=== PATIENT | female | born 1980 | race Caucasian/White ===

== ENCOUNTER 2018-05-07 09:23 | Outpatient (CLI) | payer MEDICARE, MEDICAID, SELFPAY ==
[2018-05-07 11:22] LABS: ALT 31 U/L (12-78); AST 19 U/L (15-37); Albumin 3.9 g/dL (3.4-5.0); Alkaline Phosphatase 63 U/L (46-116); Anion Gap 7.7 mmol/L (3-11); BUN 14 mg/dL (7-18); Bilirubin, Total 0.7 mg/dL (0.2-1.0); CO2 27.3 mmol/L (21.0-32.0); CREATININE 0.94 mg/dL (0.55-1.02); Calcium 8.5 mg/dL (8.5-10.1); Chloride 104 mmol/L (98-107); Cholesterol 161 mg/dL (50-200); Glucose 109 mg/dL (70-100); HDL Cholesterol 67 mg/dL (40-60); LDL CHOLESTEROL 93 mg/dL (<100); Potassium 4.5 mmol/L (3.5-5.1); Sodium 139 mmol/L (136-145); TSH 2.17 uIU/mL (0.358-3.74); Total Protein 7.2 g/dL (6.4-8.2); Triglyceride 39 mg/dL (30-150)
[2018-05-07 18:15] LABS: Lithium 0.71 mmol/L (0.60-1.20)
== END 2018-05-07 09:43 ==
PROVIDERS: PCP Internal Medicine; Visit Provider Nurse Practitioner Family
DX: F31.2 Bipolar disorder, current episode manic severe with psychotic features (principal); Z51.81 Encounter for therapeutic drug level monitoring; Z79.899 Other long term (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
CPT/HCPCS: 36415; 80053; 80061; 83721; 80178; 84443

== ENCOUNTER 2018-05-25 09:30 | Emergency (ER) | payer MEDICARE, MEDICAID, SELFPAY ==
[2018-05-25 09:35] VITALS: BP 130/76; PULSE 105; RESP 18; TEMP 36.8; O2SAT 99
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
[2018-05-25] MEDS: Ketorolac 30 MG/ML VIAL 15 MG IV (10:06)
[2018-05-25] MEDS: Normal Saline 1,000 ML 1000 ML IV (10:07)
[2018-05-25 10:08] LABS: Eosinophils % 1.1; HCT 42.9 % (36.0-46.0); HGB 14.3 g/dL (12.0-15.5); Mean Corp. HGB Concentration 33.3 g/dL (32.0-36.0); Mean Corpuscular Hemoglobin 31.6 pg (27.0-33.0); Mean Corpuscular Volume 94.9 fL (80-95); Mean Platelet Volume 9.4 fL (8.0-11.0); Monocytes % 10.8; Neutrophils % 80.6; Platelet Count 214 x1000/uL (130-400); RBC 4.52 m/cumm (4.00-5.20); RBC Distribution Width 13.3 % (11.7-14.6); White Blood Cell Count 16.62 k/cumm (4.4-10.8)
[2018-05-25 10:09] LABS: Abs Immature Grans 0.03 k/cumm (0.0-0.09); Absolute Basophil Count 0.05 k/cumm (0.0-0.2); Absolute Eosinophil Count 0.18 k/cumm (0.0-0.7); Absolute Lymphocyte Count 1.16 k/cumm (1.2-3.4); Absolute Monocyte Count 1.79 k/cumm (0.11-0.7); Basophils % 0.3; Immature Grans % 0.2
[2018-05-25 10:21] LABS: ALT 26 U/L (12-78); AST 17 U/L (15-37); Albumin 3.9 g/dL (3.4-5.0); Alkaline Phosphatase 69 U/L (46-116); Anion Gap 9.5 mmol/L (3-11); BUN 11 mg/dL (7-18); Bilirubin, Total 0.8 mg/dL (0.2-1.0); CO2 28.5 mmol/L (21.0-32.0); CREATININE 0.84 mg/dL (0.55-1.02); Calcium 8.8 mg/dL (8.5-10.1); Chloride 99 mmol/L (98-107); Glucose 102 mg/dL (70-100); Potassium 3.4 mmol/L (3.5-5.1); Sodium 137 mmol/L (136-145); Total Protein 8.4 g/dL (6.4-8.2)
[2018-05-25 10:35] LABS: Diff Comment Diff Reviewed
[2018-05-25 10:43] LABS: Bilirubin Negative (Negative); Blood Large (Negative); Clarity Cloudy; Glucose Negative (Negative); Ketones Trace mg/dL (Negative); Leukocyte Esterase Large (Negative); Nitrite Positive (Negative); Specific Gravity 1.015 (1.005-1.025); pH 7.5 (5-8)
[2018-05-25 10:56] LABS: Bacteria Many HPF (Negative); C & S Indicated? No/Sq. Contamination; Casts Negative LPF (Negative); Crystals Negative HPF (Negative); Epithelial Cells Many HPF (Negative); Mucus Heavy (Negative); RBC >50 (0-2); WBC >50 HPF (0-5)
[2018-05-25 11:24] LABS: Bilirubin Negative (Negative); Blood Moderate (Negative); Clarity Sl Cloudy; Glucose Negative (Negative); Ketones Negative (Negative); Leukocyte Esterase Moderate (Negative); Nitrite Positive (Negative)
[2018-05-25 11:33] LABS: Bacteria Many HPF (Negative); C & S Indicated? C&S Done As Ordered; Casts Negative LPF (Negative); Crystals Negative HPF (Negative); Epithelial Cells Few HPF (Negative); Mucus Negative (Negative); Other Cells Few Renal (Negative); RBC 20-50 (0-2); WBC >50 HPF (0-5)
[2018-05-25 13:37] VITALS: BP 135/80; PULSE 78; RESP 18; TEMP 36.8; O2SAT 95
== END 2018-05-25 13:38 | disposition home or self-care (01) ==
PROVIDERS: Emergency Provider Student in an Organized Health Care Education/Training Program; PCP Internal Medicine
DX: R39.0 Extravasation of urine (principal); B96.20 Unspecified Escherichia coli [E. coli] as the cause of diseases classified elsewhere
CPT/HCPCS: 80053; 87077; 96361; 96365; 96375; 99284; 81003; 81015; 85025; 87086; 87186; J0696; J1885

== ENCOUNTER 2018-11-16 15:39 | Emergency (ER) | payer MEDICARE, MEDICAID, SELFPAY ==
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
[2018-11-16 16:06] VITALS: PULSE 78; RESP 17
--- NOTE | 2018-11-16 16:22 | DI.RAD_ITS ---
SYMPTOMS/DIAGNOSIS: LATERAL ANKLE PAIN RIGHT ANKLE: There is marked lateral soft tissue swelling. There is a nondisplaced fracture extending transversely through the lateral malleolus at the level of the ankle mortise. There is also an area of fracture impaction seen at the lateral aspect of the distal tibia. The ankle mortise does not appear widened. IMPRESSION: Fractures of the distal tibia and fibula.
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
[2018-11-16] MEDS: Acetaminophen 500 MG TAB 1000 MG PO (16:34)
--- NOTE | 2018-11-16 18:02 | DI.VRAD_ITS ---
EXAM: XR Right Ankle Complete, 3 or more Views EXAM DATE/TIME: 11/16/2018 4:24 PM CLINICAL HISTORY: 38 years old, female; Pain; Ankle; Right TECHNIQUE: Imaging protocol: XR Right ankle 3 or more views. COMPARISON: No relevant prior studies available. FINDINGS: Bones/joints: Nondisplaced fracture in the distal fibula. Soft tissues: Lateral malleolar soft tissue swelling. IMPRESSION: 1. Lateral malleolar soft tissue swelling. 2. Nondisplaced fracture in the distal fibula. Dictated and Authenticated by: Willian Neves MD. Ordering:ILSA Guzman MD
== END 2018-11-16 18:36 | disposition home or self-care (01) ==
PROVIDERS: Emergency Provider Nurse Practitioner Family; PCP Internal Medicine
DX: S82.831A Other fracture of upper and lower end of right fibula, initial encounter for closed fracture (principal); X58.XXXA Exposure to other specified factors, initial encounter
CPT/HCPCS: 27786; 73610; E0114; L4361

== ENCOUNTER 2018-12-01 13:29 | Outpatient (CLI) | payer MEDICARE, MEDICAID, SELFPAY ==
--- NOTE | 2018-12-01 13:01 | DI.RAD_ITS ---
SYMPTOMS/DIAGNOSIS: RIGHT ANKLE FX RIGHT ANKLE: Four views were obtained and show a previously described fracture of the distal fibula with no gross interval change in alignment in comparison with the examination of November 16.
== END 2018-12-01 13:49 ==
PROVIDERS: PCP Internal Medicine; Referring Provider Internal Medicine; Visit Provider Student in an Organized Health Care Education/Training Program
DX: S82.64XA Nondisplaced fracture of lateral malleolus of right fibula, initial encounter for closed fracture (principal); X50.0XXA Overexertion from strenuous movement or load, initial encounter
CPT/HCPCS: 99204; 99214; 73610

== ENCOUNTER 2018-12-29 10:22 | Outpatient (CLI) | payer MEDICARE, MEDICAID, SELFPAY ==
--- NOTE | 2018-12-29 10:03 | DI.RAD_ITS ---
SYMPTOM/DIAGNOSIS: F/U FX RIGHT ANKLE: Three views were obtained and show a previously described minimally displaced fracture of the distal fibula with no gross interval change in alignment of the fracture fragments in comparison with the examination of 12/01.
== END 2018-12-29 10:42 ==
PROVIDERS: PCP Internal Medicine; Referring Provider Internal Medicine; Visit Provider Student in an Organized Health Care Education/Training Program
DX: S82.64XA Nondisplaced fracture of lateral malleolus of right fibula, initial encounter for closed fracture (principal); X58.XXXA Exposure to other specified factors, initial encounter
CPT/HCPCS: 99213; 73610; L1902

== ENCOUNTER 2019-02-09 09:43 | Outpatient (CLI) | payer MEDICARE, MEDICAID, SELFPAY ==
--- NOTE | 2019-02-09 09:22 | DI.RAD_ITS ---
SYMPTOMS/DIAGNOSIS: F/U RT LATERAL MALLEOLUS FRACTURE RIGHT ANKLE: Three views. Comparison 12/29/18. There is again seen a fracture of the distal right fibula. No change in alignment of the fracture is seen. No new fractures or dislocations are seen. There is persistent soft tissue swelling about the ankle laterally.
== END 2019-02-09 10:03 ==
PROVIDERS: PCP Internal Medicine; Referring Provider Internal Medicine; Visit Provider Student in an Organized Health Care Education/Training Program
DX: S82.64XK Nondisplaced fracture of lateral malleolus of right fibula, subsequent encounter for closed fracture with nonunion; X58.XXXD Exposure to other specified factors, subsequent encounter
CPT/HCPCS: 99213; 73610

== ENCOUNTER 2019-03-09 11:56 | Outpatient (CLI) | payer MEDICARE, MEDICAID, SELFPAY ==
[2019-03-09 13:23] LABS: ALT 29 U/L (12-78); AST 18 U/L (15-37); Albumin 3.8 g/dL (3.4-5.0); Alkaline Phosphatase 73 U/L (46-116); Anion Gap 9.7 mmol/L (3-11); BUN 8 mg/dL (7-18); Bilirubin, Total 0.3 mg/dL (0.2-1.0); CO2 24.3 mmol/L (21.0-32.0); CREATININE 0.91 mg/dL (0.55-1.02); Calcium 8.9 mg/dL (8.5-10.1); Calculated LDL 95 mg/dL; Chloride 105 mmol/L (98-107); Cholesterol 161 mg/dL (50-200); Glucose 111 mg/dL (70-100); HDL Cholesterol 58 mg/dL (40-60); Potassium 4.9 mmol/L (3.5-5.1); Sodium 139 mmol/L (136-145); TSH 2.85 uIU/mL (0.36-3.74); Total Protein 7.2 g/dL (6.4-8.2); Triglyceride 40 mg/dL (30-150)
[2019-03-09 13:44] LABS: Lithium 1.04 mmol/L (0.60-1.20)
== END 2019-03-09 12:16 ==
PROVIDERS: PCP Internal Medicine; Visit Provider Nurse Practitioner Family
DX: F31.2 Bipolar disorder, current episode manic severe with psychotic features (principal); Z51.81 Encounter for therapeutic drug level monitoring; Z79.899 Other long term (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
CPT/HCPCS: 36415; 80053; 80061; 83721; 80178; 84443

== ENCOUNTER 2019-04-20 12:53 | Outpatient (CLI) | payer MEDICARE, MEDICAID, SELFPAY ==
--- NOTE | 2019-04-20 11:29 | DI.RAD_ITS ---
EXAM: XR ANKLE RT COMPLETE INDICATION: Rt lateral malleolar fx. COMPARISON: XR ANKLE RT COMPLETE from 02/09/2019 TECHNIQUE: 2D digital imaging was performed. FINDINGS: The examination is compared with a previous study of 02/09/2019. Again noted is the mildly displaced f racture of the distal fibula. The fracture line remains visible with findings suggesting nonunion.
== END 2019-04-20 13:13 ==
PROVIDERS: PCP Internal Medicine; Referring Provider Internal Medicine; Visit Provider Student in an Organized Health Care Education/Training Program
DX: S82.61XK Displaced fracture of lateral malleolus of right fibula, subsequent encounter for closed fracture with nonunion (principal); X58.XXXD Exposure to other specified factors, subsequent encounter; F17.210 Nicotine dependence, cigarettes, uncomplicated
CPT/HCPCS: 99213; 73610

== ENCOUNTER 2019-05-26 08:34 | Day surgery (SDC) | payer MEDICARE, MEDICAID, SELFPAY ==
[2019-05-26] VITALS (8 sets, daily range): BP systolic 90–111; BP diastolic 61–77; PULSE 62–78; RESP 13–19; TEMP 36–36.4; O2SAT 93–99
--- NOTE | 2019-05-26 09:08 | DI.RAD_ITS ---
EXAM: 2D digital imaging was performed. CLINICAL HISTORY: RIGHT ANKLE FRACTURE. COMPARISON: XR ANKLE RT COMPLETE from 04/20/2019 FINDINGS: Fluoroscopy was utilized by Dr. Schmitz during the internal fixation of the right fibular fracture. Hard copy images show an intramedullary carley transfixing the fracture. The alignment of the fracture appears anatomic. Please refer to the procedure report for complete details. Fluoro time 56.0 sec
[2019-05-26] MEDS: Lactated Ringers 1,000 ML 80 ML IV (09:50)
[2019-05-26] MEDS: ceFAZolin 2 GM/50 ML BAG IVPB (10:00)
--- NOTE | 2019-05-26 10:38 | PDOC.DSDIS_ITS ---
Discharge Plan Disposition Patient Disposition: HOME Condition: Good Discharge Details Reason For Visit: ORIF R ankle Attending Provider: Mark Schmitz Primary Care Provider: Ava Messina Home Meds and New Rx's Prescriptions: New oxycodone 5 mg tablet 5 mg PO Q8H MDD 15mg PRN (Reason: pain) Qty: 10 RF: 0 Continued polyethylene glycol 3350 17 gram/dose powder See Rx Instructions PO DAILY PRN (Reason: constipation) Qty: 850 RF: 2 gabapentin 800 mg tablet 800 mg PO TID Qty: 180 RF: 3 Linzess 145 mcg capsule 145 mcg PO DAILY Qty: 90 RF: 3 ibuprofen 600 mg tablet 600 mg PO TID PRN (Reason: pain) Qty: 90 RF: 1 albuterol sulfate [Proventil HFA] 90 mcg/actuation HFA aerosol inhaler 1 - 2 puff IH Q4H Qty: 6.7 RF: 11 Symbicort 160-4.5 mcg/actuation HFA aerosol inhaler 2 puff Inhalation BID Qty: 1 RF: 11 Linzess 72 mcg capsule 72 mcg PO DAILY Qty: 30 RF: 11 olanzapine 15 MG tablet 20 mg PO HS RF: 0 clonidine HCl 0.2 MG tablet 0.2 mg PO BID RF: 0 lithium carbonate 450 MG tablet extended release 450 mg PO HS RF: 0 acetaminophen 500 MG tablet 1,000 mg PO Q6H PRN Qty: 50 RF: 5 Vyvanse 70 MG capsule 70 mg PO DAILY RF: 0 quetiapine [Seroquel] 50 MG tablet 100 mg PO HS RF: 0 docusate sodium [Colace] 100 MG capsule 100 mg PO DAILY Qty: 90 RF: 3 blister pack 30 Days RF: 0 sennosides [senna] 8.6 MG tablet 8.6 mg PO HS Qty: 90 RF: 11 methylphenidate HCl [Ritalin] 20 MG tablet 20 mg PO DAILY RF: 0 bupropion HCl [Wellbutrin SR] 100 MG tablet extended release 12 hr 100 mg PO DAILY RF: 0 (DME) Space Chamber Plus 1 EACH spacer Miscellaneous BID Qty: 1 RF: 0 IUD insert CERVICAL RF: 0 montelukast 10 mg tablet 10 mg PO HS Qty: 30 RF: 6 lactulose 20 gram/30 mL solution 20 gm PO BID Qty: 60 RF: 2 peg 3350-electrolytes [Golytely] 236-22.74-6.74 -5.86 gram recon soln See Rx Instructions PO .COMPLEX Qty: 4000 RF: 0 levothyroxine 50 mcg tablet 50 mcg PO DAILY Qty: 30 RF: 11 Discharge Instructions Additional Instructions: Ankle Operative Fixation Instructions Activity: You may weight bear as tolerated while using the crutches. You should keep the leg elevated as much as possible. You may wiggle your toes and move your hip and knee. You should wear the fracture walking boot when you are up and mobilizing, but may remove it when not and move your ankle as tolerated. Dressings: You should keep the initial dressing on until your follow up visit in the office. Medications: - You should take Tylenol and Ibuprofen around the clock for baseline pain. - You have been prescribed a stronger narcotic, oxycodone, for breakthrough pain. Follow-up: 2 weeks Referrals: Mark Schmitz MD [ [facility] STAFF PHYSICIAN] - Equipment/Supplies: Brace and Partial Weight Bearing Crutches Activity:: Activity as Tolerated Remove Dressings/Wound Care:: Do Not Remove Shower/Bathe:: Cover Diet:: As Tolerated DS: Diagnosis Discharge Diagnosis (1) Fracture of right ankle, lateral malleolus: Status: Chronic
[2019-05-26] MEDS: fentaNYL 100 MCG/2 ML VIAL IVP (12:12)
[2019-05-26] MEDS: oxyCODONE 5 MG TAB PO (13:31)
--- NOTE | 2019-05-27 09:21 | ROE_ITS ---
REPORT OF OPERATIVE PROCEDURE DATE OF SURGERY May 26, 2019 PREOPERATIVE DIAGNOSIS Right distal fibula nonunion. POSTOPERATIVE DIAGNOSIS Right distal fibula nonunion. PROCEDURE Operative fixation of right distal fibula nonunion. SURGEON Mark Schmitz M.D. ANESTHESIA General. ESTIMATED BLOOD LOSS 10 cc IMPLANTS Arthrex FibuLock 3 mm fibular nail. FINDINGS There was a nonunion of the distal fibula with no bony bridging of the fracture site. This was thoroughly debrided, stimulated with curette and osteotomes, packed with ViviGen, and transfixed with a fibular nail. COMPLICATIONS None. DISPOSITION The patient was awakened from anesthesia and taken to the PACU in stable condition. INDICATION FOR PROCEDURE Mayr Jane is a 39-year old who suffered a supination-adduction injury of her right ankle. She suffered a low Doss B or a high Doss A fibular fracture. This was treated conservatively. She seemed to make improvements with her ambulatory status, but still had continued pain. Repeat x-ray showed that the distal fibular had gone on to a nonunion. There were no signs of healing. Given the symptoms of pain, duration of time, I recommended operative fixation of a nonunion. I reviewed the technical features of the case. Given the extremely low level of the fibula made this technically challenging. I discussed this with the patient. I also reviewed the other risks to include bleeding, infection, pain, stiffness, continued nonunion, malunion, damage to nerves and vessels, damage to muscles and tendons, hardware prominence, hardware pain, hardware failure, blood clot, need for repeat procedures. Despite these risks, she elected to proceed. PROCEDURE DESCRIPTION Mary Jane was greeted in the preoperative holding area. Her identity was confirmed and the correct side was identified and marked. The consent was reviewed with the patient and signed. The history and physical was updated. The patient was taken back to the Operating Room, placed in the supine position. A general anesthetic was given. The right leg was then placed onto a bone foam leg ramp. A bump was placed underneath the right side to internally rotate the right leg. The right leg was then prepped with ChloraPrep and draped in a standard fashion. Prophylactic antibiotics in the form of cefazolin were given. A timeout was performed for safe surgery. Approximately a 6-cm incision was made overlying the distal fibula. This area was then injected with 0.25% bupivacaine with epinephrine. The deeper tissues were then incised directly over the fibula. The periosteum of the fibula was noted to be extremely thickened in this area. It was elevated and a subperiosteal dissection around the fibula at the level of the fracture. The fracture ridge was identified. With very minimal effort using a curette and osteotomes, the fracture plane was able to be identified. There was a notable amount of fibrous tissue seen in this area. Using curette, this was all removed. The distal segment of the fibula was loose, and was easily mobile. There noted to be more of a defect laterally than medially. Using a curette, I continued to remove out any excess fibrous tissue. I also used a curette to scrap the bone surfaces. There was no sclerosis seen in this area. Using a set of tenaculum clamps, I was able to compress the fracture back down leaving less than 2-mm of gapping laterally, but still maintaining reduction. I then opened ViviGen, bone matrix. This was prepared on the back table and then inserted into the fracture site to promote union. An Arthrex FibuLock nail was then placed. This was first done by placing a guidewire up the fibula; confirmed to be in good position on both the AP and the lateral. An opening reamer was then used followed by reamer up into the isthmus of the fibula. A 3-mm nail was then inserted without difficulty and only light mallet blows. This transfixed the fracture and noted good stability although the fracture level was low. I was able to have two screws in the distal segment. The talons of the proximal aspect of the femur were then locked. Two screws were placed distally. The third most distal screw fell into the fracture site and therefore was not used. This appeared to have good stability of the fracture. The fracture was nonmobile. Any remnant ViviGen was placed at the fracture site. The screws were not proud and noted not to penetrate into the joint surface. The wound was then irrigated. 0.25% bupivacaine with epinephrine was injected to any of the deep surfaces and periosteal surfaces. The periosteum around the fibula was then closed with a #2-0 Vicryl. The deep tissues was closed with #3-0 Vicryl. The skin was closed with #4-0 Nylon. The wound was dressed with 4x4s and an Otilio wrap. She was then placed into a walker boot. At the end of the case, all counts were correct. There were no noted complications. She was transferred back to the PACU in stable condition.
== END 2019-05-26 14:47 | disposition home or self-care (01) ==
PROVIDERS: PCP Internal Medicine; Visit Provider Student in an Organized Health Care Education/Training Program
PROC: (CPT 27726; principal; 2019-05-26 10:15)
DX: S82.61XK Displaced fracture of lateral malleolus of right fibula, subsequent encounter for closed fracture with nonunion (principal); M25.571 Pain in right ankle and joints of right foot; X58.XXXD Exposure to other specified factors, subsequent encounter
CPT/HCPCS: 27726; C1713; 73600; E0114; J0690; J3010; L4361

== ENCOUNTER 2019-06-08 15:51 | Outpatient (CLI) | payer MEDICARE, MEDICAID, SELFPAY ==
--- NOTE | 2019-06-08 15:41 | DI.RAD_ITS ---
EXAM: XR ANKLE RT COMPLETE INDICATION: 1ST POST OP. COMPARISON: XR ANKLE RT COMPLETE from 04/20/2019 XR ANKLE RT 2V from 05/26/2019 TECHNIQUE: 2D digital imaging was performed. FINDINGS: There is again seen an intramedullary carley transfixing the fracture of the distal right fibula. It is unchanged compared to the intraoperative films from 05/26/2019. There is soft tissue swelling about the ankle laterally.
== END 2019-06-08 16:11 ==
PROVIDERS: PCP Internal Medicine; Visit Provider Student in an Organized Health Care Education/Training Program
DX: S82.64XK Nondisplaced fracture of lateral malleolus of right fibula, subsequent encounter for closed fracture with nonunion (principal); X58.XXXD Exposure to other specified factors, subsequent encounter; F17.210 Nicotine dependence, cigarettes, uncomplicated
CPT/HCPCS: L4360; 73610

== ENCOUNTER 2019-06-22 15:34 | Outpatient (CLI) | payer MEDICARE, MEDICAID, SELFPAY ==
--- NOTE | 2019-06-22 15:27 | DI.RAD_ITS ---
EXAM: XR ANKLE RT COMPLETE INDICATION: f/u of right ankle ORIF. COMPARISON: XR ANKLE RT COMPLETE from 06/08/2019 TECHNIQUE: 2D digital imaging was performed. FINDINGS: Anintramedullary carley remains in place in the distal fibula. There has been no change in fracture ali gnment. Soft tissue swelling remains present around the lateral aspect of the ankle. No new abnorma lities are seen.
== END 2019-06-22 15:54 ==
PROVIDERS: PCP Internal Medicine; Referring Provider Internal Medicine; Visit Provider Student in an Organized Health Care Education/Training Program
DX: S82.64XD Nondisplaced fracture of lateral malleolus of right fibula, subsequent encounter for closed fracture with routine healing (principal); X58.XXXD Exposure to other specified factors, subsequent encounter; F17.210 Nicotine dependence, cigarettes, uncomplicated
CPT/HCPCS: 73610

== ENCOUNTER 2019-08-06 12:28 | Outpatient (CLI) | payer MEDICARE, MEDICAID, SELFPAY ==
--- NOTE | 2019-08-06 11:55 | DI.RAD_ITS ---
EXAM: XR ANKLE RT 2V CLINICAL HISTORY: f/u R lat mal nonunion fixation TECHNIQUE: COMPARISON: XR ANKLE RT COMPLETE from 06/22/2019 FINDINGS: Two views were obtained and show fixation of fracture of the distal fibula with no gross interval tracey nge in alignment in comparison with examination of June 22. IMPRESSION:
== END 2019-08-06 12:48 ==
PROVIDERS: PCP Internal Medicine; Referring Provider Internal Medicine; Visit Provider Student in an Organized Health Care Education/Training Program
DX: S82.61XD Displaced fracture of lateral malleolus of right fibula, subsequent encounter for closed fracture with routine healing; X58.XXXD Exposure to other specified factors, subsequent encounter
CPT/HCPCS: 73600; L1902

== ENCOUNTER → 2019-09-14 13:33 | Outpatient (BNVA) | payer MEDICARE, MEDICAID, SELFPAY | PROVIDERS: PCP Internal Medicine; Referring Provider Internal Medicine; Visit Provider Student in an Organized Health Care Education/Training Program | DX: S82.61XA Displaced fracture of lateral malleolus of right fibula, initial encounter for closed fracture (principal); S82.64XK Nondisplaced fracture of lateral malleolus of right fibula, subsequent encounter for closed fracture with nonunion; X58.XXXD Exposure to other specified factors, subsequent encounter | CPT/HCPCS: 99212 ==

== ENCOUNTER 2019-10-20 15:59 | Emergency (ER) | payer MEDICARE, MEDICAID, SELFPAY ==
[2019-10-20 16:04] VITALS: BP 97/81; PULSE 72; RESP 18; TEMP 36.9; O2SAT 97
--- NOTE | 2019-10-20 16:20 | ED.GENADUL_ITS ---
Discharge Plan Disposition Patient Disposition: HOME Condition: Stable Discharge Details Chief Complaint: Nausea/Vomit/Diar Clinical Impression: Encounter for medical screening examination Primary Care Provider: Ava Messina ED Provider: Ramon Mcfarlane Home Meds and New Rx's Prescriptions: No Action polyethylene glycol 3350 17 gram/dose powder See Rx Instructions PO DAILY PRN (Reason: constipation) Qty: 850 RF: 2 gabapentin 800 mg tablet 800 mg PO TID Qty: 180 RF: 3 Linzess 145 mcg capsule 145 mcg PO DAILY Qty: 90 RF: 3 ibuprofen 600 mg tablet 600 mg PO TID PRN (Reason: pain) Qty: 90 RF: 1 peg 3350-electrolytes [Golytely] 236-22.74-6.74 -5.86 gram recon soln See Rx Instructions PO DAILY Qty: 4000 RF: 11 albuterol sulfate [Proventil HFA] 90 mcg/actuation HFA aerosol inhaler 1 - 2 puff IH Q4H Qty: 6.7 RF: 11 prednisone 10 mg tablet See Rx Instructions PO DAILY Qty: 16 RF: 0 budesonide-formoterol [Symbicort] 160-4.5 mcg/actuation HFA aerosol inhaler 2 puff Inhalation BID Qty: 1 RF: 11 olanzapine 15 MG tablet 20 mg PO HS RF: 0 clonidine HCl 0.2 MG tablet 0.2 mg PO BID RF: 0 lithium carbonate 450 MG tablet extended release 450 mg PO HS RF: 0 acetaminophen 500 MG tablet 1,000 mg PO Q6H PRN Qty: 50 RF: 5 Vyvanse 70 MG capsule 70 mg PO DAILY RF: 0 quetiapine [Seroquel] 50 MG tablet 100 mg PO HS RF: 0 docusate sodium [Colace] 100 MG capsule 100 mg PO DAILY Qty: 90 RF: 3 blister pack 30 Days RF: 0 sennosides [senna] 8.6 MG tablet 8.6 mg PO HS Qty: 90 RF: 11 methylphenidate HCl [Ritalin] 20 MG tablet 20 mg PO DAILY RF: 0 bupropion HCl [Wellbutrin SR] 100 MG tablet extended release 12 hr 100 mg PO DAILY RF: 0 (DME) Space Chamber Plus 1 EACH spacer Miscellaneous BID Qty: 1 RF: 0 IUD insert CERVICAL RF: 0 levothyroxine 50 mcg tablet 50 mcg PO DAILY Qty: 30 RF: 11 montelukast 10 mg tablet 10 mg PO HS Qty: 30 RF: 6 Discharge Instructions Additional Instructions: At this time he has been asymptomatic for over 48 hours. I see no clear indication why you may not return to work. Given you work with the public, be sure to wash your hands frequently and thoroughly I do recommend wearing a mask at all times. Stand Alone Forms: Work Release Medical Decision Making 39-year-old female who is asymptomatic request a work note. She reports having nausea, vomiting, diarrhea, abdominal cramping on Saturday, has been asymptomatic for over 48 hours. No known exposure to the coronavirus nor has she had any recent travel. At this time she does not meet clear criteria for Covid testing. Will provide a work note so she may return tomorrow Medical Records Medical records reviewed: Yes I reviewed the patient's medical records. HPI General Mode of arrival: ambulatory . Date/Time Provider Initiated Documentation: 10/20/19 16:20 . Limitations to Documentation: no limitations . Information obtained by: patient . HPI Narrative: This is a 39-year-old female with a history of asthma presenting to the ER today requesting a work note that she may return to work. She reports that on Saturday she had nausea, vomiting, diarrhea, abdominal cramping and was unable to go to work. She had no fever at that time. She denies any recent travel or any known exposure with a positive coronavirus patient. She has been asymptomatic for over 48 hours. She has no additional questions or concerns at this time. She works tomorrow and her work will not let her return unless she is medically cleared Related Data Home Medications Medication Instructions Recorded Confirmed olanzapine 20 mg PO HS tab-cap 08/05/14 09/14/19 clonidine HCl 0.2 mg PO BID tab-cap 08/16/14 09/14/19 lithium carbonate 450 mg PO HS tab-cap 08/16/14 09/14/19 acetaminophen 1,000 mg PO Q6H PRN #50 tab-cap 12/06/14 09/14/19 Vyvanse 70 mg PO DAILY tab-cap 10/26/15 09/14/19 docusate sodium [Colace] 100 mg PO DAILY #90 tab-cap 09/11/16 09/14/19 quetiapine [Seroquel] 100 mg PO HS tab-cap 09/11/16 09/14/19 Blister Pack 30 Days 01/23/17 09/14/19 sennosides [senna] 8.6 mg PO HS #90 tab 01/23/17 09/14/19 Space Chamber Plus #1 12/10/17 09/14/19 bupropion HCl [Wellbutrin SR] 100 mg PO DAILY tab 12/10/17 09/14/19 methylphenidate HCl [Ritalin] 20 mg PO DAILY tab 12/10/17 09/14/19 polyethylene glycol 3350 17 See Rx Instructions PO DAILY PRN 05/20/18 09/14/19 gram/dose oral powder #850 gm IUD CERVICAL 08/13/18 09/14/19 albuterol sulfate 90 mcg/actuation 1 - 2 puff IH Q4H #6.7 gm 09/09/18 09/14/19 aerosol inhaler gabapentin 800 mg tablet 800 mg PO TID #180 tab 10/14/18 09/14/19 ibuprofen 600 mg tablet 600 mg PO TID PRN #90 tab 01/28/19 09/14/19 linaclotide 145 mcg capsule 145 mcg PO DAILY #90 cap 01/28/19 09/14/19 levothyroxine 50 mcg tablet 50 mcg PO DAILY #30 tab-cap 04/14/19 09/14/19 prednisone 10 mg tablet See Rx Instructions PO DAILY #16 08/05/19 09/14/19 tab-cap budesonide-formoterol HFA 160 2 puff INHALATION BID #1 inhaler 08/06/19 09/14/19 mcg-4.5 mcg/actuation aerosol inhaler montelukast 10 mg tablet 10 mg PO HS #30 tab-cap 08/24/19 09/14/19 peg 3350-electrolytes 236 See Rx Instructions PO DAILY #4000 08/26/19 09/14/19 gram-22.74 gram-6.74 gram-5.86 ml gram solution Previous Rx's Medication Instructions Recorded polyethylene glycol 3350 17 See Rx Instructions PO DAILY PRN 05/20/18 gram/dose oral powder #850 gm albuterol sulfate 90 mcg/actuation 1 - 2 puff IH Q4H #6.7 gm 09/09/18 aerosol inhaler gabapentin 800 mg tablet 800 mg PO TID #180 tab 10/14/18 ibuprofen 600 mg tablet 600 mg PO TID PRN #90 tab 01/28/19 linaclotide 145 mcg capsule 145 mcg PO DAILY #90 cap 01/28/19 levothyroxine 50 mcg tablet 50 mcg PO DAILY #30 tab-cap 04/14/19 prednisone 10 mg tablet See Rx Instructions PO DAILY #16 08/05/19 tab-cap budesonide-formoterol HFA 160 2 puff INHALATION BID #1 inhaler 08/06/19 mcg-4.5 mcg/actuation aerosol inhaler montelukast 10 mg tablet 10 mg PO HS #30 tab-cap 08/24/19 peg 3350-electrolytes 236 See Rx Instructions PO DAILY #4000 08/26/19 gram-22.74 gram-6.74 gram-5.86 ml gram solution Allergies Allergy/AdvReac Type Severity Reaction Status Date / Time oxycodone AdvReac Intermediate Nausea Verified 09/14/19 13:37 amphetamine AdvReac Unknown addiction Verified 09/14/19 13:37 VÁZQUEZ PEPPERS Allergy Severe HIVES,SWELL Uncoded 09/14/19 13:37 ING General Stated Complaint: Nausea/Vomit/Diar ROWENA: 5 Review of Systems Constitutional Constitutional: Denies fever(s) and Denies headache(s) ENT Ears, Nose, Mouth, and Throat: Denies headache(s) and Denies sore throat Cardiovascular Cardiovascular: Denies chest pain and Denies dyspnea Respiratory Respiratory: Denies cough and Denies dyspnea Gastrointestinal Gastrointestinal: Reports abdominal pain (On Saturday ), Reports diarrhea (On Saturday), Reports nausea (On Saturday) and Reports vomiting (On Saturday) Genitourinary Genitourinary: Reports dysuria Musculoskeletal Musculoskeletal: Denies myalgias Integumentary/Breasts Skin/Breast: Denies rash Neurologic Neurologic: Denies headache(s) [facility] Medical History Anxiety (Chronic 03/19/13) Asthma (Chronic) Attention deficit hyperactivity disorder (Chronic 10/17/12) Bipolar disease, chronic (Chronic) a. Manic flare. Chronic constipation (Chronic) Encounter for long-term (current) use of non-steroidal anti-inflammatories (Chronic 12/06/14) Hypothyroid (Chronic 10/11/14) PTSD (post-traumatic stress disorder) (Chronic) Substance abuse (Inactive 01/01/13) Tobacco use disorder (Chronic 03/03/13) Surgical History head surgery from accident Family History Grandmother Personal history of malignant neoplasm lung CA Maternal Aunt Personal history of malignant neoplasm throid CA Other Alcohol abuse Anxiety Asthma Breast cancer Family history of thyroid problem Social History Smoking/Tobacco Use Status: Current every day Tobacco Type: cigarettes Smoking packs per day: 1 Smoking cigarettes per day: 20.0 Quit status: considering quitting Alcohol Intake: current Alcohol Intake frequency: holidays/special occasions only Details: NONE Drug use: Daily Substance use type: marijuana Details: Last used marijuana 05/26/19 at 2100. Household members: children Housing: apartment Number of Children: 1 Communication Needs: Corrective Lenses current occupation: unemployed Current gender identity: female How often do you talk on the phone with friends or family?: three or more times per week Panel score (0-1 are the most socially isolated patients): 1 What type of physical activity do you participate in: walking Duration: 30-45 minutes/day Seatbelt use: always Water heater temp set <120 deg: Yes Working smoke detector in home: Yes Fire extinguisher in home: Yes Carbon monox detector in home: Yes Do you feel safe at home: Yes Do you feel safe in your relationship?: Yes Exam Const General: cooperative, healthy appearing, comfortable and no acute distress Orientation: alert, awake and oriented x3 HENMT Head: normal to inspection, normocephalic and atraumatic Mouth: moist mucous membranes Eyes Conjunctivae: conjunctivae normal Neck Neck: normal visual inspection, trachea midline and supple Resp Effort & Inspection: normal respiratory effort and able to speak in complete sentences Auscultation: clear to auscultation bilaterally Cardio Rate: regular rate Rhythm: regular rhythm GI Palpation: soft and nontender Skin General skin exam: no rashes or lesions noted Neuro General: patient alert, patient awake, moves all extremities and no focal motor deficits Sensory Exam: no sensory deficits noted Psych Appearance: grossly normal Mental Status: mental status grossly normal Course Vital Signs Vital signs: Vital Signs Temperature 36.9 C 10/20/19 16:04 Pulse 72 10/20/19 16:04 Respiratory Rate 18 10/20/19 16:04 Blood Pressure 97/81 L 10/20/19 16:04 Pulse Oximetry 97 10/20/19 16:04 Temperature 36.9 C 10/20/19 16:04 Temperature Source Skin 10/20/19 16:04 Pulse 72 10/20/19 16:04 Respiratory Rate 18 10/20/19 16:04 Respiratory Effort Non-Labored 10/20/19 16:14 Blood Pressure 97/81 L 10/20/19 16:04 Blood Pressure Position Sitting 10/20/19 16:04 Pulse Oximetry 97 10/20/19 16:04 Oxygen Delivery Method Room Air 10/20/19 16:04 Oxygen Flow Rate 0 10/20/19 16:04
== END 2019-10-20 16:41 | disposition home or self-care (01) ==
PROVIDERS: Emergency Provider Physician Assistant; PCP Internal Medicine
DX: R11.2 Nausea with vomiting, unspecified (principal); Z02.79 Encounter for issue of other medical certificate
CPT/HCPCS: 99281; 99282

== ENCOUNTER 2020-06-09 02:11 | Outpatient (CLI) | payer MEDICARE, MEDICAID, SELFPAY ==
[2020-06-09 14:24] LABS: TSH (W/Ref FT4) 3.31 uIU/mL (0.36-3.74)
== END 2020-06-09 02:31 ==
PROVIDERS: PCP Internal Medicine; Visit Provider Internal Medicine
DX: E03.9 Hypothyroidism, unspecified (principal)
CPT/HCPCS: 36415; 84443

== ENCOUNTER 2020-07-11 14:50 | Outpatient (REF) | payer MEDICARE, MEDICAID, SELFPAY ==
--- NOTE | 2020-07-11 13:30 | PAPFT_PTH ---
PATIENT: Mary Jane Lowe LOC: [facility] U#:[id number] AGE/SX: 40/F ROOM: RE07/11/[address]: DILAN Hill : 1980 BED: DIS: 07/11/2020 SPEC #: [id number] RECD: 07/11/20 17:58 STATUS: TANNER REQ #: [id number] JOSE L: 07/11/20 13:[address]: Caitie Mayers DEPT: [facility] Cytology RECD BY: Moraima Victor ENTERED: 07/11/20 17:59 SP TYPE: PAPFT OT DR: Ava Messina MD Tissues: 1 - CX/ENDOCX FOR PAP SMEARS Procedures: PAP THIN PREP/UVM Screening HPV DNA PROBE Comments: [id number]
[2020-07-12 13:07] LABS: Chlamydia Result Negative (Negative); GC Result Negative (Negative)
== END 2020-07-11 15:10 ==
LOC: LBN 14:50
PROVIDERS: PCP Internal Medicine; Visit Provider Nurse Practitioner Family
DX: Z11.3 Encounter for screening for infections with a predominantly sexual mode of transmission (principal); Z12.4 Encounter for screening for malignant neoplasm of cervix; Z11.51 Encounter for screening for human papillomavirus (HPV)
CPT/HCPCS: 87491; 87591; 88142; 87624

== ENCOUNTER 2021-03-29 22:39 | Emergency (ER) | payer MEDICARE, MEDICAID, SELFPAY ==
[2021-03-29 22:40] VITALS: BP 116/68; PULSE 94; RESP 16; TEMP 36.4; O2SAT 98
--- NOTE | 2021-03-29 22:56 | ED.GENADUL_ITS ---
Discharge Plan Disposition Patient Disposition: HOME Condition: Good Discharge Details Clinical Impression: Alcohol intoxication Primary Care Provider: Ava Messina ED Provider: Antolin Anderson Meds and New Rx's Prescriptions: No Action polyethylene glycol 3350 17 gram/dose powder See Rx Instructions PO DAILY PRN (Reason: constipation) Qty: 850 RF: 2 gabapentin 800 mg tablet 800 mg PO TID Qty: 180 RF: 3 Linzess 145 mcg capsule 145 mcg PO DAILY Qty: 90 RF: 3 ibuprofen 600 mg tablet 600 mg PO TID PRN (Reason: pain) Qty: 90 RF: 1 peg 3350-electrolytes [Golytely] 236-22.74-6.74 -5.86 gram recon soln See Rx Instructions PO DAILY Qty: 4000 RF: 11 levothyroxine 50 mcg tablet 50 mcg PO DAILY Qty: 90 RF: 2 olanzapine 15 MG tablet 20 mg PO HS RF: 0 clonidine HCl 0.2 MG tablet 0.2 mg PO BID RF: 0 lithium carbonate 450 MG tablet extended release 450 mg PO HS RF: 0 acetaminophen 500 MG tablet 1,000 mg PO Q6H PRN Qty: 50 RF: 5 Vyvanse 70 MG capsule 70 mg PO DAILY RF: 0 quetiapine [Seroquel] 50 MG tablet 100 mg PO HS RF: 0 docusate sodium [Colace] 100 MG capsule 100 mg PO DAILY Qty: 90 RF: 3 blister pack 30 Days RF: 0 sennosides [senna] 8.6 MG tablet 8.6 mg PO HS Qty: 90 RF: 11 methylphenidate HCl [Ritalin] 20 MG tablet 20 mg PO DAILY RF: 0 bupropion HCl [Wellbutrin SR] 100 MG tablet extended release 12 hr 100 mg PO DAILY RF: 0 (DME) Space Chamber Plus 1 EACH spacer Miscellaneous BID Qty: 1 RF: 0 IUD insert CERVICAL RF: 0 albuterol sulfate [Proventil HFA] 90 mcg/actuation HFA aerosol inhaler 1 - 2 puff IH Q4H Qty: 6.7 RF: 11 budesonide-formoterol [Symbicort] 160-4.5 mcg/actuation HFA aerosol inhaler 2 puff Inhalation BID Qty: 1 RF: 11 montelukast 10 mg tablet 10 mg PO HS Qty: 30 RF: 0 Discharge Instructions Instructions: Alcohol Intoxication (ED) Additional Instructions: You should avoid alcohol in the future, especially with the potential interactions with your psychiatric medications. Attend court this morning as planned. Follow up with mental health as previously scheduled. Return to ED for any unsafe feelings, thoughts of harm, or other concerns. Discharge Data Discharge Date/Time-TO BE ENTERED AT DEPARTURE: 03/30/21 06:25 Medical Decision Making <Arya Benoit MD - Last Filed: 04/13/21 20:29> 11:00 -?40-year-old female here with altered mental status, suspect acute intoxication. Patient hemodynamically stable. Saturating well. No respiratory distress. Patient denies suicidality. Patient refusing any interventions. Plan to initiate one-to-one observation to monitor patient for safety. Plan to reassess for clinical sobriety. <Antolin Anderson MD - Last Filed: 03/30/21 06:44> 23:50 - Patient signed out to me pending clinical sobriety and reevaluation for mental health. She is intoxicated. She had told police that she was suicidal. She has denied this to Dr. Benoit. For the most part has been cooperative. Would like her evening medications. Fortunately, these were just prescribed to her on , and I am able to ascertain what she is supposed to be on from the pharmacy records. She does have a CPSO assigned mostly because of her intoxication. Will reevaluate when clinically more sober. 05:30 - Patient awake this morning reporting a court appearance later this morning in regards to a custody issue. Denies any SI or HI. Wants to sleep a little longer and then would like to be discharged to attend court. I think this is appropriate and patient poses no current threat to self or others. HPI <Arya Benoit MD - Last Filed: 04/13/21 20:29> General Mode of arrival: EMS (PD) . Date/Time Provider Initiated Documentation: 03/29/21 22:52 . Limitations to Documentation: altered mental status . Information obtained by: police . HPI Narrative: 40-year-old female with multiple medical problems including history of substance abuse, hypothyroidism, PTSD, bipolar disorder, traumatic brain injury, here with altered mental status. Patient arrives with law enforcement who relinquished custody noting concern for intoxication and that patient expressed suicidal thoughts. Patient denies suicidality to me and also ED nurse. Patient admits to consuming alcoholic beverages tonight. She denies drug use. History limited secondary to altered mental status. Related Data Home Medications Medication Instructions Recorded Confirmed olanzapine 20 mg PO HS tab-cap 08/05/14 03/29/21 clonidine HCl 0.2 mg PO BID tab-cap 08/16/14 03/29/21 lithium carbonate 450 mg PO HS tab-cap 08/16/14 03/29/21 acetaminophen 1,000 mg PO Q6H PRN #50 tab-cap 12/06/14 07/11/20 Vyvanse 70 mg PO DAILY tab-cap 10/26/15 07/11/20 docusate sodium [Colace] 100 mg PO DAILY #90 tab-cap 09/11/16 07/11/20 quetiapine [Seroquel] 100 mg PO HS tab-cap 09/11/16 03/29/21 Blister Pack 30 Days 01/23/17 07/11/20 sennosides [senna] 8.6 mg PO HS #90 tab 01/23/17 03/29/21 Space Chamber Plus #1 12/10/17 07/11/20 bupropion HCl [Wellbutrin SR] 100 mg PO DAILY tab 12/10/17 07/11/20 methylphenidate HCl [Ritalin] 20 mg PO DAILY tab 12/10/17 07/11/20 polyethylene glycol 3350 17 See Rx Instructions PO DAILY PRN 05/20/18 07/11/20 gram/dose oral powder #850 gm IUD CERVICAL 08/13/18 07/11/20 gabapentin 800 mg tablet 800 mg PO TID #180 tab 10/14/18 03/29/21 ibuprofen 600 mg tablet 600 mg PO TID PRN #90 tab 01/28/19 07/11/20 linaclotide 145 mcg capsule 145 mcg PO DAILY #90 cap 01/28/19 07/11/20 peg 3350-electrolytes 236 See Rx Instructions PO DAILY #4000 08/26/19 07/11/20 gram-22.74 gram-6.74 gram-5.86 ml gram solution albuterol sulfate 90 mcg/actuation 1 - 2 puff IH Q4H #6.7 gm 06/27/20 07/11/20 aerosol inhaler budesonide-formoterol HFA 160 2 puff INHALATION BID #1 inhaler 06/27/20 07/11/20 mcg-4.5 mcg/actuation aerosol inhaler montelukast 10 mg tablet 10 mg PO HS #30 tab-cap 07/27/20 03/29/21 levothyroxine 50 mcg tablet 50 mcg PO DAILY #90 tab-cap 09/14/20 09/14/20 Previous Rx's Medication Instructions Recorded polyethylene glycol 3350 17 See Rx Instructions PO DAILY PRN 05/20/18 gram/dose oral powder #850 gm gabapentin 800 mg tablet 800 mg PO TID #180 tab 10/14/18 ibuprofen 600 mg tablet 600 mg PO TID PRN #90 tab 01/28/19 linaclotide 145 mcg capsule 145 mcg PO DAILY #90 cap 01/28/19 peg 3350-electrolytes 236 See Rx Instructions PO DAILY #4000 08/26/19 gram-22.74 gram-6.74 gram-5.86 ml gram solution albuterol sulfate 90 mcg/actuation 1 - 2 puff IH Q4H #6.7 gm 06/27/20 aerosol inhaler budesonide-formoterol HFA 160 2 puff INHALATION BID #1 inhaler 06/27/20 mcg-4.5 mcg/actuation aerosol inhaler montelukast 10 mg tablet 10 mg PO HS #30 tab-cap 07/27/20 levothyroxine 50 mcg tablet 50 mcg PO DAILY #90 tab-cap 09/14/20 Allergies Allergy/AdvReac Type Severity Reaction Status Date / Time oxycodone AdvReac Intermediate Nausea Verified 09/14/20 12:28 amphetamine AdvReac Unknown addiction Verified 09/14/20 12:28 VÁZQUEZ PEPPERS Allergy Severe HIVES,SWELL Uncoded 09/14/20 12:28 ING General Stated Complaint: ETOHWithdr ROWENA: 3 Review of Systems <Arya Benoit MD - Last Filed: 04/13/21 20:29> Cardiovascular Cardiovascular: Denies chest pain and Denies dyspnea Respiratory Respiratory: Denies dyspnea Gastrointestinal Gastrointestinal: Denies abdominal pain Psychiatric Psychiatric: Denies homicidal ideation and Denies suicidal ideation PFSH <Arya Benoit MD - Last Filed: 04/13/21 20:29> Medical History (Updated 03/30/21 @ 05:34 by Antolin Anderson MD) Anxiety (08/22/13) Asthma Attention deficit hyperactivity disorder (10/17/12) Bipolar disease, chronic a. Manic flare. Chronic constipation Encounter for long-term (current) use of non-steroidal anti-inflammatories (12/06/14) Hypothyroid (10/11/14) PTSD (post-traumatic stress disorder) Substance abuse (01/01/13) Tobacco use disorder (03/03/13) Surgical History head surgery from accident Family History Grandmother Personal history of malignant neoplasm lung CA Maternal Aunt Personal history of malignant neoplasm throid CA Other Alcohol abuse Anxiety Asthma Breast cancer Family history of thyroid problem Social History Smoking/Tobacco Use Status: Current every day Tobacco Type: cigarettes Smoking packs per day: 1 Smoking cigarettes per day: 20.0 Quit status: considering quitting Smoking risk assessment performed?: Yes Alcohol Intake: current Alcohol Intake frequency: 3 or more drinks per day Alcohol type: beer Details: NONE Drug use: Occasionally Substance use type: marijuana Details: Last used marijuana 05/26/19 at 2100. Household members: children Housing: apartment Number of Children: 1 Communication Needs: Corrective Lenses current occupation: unemployed Current gender identity: female How often do you talk on the phone with friends or family?: three or more times per week Panel score (0-1 are the most socially isolated patients): 1 What type of physical activity do you participate in: walking Duration: 30-45 minutes/day Seatbelt use: always Water heater temp set <120 deg: Yes Working smoke detector in home: Yes Fire extinguisher in home: Yes Carbon monox detector in home: Yes Do you feel safe at home: Yes Do you feel safe in your relationship?: Yes Exam <Arya Benoit MD - Last Filed: 04/13/21 20:29> Const General: cooperative and no acute distress HENMT Head: normocephalic and atraumatic Mouth: moist mucous membranes Eyes Conjunctivae: normal conjunctivae Sclera: normal sclerae Neck Neck: trachea midline and supple Resp Auscultation: clear to auscultation bilaterally, no rales, no rhonchi and no wheezes Cardio Rate: regular rate and not tachycardic Rhythm: regular rhythm GI Palpation: soft, not firm, no guarding, no masses, not rigid and nontender Skin General skin exam: no rashes or lesions noted Neuro General: patient alert, patient awake, oriented Patient Orientation: Person and Time and tone normal Extrem General: no edema Psych Appearance: disheveled Speech and Movement: slurred speech Course <Arya Benoit MD - Last Filed: 04/13/21 20:29> Vital Signs Vital signs: Vital Signs Temperature 36.4 C L 03/29/21 22:40 Pulse 94 H 03/29/21 22:40 Respiratory Rate 16 03/29/21 22:40 Blood Pressure 116/68 03/29/21 22:40 Pulse Oximetry 98 03/29/21 22:40 Temperature 36.4 C L 03/29/21 22:40 Pulse 94 H 03/29/21 22:40 Respiratory Rate 16 03/29/21 22:40 Respiratory Effort Non-Labored 03/29/21 22:44 Blood Pressure 116/68 03/29/21 22:40 Pulse Oximetry 98 03/29/21 22:40 Oxygen Delivery Method Room Air 03/29/21 22:40 Oxygen Flow Rate 0 03/29/21 22:40 Pain Level 0 03/29/21 22:40 Sign Out <Arya Benoit MD - Last Filed: 04/13/21 20:29> Sign Out Data: Sign Out Comment: Reassess patient for clinical sobriety and reassess for psychiatric illness. Last updated by Arya Benoit MD at 03/29/21 23:13
[2021-03-30] MEDS: QUEtiapine 25 MG TAB 50 MG PO (00:28)
[2021-03-30] MEDS: hydrOXYzine PAMOATE 25 MG CAP 50 MG PO (00:28)
[2021-03-30] MEDS: Gabapentin 800 MG TAB PO (00:28)
[2021-03-30] MEDS: cloNIDine 0.1 MG TAB 0.2 MG PO (00:28)
[2021-03-30] MEDS: Montelukast 10 MG TAB PO (00:28)
[2021-03-30] MEDS: Prazosin 1 MG CAP 2 MG PO (00:28)
[2021-03-30 06:53] VITALS: BP 116/68; PULSE 94; RESP 16; TEMP 36.4; O2SAT 98
== END 2021-03-30 06:25 | disposition home or self-care (01) ==
PROVIDERS: Emergency Provider Emergency Medicine; PCP Internal Medicine
DX: F10.120 Alcohol abuse with intoxication, uncomplicated (principal)
CPT/HCPCS: 99285; 99283; J3490

== ENCOUNTER 2021-04-19 05:26 | Emergency (ER) | payer MEDICARE, MEDICAID, SELFPAY ==
--- NOTE | 2021-04-19 05:30 | DI.CT_ITS ---
Exam(s) CT HEAD CERV SPINE FACIAL WO EXAM: CT HEAD CERV SPINE FACIAL WO CLINICAL HISTORY: head trauma, facial laceration, fall. TECHNIQUE: Imaging Protocol: Axial computed tomography images with coronal and sagittal reformatted images were created and reviewed COMPARISON: No exams were available for comparison FINDINGS: CT BRAIN: There are no skull fractures nor fluid in the visualized paranasal sinuses. There is no evidence of intracranial hemorrhage, mass effect, or shift of midline structures. There are no extra-axial fluid collections. The ventricles are not enlarged or shifted and there is no blo od within the ventricular system nor within the basal cisterns. CT MAXILLOFACIAL BONES: There is no evidence of facial fractures nor fluid in the visualized paranasal sinuses. there is no evidence of orbital blowout fracture. CT CERVICAL SPINE: There is no evidence of fracture nor listhesis. No significant prevertebral soft tissue swelling. N o facet malalignment evident. No significant osseous lesions evident. 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 IMPRESSION: No acute intracranial findings on this noninfused CT scan of the brain. No evidence of facial nor orbital blowout fractures. No evidence of cervical spine fracture, malalignment, nor acute compromise of the cervical spinal can al. RADIATION DOSE DELIVERED: 1,948.79mGy.cm Total DLP DATA REPOSITORY: All CT scans at this facility are submitted to the National Radiology Data Registry (NRDR) Dose Index Registry (DIR) with the [employer] ([employer]). RADIATION OPTIMIZATION: All CT scans at this facility use at least one of these dose optimization te chniques: automated exposure control; mA and/or kV adjustment per patient size (includes targeted exa ms where dose is matched to clinical indication); or iterative reconstruction.
[2021-04-19 05:31] VITALS: BP 123/89; PULSE 60; RESP 18; TEMP 36.6; O2SAT 97
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
[2021-04-19] MEDS: Tetanus & Diphtheria Tox,ADULT 0.5 ML VIAL IM (06:08)
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
--- NOTE | 2021-04-19 06:42 | NUR.NOTE ---
Pt out in [place] screaming profanities. MD at bedside... pt to be discharged.
[2021-04-19 06:53] VITALS: BP 122/68; PULSE 68; RESP 18; O2SAT 98
== END 2021-04-19 06:55 | disposition home or self-care (01) ==
LOC: ER 06:59
PROVIDERS: Emergency Provider Emergency Medicine; PCP Internal Medicine
DX: S92.255A Nondisplaced fracture of navicular [scaphoid] of left foot, initial encounter for closed fracture (principal); W01.198A Fall on same level from slipping, tripping and stumbling with subsequent striking against other object, initial encounter
CPT/HCPCS: 23620; 81025; 70450; 70486; 72125

== ENCOUNTER 2021-04-19 13:29 | Emergency (ER) | payer MEDICARE, MEDICAID, SELFPAY ==
[2021-04-19 13:32] VITALS: BP 139/83; PULSE 90; RESP 18; TEMP 37.2; O2SAT 97
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
--- NOTE | 2021-04-19 13:45 | DI.RAD_ITS ---
Exam(s) XR SHOULDER LT COMPLETE 2+V EXAM: XR SHOULDER LT COMPLETE 2+V CLINICAL HISTORY: s/p fall, r/o fracture. TECHNIQUE: 2D digital imaging was performed. COMPARISON: No exams were available for comparison FINDINGS: There is a nondisplaced fracture of the greater tuberosity. No dislocation of the glenohumeral joint . Subacromial space is not diminished and there are no osteophytic fragments in the subacromial spac e. AC joint appears unremarkable. No rib fractures. Bone density normal. No osseous lesions IMPRESSION: There is nondisplaced fracture of the greater tuberosity. This is at the foot pad insertional site o f the rotator cuff mechanism. DATA REPOSITORY: RADIATION DOSE DELIVERED:
[2021-04-19] MEDS: Acetaminophen 500 MG TAB 1000 MG PO (14:09)
--- NOTE | 2021-04-19 16:03 | NUR.NOTE ---
Nursing Note: Discharge instructions mailed to patient. Cristela Kang
== END 2021-04-19 15:38 | disposition home or self-care (01) ==
PROVIDERS: Emergency Provider Physician Assistant; PCP Internal Medicine
DX: S42.295A Other nondisplaced fracture of upper end of left humerus, initial encounter for closed fracture (principal); W01.0XXA Fall on same level from slipping, tripping and stumbling without subsequent striking against object, initial encounter
CPT/HCPCS: 23620; 81025; 99283; 70450; 70486; 72125; 73030

== ENCOUNTER 2021-06-24 13:43 | Emergency (ER) | payer MEDICARE, MEDICAID, SELFPAY ==
[2021-06-24] VITALS (21 sets, daily range): BP systolic 91–109; BP diastolic 60–75; PULSE 79–106; RESP 12–21; TEMP 37.1; O2SAT 55–98
--- NOTE | 2021-06-24 14:00 | DI.RAD_ITS ---
Exam(s) XR PORTABLE CHEST AP EXAM: XR PORTABLE CHEST AP CLINICAL HISTORY: cough, body ache. TECHNIQUE: 2D digital imaging was performed. COMPARISON: CR LEFT RIBS TO INCLUDE CXR from 02/19/2017 FINDINGS: Heart size normal. The mediastinum is not widened. Left lung is clear. Mild increased markings noted in the right lung base. No pleural effusions. No pneumothorax IMPRESSION: Mild increased markings right lung base. Possible infiltrate. No pleural effusions. DATA REPOSITORY: RADIATION DOSE DELIVERED: All CT scans at this facility use at least one of these dose optimization techniques: automated exposure control; mA and/or kV adjustment per patient size (includes targeted e xams where dose is matched to clinical indication); or iterative reconstruction.
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
[2021-06-24 14:43] LABS: Abs Immature Grans 0.24 10^3/uL (0.0-0.06); Absolute Basophil Count 0.07 10^3/uL (0.0-0.2); Absolute Eosinophil Count 0.24 10^3/uL (0.0-0.7); Absolute Lymphocyte Count 0.69 10^3/uL (1.2-3.4); Absolute Monocyte Count 1.42 10^3/uL (0.1-0.8); Absolute Neutrophil Count 11.65 10^3/uL (1.2-6.7); Basophils % 0.5; Eosinophils % 1.7; HCT 31.5 % (36.0-46.0); HGB 10.6 g/dL (11.2-15.7); Immature Grans % 1.7; Lymphocytes % 4.8; MCH 31.1 pg (27.0-33.0); MCHC 33.7 % (32.0-36.0); MCV 92.4 fL (80-95); MPV 10.8 fL (8.0-11.0); Monocytes % 9.9; Neutrophils % 81.4; Nucleated RBC 0 %; Platelet Count 276 10^3/uL (130-400); RBC 3.41 10^6/uL (3.93-5.22); RDW 13.3 % (11.7-14.6); RDW-SD 44.7 fL; WBC 14.31 10^3/uL (4.4-10.8)
[2021-06-24] MEDS: Acetaminophen 500 MG TAB 1000 MG PO (14:52)
[2021-06-24] MEDS: Normal Saline 1,000 ML 1000 ML IV ×2 (14:52→15:07)
[2021-06-24 14:55] LABS: Anion Gap 7.3 mmol/L (3-11); BUN 30 mg/dL (7-18); CO2 25.7 mmol/L (21.0-32.0); CREATININE 1.6 mg/dL (0.55-1.02); Calcium 8.8 mg/dL (8.5-10.1); Chloride 94 mmol/L (98-107); Estimated GFR 35.88 (mL/min/1.73m2); Glucose 123 mg/dL (74-106); Potassium 3.9 mmol/L (3.5-5.1); Sodium 127 mmol/L (136-145)
[2021-06-24 14:58] LABS: Lipase 64 U/L (73-393)
--- NOTE | 2021-06-24 14:58 | DI.VRAD_ITS ---
PROCEDURE INFORMATION: Exam: XR Chest Exam date and time: 06/24/2021 2:14 PM Age: 41 years old Clinical indication: Cough TECHNIQUE: Imaging protocol: XR of the chest. Views: 1 view. COMPARISON: CR LEFT RIBS TO INCLUDE CXR 02/19/2017 7:30 AM FINDINGS: Lungs: There is some hazy mildly diffuse airspace disease in the right lower lobe. There may be very minimal similar change at the left lung base. Pleural spaces: Unremarkable. No pleural effusion. No pneumothorax. Heart/Mediastinum: Unremarkable. No cardiomegaly. Bones/joints: Unremarkable. IMPRESSION: Right lower lobe and possible left lung base involvement with mild ground-glass airspace opacity. Follow-up to assess clearing recommended if symptoms do not improve. Dictated and Authenticated by: Elidia Zarco MD. Ordering:NINOSKA Calixto MD
[2021-06-24] MEDS: cefTRIAXone 1 GM/50 ML BAG IVPB (15:07)
[2021-06-24 15:13] LABS: Bilirubin Negative (Negative); Blood Moderate (Negative); Clarity Cloudy (Clear); Glucose Negative (Negative); Ketones Negative (Negative); Leukocyte Esterase Moderate (Negative); Nitrite Negative (Negative); Specific Gravity 1.015 (1.005-1.025)
[2021-06-24 15:22] LABS: Bacteria Moderate HPF (Negative); C & S Indicated? No/Sq. Contamination; Casts Negative LPF (Negative); Crystals Negative HPF (Negative); Epithelial Cells Many HPF (Negative); Mucus Moderate (Negative); WBC 20-50 HPF (0-5)
[2021-06-26 14:54] LABS: COVID-19 RT-PCR UVMMC Result Negative (Negative)
--- NOTE | 2021-06-27 15:17 | NUR.NOTE ---
attepted to contact patient about her covid results. Phone number no longer in service
== END 2021-06-24 16:07 | disposition home or self-care (01) ==
PROVIDERS: Emergency Provider Emergency Medicine; PCP Internal Medicine
DX: J18.8 Other pneumonia, unspecified organism (principal); M79.10 Myalgia, unspecified site; R11.2 Nausea with vomiting, unspecified; E86.0 Dehydration; F17.210 Nicotine dependence, cigarettes, uncomplicated; Z20.822 Contact with and (suspected) exposure to COVID-19
CPT/HCPCS: 36415; 80048; 81025; 83690; 96361; 96365; 99284; U0003; 71045; 81003; 81015; 85025; J0696

== ENCOUNTER 2021-10-21 10:07 | Emergency (ER) | payer MEDICARE, MEDICAID, SELFPAY ==
[2021-10-21 10:11] VITALS: BP 106/72; PULSE 89; RESP 14; TEMP 36.5; O2SAT 96
--- NOTE | 2021-10-21 10:32 | DI.CT_ITS ---
Exam(s) CT HEAD CERV SPINE FACIAL WO EXAM: CT HEAD CERV SPINE FACIAL WO CLINICAL HISTORY: head trauma/fall. TECHNIQUE: Imaging Protocol: Axial computed tomography images with coronal and sagittal reformatted images were created and reviewed COMPARISON: CT CT HEAD CERV SPINE FACIAL WO from 04/19/2021 FINDINGS: CT Head: Ventricles and Extra axial spaces: Normal in size and morphology for the patient's age. Hemorrhage: None. Cerebral parenchyma: Normal. Midline shift: None. Brainstem/Cerebellum: Normal. Calvarium: Normal. Visualized Paranasal sinuses/Mastoids: Mucosal thickening ethmoid and maxillary sinuses. Mastoids cl ear. Soft Tissues: Left frontal scalp laceration. CT Cervical Spine: Bones: No acute fracture or subluxation. Congenital fusion between C2 and C3. Congenital enlargeme nt of the left lateral mass C4. Scoliosis. Soft Tissues: Unremarkable. Lung Apices: Clear. Facial CT: Soft tissue laceration of the right frontal scalp. No radiopaque foreign body. The globe s are intact. No evidence of fracture. Mucosal thickening of the ethmoid and mastoid sinuses. Temp oromandibular joints are intact. Patient is edentulous. IMPRESSION: 1. No acute intracranial process. 2. No acute fracture or subluxation in the cervical spine. Congenital deformities. 3. Sinus disease. No facial fracture. Scalp laceration. RADIATION DOSE DELIVERED: 1,673.95mGy.cm Total DLP DATA REPOSITORY: All CT scans at this facility are submitted to the National Radiology Data Registry (NRDR) Dose Index Registry (DIR) with the [employer] ([employer]). RADIATION OPTIMIZATION: All CT scans at this facility use at least one of these dose optimization te chniques: automated exposure control; mA and/or kV adjustment per patient size (includes targeted exa ms where dose is matched to clinical indication); or iterative reconstruction.
--- NOTE | 2021-10-21 10:37 | NUR.NOTE ---
Patient unable to verify meds. used RAMIN list. Nursing Note:
[2021-10-21] MEDS: Ondansetron O.D.T. 4 MG TABEF PO (10:44)
--- NOTE | 2021-10-21 11:38 | DI.VRAD_ITS ---
PROCEDURE INFORMATION: Exam: CT Head Without Contrast Exam date and time: 10/21/2021 10:55 AM Age: 41 years old Clinical indication: Injury or trauma; Fall; Blunt trauma (contusions or hematomas); Consciousness not specified; Orbit/periorbital; Left; Injury date: Last night TECHNIQUE: Imaging protocol: Computed tomography of the head without contrast. Radiation optimization: All CT scans at this facility use at least one of these dose optimization techniques: automated exposure control; mA and/or kV adjustment per patient size (includes targeted exams where dose is matched to clinical indication); or iterative reconstruction. COMPARISON: 1. CT HEAD CERV SPINE FACIAL WO 04/19/2021 6:00 AM 2. MRI - THORACIC SPINE WO CONT 02/22/2017 1:30 PM FINDINGS: Brain: There is no acute intracranial hemorrhage. No extra-axial fluid collection. No evidence of acute infarct. Watkins white differentiation is intact. There is no evidence of mass. There is no mass effect or midline shift. Cerebral ventricles: No ventriculomegaly. Paranasal sinuses: There is bsji-hi-hnszllid mucosal thickening in paranasal sinuses. No air-fluid levels. Mastoid air cells: No significant mastoid effusion. Bones/joints: No acute fracture. Soft tissues: There is left forehead soft tissue swelling and laceration. IMPRESSION: No evidence of acute intracranial abnormality. No acute hemorrhage. No evidence of acute infarct or mass. PROCEDURE INFORMATION: Exam: CT Maxillofacial Without Contrast Exam date and time: 10/21/2021 10:55 AM Age: 41 years old Clinical indication: Injury or trauma; Fall; Blunt trauma (contusions or hematomas); Consciousness not specified; Orbit/periorbital; Left; Injury date: Last night TECHNIQUE: Imaging protocol: Computed tomography images of the face without contrast. Radiation optimization: All CT scans at this facility use at least one of these dose optimization techniques: automated exposure control; mA and/or kV adjustment per patient size (includes targeted exams where dose is matched to clinical indication); or iterative reconstruction. COMPARISON: 1. CT HEAD CERV SPINE FACIAL WO 04/19/2021 6:00 AM 2. MRI - THORACIC SPINE WO CONT 02/22/2017 1:30 PM FINDINGS: Orbital cavities: Ocular globes appear intact. No evidence of globe rupture. Normal position of lenses. No exophthalmos. No evidence of mass. Bones/joints: No evidence of acute fracture. Paranasal sinuses: There is fmpm-hu-hmsxhphd mucosal thickening in paranasal sinuses. No air-fluid levels. Mastoid air cells: Mastoid air cells and middle ear cavities are well developed and well aerated. Soft tissues: There is left forehead soft tissue swelling and laceration. Dental: The patient is edentulous. IMPRESSION: No acute fracture. PROCEDURE INFORMATION: Exam: CT Cervical Spine Without Contrast Exam date and time: 10/21/2021 10:55 AM Age: 41 years old Clinical indication: Injury or trauma; Fall; Blunt trauma (contusions or hematomas); Consciousness not specified; Orbit/periorbital; Left; Injury date: Last night TECHNIQUE: Imaging protocol: Computed tomography images of the cervical spine without contrast. Radiation optimization: All CT scans at this facility use at least one of these dose optimization techniques: automated exposure control; mA and/or kV adjustment per patient size (includes targeted exams where dose is matched to clinical indication); or iterative reconstruction. COMPARISON: 1. CT HEAD CERV SPINE FACIAL WO 04/19/2021 6:00 AM 2. MRI - THORACIC SPINE WO CONT 02/22/2017 1:30 PM FINDINGS: Bones/joints: No acute fracture. There is mild S-shaped curvature of cervical spine. There is fusion of C2 and C3 vertebral bodies and right lateral masses. The left C2 and C3 lateral masses are decreased in height and fused. There is fusion of anterior aspect of C2 and C3 spinous processes. There is increased height of the left C4 lateral mass. This therefore appears congenital. There is straightening of cervical lordosis which also may be congenital or could be positional or associated with muscular spasm. Discs/Spinal canal/Neural foramina: No spinal stenosis. Lungs: Lung apices are unremarkable for acute finding. Soft tissues: Unremarkable. IMPRESSION: No acute fracture. Other findings as described. Dictated and Authenticated by: Cristela Gamboa MD. Ordering:ILSA Guzman MD
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
[2021-10-21] MEDS: Ketorolac 30 MG/ML VIAL IM (12:15)
== END 2021-10-21 12:20 | disposition home or self-care (01) ==
PROVIDERS: Emergency Provider Nurse Practitioner Family; PCP Internal Medicine
DX: S01.81XA Laceration without foreign body of other part of head, initial encounter (principal); W19.XXXA Unspecified fall, initial encounter; Z87.898 Personal history of other specified conditions
CPT/HCPCS: 12011; 81025; 96372; 99284; 70450; 70486; 72125; J1885

== ENCOUNTER 2021-10-27 14:50 | Emergency (ER) | payer MEDICARE, MEDICAID, SELFPAY ==
[2021-10-27 14:58] VITALS: BP 137/81; PULSE 101; RESP 16; TEMP 36.3; O2SAT 97
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
[2021-10-27] MEDS: Lidocaine/Prilocaine Cream 5 GM TUBE TP (18:07)
[2021-10-27] MEDS: Cephalexin 500 MG CAP, 4 CAPS/BTL PO (18:07)
== END 2021-10-27 17:36 | disposition home or self-care (01) ==
PROVIDERS: Emergency Provider Physician Assistant; PCP Internal Medicine
DX: S01.81XA Laceration without foreign body of other part of head, initial encounter (principal); L03.211 Cellulitis of face; W19.XXXA Unspecified fall, initial encounter; F10.20 Alcohol dependence, uncomplicated; F17.210 Nicotine dependence, cigarettes, uncomplicated; Z75.1 Person awaiting admission to adequate facility elsewhere
CPT/HCPCS: 10140; 99283

== ENCOUNTER 2021-11-01 19:49 | Emergency (ER) | payer MEDICARE, MEDICAID, SELFPAY ==
[2021-11-01 20:24] VITALS: BP 116/79; PULSE 89; RESP 14; TEMP 36.5; O2SAT 96
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
[2021-11-01 21:46] LABS: Bilirubin Negative (Negative); Blood Trace-lysed (Negative); Clarity Clear (Clear); Glucose Negative (Negative); Ketones Negative (Negative); Leukocyte Esterase Trace (Negative); Nitrite Negative (Negative); Urobilinogen 0.2 EU/dL (Up TO 0.2); pH 8.5 (5-8)
[2021-11-01 21:51] LABS: Source Nasal/Nares
[2021-11-01 21:52] LABS: Bacteria Moderate HPF (Negative); C & S Indicated? No/Sq. Contamination; Casts Negative LPF (Negative); Crystals Negative HPF (Negative); Epithelial Cells Many HPF (Negative); Mucus Negative (Negative)
[2021-11-01 22:01] LABS: Abs Immature Grans 0.02 10^3/uL (0.0-0.06); Absolute Basophil Count 0.05 10^3/uL (0.0-0.2); Absolute Eosinophil Count 0.57 10^3/uL (0.0-0.7); Absolute Lymphocyte Count 2.16 10^3/uL (1.2-3.4); Absolute Monocyte Count 0.82 10^3/uL (0.1-0.8); Absolute Neutrophil Count 6.07 10^3/uL (1.2-6.7); Basophils % 0.5; Eosinophils % 5.9; HGB 12.8 g/dL (11.2-15.7); Immature Grans % 0.2; Lymphocytes % 22.3; MCV 93.7 fL (80-95); MPV 8.7 fL (8.0-11.0); Monocytes % 8.5; Neutrophils % 62.6; Nucleated RBC 0 %; Platelet Count 310 10^3/uL (130-400); RBC 4.27 10^6/uL (3.93-5.22); RDW 12.3 % (11.7-14.6); RDW-SD 42.7 fL; WBC 9.69 10^3/uL (4.4-10.8)
[2021-11-01 22:11] LABS: *AMPHETAMINES SCREEN URINE Negative (Negative); *BARBITURATES SCREEN URINE Negative (Negative); *BENZODIAZEPINES SCREEN URINE Positive (Negative); Cannabinoids THC Negative (Negative); Cocaine Screen,Urine Positive (Negative); METHADONE URINE SCREEN Negative (Negative); OPIATES URINE SCREEN Negative (Negative)
[2021-11-01 22:13] LABS: Tricyclic Antidepressants Negative (Negative)
[2021-11-01 22:24] LABS: Lithium < 0.2 mmol/l (0.6-1.2)
[2021-11-01 22:28] LABS: Acetaminophen < 2 ug/mL (10-30); Salicylate 2.8 mg/dL (<2.8)
[2021-11-01 22:29] LABS: ALT 23 U/L (14-59); AST 21 U/L (15-37); Albumin 3.6 g/dL (3.4-5.0); Alkaline Phosphatase 66 U/L (46-116); Anion Gap 5.6 mmol/L (3-11); BUN 13 mg/dL (7-18); Bilirubin, Total 0.5 mg/dL (0.2-1.0); CO2 30.4 mmol/L (21.0-32.0); CREATININE 0.7 mg/dL (0.55-1.02); Calcium 8.7 mg/dL (8.5-10.1); Chloride 101 mmol/L (98-107); Glucose 91 mg/dL (74-106); Potassium 3.9 mmol/L (3.5-5.1); Sodium 137 mmol/L (136-145); TSH (W/Ref FT4) 1.55 uIU/mL (0.36-3.74); Total Protein 7.7 g/dL (6.4-8.2)
[2021-11-01 22:31] LABS: ETHANOL BLOOD < 3.0 mg/dL (<10)
[2021-11-01 22:32] LABS: COVID-19 PCR Negative (Negative)
--- NOTE | 2021-11-01 23:33 | W.EDPROG ---
Date of service: 11/01/21 Time of Service: 23:00 Medical Decision Making Received signout from Mr. Mcfarlane. Please see his note regarding details of the initial presentation, exam and plan of care. Patient spoke to mental health services, she was seen by manager of disaster recovery. A plan for outpatient safety was agreed upon and the patient was referred to outpatient resource. She declined for her care to be discussed with any family members. She is stable and appropriate for discharge at this time Sign Out Sign Out Data: Sign Out Comment: Medically cleared. Awaiting mental health evaluation and final disposition Last updated by Ramon Mcfarlane PA at 11/01/21 23:01 Discharge Plan Disposition Patient Disposition: HOME Condition: Stable Discharge Details Clinical Impression: Substance abuse, Bipolar disease, chronic Primary Care Provider: Ava Messina ED Provider: Durga Lan Home Meds and New Rx's Prescriptions: Continued polyethylene glycol 3350 17 gram/dose powder See Rx Instructions PO DAILY PRN (Reason: constipation) Qty: 850 2RF Dose Instruction: 1 capful daily as needed for constipation PO DAILY PRN; Label Comments: not taking Rx Instructions: 1 capful daily as needed for constipation PO DAILY PRN; levothyroxine 50 mcg tablet 50 mcg PO DAILY Qty: 90 2RF clonidine HCl 0.2 MG tablet 0.2 mg PO BID 0RF Label Comments: Laly Ellington Rx Instructions: NKHS lithium carbonate 450 MG tablet extended release 750 mg PO HS 0RF Label Comments: laly ellington Rx Instructions: WITH 300 MG TO TOTAL 750 MG HS NKHS acetaminophen 500 MG tablet 1,000 mg PO Q6H PRN Qty: 50 5RF Vyvanse 70 MG capsule 70 mg PO DAILY 0RF Rx Instructions: NKHS quetiapine [Seroquel] 50 MG tablet 100 mg PO HS 0RF Rx Instructions: 100mg per pt docusate sodium [Colace] 100 MG capsule 100 mg PO DAILY Qty: 90 3RF Label Comments: not taking Rx Instructions: MAY SELF ADMINISTER blister pack 30 Days 0RF Rx Instructions: call med changes to [facility]'s pharmacy sennosides [senna] 8.6 MG tablet 8.6 mg PO HS Qty: 90 11RF methylphenidate HCl [Ritalin] 20 MG tablet 20 mg PO DAILY 0RF Label Comments: C.Brodzinski bupropion HCl [Wellbutrin SR] 100 MG tablet extended release 12 hr 150 mg PO DAILY 0RF Label Comments: Hiram Ellington (DME) Space Chamber Plus 1 EACH spacer Miscellaneous BID Qty: 1 0RF Rx Instructions: for use with Symbicort MDI IUD insert CERVICAL 0RF Label Comments: depo now albuterol sulfate [Proventil HFA] 90 mcg/actuation HFA aerosol inhaler 1 - 2 puff IH Q4H Qty: 6.7 11RF budesonide-formoterol [Symbicort] 160-4.5 mcg/actuation HFA aerosol inhaler 2 puff Inhalation BID Qty: 1 11RF cephalexin 500 mg tablet 500 mg PO Q6H 7 Days Qty: 28 0RF Label Comments: did not take full dosing due to going to [facility] gabapentin 800 mg tablet 800 mg PO TID PRN0RF buprenorphine-naloxone [Suboxone] 12-3 mg Film 1 film BUCCAL Q24H 0RF hydroxyzine HCl 50 mg tablet 50 mg PO TID 0RF prazosin 2 mg capsule 2 mg PO QHS 0RF Discharge Instructions Instructions: Polysubstance Abuse (ED) Additional Instructions: You were seen today by mental health welfare eligibility worker as well as a manager of disaster recovery. Please follow-up as discussed with them with outpatient resources. [facility] [place] is available at [phone] [facility] is available at [phone] [facility] is available at [phone] [facility] is available at [phone]
--- NOTE | 2021-11-01 23:39 | PDOC.MHCN_ITS ---
Date of service: 11/01/21 Time of Service: 23:39 Mental Health Crisis Note Presenting Issue How did you arrive at the ED and why did you come: Client presented to [facility] looking for assistance for inpatient substance abuse treatment. Precipitating Factors Client denies SI/HI intent and plan. Disposition BEHAVIOR: Client is sitting up in hospital bed dressed in proper paper hospital attire when this administrative underwriter arrives via zoom. Client is fidgety, but engages with this administrative underwriter answering all of the questions that are asked of her. EYE CONTACT: Client gives good eye contact. MOOD: Clients mood appears to be depressed. AFFECT: Congruent with mood. APPETITE: Client states that her appetite has been good. SLEEP(trouble falling/staying asleep: Client states that she has been having trouble sleeping, reporting that she thinks that her body has become immune to her Seroquel. Plan Client will go home and call substance abuse treatment centers tomorrow with numbers that this administrative underwriter provided to her. Client will outreach to her med provider and also her nurse outreach case manager at [facility] tomorrow. Client will follow-up with [facility] tomorrow. Signature Clinician's Name/Title: Cande Moody [facility] Emergency Clinician
[2021-11-01 23:49] VITALS: BP 116/79; PULSE 89; RESP 14; TEMP 36.5; O2SAT 96
== END 2021-11-02 00:01 | disposition home or self-care (01) ==
PROVIDERS: Physician Assistant; Emergency Provider Emergency Medicine; PCP Internal Medicine
DX: F31.9 Bipolar disorder, unspecified (principal); F14.10 Cocaine abuse, uncomplicated; F11.10 Opioid abuse, uncomplicated; Z79.899 Other long term (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
CPT/HCPCS: 36415; 80053; 80307; 81025; 87635; 99284; 80178; 80320; 80329; 81003; 81015; 84443; 85025; 99283

== ENCOUNTER 2022-01-24 23:34 | Emergency (ER) | payer MEDICARE, MEDICAID, SELFPAY ==
[2022-01-24] VITALS (7 sets, daily range): BP systolic 93–133; BP diastolic 56–101; PULSE 91–110; RESP 18; TEMP 36.2; O2SAT 95–100
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
[2022-01-25] VITALS: BP 103/74; PULSE 98
[2022-01-25 00:01] VITALS: O2SAT 98
== END 2022-01-25 00:42 | disposition home or self-care (01) ==
LOC: ER 01-25 00:38
PROVIDERS: Emergency Provider Student in an Organized Health Care Education/Training Program; PCP Internal Medicine
DX: T40.411A Poisoning by fentanyl or fentanyl analogs, accidental (unintentional), initial encounter (principal); F11.90 Opioid use, unspecified, uncomplicated; Y92.003 Bedroom of unspecified non-institutional (private) residence as the place of occurrence of the external cause
CPT/HCPCS: 99283

== ENCOUNTER 2022-07-13 19:30 | Outpatient (REF) | payer MEDICARE, MEDICAID, SELFPAY ==
[2022-07-15 01:42] LABS: Influenza A RNA Result Negative (Negative); Influenza B RNA Result Negative (Negative); RSV RNA Result Negative (Negative)
[2022-07-15 01:45] LABS: COVID-19 RT-PCR UVMMC Result Negative (Negative)
== END 2022-07-13 19:31 | disposition home or self-care (01) ==
LOC: LBN 19:30
PROVIDERS: PCP Nurse Practitioner Family; Visit Provider Nurse Practitioner Family
DX: R05.8 Other specified cough (principal); R06.02 Shortness of breath; Z20.822 Contact with and (suspected) exposure to COVID-19
CPT/HCPCS: 87631; U0003

== ENCOUNTER 2022-08-03 03:13 | Outpatient (CLI) | payer MEDICARE, MEDICAID, SELFPAY ==
[2022-08-03] MEDS: Albuterol HFA 18 GM 200 PUFF INH IH (09:14)
[2022-08-03] MEDS: Inhaler, Assist Device 1 EACH MC (09:15)
--- NOTE | 2022-08-03 11:41 | W.PFT ---
Date of service: 08/03/22 Time of Service: 08:04 Pulmonary Function Test Result Requesting Provider Diana Rose Indications: Asthma Interpretation Spirometry: There is moderate airflow limitation. There is a significant bronchodilator response. Lung Volumes: There is air trapping and hyperinflation. Diffusion Capacity: Normal diffusion Airway Pressure: Increased airways resistance. Impression Moderate airflow obstruction with a significant bronchodilator response, air trapping and a normal diffusion. In the correct clinical context this may represent COPD (chronic bronchitis) or Asthma-COPD Overlap Syndrome. Clinical Correlation therefore is recommended.
== END 2022-08-03 03:14 | disposition home or self-care (01) ==
LOC: RT 03:13
PROVIDERS: PCP Nurse Practitioner Family; Visit Provider Nurse Practitioner Family
DX: R94.2 Abnormal results of pulmonary function studies (principal); R06.02 Shortness of breath; R06.09 Other forms of dyspnea; R05.9 Cough, unspecified; J45.909 Unspecified asthma, uncomplicated; F17.210 Nicotine dependence, cigarettes, uncomplicated
CPT/HCPCS: 94060; 94726; 94729

== ENCOUNTER 2022-12-12 11:49 | Emergency (ER) | payer MEDICARE, MEDICAID, SELFPAY ==
[2022-12-12 11:57] VITALS: BP 103/74; PULSE 94; RESP 18; O2SAT 94
--- NOTE | 2022-12-12 12:08 | NUR.NOTE ---
pt states she is not actually suicidal and she only said that to get into [facility]. provider aware
--- NOTE | 2022-12-12 13:00 | DI.RAD_ITS ---
Exam(s) XR CHEST 2V PA LATERAL EXAM: XR CHEST 2V PA LATERAL CLINICAL HISTORY: cough TECHNIQUE: 2D digital imaging was performed. COMPARISON: CR LEFT RIBS TO INCLUDE CXR from 02/19/2017 CR,XR XR PORTABLE CHEST AP from 06/24/2021 FINDINGS: HEART: Normal size. Aorta: Not dilated. PULMONARY VASCULATURE: Normal. LUNGS: Partial atelectasis of the right middle lobe. Patchy density seen in the right lower lobe. L eft lung appears clear. PLEURAL SPACE: No pleural effusion or pneumothorax. BONE:Unremarkable for age. IMPRESSION: Right lower lobe infiltrate. Atelectasis in the right middle lobe. DATA REPOSITORY: RADIATION DOSE DELIVERED:
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
[2022-12-12] MEDS: Ketorolac 15 MG/ML VIAL IM (13:35)
[2022-12-12] MEDS: Azithromycin 250 MG TAB 500 MG PO (14:04)
[2022-12-12] MEDS: Amoxicillin 500 MG CAP 1000 MG PO (14:04)
== END 2022-12-12 14:21 | disposition home or self-care (01) ==
PROVIDERS: Emergency Provider Emergency Medicine; PCP Nurse Practitioner Family
DX: J18.9 Pneumonia, unspecified organism (principal); F14.90 Cocaine use, unspecified, uncomplicated; R10.12 Left upper quadrant pain
CPT/HCPCS: 96372; 99284; 71046; J1885

== ENCOUNTER 2023-03-24 13:11 | Emergency (ER) | payer MEDICARE, MEDICAID, SELFPAY ==
[2023-03-24 13:15] VITALS: BP 117/71; PULSE 109; RESP 18; TEMP 36.9; O2SAT 93
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
[2023-03-24] MEDS: Cephalexin 500 MG CAP PO (14:21)
[2023-03-24] MEDS: Cephalexin 500 MG CAP, 2 CAPS/BTL PO (14:21)
[2023-03-24] MEDS: Sulfameth/Trimeth DS, 2 TABS/BTL 1 TAB PO (14:22)
[2023-03-24] MEDS: Sulfameth/Trimeth DS TAB 1 TAB PO (14:22)
[2023-03-24 14:31] VITALS: BP 126/74; PULSE 96; RESP 16; TEMP 36.9; O2SAT 97
--- NOTE | 2023-03-24 17:53 | NUR.NOTE ---
Referral made per Candelario Rodas to PCP follow up in 3 days for cellulitis. Put the referral in care management's box for follow up assistance.Nursing Note:
--- NOTE | 2023-03-25 14:22 | NUR.NOTE ---
Nursing Note: Patient called confirming that her prescriptions were sent to [place]. She was told yes.
== END 2023-03-24 14:43 | disposition home or self-care (01) ==
PROVIDERS: Emergency Provider Nurse Practitioner Family; PCP Nurse Practitioner Family
DX: L03.116 Cellulitis of left lower limb
CPT/HCPCS: 80053; 99284; 83735; 84484; 85025; 99283

== ENCOUNTER 2023-05-07 14:03 | Outpatient (CLI) | payer MEDICARE, MEDICAID, SELFPAY ==
[2023-05-07 13:00] LABS: TSH (W/Ref FT4) 2.34 uIU/mL (0.36-3.74)
== END 2023-05-07 14:04 | disposition home or self-care (01) ==
LOC: LBO 14:03
PROVIDERS: PCP Nurse Practitioner Family; Visit Provider Nurse Practitioner Family
DX: E03.9 Hypothyroidism, unspecified (principal); F31.31 Bipolar disorder, current episode depressed, mild
CPT/HCPCS: 36415; 80178; 84443

== ENCOUNTER 2023-06-24 14:04 | Emergency (ER) | payer MEDICARE, MEDICAID, SELFPAY ==
[2023-06-24 14:08] VITALS: BP 86/56; PULSE 97; RESP 18; TEMP 36.6; O2SAT 94
--- NOTE | 2023-06-24 14:15 | DI.MRI_ITS ---
Exam(s) MR BRAIN WO EXAM: MR BRAIN WO CLINICAL HISTORY: 2 days LLE subjective numbness and weakness TECHNIQUE: Multiplanar multisequence MRI of the brain was performed. COMPARISON: CT CT HEAD CERV SPINE FACIAL WO from 04/19/[address] HEAD CERV SPINE FACIAL WO from 10/21/2021 FINDINGS: VENTRICLES AND EXTRA AXIAL SPACES: Normal in size and morphology for the patient's age. MIDLINE SHIFT: None. CEREBRAL PARENCHYMA: No focus of restricted diffusion to suggest acute infarct. No space-occupying le kavitha identified. HEMORRHAGE: None. BRAINSTEM/CEREBELLUM: Normal. CALVARIUM: Normal. VISUALIZED PARANASAL SINUSES/MASTOIDS:There is mild mucosal thickening in the maxillary sinuses. The remaining visualized paranasal sinuses are clear. INUPIAT OF HASSAN: Normal flow void. PITUITARY GLAND: Unremarkable. OTHER FINDINGS: None. IMPRESSION: 1. No acute intracranial process. 2. Findings were discussed with the emergency department at 3:44 p.m. on 06/24/2023. DATA REPOSITORY:
[2023-06-24 14:22] VITALS: RESP 18
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
[2023-06-24 14:39] LABS: Abs Immature Grans 0.02 10^3/uL (0.0-0.06); Absolute Basophil Count 0.05 10^3/uL (0.0-0.2); Absolute Eosinophil Count 0.47 10^3/uL (0.0-0.7); Absolute Lymphocyte Count 2.13 10^3/uL (1.2-3.4); Absolute Monocyte Count 0.59 10^3/uL (0.1-0.8); Absolute Neutrophil Count 6.04 10^3/uL (1.2-6.7); Basophils % 0.5; Eosinophils % 5.1; HCT 39.8 % (36.0-46.0); HGB 12.8 g/dL (11.2-15.7); Immature Grans % 0.2; Lymphocytes % 22.9; MCH 29.6 pg (27.0-33.0); MCHC 32.2 % (32.0-36.0); MCV 92 fL (80-95); MPV 8.9 fL (8.0-11.0); Monocytes % 6.3; Platelet Count 196 10^3/uL (130-400); RBC 4.33 10^6/uL (3.93-5.22); RDW 13.8 % (11.7-14.6); RDW-SD 47.4 fL
[2023-06-24 14:47] LABS: ESR 2 mm/hr (0-20)
[2023-06-24 14:54] LABS: ALT 43 U/L (14-59); AST 31 U/L (15-37); Albumin 3.6 g/dL (3.4-5.0); Alkaline Phosphatase 61 U/L (46-116); Anion Gap 6.4 mmol/L (3-11); BUN 17 mg/dL (7-18); Bilirubin, Total 0.3 mg/dL (0.2-1.0); C-Reactive Protein 0.08 mg/dL (0.0-0.3); CO2 26.6 mmol/L (21.0-32.0); CREATININE 0.9 mg/dL (0.55-1.02); Calcium 8.8 mg/dL (8.5-10.1); Chloride 104 mmol/L (98-107); Estimated GFR 82.37 (mL/min/1.73m2); Glucose 107 mg/dL (74-106); Potassium 4.5 mmol/L (3.5-5.1); Sodium 137 mmol/L (136-145); Total Protein 7.4 g/dL (6.4-8.2)
[2023-06-24 15:49] VITALS: BP 92/56; PULSE 69; RESP 18; O2SAT 92
[2023-06-24 15:59] VITALS: BP 92/56; PULSE 69; RESP 18; O2SAT 92
== END 2023-06-24 16:00 | disposition home or self-care (01) ==
PROVIDERS: Emergency Provider Student in an Organized Health Care Education/Training Program; PCP Nurse Practitioner Family
DX: R20.2 Paresthesia of skin (principal); R53.1 Weakness; F31.9 Bipolar disorder, unspecified; F19.10 Other psychoactive substance abuse, uncomplicated; F17.210 Nicotine dependence, cigarettes, uncomplicated
CPT/HCPCS: 36410; 36415; 80053; 81025; 85652; 99284; 70551; 85025; 86140; 99283

== ENCOUNTER 2023-10-21 11:43 | Outpatient (REF) | payer MEDICARE, MEDICAID, SELFPAY | END 2023-10-21 11:44 | disposition home or self-care (01) | LOC: LBN 11:43 | PROVIDERS: PCP Nurse Practitioner Family; Visit Provider Physician Assistant | DX: N39.0 Urinary tract infection, site not specified (principal) | CPT/HCPCS: 87086 ==

== ENCOUNTER 2023-11-08 10:16 | Emergency (ER) | payer MEDICARE, MEDICAID, SELFPAY ==
[2023-11-08 10:19] VITALS: BP 97/36; PULSE 66; RESP 14; TEMP 37.2; O2SAT 94
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
[2023-11-08 10:53] LABS: Bilirubin Negative (Negative); Blood Trace-intact (Negative); Clarity Clear (Clear); Glucose Negative (Negative); Ketones Negative (Negative); Leukocyte Esterase Trace (Negative); Nitrite Negative (Negative); Specific Gravity 1.015 (1.005-1.025); Urobilinogen 0.2 mg/dL (Up to 0.2); pH 7.5 (5-8)
[2023-11-08 11:00] LABS: Bacteria Rare HPF (Negative); C & S Indicated? Yes; Casts Negative LPF (Negative); Crystals Negative HPF (Negative); Epithelial Cells Few HPF (Negative); Mucus Negative (Negative); RBC 0-2 HPF (0-2); WBC 0-2 HPF (0-5)
[2023-11-08 11:09] VITALS: BP 97/36; PULSE 66; RESP 14; TEMP 37.2; O2SAT 94
--- NOTE | 2023-11-10 07:48 | NUR.NOTE ---
Accessed chart to look up whether or not on antibiotic for culture result. Nursing Note:
== END 2023-11-08 11:11 | disposition home or self-care (01) ==
LOC: ER 10:50
PROVIDERS: Emergency Provider Emergency Medicine; PCP Nurse Practitioner Family
DX: R21 Rash and other nonspecific skin eruption (principal)
CPT/HCPCS: 99283; 81003; 81015; 87086; 99284

== ENCOUNTER 2023-12-18 22:06 | Emergency (ER) | payer MEDICARE, MEDICAID, SELFPAY ==
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
[2023-12-18 22:11] VITALS: BP 90/55; PULSE 82; RESP 16; TEMP 37.1; O2SAT 97
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
[2023-12-18] MEDS: Lactated Ringers 1,000 ML 1000 ML IV (22:44)
[2023-12-18] MEDS: Ketorolac 30 MG/ML VIAL IVP (22:44)
[2023-12-18 22:57] LABS: HCT 38.9 % (36.0-46.0); HGB 12.5 g/dL (11.2-15.7); MCH 30.2 pg (27.0-33.0); MCHC 32.1 % (32.0-36.0); MCV 94 fL (80-95); MPV 8.7 fL (8.0-11.0); Platelet Count 302 10^3/uL (130-400); RBC 4.14 10^6/uL (3.93-5.22); RDW 13.2 % (11.7-14.6); RDW-SD 45.1 fL; WBC 12.85 10^3/uL (4.4-10.8)
[2023-12-18 23:10] LABS: HCG Qual (Serum) Negative
[2023-12-18 23:13] LABS: ALT 34 U/L (14-59); AST 26 U/L (15-37); Albumin 3.7 g/dL (3.4-5.0); Alkaline Phosphatase 55 U/L (46-116); Anion Gap 7.2 mmol/L (3-11); BUN 13 mg/dL (7-18); Bilirubin, Total 0.3 mg/dL (0.2-1.0); CO2 27.8 mmol/L (21.0-32.0); Calcium 8.5 mg/dL (8.5-10.1); Chloride 101 mmol/L (98-107); Estimated GFR 72.58 (mL/min/1.73m2); Glucose 81 mg/dL (74-106); Potassium 3.7 mmol/L (3.5-5.1); Sodium 136 mmol/L (136-145); Total Protein 7.1 g/dL (6.4-8.2)
[2023-12-18 23:13] LABS: Bilirubin Negative (Negative); Blood Negative (Negative); Clarity Sl Cloudy (Clear); Glucose Negative (Negative); Ketones Negative (Negative); Leukocyte Esterase Small (Negative); Nitrite Negative (Negative); Specific Gravity <= 1.005 (1.005-1.025); Urobilinogen 0.2 mg/dL (Up to 0.2)
[2023-12-18 23:21] LABS: Bacteria Few HPF (Negative); C & S Indicated? No/Sq. Contamination; Crystals Negative HPF (Negative); Epithelial Cells Many HPF (Negative); Mucus Negative (Negative); RBC 0-2 HPF (0-2)
[2023-12-19 00:14] VITALS: BP 85/61; PULSE 63; RESP 12; O2SAT 98
[2023-12-19] MEDS: Omnipaque 350 MG/ML 100 ML BTL IJ (00:15)
[2023-12-19] MEDS: Normal Saline - Diluent 50 ML VIAL IJ (00:16)
[2023-12-19 00:39] VITALS: BP 93/49; PULSE 60; RESP 14; O2SAT 98
[2023-12-19] MEDS: ACETAMINOPHEN 1,000 MG/100 ML BTL 400 MG IVPB (00:40)
[2023-12-19] MEDS: Lidocaine 5% Patch 1 PATCH TP (00:41)
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
[2023-12-19 01:55] VITALS: BP 84/54; PULSE 70; RESP 12; O2SAT 98
== END 2023-12-19 01:57 | disposition home or self-care (01) ==
PROVIDERS: Emergency Provider Emergency Medicine; PCP Nurse Practitioner Family
DX: S00.81XA Abrasion of other part of head, initial encounter (principal); S40.211A Abrasion of right shoulder, initial encounter; S60.511A Abrasion of right hand, initial encounter; S60.512A Abrasion of left hand, initial encounter; F17.210 Nicotine dependence, cigarettes, uncomplicated; Y90.6 Blood alcohol level of 120-199 mg/100 ml; Y04.0XXA Assault by unarmed brawl or fight, initial encounter; Y93.89 Activity, other specified; Y92.89 Other specified places as the place of occurrence of the external cause
CPT/HCPCS: 74177; 80053; 85027; 96365; 96375; 99285; 70450; 71260; 72125; 80320; 81003; 81015; 84703; 99284; J0131; J1885; J3490

== ENCOUNTER 2024-05-01 10:47 | Emergency (ER) | payer MEDICARE, MEDICAID, SELFPAY ==
[2024-05-01 10:54] VITALS: BP 108/57; PULSE 86; RESP 16; TEMP 36.4; O2SAT 95
[2024-05-01 10:57] VITALS: BP 108/57; PULSE 86; RESP 16; TEMP 36.4; O2SAT 95
[2024-05-01 11:02] VITALS: RESP 16
[2024-05-01] MEDS: Methadone Liquid 10 MG/ML 100 MG PO (11:55)
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
--- NOTE | 2024-05-04 11:13 | NUR.NOTE ---
[address] [facility] in [facility] called to see what dose of methadone patient was given during her visit to the ER this week. Information provided.
--- NOTE | 2024-06-18 14:30 | NUR.NOTE ---
Reviewed patient's chart to see what was missing in documentation.
== END 2024-05-01 12:10 | disposition home or self-care (01) ==
PROVIDERS: Emergency Provider Emergency Medicine; PCP Nurse Practitioner Family
DX: F14.90 Cocaine use, unspecified, uncomplicated (principal)
CPT/HCPCS: 99283; 99284

== ENCOUNTER 2024-05-09 10:05 | Emergency (ER) | payer MEDICARE, MEDICAID, SELFPAY ==
[2024-05-09 10:09] VITALS: BP 109/76; PULSE 81; RESP 18; TEMP 36.7; O2SAT 97
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
--- OUTSIDE RECORDS SUMMARY | 2024-05-09 10:25 | XMS_ITS | Encounter Summary ---
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 here at 0700 for wound dressing change to right shoulder. Wet to dry 4x4 with tegaderm, lightly debride with saline infused 4x4. Pain 6- 7/10 to right shoulder. Action: Medication administered per MAR, including IV vancomycin. Hourly rounding and safety checks. Spoke with her father Ed who expressed concern of too early discharge and unsanitary living arrangements. Provider aware. Response: Pleasant and cooperative throughout the shift. Hoping to be seen by case management on Saturday. Currently in bed with boyfriend, James running, call escamilla in reach. CANDE KIMBLE RN 01/05/2024 14:13 Problem: Daily Care Plan Goals Goal: Care Plan Documentation Flowsheets (Taken 01/05/2024 0930) Area of Focus: Pain/ Comfort Goal This Shift: pain will be tolerable * Plan of Care - Bobbi Parker RN - 01/05/2024 0435 EDT Problem: High Fall Risk: Goal: Patient Will Remain Free from Fall-Related Injury Outcome: Met This Shift Problem: Daily Care Plan Goals Goal: Care Plan Documentation Outcome: Met This Shift Data: HD #3 admitted due to abscess in right shoulder. Dressing in place. A+Ox3. Cooperative with care. Reports pain in right shoulder 02/04. Action: VS q4. Scheduled and PRN medication provided. Dressing change to right shoulder. Purulent output. Response: VSS. Patient able to sleep comfortably after PRN medication. Call escamilla within reach. BOBBI PARKER RN 01/05/2024 4:35 * Plan of Care - Cande Kimble RN - 01/04/2024 1507 EDT Data: Assumed care at 0700. A&Ox3, drowsy. Left unit once per orders. Pain 8/10 to right shoulder, however in no apparent distress, sleeping peacefully for a majority of the shift. Left AC 18g IV, positional and painful. Action: Wound dressing change to right shoulder with pre-medication of 5mg IV morphine. Medicationsadministered per SEP, including Vancomycin and Tylenol for pain. Nicotine replacement patch to leftshoulder, fell off in shower, replaced. Response: MRSA cultures positive at end of shift. Currently in bed, IV therapy at bedside insertingnew US guided IV. Call escamilla in reach. CANDE KIMBLE RN 01/04/2024 15:07 Problem: Daily Care Plan Goals Goal: Care Plan Documentation Flowsheets (Taken 01/04/2024 1050) Area of Focus: Pain/ Comfort Goal This Shift: pain control during dressing change * Plan of Care - Katina Bonilla - 01/04/2024 1353 EDT 01/04/24 1352 Discharge Delay Risk Assessment 2. Hospitalization 2 3. Family Structure 1 Major Barrier day total 1-6 2 Minor or major discharge risk delay(s) present? No discharge barriers identified (unknown if barriers will arise prior to discharge) Does the patient meet criteria to be escalated? No Initial assessment status Initial assessment complete? Yes ABEBA Conn * Plan of Care - Maida Sotelo RN - 01/04/2024 0421 EDT Problem: Daily Care Plan Goals Goal: Care Plan Documentation Flowsheets (Taken 01/03/2024 2336) Area of Focus: Pain/ Comfort Goal This Shift: Patient will have adequate pain management this shift Data: HOD#1- Admitted to B4 from ED after presenting with worsening erythema, pain and swelling of R shoulder. I&D done at bedside in ED by ortho. BID wound care per order management. Vancomycin scheduled q8hrs per SEP. Patient is Aox3, VSS on RA, continent x2, CG OOB. No tele needs. Action: Performed shift and four eyes skin assessments. Medications given per MAR. Hourly rounding complete. Response: Patient is resting in bed, call light is within reach, able to make needs known. MAIDA SOTELO RN 01/04/2024 4:52 documented in this encounter Plan of Treatment Not on file documented as of this encounter Procedures Procedure Name Priority Date/Time Associated Diagnosis Comments ECG REPORT - SCANNED 01/29/2024 21:56 EDT ECG REPORT - SCANNED 01/10/2024 11:32 EDT COMPLETE BLOOD COUNT Routine 01/07/2024 9:29 EDT BASIC METABOLIC PANEL (BMP) Routine 01/07/2024 9:29 EDT COMPLETE BLOOD COUNT Routine 01/06/2024 12:45 EDT BASIC METABOLIC PANEL (BMP) Routine 01/06/2024 12:45 EDT BASIC METABOLIC PANEL (BMP) Routine 01/05/2024 10:25 EDT COMPLETE BLOOD COUNT Routine 01/05/2024 10:24 EDT VANCOMYCIN TROUGH Timed 01/05/2024 6:3 4 EDT URINE CHEMICAL (DIP) & SEDIMENT (MICRO) WITH REFLEX TO CULTURE Routine 01/04/2024 11:51 EDT COMPLETE BLOOD COUNT Routine 01/04/2024 10:34 EDT ALT Add-On 01/04/2024 10:34 EDT AST Add-On 01/04/2024 10:34 EDT BASIC METABOLIC PANEL (BMP) Routine 01/04/2024 10:34 EDT EKG 12-LEAD Routine 01/04/2024 0:50 EDT ANAEROBE CULTURE/SMEAR(INC. AEROBES), OTHER STAT 01/03/2024 19:58 EDT XR HUMERUS RIGHT STAT 01/03/2024 17:3 6 EDT XR SHOULDER RIGHT 2 OR MORE VIEWS STAT 01/03/2024 17:35 EDT BACTERIAL CULTURE, BLOOD STAT 01/03/2024 16:52 EDT LACTIC ACID WITH REFLEX - USE FOR INITIAL SEPSIS EVALUATION STAT 01/03/2024 16:37 EDT BACTERIAL CULTURE, BLOOD STAT 01/03/2024 16:37 EDT SED RATE STAT 01/03/2024 16:37 EDT COMPLETE BLOOD COUNT AND DIFFERENTIAL STAT 01/03/2024 16:37 EDT C REACTIVE PROTEIN STAT 01/03/2024 16 :37 EDT BASIC METABOLIC PANEL (BMP) STAT 01/03/2024 16:37 EDT documented in this encounter Results * ECG REPORT - SCANNED (01/29/2024 21:56 EDT) 01/29/2024 21:5 6 EDT Scan 2 Optometric Technician PROCEDURE/MINOR YU GICAL ORDERABLES * ECG REPORT - SCANNED (01/10/2024 11:32 EDT) 01/10/2024 11:3 2 EDT Scan 2 Optometric Technician PROCEDURE/MINOR YU GICAL ORDERABLES * BASIC METABOLIC PANEL (BMP) (01/07/2024 9:29 EDT) Sodium 139 136 - 145 mmol/L 01/07/2024 10:37 [facility] Potassium 4.9 3.5 - 5.0 mmol/L 01/07/2024 10:37 [facility] Chloride 105 96 - 110 mmol/L 01/07/2024 10:37 [facility] CO2 Total 28 22 - 32 mmol/L 01/07/2024 10:37 [facility] Anion Gap 6 5 - 14 mmol/L 01/07/2024 10:37 [facility] Glucose 75 70 - 99 mg/dl 01/07/2024 10:37 [facility] Calcium 8.8 8.5 - 10.5 mg/dL 01/07/2024 10:37 [facility] BUN 11 10 - 26 mg/dL 01/07/2024 10:37 [facility] Creatinine 0.67 0.52 - 1.04 mg/dL 01/07/2024 10:37 [facility] eGFR 113 >60 mL/min/1.73 m2 01/07/2024 10:37 [facility] Blood VENOUS BLOOD / Unknown Venipuncture / Unknown 01/07/2024 9:29 EDT 01/07/2024 10:02 EDT Mirella Bee CHEMISTRY & BLOOD GA S ORDERABLES Performing Organization Address City/State/[facility] Co de Phone Number [facility] [address], [place] [phone] * COMPLETE BLOOD COUNT (01/07/2024 9:29 EDT) WBC 8.66 4.00 - 12.40 K/cmm 01/07/2024 10:16 [facility] RBC 4.24 3.86 - 5.04 M/cmm 01/07/2024 10:16 [facility] Hemoglobin 12.8 11.6 - 15.2 g/dL 01/07/2024 10:16 [facility] HCT 39.8 34.9 - 44.4 % 01/07/2024 10:16 [facility] MCV 94 81 - 98 fL 01/07/2024 10:16 T [facility] MCH 30.2 26.7 - 33.3 pg 01/07/2024 10:16 [facility] MCHC 32.2 32.1 - 35.9 g/dL 01/07/2024 10:16 [facility] RDW-CV 12.7 <14.7 % 01/07/2024 10:16 [facility] RDW-SD 43.8 <50.4 fl 01/07/2024 10:16 [facility] PLT 261 141 - 377 K/cmm 01/07/2024 10:16 [facility] MPV 10.1 9.5 - 12.7 fL 01/07/2024 10:16 [facility] Blood VENOUS BLOOD / Unknown Venipuncture / Unknown 01/07/2024 9:29 EDT 01/07/2024 10:05 EDT Mirella Bee HEMATOLOGY & PF4 ORD ERABLES [facility] [address] [place] [address] * (ABNORMAL) BASIC METABOLIC PANEL (BMP) (01/06/2024 12:45 EDT) Sodium 138 136 - 145 mmol/L 01/06/2024 13:37 [facility] Potassium 5.1(H) 3.5 - 5.0 mmol/L 01/06/2024 13:37 [facility] Chloride 101 96 - 110 mmol/L 01/06/2024 13:37 [facility] CO2 Total 29 22 - 32 mmol/L 01/06/2024 13:37 [facility] Anion Gap 8 5 - 14 mmol/L 01/06/2024 13:37 [facility] Glucose 87 70 - 99 mg/dl 01/06/2024 13:37 [facility] Calcium 9.0 8.5 - 10.5 mg/dL 01/06/2024 13:37 [facility] BUN 10 10 - 26 mg/dL 01/06/2024 13:37 [facility] Creatinine 0.62 0.52 - 1.04 mg/dL 01/06/2024 13:37 [facility] eGFR 115 >60 mL/min/1.73 m2 01/06/2024 13:37 [facility] Blood VENOUS BLOOD / Unknown Venipuncture / Unknown 01/06/2024 12:45 EDT 01/06/2024 13:01 EDT Mirella Bee CHEMISTRY & BLOOD GA S ORDERABLES Performing Organization Address City/State/[facility] Co de Phone Number [facility] [address] [place] [address] * (ABNORMAL) COMPLETE BLOOD COUNT (01/06/2024 12:45 EDT) WBC 7.51 4.00 - 12.40 K/cmm 01/06/2024 13:13 [facility] RBC 3.80(L) 3.86 - 5.04 M/cmm 01/06/2024 13:13 [facility] Hemoglobin 11.4(L) 11.6 - 15.2 g/dL 01/06/2024 13:13 [facility] HCT 35.6 34.9 - 44.4 % 01/06/2024 13:13 [facility] MCV 94 81 - 98 fL 01/06/2024 13:13 [facility] MCH 30.0 26.7 - 33.3 pg 01/06/2024 13:13 [facility] MCHC 32.0(L) 32.1 - 35.9 g/dL 01/06/2024 13:13 [facility] RDW-CV 12.9 <14.7 % 01/06/2024 13:13 [facility] RDW-SD 44.4 <50.4 fl 01/06/2024 13:13 [facility] PLT 204 141 - 377 K/cmm 01/06/2024 13:13 [facility] MPV 9.8 9.5 - 12.7 fL 01/06/2024 13:13 [facility] Blood VENOUS BLOOD / Unknown Venipuncture / Unknown 01/06/2024 12:45 EDT 01/06/2024 13:01 EDT Mirella Rohit HEMATOLOGY & PF4 ORD ERABLES [facility] [address] [place] [address] * (ABNORMAL) BASIC METABOLIC PANEL (BMP) (01/05/2024 10:25 EDT) Sodium 140 136 - 145 mmol/L 01/05/2024 10:49 [facility] Potassium 4.1 3.5 - 5.0 mmol/L 01/05/2024 10:49 [facility] Chloride 108 96 - 110 mmol/L 01/05/2024 10:49 [facility] CO2 Total 25 22 - 32 mmol/L 01/05/2024 10:49 [facility] Anion Gap 7 5 - 14 mmol/L 01/05/2024 10:49 [facility] Glucose 87 70 - 99 mg/dl 01/05/2024 10:49 [facility] Calcium 8.7 8.5 - 10.5 mg/dL 01/05/2024 10:49 [facility] BUN 5(L) 10 - 26 mg/dL 01/05/2024 10:49 [facility] Creatinine 0.64 0.52 - 1.04 mg/dL 01/05/2024 10:49 [facility] eGFR 114 >60 mL/min/1.73 m2 01/05/2024 10:49 [facility] Blood VENOUS BLOOD / Unknown Venipuncture / Unknown 01/05/2024 10:25 EDT 01/05/2024 10:29 EDT Mirella Bee CHEMISTRY & BLOOD GA S ORDERABLES [facility] [address] [place] [address] * (ABNORMAL) COMPLETE BLOOD COUNT (01/05/2024 10:24 EDT) WBC 9.58 4.00 - 12.40 K/cmm 01/05/2024 10:32 [facility] RBC 3.86 3.86 - 5.04 M/cmm 01/05/2024 10:32 [facility] Hemoglobin 11.6 11.6 - 15.2 g/dL 01/05/2024 10:32 [facility] HCT 36.2 34.9 - 44.4 % 01/05/2024 10:32 [facility] MCV 94 81 - 98 fL 01/05/2024 10:32 [facility] MCH 30.1 26.7 - 33.3 pg 01/05/2024 10:32 [facility] MCHC 32.0(L) 32.1 - 35.9 g/dL 01/05/2024 10:32 [facility] RDW-CV 13.3 <14.7 % 01/05/2024 10:32 [facility] RDW-SD 45.8 <50.4 fl 01/05/2024 10:32 [facility] PLT 219 141 - 377 K/cmm 01/05/2024 10:32 [facility] MPV 9.6 9.5 - 12.7 fL 01/05/2024 10:32 [facility] Blood VENOUS BLOOD / Unknown Venipuncture / Unknown 01/05/2024 10:24 EDT 01/05/2024 10:29 EDT Mirella Rohit HEMATOLOGY & PF4 ORD ERABLES Performing Organization Address City/[facility] Co de Phone Number [facility] [address] [place] [address] * VANCOMYCIN TROUGH (01/05/2024 6:34 EDT) Vancomycin Trough 14.6 10.0 - 20.0 ??g/mL 01/05/2024 7:35 EDT [facility] Draw Type Peripheral Draw 01/05/2024 7:35 EDT [facility] Blood VENOUS BLOOD / Unknown Venipuncture / Unknown 01/05/2024 6:34 EDT 01/05/2024 6:55 EDT Elias Garcia MD CHEMISTRY & BLOO D GAS ORDERABLES Performing Organization Address City/[facility] Co de Phone Number [facility] [address], [place] [phone] * (ABNORMAL) UA CHEMICAL & SEDIMENT + REFLEX TO CULTURE (01/04/2024 11:51 EDT) Color UA Yellow Colorless, Yellow 01/04/2024 12:02 T [facility] Clarity UA Clear Clear 01/04/2024 12:02 T [facility] Glucose UA Negative Negative mg/dL 01/04/2024 12:02 EDT [facility] Bilirubin UA Negative Negative 01/04/2024 12:02 T [facility] Ketones UA Negative Negative 01/04/2024 12:02 T [facility] Specific [place], Urine 1.004 1.001 - 1.030 01/04/2024 12:02 [facility] Blood UA Negative Negative 01/04/2024 12:02 EDT [facility] Urobilinogen UA 0.2 0.2-1.0 mg/dL mg/dL 01/04/2024 12:02 T [facility] Nitrite UA Negative Negative 01/04/2024 12:02 [facility] Leukocyte Esterase UA Trace(A) Negative 01/04/2024 12:02 [facility] Protein UA Negative Negative mg/dL 01/04/2024 12:02 [facility] pH, UA 8.0 <8.5 01/04/2024 12:02 [facility] Urine RBC Count, Auto 0 - 2 0 - 2 Cells/HPF 01/04/2024 12:02 [facility] Urine WBC Count, Auto 0 - 3 0 - 3 Cells/HPF 01/04/2024 12:02 [facility] Urine Squamous Count, Auto None Seen None Seen Cells/HPF 01/04/2024 12:02 [facility] Urine Hyaline Cast Count, Auto <=10 <=10 Casts/LPF 01/04/2024 12:02 [facility] Urine Bacteria Count, Auto None Seen None Seen Bacteria/HPF 01/04/2024 12:02 [facility] Urine URINE SPECIMEN OBTAINED BY CLEAN CATCH PROCEDURE / Unknown Urine Collect / Unknown 01/04/2024 11:51 EDT 01/04/2024 11:55 EDT Narrative [facility] - 01/04/2024 12:02 EDT NOTE: Reflex to Urine Culture test is not indicated based on Urine Sediment Analysis results. Urine Sediment Analysis results are unreliable on urines that are unrefrigerated for >2 hrs or refrigerated >8 hrs. Larissa Nieves MD URINALYSIS ORDERABL ES [facility] [address], [place] [id number] * ALT (01/04/2024 10:34 EDT) ALT 19 <35 U/L 01/04/2024 13:59 T [facility] Blood VENOUS BLOOD / Unknown Venipuncture / Unknown 01/04/2024 10:34 EDT 01/04/2024 10:56 EDT Larissa Nieves MD CHEMISTRY & BLOOD G ORDERABLES Performing Organization Address City/[facility]/ZIP Co de Phone Number [facility] [address], [place] [phone] * AST (01/04/2024 10:34 EDT) AST 24 15 - 46 U/L 01/04/2024 13[facility] Blood VENOUS BLOOD / Unknown Venipuncture / Unknown 01/04/2024 10:34 EDT 01/04/2024 10:56 EDT Larissa Nieves MD CHEMISTRY & BLOOD G ORDERABLES Performing Organization Address [facility] Co de Phone Number [facility] [address], [place] [phone] * (ABNORMAL) BASIC METABOLIC PANEL (BMP) (01/04/2024 10:34 EDT) Sodium 138 136 - 145 mmol/L 01/04/2024 11:23 [facility] Potassium 4.1 3.5 - 5.0 mmol/L 01/04/2024 11:23 [facility] Chloride 106 96 - 110 mmol/L 01/04/2024 11:23 [facility] CO2 Total 26 22 - 32 mmol/L 01/04/2024 11:23 [facility] Anion Gap 6 5 - 14 mmol/L 01/04/2024 11:23 [facility] Glucose 121(H) 70 - 99 mg/dl 01/04/2024 11:23 [facility] Calcium 8.4(L) 8.5 - 10.5 mg/dL 01/04/2024 11:23 [facility] BUN 5(L) 10 - 26 mg/dL 01/04/2024 11:23 [facility] Creatinine 0.56 0.52 - 1.04 mg/dL 01/04/2024 11:23 [facility] eGFR 118 >60 mL/min/1.73 m2 01/04/2024 11:23 [facility] Blood VENOUS BLOOD / Unknown Venipuncture / Unknown 01/04/2024 10:34 EDT 01/04/2024 10:56 EDT Tamir Acharya MD CHEMISTRY & BLOOD GAS ORDERABLES [facility] [address] [place] [address] * (ABNORMAL) COMPLETE BLOOD COUNT (01/04/2024 10:34 EDT) WBC 7.56 4.00 - 12.40 K/cmm 01/04/2024 12:18 [facility] RBC 3.57(L) 3.86 - 5.04 M/cmm 01/04/2024 12:18 [facility] Hemoglobin 10.9(L) 11.6 - 15.2 g/dL 01/04/2024 12:18 [facility] HCT 33.0(L) 34.9 - 44.4 % 01/04/2024 12:18 [facility] MCV 92 81 - 98 fL 01/04/2024 12:18 [facility] MCH 30.5 26.7 - 33.3 pg 01/04/2024 12:18 [facility] MCHC 33.0 32.1 - 35.9 g/dL 01/04/2024 12:18 [facility] RDW-CV 13.3 <14.7 % 01/04/2024 12:18 [facility] RDW-SD 45.9 <50.4 fl 01/04/2024 12:18 [facility] PLT 198 141 - 377 K/cmm 01/04/2024 12:18 [facility] MPV 10.3 9.5 - 12.7 fL 01/04/2024 12:18 EDT [facility] Blood VENOUS BLOOD / Unknown Venipuncture / Unknown 01/04/2024 10:34 EDT 01/04/2024 10:55 EDT Tamir Acharya MD HEMATOLOGY & PF4 O RDERABLES Performing Organization Address [facility]/State/ZIP Co de Phone Number [facility] [address] [place] [address] * EKG 12-LEAD (01/04/2024 0:50 EDT) 01/04/2024 0:50 EDT Narrative [facility] - 01/29/2024 21:45 EDT ? [facility] ? Test Date: ?2024-01-04 Pat Name: ? KETAN TONG ? Department: ?? [place] [facility] ? Room: ? B428 Gender: ? Female ? Vtc Technician: ?? [id number] : ?1980 ? Requested By: ERIKA Slater Order Number: [id number] ? Larissa MICHAEL: ?? MIN TAYLOR MD ? Measurements Intervals ?[place] ? Rate: ? 53 ? P: ?38 KS: ? 189 ?QRS: ?-10 QRSD: ? 97 ? T: ?84 QT: ? 443 ? QTc: ?420 ? Interpretive Statements SINUS BRADYCARDIA Automated Interpretation. ??Provider Interpretation to follow. Compared to ECG 12/22/2021 15:14:49 Sinus rhythm no longer present I reviewed the tracing and have either agreed or edited the findings in this report. Electronically Signed On 01-29-2024 21:45:30 EDT by MIN TAYLOR MD. Procedure Note Min Taylor MD PhD - 01/29/2024 [facility] Test Date: 2024-01-04 Pat Name: KETAN TONG Department: [facility]e Room: [facility] Gender: Female Vtc Technician: [id number] : 1980 Requested By: ERIKA Slater Order Number: [id number] Reading MD: MIN VALENCIA Measurements Intervals [place] Rate: 53 P: 38 KS: 189 QRS: -10 QRSD: 97 T: 84 QT: 443 QTc: 420 Interpretive Statements SINUS BRADYCARDIA Automated Interpretation. Provider Interpretation to follow. Compared to ECG 12/22/2021 15:14:49 Sinus rhythm no longer present I reviewed the tracing and have either agreed or edited the findings inthis report. Electronically Signed On 01-29-2024 21:45:30 EDT by WEST MICHAEL. Tamir Acharya MD CARDIAC ECG ORDERA BLES [facility] * (ABNORMAL) ANAEROBE CULTURE/SMEAR(INC. AEROBES), OTHER (01/03/2024 19:58 EDT) Organism ID Few Methicillin-Resi stant Staphylococcus aureus(A) VITEK SUSCEPTIBILITY 4 8:06 EDT [facility] Comment: Resistant to all penicillins (including nafcillin), combinations of penicillins and beta lactamase inhibitors (eg amoxicillin clavulanic acid, ampicillin sulbactam, piperacillin tazobactam), cephalosporins, and all carbapenems (eg meropenem and imipe nem). (mecA gene product present). Ceftaroline may be active in some cases. Smear Neutrophils Present(A) 4 8:06 EDT [facility] Smear Gram Positive Cocci(A) 4 8:06 EDT [facility] Comment:Intraleukocytic orga nisms seen. Fluid STRUCTURE OF PART OF RIGHT UPPER LIMB / Unknown 01/03/2024 19:58 EDT 01/03/2024 20:03 EDT Narrative Organism Antibiotic Method Susceptibility Methicillin-Resistant Staphylococcus aureus Cefazolin VITEK SUSCEPTIBILITY Deduced Resistant Methicillin-Resistant Staphylococcus aureus Ceftaroline VITEK SUSCEPTIBILITY 0.5 ug/mL: Susceptible Methicillin-Resistant Staphylococcus aureus Clindamycin VITEK SUSCEPTIBILITY 0.25 ug/mL: Susceptible Methicillin-Resistant Staphylococcus aureus Daptomycin VITEK SUSCEPTIBILITY 1 ug/mL: Susceptible Methicillin-Resistant Staphylococcus aureus Doxycycline VITEK SUSCEPTIBILITY <=0.5 ug/mL: Susceptible Methicillin-Resistant Staphylococcus aureus Erythromycin VITEK SUSCEPTIBILITY >=8 ug/mL: Resistant Methicillin-Resistant Staphylococcus aureus Oxacillin VITEK SUSCEPTIBILITY >=4 ug/mL: Resistant Methicillin-Resistant Staphylococcus aureus Trimethoprim-Sulfame thoxazole VITEK SUSCEPTIBILITY >=320 ug/mL: Resistant Methicillin-Resistant Staphylococcus aureus Vancomycin VITEK SUSCEPTIBILITY 1 ug/mL: Susceptible Kvng Macias MD MICROBIOLOGY - GENER AL ORDERABLES [facility] [address] [place], [place] [id number] * XR HUMERUS RIGHT (01/03/2024 17:36 EDT) Anatomical Region Laterality Modality Right Computed Radiogr aphy 01/03/2024 20:5 1 EDT Impressions 01/03/2024 20:51 EDT FINDINGS / IMPRESSION: 2 views of the right humerus show no acute osseous abnormality. The shoulder and elbow joints are congruent. As noted on the comparison shoulder radiographs obtained at the same time there is focal swelling of the superolateral soft tissues of the shoulder, correlating well with the provided clinical history. No areas of osteolysis, cortical destruction, erosive like changes, or periosteal reaction in the adjacent osseous structures. [id number] Narrative 01/03/2024 20:51 EDT EXAM/TECHNIQUE: XR HUMERUS RIGHT ??01/03/2024 5:31 PM HISTORY: R shoulder abscess; COMPARISON: None. Resulting Agency Comment [id number] Procedure Note Curtis Parmar MD - 01/03/2024 EXAM/TECHNIQUE: XR HUMERUS RIGHT 01/03/2024 5:31 PM HISTORY: R shoulder abscess; COMPARISON: None. IMPRESSION FINDINGS / IMPRESSION: 2 views of the right humerus show no acute osseous abnormality. Theshoulder and elbow joints are congruent. As noted on the comparisonshoulder radiographs obtained at the same time there is focal swelling ofthe superolateral soft tissues of the shoulder, correlating well with theprovided clinical history. No areas of osteolysis, cortical destruction,erosive like changes, or periosteal reaction in the adjacent osseousstructures. [id number] Mirna Delgado DO IMG DIAGNOSTIC IMAGI NG ORDERABLES * XR SHOULDER RIGHT 2 OR MORE VIEWS (01/03/2024 17:35 EDT) Anatomical Region Laterality Modality Right Computed Radiogr aphy 01/03/2024 20:3 7 EDT Impressions 01/03/2024 20:37 EDT FINDINGS / IMPRESSION: 3 views of the right shoulder show no evidence of acute fracture or dislocation. The glenohumeral and acromioclavicular joints are congruent. The latter shows at least mild degenerative changes. Mineralization is age-appropriate. There is focal swelling of the superolateral soft tissues of the shoulder, correlating well with the provided clinical history. No areas of osteolysis, cortical destruction, erosive like changes, or periosteal reaction in the adjacent osseous structures. [id number] Narrative 01/03/2024 20:37 EDT EXAM/TECHNIQUE: XR SHOULDER RIGHT 2 OR MORE VIEWS ??01/03/2024 5:27 PM HISTORY: Right shoulder redness, swelling, purulent drainage, concern for poss septic joint, osteomyelitis; COMPARISON: None. Resulting Agency Comment [id number] Procedure Note Curtis Parmar MD - 01/03/2024 EXAM/TECHNIQUE: XR SHOULDER RIGHT 2 OR MORE VIEWS 01/03/2024 5:27 PM HISTORY: Right shoulder redness, swelling, purulent drainage, concern forposs septic joint, osteomyelitis; COMPARISON: None. IMPRESSION FINDINGS / IMPRESSION: 3 views of the right shoulder show no evidence of acute fracture ordislocation. The glenohumeral and acromioclavicular joints are congruent.The latter shows at least mild degenerative changes. Mineralization isage-appropriate. There is focal swelling of the superolateral soft tissuesof the shoulder, correlating well with the provided clinical history. Noareas of osteolysis, cortical destruction, erosive like changes, orperiosteal reaction in the adjacent osseous structures. [id number] Mirna WHITFIELD DIAGNOSTIC IMAGI NG ORDERABLES * BACTERIAL CULTURE, BLOOD (01/03/2024 16:52 EDT) Organism ID No Growth at 5 days 01/08/2024 17:31 EDT [facility] Blood VENOUS BLOOD / Unknown Venipuncture / Unknown 01/03/2024 16:52 EDT 01/03/2024 17:18 EDT Mirna Danny SIERRA MICROBIOLOGY - GENER AL ORDERABLES Performing Organization Address [facility] de Phone Number [facility] [address] [place] [address] * SED RATE (01/03/2024 16:37 EDT) Sed Rate 7 0 - 20 mm/hr 01/03/2024 17:31 EDT [facility] Blood VENOUS BLOOD / Unknown Venipuncture / Unknown 01/03/2024 16:37 EDT 01/03/2024 16:42 EDT Mirna Delgado DO HEMATOLOGY & PF4 ORD ERABLES Performing Organization Address [facility] Co de Phone Number [facility] [address] [place] [address] * BACTERIAL CULTURE, BLOOD (01/03/2024 16:37 EDT) Organism ID No Growth at 5 days 01/08/2024 17:31 EDT [facility] Blood VENOUS BLOOD / Unknown Venipuncture / Unknown 01/03/2024 16:37 EDT 01/03/2024 17:16 EDT Mirna Delgado DO MICROBIOLOGY - GENER AL ORDERABLES Performing Organization Address [facility] de Phone Number [facility] [address] [place] [address] * LACTIC ACID WITH REFLEX - USE FOR INITIAL SEPSIS EVALUATION (01/03/2024 16:37 EDT) Lactic Acid 0.8 <=2.0 mmol/L 01/03/2024 17:01 EDT [facility] Blood VENOUS BLOOD / Unknown Venipuncture / Unknown 01/03/2024 16:37 EDT 01/03/2024 16:42 EDT Mirna Delgado DO CHEMISTRY & BLOOD ID S ORDERABLES Performing Organization Address [facility]/ZIP Co de Phone Number [facility] [address] [place], [place] [address] * (ABNORMAL) C REACTIVE PROTEIN (01/03/2024 16:37 EDT) Pathologist [facility] [place] C-Reactive Protein 36.6(H) <10.0 mg/L 01/03/2024 17:01 [facility] Blood VENOUS BLOOD / Unknown Venipuncture / Unknown 01/03/2024 16:37 EDT 01/03/2024 16:42 EDT Mirna Delgado DO CHEMISTRY & BLOOD ID S ORDERABLES Performing Organization Address [facility] de Phone Number [facility] [address] [place] [address] * (ABNORMAL) BASIC METABOLIC PANEL (BMP) (01/03/2024 16:37 EDT) Pathologist [facility] Sodium 138 136 - 145 mmol/L 01/03/2024 17:01 [facility] Potassium 4.0 3.5 - 5.0 mmol/L 01/03/2024 17:01 [facility] Chloride 103 96 - 110 mmol/L 01/03/2024 17:01 [facility] CO2 Total 28 22 - 32 mmol/L 01/03/2024 17:01 [facility] Anion Gap 7 5 - 14 mmol/L 01/03/2024 17:01 [facility] Glucose 94 70 - 99 mg/dl 01/03/2024 17:01 [facility] Calcium 8.4(L) 8.5 - 10.5 mg/dL 01/03/2024 17:01 [facility] BUN 7(L) 10 - 26 mg/dL 01/03/2024 17:01 [facility] Creatinine 0.60 0.52 - 1.04 mg/dL 01/03/2024 17:01 [facility] eGFR 116 >60 mL/min/1.73 m2 01/03/2024 17:01 [facility] Blood VENOUS BLOOD / Unknown Venipuncture / Unknown 01/03/2024 16:37 EDT 01/03/2024 16:42 EDT Mirna Delgado DO CHEMISTRY & BLOOD GA S ORDERABLES [facility] [address] [place] [address] * COMPLETE BLOOD COUNT AND DIFFERENTIAL (01/03/2024 16:37 EDT) WBC 10.09 4.00 - 12.40 K/cmm 01/03/2024 17:02 [facility] RBC 4.09 3.86 - 5.04 M/cmm 01/03/2024 17:02 [facility] Hemoglobin 12.4 11.6 - 15.2 g/dL 01/03/2024 17:02 [facility] HCT 38.3 34.9 - 44.4 % 01/03/2024 17:02 [facility] MCV 94 81 - 98 fL 01/03/2024 17:02 [facility] MCH 30.3 26.7 - 33.3 pg 01/03/2024 17:02 [facility] MCHC 32.4 32.1 - 35.9 g/dL 01/03/2024 17:02 [facility] RDW-CV 13.2 <14.7 % 01/03/2024 17:02 [facility] RDW-SD 45.4 <50.4 fl 01/03/2024 17:02 [facility] PLT 227 141 - 377 K/cmm 01/03/2024 17:02 [facility] MPV 10.2 9.5 - 12.7 fL 01/03/2024 17:02 [facility] % Neutrophils 74.5 % 01/03/2024 17:02 [facility] % Lymphocytes 15.0 % 01/03/2024 17:02 [facility] % Monocytes 6.7 % 01/03/2024 17:02 [facility] % Eosinophils 2.9 % 01/03/2024 17:02 [facility] % Basophils 0.5 % 01/03/2024 17:02 [facility] % Immature Grans 0.4 % 01/03/20 17:02 [facility] Absolute Neutrophils 7.52 2.20 - 8.85 K/cmm 01/03/2024 17:02 [facility] Absolute Lymphocytes 1.51 1.09 - 3.30 K/cmm 01/03/2024 17:02 [facility] Absolute Monocytes 0.68 0.10 - 0.80 K/cmm 01/03/2024 17:02 [facility] Absolute Eosinophils 0.29 0.03 - 0.61 K/cmm 01/03/2024 17:02 [facility] ABS Basophils 0.05 0.01 - 0.11 K/cmm 01/03/2024 17:02 [facility] Absolute Immature Grans 0.04 0.00 - 0.06 K/cmm 01/03/2024 17:02 [facility] Type of Differential: Auto 01/03/2024 17:02 [facility] Blood VENOUS BLOOD / Unknown Venipuncture / Unknown 01/03/2024 16:37 EDT 01/03/2024 16:42 EDT Mirna Delgado DO PACKAGES & DNA PROBE ORDERABLES [facility] [address] [place] [address] documented in this encounter Visit Diagnoses Diagnosis Infection of wound due to methicillin resistant Staphylococcus aureus (MRSA)- Primary Abscess of right shoulder Cellulitis and abscess of upper arm and forearm Severe substance use disorder (HCC-CMS) Abscess Cellulitis and abscess of unspecified site Severe substance use disorder (HCC-CMS) Abscess of right shoulder Cellulitis and abscess of upper arm and forearm documented in this encounter Admitting Diagnoses Diagnosis Abscess Cellulitis and abscess of unspecified site Abscess of right shoulder Cellulitis and abscess of upper arm and forearm documented in this encounter Administered Medications Inactive Administered Medications - up to 3 most recent administrations Medication Order MAR Action Action Date Dose Rate Site acetaminophen (TYLENOL) tablet 1,000 mg 1,000 mg, oral, EVERY 6 HOURS, First dose (after last modification) on 01/04/24 at 1400, Until Discontinued, Routine Given 01/07/2024 15:00 EDT 1,000 mg Given 01/07/2024 8:26 EDT 1,000 mg Given 01/07/2024 0:53 EDT 1,000 mg ascorbic acid (vitamin C) (VITAMIN C) tablet 500 mg 500 mg, oral, DAILY, First dose on Sat01/06/24 at 1630, Until Discontinued, Routine Given 01/07/2024 8:25 EDT 500 mg Given 01/06/2024 16:38 EDT 500 mg buPROPion (WELLBUTRIN XL) XL tablet 300 mg 300 mg, oral, DAILY, First dose (after last reorder) on 01/04/24 at 0900, Until Discontinued, Routine Given 01/07/2024 8:26 EDT 300 mg Given 01/06/2024 8:38 EDT 300 mg Given 01/05/2024 9:16 EDT 300 mg cloNIDine HCL (CATAPRES) tablet 0.1 mg 0.1 mg, oral, 2 TIMES DAILY, First dose on 01/04/24 at 0900, Until Discontinued, Routine Given 01/07/2024 8:26 EDT 0.1 mg Given 01/06/2024 20:42 EDT 0.1 mg Given 01/06/2024 8:41 EDT 0.1 mg doxycycline (VIBRA-TABS) tablet 100 mg 100 mg, oral, EVERY 12 HOURS, 10 doses, First dose on Sat01/06/24 at 0900, Last dose on Sat01/10/24 at 2100, Routine Given 01/07/2024 8:25 EDT 100 mg Given 01/06/2024 20:42 EDT 100 mg Given 01/06/2024 8:38 EDT 100 mg fentaNYL citrate (PF) 50 mcg/mL injection 1 dose, Starting on Sat01/03/24 at 1956, Until Sat01/03/24 at 2045 fentaNYL citrate (PF) injection 100 mcg 100 mcg, intravenous, NOW X1, 1 dose, On Sat01/03/24 at 2015, STAT Given 01/03/2024 20:46 EDT 100 mcg folic acid (FOLVITE) tablet 1 mg 1 mg, oral, DAILY, First dose on Sat01/04/24 at 0900, Until Discontinued, Routine Given 01/07/2024 8:26 EDT 1 mg Given 01/06/2024 8:38 EDT 1 mg Given 01/05/2024 9:16 EDT 1 mg gabapentin (NEURONTIN) capsule 800 mg 800 mg, oral, 3 TIMES DAILY, First dose on Sat01/04/24 at 0900, Until Discontinued, Routine Given 01/07/2024 15:00 EDT 80 0 mg Given 01/07/2024 8:26 EDT 800 mg Given 01/06/2024 20:42 EDT 800 mg hydrOXYzine (ATARAX) tablet 50 mg 50 mg, oral, 3 TIMES DAILY PRN, Starting on Sat01/04/24 at 0023, Until Sat01/07/24 at 1840, Itching, Anxiety, Routine Given 01/05/2024 17:06 EDT 50 mg ibuprofen (MOTRIN) tablet 600 mg 600 mg, oral, EVERY 6 HOURS PRN, Starting on Sat01/05/24 at 0946, Until Sat01/07/24 at 1840, Pain, Routine Given 01/06/2024 22:14 EDT 600 mg Given 01/06/2024 5:27 EDT 600 mg ketAMINE in NaCl, iso-osmotic (KETALAR) 50 mg/5 mL (10 mg/mL) IV injection 14.8 mg 14.8 mg (rounded from 14.75 mg = 0.25 mg/kg ? 59 kg), intravenous, NOW X1, 1 dose, On Sat01/03/24 at 1915, STAT Given 01/03/2024 19:38 EDT 14.8 mg lactated ringers BOLUS 1,000 mL 1,000 mL, intravenous, NOW X1, 1 dose, On Sat01/03/24 at 1630, STAT New Bag 01/03/2024 16:45 EDT 1,000 mL levothyroxine (SYNTHROID) tablet 50 mcg 50 mcg, oral, DAILY BEFORE BREAKFAST, First dose on 01/04/24 at 0700, Until Discontinued, Routine Given 01/07/2024 6:25 EDT 50 mcg Given 01/06/2024 5:08 EDT 50 mcg Given 01/05/2024 6:42 EDT 50 mcg lithium (ESKALITH) ER tablet 450 mg 450 mg, oral, AT BEDTIME, First dose on 01/04/24 at 0045, Until Discontinued, Routine Given 01/06/2024 20:42 EDT 45 0 mg Given 01/05/2024 20:34 EDT 450 mg Given 01/04/2024 21:23 EDT 450 mg lithium (LITHOBID) ER tablet 300 mg 300 mg, oral, AT BEDTIME, First dose on 01/04/24 at 0045, Until Discontinued, Routine Given 01/06/2024 22:42 EDT 30 0 mg Given 01/05/2024 21:00 EDT 300 mg Given 01/04/2024 22:38 EDT 300 mg magnesium oxide (MAG-OX) tablet 400 mg 400 mg, oral, DAILY, First dose on 01/04/24 at 1200, Until Discontinued, Routine Given 01/07/2024 12:16 EDT 400 mg Given 01/06/2024 11:36 EDT 400 mg Given 01/05/2024 12:53 EDT 400 mg methadone (DOLOPHINE) concentrated solution 100 mg 100 mg, oral, DAILY, First dose on 01/04/24 at 0930, Until Discontinued, Routine Given 01/07/2024 8:27 EDT 100 mg Given 01/06/2024 8:38 EDT 100 mg Given 01/05/2024 9:17 EDT 100 mg morphine (MS IR) tablet 15 mg 15 mg, oral, EVERY 4 HOURS PRN, Starting on Sat01/03/24 at 2158, Until Sat01/04/24 at 0023, Pain, STAT Given 01/03/2024 23:19 EDT 15 mg morphine (MS IR) tablet 15 mg 15 mg, oral, EVERY 4 HOURS PRN, Starting on Sat01/04/24 at 0023, Until Sat01/04/24 at 1340, Pain, Routine Given 01/04/2024 5:58 EDT 15 mg morphine (MS IR) tablet 22.5 mg 22.5 mg (rounded from 22 mg), oral, EVERY 4 HOURS PRN, Starting on Sat01/04/24 at 1332, Until Sat01/07/24 at 1840, Pain, Routine Given 01/07/2024 11:25 EDT 22.5 mg Given 01/07/2024 0:53 EDT 22.5 mg Given 01/06/2024 20:41 EDT 22.5 mg morphine injection 5 mg 5 mg, intravenous, 2 TIMES DAILY PRN, Starting on Sat01/04/24 at 0716, Until Sat01/07/24 at 1840, Pain, Before dressing changes, Routine Given 01/07/2024 12:15 EDT 5 mg Given 01/06/2024 17:19 EDT 5 mg Given 01/06/2024 5:44 EDT 5 mg naloxone (NARCAN) injection 0.1 mg 0.1 mg, intravenous, PRN, Starting on Sat01/04/24 at 0847, Until Sat01/07/24 at 1840, Opioid Reversal, Routine nicotine (NICODERM CQ) 14 mg/24 hr patch 1 Patch 1 Patch, transdermal, DAILY PRN, Starting on Sat01/04/24 at 1243, Until Sat01/07/24 at 1840, Other, nicotine cravings, Routine Patch Applied 01/04/2024 13:53 EDT 1 Patch L eft Shoulder polyethylene glycol 3350 (MIRALAX) packet 17 g 17 g, oral, DAILY, First dose on Sat01/07/24 at 0900, Until Discontinued, Routine Given 01/07/2024 8:35 EDT 17 g Prazosin (MINIPRESS) capsule 2 mg 2 mg, oral, AT BEDTIME, First dose on Sat01/04/24 at 0045, Until Discontinued, Routine Given 01/06/2024 22:14 EDT 2 mg Given 01/05/2024 22:20 EDT 2 mg Given 01/04/2024 22:32 EDT 2 mg ramelteon (ROZEREM) tablet 8 mg 8 mg, oral, AT BEDTIME PRN, Starting on Sat01/04/24 at 0023, Until Sat01/07/24 at 1840, Sleep, Routine Given 01/06/2024 22:42 EDT 8 mg Given 01/05/2024 0:37 EDT 8 mg Given 01/04/2024 1:08 EDT 8 mg thiamine (VITAMIN B1) tablet 100 mg 100 mg, oral, DAILY, First dose on Sat01/04/24 at 0900, Until Discontinued, Routine Given 01/07/2024 8:26 EDT 100 mg Given 01/06/2024 8:38 EDT 100 mg Given 01/05/2024 9:16 EDT 100 mg vancomycin (VANCOCIN) 1,250 mg in sodium chloride (NS) 0.9 % 250 mL IVPB 1,250 mg (rounded from 1,180 mg = 20 mg/kg ? 59 kg), intravenous, Administer over 90 Minutes, NOW X1, 1 dose, On Sat01/03/24 at 2130, Type of Therapy: Empiric, Suspected Indication (Select all that apply): Septic arthritis, ID Consult: No, STAT Given 01/03/2024 22:14 EDT 1,250 mg vancomycin (VANCOCIN) IVPB 1,000 mg 1,000 mg (rounded from 885 mg = 15 mg/kg ? 59 kg), intravenous, Administer over 60 Minutes, EVERY 8 HOURS, 21 doses, First dose (after last reorder) on Sat01/04/24 at 0600, Last dose on Sat01/10/24 at 2200, Type of Therapy: Empiric, Suspected Indication (Select all that apply): Septic arthritis, ID Consult: No, Routine Given 01/06/2024 5:15 EDT 1,000 mg Given 01/05/2024 21:19 EDT 1,000 mg Given 01/05/2024 14:09 EDT 1,000 mg documented in this encounter Discontinued Medications Medication Sig Discontinue Reason Start Date End Da te diazePAM (VALIUM) 5 mg tablet Take 2 Tablets by mouth 2 times daily. Taper w/ [place] 01/04/2024 buPROPion (WELLBUTRIN XL) 150 mg XL tablet Take 1 Tablet by mouth daily. 01/08/2024 levothyroxine (SYNTHROID) 50 mcg tablet Take 1 Tablet by mouth daily. 01/08/2024 OLANZapine (ZYPREXA) 5 mg tablet Take 2 Tablets by mouth daily. 01/08/2024 magnesium oxide (MAG-OX) 400 mg (241.3 mg magnesium) tablet Take 1 Tablet by mouth daily. 01/08/2024 QUEtiapine (SEROQUEL) 25 mg tablet Take 2 Tablets by mouth daily. 01/08/2024 cyclobenzaprine (FLEXERIL) 10 mg tablet Take 1 Tablet by mouth 3 times daily as needed for Muscle Spasms. 01/08/2024 gabapentin (NEURONTIN) 400 mg capsule Take 2 Capsules by mouth 3 times daily. 01/08/2024 cloNIDine HCL (CATAPRES) 0.2 mg tablet Take 1 Tablet by mouth 2 times daily. 01/08/2024 lithium (LITHOBID) 300 mg CR tablet Take 1 Tablet by mouth at bedtime. 01/08/2024 lithium (ESKALITH) 450 mg CR tablet Take 1 Tablet by mouth at bedtime. 01/08/2024 Prazosin (MINIPRESS) 2 mg capsule Take 1 Capsule by mouth at bedtime. 01/08/2024 hydrOXYzine (ATARAX) 25 mg tablet Take 1 Tablet by mouth 3 times daily as needed for Itching. 01/08/2024 documented as of this encounter Active and Recently Administered Medications Times are shown in EDT. Scheduled Medication Order 01/05/2024 01/06/2024 01/07/2024 acetaminophen (TYLENOL) tablet 1,000 mg 1,000 mg, oral, EVERY 6 HOURS, First dose (after last modification) on 01/04/24 at 1400, Until Discontinued, Routine 0038 (Given - Provider: Bobbi Parker RN)0200 (Canceled Entry - Provider: Bobbi Parker RN - Comment: given early)0916 (Given - Provider: Cande Kimble RN)1408 (Given - Provider: Cande Kimble RN)2034 (Given - Provider: Rock Salazar RN) 0118 (Given - Provider: Panchito Gonzalez RN)0838 (Given - Provider: Cande Kimble RN)1401 (Given - Provider: Cande Kimble RN)1938 (Given - Provider: Rock Salazar RN) 0053 (Given - Provider: Panchito Gonzalez RN)08 (Given - Provider: Cande Kimble RN)1500 (Given - Provider: Cande Kimble RN) ascorbic acid (vitamin C) (VITAMIN C) tablet 500 mg 500 mg, oral, DAILY, First dose on Sat01/06/24 at 1630, Until Discontinued, Routine 1638 (Given - Provider: Rock Salazar RN) 08 (Given - Provider: Cande Kimble RN) buPROPion (WELLBUTRIN XL) XL tablet 300 mg 300 mg, oral, DAILY, First dose (after last reorder) on 01/04/24 at 0900, Until Discontinued, Routine 09 (Given - Provider: Cande Kimble RN) 08 (Given - Provider: Cande Kimble RN) 08 (Given - Provider: Cande Kimble RN) cloNIDine HCL (CATAPRES) tablet 0.1 mg 0.1 mg, oral, 2 TIMES DAILY, First dose on 01/04/24 at 0900, Until Discontinued, Routine 916 (Given - Provider: Cande Kimble RN)2033 (Given - Provider: Rock Salazar RN) 08 (Given - Provider: Cande Kimble RN)2041 (Given - Provider: Rock Salazar RN) 08 (Given - Provider: Cande Kimble RN) doxycycline (VIBRA-TABS) tablet 100 mg 100 mg, oral, EVERY 12 HOURS, 10 doses, First dose on Sat01/06/24 at 0900, Last dose on Sat01/10/24 at 2100, Routine 0838 (Given - Provider: Cande Kimble RN)2041 (Given - Provider: Rock Salazar RN) 08 (Given - Provider: Cande Kimble RN) folic acid (FOLVITE) tablet 1 mg 1 mg, oral, DAILY, First dose on 01/04/24 at 0900, Until Discontinued, Routine 0916 (Given - Provider: Cande Kimble RN) 08 (Given - Provider: Cande Kimble RN) 08 (Given - Provider: Cande Kimble RN) gabapentin (NEURONTIN) capsule 800 mg 800 mg, oral, 3 TIMES DAILY, First dose on Sat01/04/24 at 0900, Until Discontinued, Routine 0916 (Given - Provider: Cande Kimble RN)1409 (Given - Provider: Cande Kimble RN)2033 (Given - Provider: Rock Salazar RN) 08 (Given - Provider: Cande Kimble RN)140 (Given - Provider: Cande Kimble RN)2041 (Given - Provider: Rock Salazar RN) 0826 (Given - Provider: Cande Kimble RN)1500 (Given - Provider: Cande Kimble RN) levothyroxine (SYNTHROID) tablet 50 mcg 50 mcg, oral, DAILY BEFORE BREAKFAST, First dose on 01/04/24 at 0700, Until Discontinued, Routine 0642 (Given - Provider: Bobbi Parker RN) 0508 (Given - Provider: Panchito Gonzalez RN) 0625 (Given - Provider: Panchito Gonzalez RN) lithium (ESKALITH) ER tablet 450 mg 450 mg, oral, AT BEDTIME, First dose on Sat01/04/24 at 0045, Until Discontinued, Routine 2033 (Given - Provider: Rock Salazar RN) 2041 (Given - Provider: Rock Salazar RN) lithium (LITHOBID) ER tablet 300 mg 300 mg, oral, AT BEDTIME, First dose on Sat01/04/24 at 0045, Until Discontinued, Routine 2100 (Given - Provider: Rock Salazar RN) 2242 (Given - Provider: Rock Salazar RN) magnesium oxide (MAG-OX) tablet 400 mg 400 mg, oral, DAILY, First dose on Sat01/04/24 at 1200, Until Discontinued, Routine 1253 (Given - Provider: Cande Kimble RN) 1136 (Given - Provider: Cande Kimble, DEXTER) 1216 (Given - Provider: Cande Kimble, DEXTER) methadone (DOLOPHINE) concentrated solution 100 mg 100 mg, oral, DAILY, First dose on Sat01/04/24 at 0930, Until Discontinued, Routine 09 (Given - Provider: Cande Kimble RN) 0838 (Given - Provider: Cande Kimble, DEXTER) 0827 (Given - Provider: Cande Kimble, RN) polyethylene glycol 3350 (MIRALAX) packet 17 g 17 g, oral, DAILY, First dose on Sat01/07/24 at 0900, Until Discontinued, Routine 0835 (Given - Provider: Cande Kimble RN) Prazosin (MINIPRESS) capsule 2 mg 2 mg, oral, AT BEDTIME, First dose on Sat01/04/24 at 0045, Until Discontinued, Routine 2220 (Given - Provider: Rock Salazar RN) 2214 (Given - Provider: Rock Salazar, DEXTER) thiamine (VITAMIN B1) tablet 100 mg 100 mg, oral, DAILY, First dose on Sat01/04/24 at 0900, Until Discontinued, Routine 0916 (Given - Provider: Cande Kimble RN) 0838 (Given - Provider: Cande Kimble RN) 0826 (Given - Provider: Cande Kimble RN) vancomycin (VANCOCIN) IVPB 1,000 mg (CANCELED) 1,000 mg (rounded from 885 mg = 15 mg/kg ? 59 kg), intravenous, Administer over 60 Minutes, EVERY 8 HOURS, 21 doses, First dose (after last reorder) on Sat01/04/24 at 0600, Last dose on Sat01/10/24 at 2200, Type of Therapy: Empiric, Suspected Indication (Select all that apply): Septic arthritis, ID Consult: No, Routine 0530 (Trough Due - Provider: Mary Phillips [facility])0643 (Given - Provider: Bobbi Parker RN)1409 (Given - Provider: Cande Kimble RN)2119 (Given - Provider: Rock Salazar, DEXTER) 0515 (Given - Provider: Panchito Gonzalez, DEXTER) PRN Medication Order 01/05/2024 01/06/2024 01/07/2024 hydrOXYzine (ATARAX) tablet 50 mg 50 mg, oral, 3 TIMES DAILY PRN, Starting on 01/04/24 at 0023, Until Sat01/07/24 at 1840, Itching, Anxiety, Routine 1706 (Given - Provider: Rock Salazar, DEXTER) ibuprofen (MOTRIN) tablet 600 mg 600 mg, oral, EVERY 6 HOURS PRN, Starting on Sat01/05/24 at 0946, Until Sat01/07/24 at 1840, Pain, Routine 0527 (Given - Provider: Panchito Gonzalez RN)221 (Given - Provider: Rock Salzaar, DEXTER) lidocaine (PF) 10 mg/mL (1 %) injection 2 mg 2 mg, intradermal, PRN, 4 doses, Starting on 01/04/24 at 0023, Until Sat01/07/24 at 1840, peripheral intravenous catheter placement, Routine morphine (MS IR) tablet 22.5 mg 22.5 mg (rounded from 22 mg), oral, EVERY 4 HOURS PRN, Starting on 01/04/24 at 1332, Until Sat01/07/24 at 1840, Pain, Routine 0642 (Given - Provider: Bobbi Parker RN)1707 (Given - Provider: Rock Salaazr, RN)2118 (Given - Provider: Rock Salazar, RN) 1507 (Given - Provider: Cande Kimble, RN)2041 (Given - Provider: Rock Salazar, RN) 0053 (Given - Provider: Panchito Gonzalez, RN)1125 (Given - Provider: Cande Kimble, RN) morphine injection 5 mg 5 mg, intravenous, 2 TIMES DAILY PRN, Starting on 01/04/24 at 0716, Until Sat01/07/24 at 1840, Pain, Before dressing changes, Routine 0026 (Given - Provider: Bobbi Parker RN)0649 (Given - Provider: Bobbi Parker, RN)2117 (Given - Provider: Rock Salazar, DEXTER - Comment: predressing) 0544 (Given - Provider: Panchito Gonzalez, DEXTER)1719 (Given - Provider: Rock Salazar, DEXTER) 1215 (Given - Provider: Cande Kimble, RN) naloxone (NARCAN) injection 0.1 mg 0.1 mg, intravenous, PRN, Starting on 01/04/24 at 0847, Until Sat01/07/24 at 1840, Opioid Reversal, Routine nicotine (NICODERM CQ) 14 mg/24 hr patch 1 Patch 1 Patch, transdermal, DAILY PRN, Starting on 01/04/24 at 1243, Until Sat01/07/24 at 1840, Other, nicotine cravings, Routine 0918 (Patch Removed - Provider: Cande Kimble, RN) ramelteon (ROZEREM) tablet 8 mg 8 mg, oral, AT BEDTIME PRN, Starting on 01/04/24 at 0023, Until Sat01/07/24 at 1840, Sleep, Routine 0037 (Given - Provider: Bobbi Parker, RN) 2242 (Given - Provider: Rock Salazar, DEXTER) documented in this encounter Orders Medications Ordered That Jaylen ht Not Have Been Administered Count Last Ordered Date First Ordered Date acetaminophen (TYLENOL) tablet 1,000 mg 1 0 01/04/2024 buPROPion (WELLBUTRIN XL) XL tablet 150 mg 1 01/04/2024 lidocaine (PF) 10 mg/mL (1 % ) injection 2 mg 1 01/04/2024 naloxone (NARCAN) injection 0.1 mg 1 2023 nicotine (NICODERM CQ) 14 mg /24 hr patch 1 Patch 1 01/04/2024 vancomycin (VANCOCIN) 1,250 mg in sodium chloride (NS) 0.9 % 250 mL IVPB 1 01/04/2024 Diet Count Last Ordered Date First Orde red Date DISCHARGE DIET 1 01/07/2024 Nursing Count Last Ordered Date First Orde red Date ACTIVITY INSTRUCTIONS 1 01/07/2024 BATHING INSTRUCTIONS 1 01/07/2024 DRIVING INSTRUCTIONS 1 01/07/2024 WOUND CARE INSTRUCTIONS 1 01/07/2024 IV Count Last Ordered Date First Orde red Date IV REQUEST 3 01/06/2024 01/04/2024 Admission Count Last Ordered Date First Orde red Date ADMIT TO INPATIENT 1 01/04/2024 OUTPATIENT WITH OBSERVATION SERVICES (INITIATE OBSERVATION STATUS) 1 01/04/2024 Transfer Count Last Ordered Date First Orde red Date ED BED REQUEST 1 01/03/2024 Discharge Count Last Ordered Date First Orde red Date DISCHARGE PATIENT 1 01/07/2024 Legal Count Last Ordered Date First Orde red Date MISCELLANEOUS DISCHARGE INSTRUCTIONS 1 12/27 documented in this encounter Additional Health Concerns Infection Onset Date Last Indicated Resolved Time MRSA Comment:IP Note: MRSA positive arm 01/03/24 A Vinny 01/06/24 01/03/2024 01/03/2024 documented as of this encounter Care Teams Blowing Engineer Relationship Specialty Start Date End Date None, Provider PCP - General 01/03/24 documented as of this encounter
--- OUTSIDE RECORDS SUMMARY | 2024-05-09 10:25 | XMS_ITS | Clinical Summary ---
Author Organization [facility] Address [address] [place] [address] Care Team Providers Care Manager Of Project Management Name Role Phone None, Provider Primary Care Provider Unavailabl e Allergies No known active allergies Medications Medication Sig Dispensed Refills Start Date End Date Status Multivitamins with Minerals tablet tablet Take 1 Tablet by mouth daily. Active thiamine (VITAMIN B1) 100 mg tablet Take 1 Tablet by mouth daily. Active folic acid (FOLVITE) 1 mg tablet Take 1 Tablet by mouth daily. Active acetaminophen (TYLENOL) 500 mg tablet Take 2 Tablets by mouth every 6 hours. 40 Tablet 01/07/2024 Active ibuprofen (MOTRIN) 600 mg tablet Take 1 Tablet by mouth every 6 hours as needed for Pain. Always take with food and water to protect your stomach and kidneys. 20 Tablet 01/07/2024 Active buPROPion (WELLBUTRIN XL) 300 mg XL tablet Take 1 Tablet by mouth daily. 7 Tablet 01/08/2024 Active traZODone (DESYREL) 100 mg tablet Take 1 Tablet by mouth at bedtime. 7 Tablet 01/08/2024 Active cloNIDine HCL (CATAPRES) 0.1 mg tablet Take 1 Tablet by mouth 2 times daily. 14 Tablet 01/08/2024 Active albuterol 90 mcg/actuation HFA aerosol inhaler inhaler Inhale 2 Puffs as directed every 4 hours. Active methadone (DOLOPHINE) 5 mg/5 mL oral solution Take 100 mL by mouth daily. Daily Max: 100 mg Active Active Problems Problem Noted Date Diagnosed Date Abscess of right shoulder 01/07/2024 Severe substance use disorder (HCC-CMS) 01/06/20 24 Infection of wound due to me thicillin resistant Staphylococcus aureus (MRSA) 01/03/2024 Resolved Problems Problem Noted Date Diagnosed Date Resolved Date Abscess 01/04/2024 01/07/2024 Encounters Date Type Department Care Team Description 04/07/2024 Transcribe Orders [facility] CL[facility] SUPPORT Emily Quezada MD Hypothyroidism, unspecified (Primary Dx); detention (current) use of opiate analgesic; Other ore 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 (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 03/10/2024 Transcribe Orders [facility] CLINICAL SUPPORT Emily Quezada MD photoengraver (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) use of opiate analgesic (Primary Dx) 03/09/2024 17:50 EDT - 03/09/2024 18:53 EDT Emergency [facility] Emergency Department - [address] [address] Blisters of multiple sites (Primary Dx) Discharge Disposition: Home or Self Care 03/09/2024 Travel from Last 3 Months Medical History Medical History Date Comments Polysubstance abuse ([facility]) Traumatic brain injury ([facility]) Asthma Social History Tobacco Use Types Packs/Day Years Used Date Smoking Tobacco: Every Day Cigarettes Smokeless Tobacco: Never Tobacco Cessation:Ready to Q uit: Not Asked; Counseling Given: Not Answered Alcohol Use Standard Drinks/Week Comments Not Currently 1 (1 standard drink = 0.6 oz pur e alcohol) [facility] Utilities Answer Date Recorded In the past 12 months has th e [employer], gas, oil, or water [employer] threatened to shut off services in your [...] any time in the past 12 m [facility], were you homeless or living in a mcfp (including now)? Yes 01/06/2024 Interpersonal Safety Answer Date Record ed How often does anyone, inclu april family, hit, punch or physically hurt you? 01/03/2024 How often does anyone, inclu april family, insult, scream, curse or threaten to hurt you? 01/03/2024 Sex and Gender Information Value Date Recorded Sex Assigned at Not on file Gender Identity Female 12/22/2021 14:10 EDT Sexual Orientation Not on file Obstetrics History Last Filed Vital Signs Vital Sign Reading Time Taken Comments Blood Pressure 93/62 03/09/2024 1517 EDT Pulse 77 03/09/2024 1517 EDT Temperature 36.6 ??C (97.9 ??F) 03/09/2024 1517 EDT Respiratory Rate 18 03/09/2024 1517 EDT Oxygen Saturation 97% 03/09/2024 1517 EDT Inhaled Oxygen Concentration - - Weight 61.2 kg (135 lb) 03/09/2024 1517 EDT Height 162.6 cm (5' 4) 03/09/2024 1517 EDT Body Mass Index 23.17 03/09/2024 1517 EDT Plan of Treatment Health Maintenance Due Date Last Done Comments Hepatitis C Screen 1980 Hepatitis B Vaccine (1 of 3 - 19+ 3-dose series) 05/10 COVID-19 Vaccine ( season) 2024 Additional Health Concerns Infection Onset Date Last Indicated MRSA Comment:IP Note: MRSA positive arm 01/03/24 A Ross 01/06/24 01/03/2024 01/03/2024 Advance Directives For more information, please contact: [phone] * Full Code (Latest Code Status on File) Date Activated Date Inactivated Comments 01/04/2024 0:21 01/07/2024 18:45 Question Answer Comments When the patient has NO PULSE: Full Code / CPR Who Made the Decision? Patient Care Teams Manager Of Project Management Relationship Specialty Start Date End Date None, Provider PCP - General 01/03/24
--- OUTSIDE RECORDS SUMMARY | 2024-05-09 10:25 | XMS_ITS | Encounter Summary ---
Author Organization [facility] Address [address] [place] [address] Care Team Providers Care Art Psychotherapist Or Therapist Name Role Phone None, Provider Primary Care Provider Unavailabl e Encounter Details Date Type Department Care Team (Latest Contact Info) Description 03/10/2024 Transcribe Orders [facility] CL[facility]ICAL SUPPORT [place] Emily Lorenz MD [address] [place] [address] [facility] (current) use of opiate analgesic (Primary Dx) Social History Tobacco Use Types Packs/Day Years Used Date Smoking Tobacco: Every Day Cigarettes Smokeless Tobacco: Never Alcohol Use Standard Drinks/Week Comments Not Currently 1 (1 standard drink = 0.6 oz pur e alcohol) [facility] Utilities Answer Date Recorded In the past 12 months has th e [facility], gas, oil, or water [employer] threatened to shut off services in your [...] any time in the past 12 m [facility], were you homeless or living in a residential (including now)? Yes 01/06/2024 Interpersonal Safety Answer Date Record ed How often does anyone, guerda chen family, hit, punch or physically hurt you? 01/03/2024 How often does anyone, guerda chen family, insult, scream, curse or threaten to hurt you? 01/03/2024 Sex and Gender Information Value Date Recorded Sex Assigned at Not on file Gender Identity Female 12/22/2021 14:10 EDT Sexual Orientation Not on file documented as of this encounter Functional Status Functional Status Response Date of Assess ment Are you deaf or do you have serious difficulty h earing? No 03/09/2024 Are you blind or do you have [...] Yes 01/03/2024 documented as of this encounter Plan of Treatment Scheduled Orders Name Type Priority Associated Diagnoses Orde r Schedule METHADONE AND METABOLITES, SERUM Lab Routine intermodal customer service (current) use of opiate analgesic Expected: 03/10/2024 (Approximate), Expires: 06/10/2024 documented as of this encounter Visit Diagnoses Diagnosis intermodal customer service (current) use of opiate analgesic- Primary documented in this encounter Additional Health Concerns Infection Onset Date Last Indicated Resolved Time MRSA Comment:IP Note: MRSA positive arm 01/03/24 A Ross 01/06/24 01/03/2024 01/03/2024 documented as of this encounter Care Teams Art Psychotherapist Or Therapist Relationship Specialty Start Date End Date None, Provider PCP - General 01/03/24 documented as of this encounter
--- OUTSIDE RECORDS SUMMARY | 2024-05-09 10:25 | XMS_ITS | Encounter Summary ---
Author Organization [facility] Address [address] [place] [address] Care Team Providers Care Station Captain Name Role Phone None, Provider Primary Care Provider Unavailabl e Encounter Details Date Type Department Care Team (Latest Contact Info) Description 04/07/2024 Transcribe Orders [facility] CL[facility]ICAL [facility]PPORT [place] Emily Lorenz MD [address] [place] [place] [address] Hypothyroidism, unspecified (Primary Dx); [facility] (current) use of opiate analgesic; Other long term care pharmacist (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 Social History Tobacco Use Types Packs/Day Years Used Date Smoking Tobacco: Every Day Cigarettes Smokeless Tobacco: Never Alcohol Use Standard Drinks/Week Comments Not Currently 1 (1 standard drink = 0.6 oz pur e alcohol) [facility] Utilities Answer Date Recorded In the past 12 months has th e [employer], gas, oil, or water [employer] threatened to shut off services in your [...] any time in the past 12 m [facility], were you homeless or living in a m[facility] (including now)? Yes 01/06/2024 Interpersonal Safety Answer Date Record ed How often does anyone, guerda chen family, hit, punch or physically hurt you? 01/03/2024 How often does anyone, inclkaz chen family, insult, scream, curse or threaten [...] Type Priority Associated Diagnoses Orde r Schedule THYROID CASCADE Lab Routine Hypothyroidism, unspecified long term acute care registered nurse (current) use of opiate analgesic Other correction (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 Expected: 04/07/2024 (Approximate), Expires: 07/06/2024 METHADONE AND METABOLITES, SERUM Lab Routine Hypothyroidism, unspecified [facility] (current) use of opiate analgesic Other long term care pharmacist (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 Expected: 04/07/2024 (Approximate), Expires: 07/06/2024 LITHIUM Lab Routine Hypothyroidism, unspecified [facility] (current) use of opiate analgesic Other long term care pharmacist (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 Expected: 04/07/2024 (Approximate), Expires: 07/06/2024 documented as of this encounter Visit Diagnoses Diagnosis Hypothyroidism, unspecified- Primary long term acute care registered nurse (current) use of opiate analgesic Other correction (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 documented in this encounter Additional Health Concerns Infection Onset Date Last Indicated Resolved Time MRSA Comment:IP Note: MRSA positive arm 01/03/24 A Ross 01/06/24 01/03/2024 01/03/2024 documented as of this encounter Care Teams Station Captain Relationship Specialty Start Date End Date None, Provider PCP - General 01/03/24 documented as of this encounter
--- OUTSIDE RECORDS SUMMARY | 2024-05-09 10:25 | XMS_ITS | Encounter Summary ---
Author Organization [facility] Address [address] [place] [address] Care Team Providers Care Chicken Dresser Name Role Phone None, Provider Primary Care Provider Unavailabl e Reason for Visit * Reason Comments Medications Refill Pt arrives ambulator y into triage. Pt has missed the last few days of her methadone dose, cannot articulate why she has not been going to the clinic. Pt states she is here today for her methadone dose, pt does not give answer when asked why she came to the ED instead of going to the clinic. Encounter Details Date Type Department Care Team (Late st Contact Info) Description 01/20/2024 12:45 EDT - 01/20/2024 15:08 EDT Emergency [facility] Emergency Department - [address] [address] Min Amezcua, DO [address] [facility], [address] [place] [id number] Encounter for medication administration (Primary Dx) Discharge Disposition: Home or Self Care Social History Tobacco Use Types Packs/Day Years Used Date Smoking Tobacco: Every Day Cigarettes Smokeless Tobacco: Never Alcohol Use Standard Drinks/Week Comments Not Currently 1 (1 standard drink = 0.6 oz pur e alcohol) [facility] Utilities Answer Date Recorded In the past 12 months has [employer], gas, oil, or water [employer] threatened to shut off services in your [...] any time in the past 12 m [facility], were you homeless or living in a fpc (including now)? Yes 01/06/2024 Interpersonal Safety Answer [...] Sign Reading Time Taken Comments Blood Pressure 123/100 01/20/2024 1159 EDT Pulse - - Temperature 36.9 ??C (98.4 ??F) 01/20/2024 1159 EDT Respiratory Rate 18 01/20/2024 1159 EDT Oxygen Saturation 100% 01/20/2024 1159 EDT Inhaled Oxygen Concentration - - Weight - - Height - - Body Mass Index - - documented in this encounter Functional Status Functional [...] 01/03/2024 documented as of this encounter Discharge Instructions * Discharge Instructions* Min Amezcua DO - 01/20/2024 13:04 EDT Please follow-up with your methadone clinic as planned tomorrow * Attachments The following attachments cannot be sent through Care Everywhere. * methadone (oral/injection) (Icelandic) documented in this encounter Medications at Time of Discharge Medication Sig Dispensed Refills Start Date End Date acetaminophen (TYLENOL) 500 mg tablet Take 2 Tablets by mouth every 6 hours. 40 Tablet 01/07/2024 albuterol 90 mcg/actuation HFA aerosol inhaler inhaler Inhale 2 Puffs as directed every 4 hours. buPROPion (WELLBUTRIN XL) 300 mg XL tablet [...] your stomach and kidneys. 20 Tablet 01/07/2024 methadone (DOLOPHINE) 5 mg/5 mL oral solution Take 100 mL by mouth daily. Daily Max: 100 mg Multivitamins with Minerals tablet tablet Take 1 Tablet by mouth daily. thiamine (VITAMIN B1) 100 mg tablet Take 1 Tablet by mouth daily. traZODone (DESYREL) 100 mg tablet Take 1 Tablet by mouth at bedtime. 7 Tablet 01/08/2024 documented as of this encounter Discharge Disposition Disposition Code Departure Means Destination Comment s Home or Self Nursing Home documented in this encounter ED Notes * Goldie Min Slater, DO - 01/20/2024 1154 EDT Emergency Department Visit Medical Decision Making Mary Jane Tong is a 43 y.o. female with severe substance use disorder who presents to the ED for methadone dose. Dose verified with pharmacy and administered here in the emergency department. Patient states they are will be able to get their methadone clinic tomorrow Medical Decision Making Problems Addressed: Encounter for medication administration: complicated acute illness or injury Risk Prescription drug management. 1427 Patient will receive a 100 mg dose of methadone and be discharged. Final diagnoses: Encounter for medication administration Disposition: Discharged Chief complaint: Chief Complaint Patient presents with Medications Refill Pt arrives ambulatory into triage. Pt has missed the last few days of her methadone dose, cannot articulate why she has not been going to the clinic. Pt states she is here today for her methadone dose, pt does not give answer when asked why she came to the ED instead of going to the clinic. HPI Mary Jane Tong is a 43 y.o. female with severe substance use disorder who presents to the ED for methadone dose. Patient reports that she is here today for her methadone dose which is 100mg, and that she missed her last dose. She says she has been set up on a methadone protocol. She reports that she usually goes to the clinic in [place]. She says she called her clinic who said they were closed and told her to come to the ED. Patient says she will be able to get to the clinic tomorrow. History was provided by: Patient Records reviewed include: Dose methadone verified with her outpatient clinic Patient's pertinent PMH, FH, SH were reviewed and edited as necessary. Nursing notes reviewed. A medical screening exam was performed. Physical Exam BP (!) 123/100 (BP Cuff Location: Left arm, BP Patient Position: Sitting) Temp 36.9 ??C (98.4 ??F) (Temporal) Resp 18 SpO2 100% Physical Exam Nursing notes and vital signs were reviewed. Constitutional: Well appearing in no acute distress Eyes: Pupils equal and reactive to light, no scleral icterus Mouth: Moist oral mucosa without apparent lesions Neck: Full ROM Heart: RRR, peripheral perfusion WNL Lungs: breathing easily, no resp distress Extremities: Moving spontaneously, warm and well perfused. No peripheral edema. Neuro: Fluent speech, motor, sensory, and cerebellar function grossly intact Psych: No agitation or overt thought disorder, acting appropriately Procedures Procedures This documentation is recorded by Shanique Rodriguez acting as Scribe under the direction and presence of Min Amezcua DO. Min Amezcua DO: I personally performed the services recorded by the scribe in my presence. I confirm the scribe's documentation has been reviewed by me to accurately and completely record my work, treatment, procedures, and medical decision making. documented in this encounter Plan of Treatment Scheduled Orders Name Type Priority Associated Diagnoses Orde r Schedule EKG 12-LEAD ECG STAT One Time for 1 Occurrences starting 01/20/2024 until 01/20/2024 documented as of this encounter Procedures Procedure Name Priority Date/Time Associated Diagnosis Comments ECG REPORT - SCANNED 01/23/2024 23:43 EDT EKG 12-LEAD Routine 01/20/2024 13:49 EDT documented in this encounter Results * ECG REPORT - SCANNED (01/23/2024 23:43 EDT) 01/23/2024 23:4 3 EDT Scan 2 It Admin PROCEDURE/MINOR YU GICAL ORDERABLES * EKG 12-LEAD (01/20/2024 13:49 EDT) 01/20/2024 13:4 9 EDT Narrative [facility] EKG - 01/23/2024 23:31 EDT ?[facility] Emergency ? Test Date: ?2024-01-20 Pat Name: ? MARY JANE TONG ? Department: ?? ED ? Room: ? GT32 Gender: ? Female ? Operator Assistant I Cementing: ?? [id number] : ?1980 ? Requested By: ACKIL MIN J Order Number: [id number] ? Reading MD: ?? YADIRA MORRISON MD ? Measurements Intervals ?[place] [address] ? Rate: ? 68 ? P: ?11 MI: ? 192 ?QRS: ?-32 QRSD: ? 106 ?T: ?44 QT: ? 432 ? QTc: ?460 ? Interpretive Statements SINUS RHYTHM LEFT AXIS DEVIATION Compared to ECG 01/16/2024 09:11:42 Sinus bradycardia no longer present I reviewed the tracing and have either agreed or edited the findings in this report. Electronically Signed On 01-23-2024 23:31:23 EDT by YADIRA MORRISON MD. Procedure Note Yadira Morrison MD - 01/23/2024 [facility] Emergency Test Date: 2024-01-20 Pat Name: MARY JANE TONG Department: ED Room: [facility] Gender: Female Operator Assistant I Cementing: [id number] : 1980 Requested By: GOLDIE Slater Order Number: [id number] Reading MD: YADIRA MORRISON MD Measurements Intervals [address] [address] Rate: 68 P: 11 MI: 192 QRS: -32 QRSD: 106 T: 44 QT: 432 QTc: 460 Interpretive Statements SINUS RHYTHM LEFT AXIS DEVIATION Compared to ECG 01/16/2024 09:11:42 Sinus bradycardia no longer present I reviewed the tracing and have either agreed or edited the findings inthis report. Electronically Signed On 01-23-2024 23:31:23 EDT by YADIRA QUINTANA. Min Amezcua DO CARDIAC ECG ORDERABL ES [facility] EKG documented in this encounter Visit Diagnoses Diagnosis Encounter for medication administration- Primary documented in this encounter Administered Medications Inactive Administered Medications - up to 3 most recent administrations Medication Order MAR Action Action Date Dose Rate Site methadone (DOLOPHINE) concentrated solution 100 mg 100 mg, oral, NOW X1, 1 dose, On Sat01/20/24 at 1330, STAT Given 01/20/2024 14:57 EDT 100 mg naloxone (NARCAN) injection 0.1 mg 0.1 mg, intravenous, PRN, Starting on Sat01/20/24 at 1316, Until Sat01/20/24 at 1708, Opioid Reversal, STAT documented in this encounter Historical Medications * This list may reflect changes made after this encounter. Medication Sig Dispensed Refills Start Date End Date methadone (DOLOPHINE) 5 mg/5 mL oral solution Take 100 mL by mouth daily. Daily Max: 100 mg added in this encounter Active and Recently Administered Medications Times are shown in EDT. Scheduled Medication Order 01/18/2024 01/19/2024 01/20/2024 methadone (DOLOPHINE) concentrated solution 100 mg (COMPLETED) 100 mg, oral, NOW X1, 1 dose, On Sat01/20/24 at 1330, STAT 1457 (Given - Provid er: Abhishek Angel RN) PRN Medication Order 01/18/2024 01/19/2024 01/20/2024 naloxone (NARCAN) injection 0.1 mg 0.1 mg, intravenous, PRN, Starting on Sat01/20/24 at 1316, Until Sat01/20/24 at 1708, Opioid Reversal, STAT documented in this encounter Orders Medications Ordered That Jaylen ht Not Have Been Administered Count Last Ordered Date First Ordered Date naloxone (NARCAN) injection 0.1 mg 1 2023 documented in this encounter Additional Health Concerns Infection Onset Date Last Indicated Resolved Time MRSA Comment:IP Note: MRSA positive arm 01/03/24 A Ross 01/06/24 01/03/2024 01/03/2024 documented as of this encounter Care Teams Chicken Dresser Relationship Specialty Start Date End Date None, Provider PCP - General 01/03/24 documented as of this encounter
--- OUTSIDE RECORDS SUMMARY | 2024-05-09 10:25 | XMS_ITS | Encounter Summary ---
Author Organization [facility] Address [address] [place] [address] Care Team Providers Care Play Back Operator Name Role Phone None, Provider Primary Care Provider Unavailabl e Reason for Visit * Reason Comments Blister Tried new shoes last week and that caused multiple blisters to b/l feet ~ 1 wk ago. Notes one area to left lateral heel that is hard and brings tears to my eyes when I touch it. Concerned it might by related to xylazine but denies hx of IVDU. Takes methadone 100mg daily. Encounter Details Date Type Department Care Team (Late st Contact Info) Description 03/09/2024 17:50 EDT - 03/09/2024 18:53 EDT Emergency [facility] Emergency Department - Main [place] [address] [phone] Blisters of multiple sites (Primary Dx) Discharge Disposition: Home or Self Care Social History Tobacco Use Types Packs/Day Years Used Date Smoking Tobacco: Every Day Cigarettes Smokeless Tobacco: Never Alcohol Use Standard Drinks/Week Comments Not Currently 1 (1 standard drink = 0.6 oz pur e alcohol) [facility] Utilities Answer Date Recorded In the past 12 months has e [employer], gas, oil, or water [employer] threatened to shut off services in your [...] any time in the past 12 m [facility], were you homeless or living in a long-term (including now)? Yes 01/06/2024 Interpersonal Safety Answer Date Record ed How often does anyone, saundrakaz april family, hit, punch or physically hurt you? 01/03/2024 How often does anyone, saundrakaz paril family, insult, scream, curse or threaten to [...] Body Mass Index 23.17 03/09/2024 1517 EDT documented in this encounter Functional Status [...] this encounter Discharge Instructions * Discharge Instructions* Ethel Cisneros PA-C - 03/09/2024 18:34 EDT You were seen in the emergency department for pain and blisters to your feet bilaterally There is some mild surrounding redness which could be a start of an early infection We recommend keeping your feet clean with frequent showering with soap and hot water After cleansing the area you may apply bacitracin which is a topical antibiotic and wrapped this with gauze We have sent a 5-day prescription for doxycycline to our pharmacy on the third floor given your history of MRSA and surrounding redness to the blister Please take Tylenol 650mg every 4-6 hours as needed for pain, do not exceed 4000mg a day. Also takeMotrin (Advil, Ibuprofen) 600mg every 8 hours as needed. Please stop if you get abdominal pain or bloody stools. You may follow-up with [facility] for a wound check Reasons to return to the emergency department include development of fever, nausea or vomiting, worsening pain, spreading redness, or any other new or concerning symptoms to you documented in this encounter Medications at Time [...] by mouth at bedtime. 7 Tablet 01/08/2024 doxycycline (VIBRA-TABS) 100 mg tablet Take 1 Tablet by mouth 2 times daily for 5 days. 10 Tablet 03/09/2024 03/14/2024 documented as of this encounter Ordered Prescriptions Prescription Sig Dispensed Refills Start Date End Da te doxycycline (VIBRA-TABS) 100 mg tablet Take 1 Tablet by mouth 2 times daily for 5 days. 10 Tablet 03/09/2024 03/14/2024 documented in this encounter Discharge Disposition Disposition Code Departure Means Destination Comment s Home or Self Senior Care documented in this encounter ED Notes * Ethel Cisneros PA-C - 03/09/2024 1442 EDT Images from the original note were not included. [facility] Emergency Department Note Emergency Department Visit Medical Decision Making This is a 43 y.o. female with PMHx of Polysubstance use, prior history of MRSA who is presenting tot Emergency Department with bilateral foot blisters over the past week in the setting of wearing new shoes in the rain. Vital signs here at her baseline, blood pressure 93/62 but denies any systemic symptoms. Physical examination as below noteable for a disheveled appearing female in no acute distress. To her bilateral soles of her feet she has evidence of blisters that have opened and are now sloughing. There is mild surrounding erythema to her left medial malleolus, does not appear to be lymphangitic spread. Differential diagnosis include most likely pain related to known blisters in the setting of new foot wear, she does have some mild surrounding erythema and has a propensity for skin infectionsin the setting of her prior history of MRSA and polysubstance abuse therefore we will likely treat with a course of doxycycline, she has no evidence of fluctuance or induration to suggest abscess, she has normal distal pulse and no discoloration or evidence of decreased perfusion, no pain out of proportion to suggest necrotizing skin infection. Will plan for oral doxycycline, will plan for discussion on good foot hygiene with topical bacitracin and cushion support with socks and gauze. Encouraged close outpatient follow-up. ED Course Patient was provided with cleansing to her feet, bacitracin was placed, wound care was discussed. She will be discharged home with 5 days of doxycycline. Instructed on good cushioning, continued observation of areas of redness. Discussed findings and plan. Return precautions given. Patient well appearing. Discharge home to follow up with PCP Medical Decision Making Problems Addressed: Blisters of multiple sites: complicated acute illness or injury Amount and/or Complexity of Data Reviewed Independent Historian: spouse External Data Reviewed: labs and notes. Risk OTC drugs. Prescription drug management. Diagnosis or treatment significantly limited by social determinants of health. Risk Details: Patient does not have a PCP which significantly limits diagnosis and treatment The following problems were addressed: Final diagnoses: Blisters of multiple sites Chief complaint: Chief Complaint Patient presents with Blister Tried new shoes last week and that caused multiple blisters to b/l feet ~ 1 wk ago. Notes one area to left lateral heel that is hard and brings tears to my eyes when I touch it. Concerned it might by related to xylazine but denies hx of IVDU. Takes methadone 100mg daily. HPI: 43 y.o. female with PMHx of Polysubstance use, prior history of MRSA who is presenting to the Emergency Department with bilateral foot blisters over the past week in the setting of wearing new shoes in the rain. Patient states about a week ago she wore new shoes in the rain. Afterwards she noticed diffuse blisters to her feet bilaterally left greater than right. She reports that her skin hasbeen peeling away in the setting of the blisters but she is still had pain primarily to her left heel. She denies any fevers or chills, no nausea or vomiting. She has been taking Tylenol and ibuprofen but has last taken these yesterday. She reports that she can only wear crocs at this time. She does report a prior history of MRSA and had a recent wound to her right shoulder. She does havea history of polysubstance abuse, although adamantly denies any history of IVDU, and is wondering if her symptoms today are xylazine related. History was provided by: Patient, patient's partner at bedside, records reviewed including past medical history of MRSA and discharge summary from 01/07/2024 where she was admitted with right shoulderabscess consistent with MRSA Patient's pertinent PMH, FH, SH were reviewed and edited as necessary. Nurse note reviewed and confirmed. Physical Exam Patient Vitals for the past 24 hrs: BP Temp Temp src Pulse Resp SpO2 Height Weight 03/09/24 1517 93/62 36.6 ??C (97.9 ??F) Temporal 77 18 97 % 162.6 cm (64) 61.2 kg (135 lb) A medical screening exam was performed. Physical Exam Gen: BP 93/62 (BP Cuff Location: Left arm, BP Patient Position: Sitting) Pulse 77 Temp 36.6 ??C(97.9 ??F) (Temporal) Resp 18 Ht 162.6 cm (64) Wt 61.2 kg (135 lb) SpO2 97% BMI 23.17 kg/m?? . Disheveled, nontoxic-appearing, no acute distress Eyes: Anicteric. PERRL ENT: Atraumatic. Resp: Normal resp rate. CV: RRR. 2+ DP pulses. GI: Nondistended. Nontender to palpation. MSK: No deformities, well perfused extremities Skin: Bilateral feet primarily the sole of feet and just distal to the malleoli there are areas of large blistering with sloughing of skin. There is no drainage with the manipulation, no induration or fluctuance, there is a small area of confluent erythema. There is scattered scabbing's to her leg bilaterally that do not appear to be infected or consistent with abscess. Neuro: Normal speech. alert & oriented x 3, = GCS 15 Psych: Normal affect. Disposition: Home Condition on Discharge: Good Reasons to return to the ED were reviewed in detail. The patient agrees with this plan and disposition. This chart was generated using voice-recognition software. I have read the note but there are oftensubtle changes that are difficult to identify. Please contact me for clarification if necessary. documented in this encounter Plan of Treatment Not on file documented as of this encounter Visit Diagnoses Diagnosis Blisters of multiple sites- Primary Other, multiple, and unspecified sites, blister, without mention of infection documented in this encounter Administered Medications Inactive Administered Medications - up to 3 most recent administrations Medication Order MAR Action Action Date Dose Rate Site acetaminophen (TYLENOL) tablet 1,000 mg 1,000 mg, oral, NOW X1, 1 dose, On Sat03/09/24 at 1845, STAT Given 03/09/2024 18:44 EDT 1,000 mg ibuprofen (MOTRIN) tablet 600 mg 600 mg, oral, NOW X1, 1 dose, On 03/09/24 at 1845, STAT Given 03/09/2024 18:45 EDT 600 mg documented in this encounter Active and Recently Administered Medications Times are shown in EDT. Scheduled Medication Order 03/07/2024 03/08/2024 03/09/2024 acetaminophen (TYLENOL) tablet 1,000 mg (COMPLETED) 1,000 mg, oral, NOW X1, 1 dose, On Sat03/09/24 at 1845, STAT 1844 (Given - Provid er: Abhishek Angel RN) ibuprofen (MOTRIN) tablet 600 mg (COMPLETED) 600 mg, oral, NOW X1, 1 dose, On 03/09/24 at 1845, STAT 1845 (Given - Provid er: Abhishek Angel RN) documented in this encounter Additional Health Concerns Infection Onset Date Last Indicated Resolved Time MRSA Comment:IP Note: MRSA positive arm 01/03/24 Mohamud Casillas 01/06/24 01/03/2024 01/03/2024 documented as of this encounter Care Teams Play Back Operator Relationship Specialty Start Date End Date None, Provider PCP - General 01/03/24 documented as of this encounter
--- OUTSIDE RECORDS SUMMARY | 2024-05-09 10:25 | XMS_ITS | Encounter Summary ---
Author Organization [facility] Address [address] [place] [address] Care Team Providers Care Water Resource Project Manager Name Role Phone None, Provider Primary Care Provider Unavailabl e Encounter Details Date Type Department Care Team (Latest Contact Info) Description 01/03/2024 Travel Social History Tobacco Use Types Packs/Day Years Used Date Smoking Tobacco: Every Day Alcohol Use Standard Drinks/Week Comments Not Currently 0 (1 standard drink = 0.6 oz pur e alcohol) [facility] Utilities Answer Date Recorded In the past 12 months has th e [employer], gas, oil, or water [employer] threatened to shut off services in your [...] from medical appointments or from getting medications? Yes 01/2024 In the past 12 months, has l ack of transportation kept you from meetings, work, or from getting things needed for daily living? Yes 01/03/2024 Housing Stability Vital Sign Answer Rush e Recorded In the last 12 months, was t here a time when you were not able to pay the mortgage or rent on time? Yes 01/03/2024 In the past 12 months, how m any times have you moved where you were living? 3 01/03/2024 At any time in the past 12 m [facility], were you homeless or living in a prison (including now)? Yes 01/03/2024 Interpersonal Safety Answer Date Record ed How [...] on file documented as of this encounter Plan of Treatment Not on file documented as of this encounter Visit Diagnoses Not on filedocumented in this encounter Care Teams Water Resource Project Manager Relationship Specialty Start Date End Date None, Provider PCP - General 01/03/24 documented as of this encounter
--- OUTSIDE RECORDS SUMMARY | 2024-05-09 10:25 | XMS_ITS | Encounter Summary ---
Author Organization [facility] Address [address] [place] [address] Care Team Providers Care Licensed Psychologist Director Name Role Phone None, Provider Primary Care Provider Unavailabl e Encounter Details Date Type Department Care Team (Latest Contact Info) Description 01/16/2024 Travel Social History Tobacco Use Types Packs/Day Years Used Date Smoking Tobacco: Every Day Cigarettes Smokeless Tobacco: Never Alcohol Use Standard Drinks/Week Comments Not Currently 1 (1 standard drink = 0.6 oz pur e alcohol) [facility] Utilities Answer Date Recorded In the past 12 months has th e [employer], gas, oil, or water [employer] threatened to shut off services in your [...] any time in the past 12 m [facility], were you homeless or living in a senior living (including now)? Yes 01/06/2024 Interpersonal Safety Answer [...] Diagnoses Not on filedocumented in this encounter Additional Health Concerns Infection Onset Date Last Indicated Resolved Time MRSA Comment:IP Note: MRSA positive arm 01/03/24 A Vinny 01/06/24 01/03/2024 01/03/2024 documented as of this encounter Care Teams Licensed Psychologist Director Relationship Specialty Start Date End Date None, Provider PCP - General 01/03/24 documented as of this encounter
--- OUTSIDE RECORDS SUMMARY | 2024-05-09 10:25 | XMS_ITS | Encounter Summary ---
Author Organization [facility] Address [address] [place] [address] Care Team Providers Care Global Upstream Marketing Manager Name Role Phone None, Provider Primary Care Provider Unavailabl e Encounter Details Date Type Department Care Team (Latest Contact Info) Description 03/09/2024 Travel Social History Tobacco Use Types Packs/Day Years Used Date Smoking Tobacco: Every Day Cigarettes Smokeless Tobacco: Never Alcohol Use Standard Drinks/Week Comments Not Currently 1 (1 standard drink = 0.6 oz pur e alcohol) [facility] Utilities Answer Date Recorded In the past 12 months has th e [employer], gas, oil, or water [employer] threatened to shut off services in your [...] in the past 12 m [facility], were you homeless or living in [...] documented as of this encounter Care Teams Global Upstream Marketing Manager Relationship Specialty Start Date End Date None, Provider PCP - General 01/03/24 documented as of this encounter
--- OUTSIDE RECORDS SUMMARY | 2024-05-09 10:25 | XMS_ITS | Encounter Summary ---
Author Organization [facility] Address [address] [place] [address] Care Team Providers Care Supermarket Manager Name Role Phone None, Provider Primary Care Provider Unavailabl e Reason for Visit * Reason Comments Medications Refill Pt arrives via triag e. States she went to the clinic to get started on methadone today but reports she was too late and they were already full. States she has not been using other substances for weeks. Encounter Details Date Type Department Care Team ([facility] st Contact Info) Description 01/16/2024 8:47 EDT - 01/16/2024 11:58 EDT Emergency [facility] Emergency Department - Main [place] [address] [place] [address] Opiate abuse, continuous (HCC-CMS) (Primary Dx) Discharge Disposition: Home or Self Care Social History Tobacco Use Types Packs/Day Years Used Date Smoking Tobacco: Every Day Cigarettes Smokeless Tobacco: Never Tobacco Cessation:Ready to Q uit: Not Asked; Counseling Given: Not Answered Alcohol Use Standard Drinks/Week Comments Not Currently 1 (1 standard drink = 0.6 oz pur e alcohol) [facility] Utilities Answer Date Recorded In the past 12 months has e [employer], gas, oil, or water [employer] threatened to shut off services in your [...] any time in the past 12 m ont, were you homeless or living in a [...] Sign Reading Time Taken Comments Blood Pressure 107/66 01/16/2024 1150 EDT Pulse 60 01/16/2024 0846 EDT Temperature 36.9 ??C (98.4 ??F) 01/16/2024 0846 EDT Respiratory Rate 16 01/16/2024 1150 EDT Oxygen Saturation 100% 01/16/2024 0846 EDT Inhaled Oxygen Concentration - - Weight [...] this encounter Discharge Instructions * Discharge Instructions* Mary Cruz PA-C - 01/16/2024 11:00 EDT You are seen in the emergency department to start methadone. You received 1 dose. Please follow-up tomorrow @ 7:30 AM intake [address] @ [facility] Please follow-up on the rest of your labs on your MyChart Return if you have any new or worsening symptoms documented in this encounter Medications at Time [...] by mouth at bedtime. 7 Tablet 01/08/2024 lithium (ESKALITH) 450 mg CR tablet Take 1 Tablet by mouth at bedtime for 7 days. 7 Tablet 01/08/2024 01/16/2024 lithium (LITHOBID) 300 mg CR tablet Take 1 Tablet by mouth at bedtime for 7 days. 7 Tablet 01/08/2024 01/16/2024 Prazosin (MINIPRESS) 2 mg capsule Take 1 Capsule by mouth at bedtime for 7 days. 7 Capsule 01/08/2024 01/16/2024 documented as of this encounter Discharge Disposition Disposition Code Departure Means Destination Comment s Home or Self Senior Living documented in this encounter ED Notes * Noelle Anderson RN - 01/16/2024 1157 EDT Patient given taxi to go home * Nadege Moore RN - 01/16/2024 1031 EDT Blood drawn via butterfly needle per protocol, tiger tube(s) sent to lab per order. * Kenny Garcia RN - 01/16/2024 0916 EDT 12 Lead EKG Performed by KENNY GARCIA RN and shown to MD Brent * Mary Cruz PA-C - 01/16/2024 0841 EDT Images from the original note were not included. [facility] Emergency Department Note Emergency Department Visit Medical Decision Making This is a 43 y.o. female with PMHx of polysubstance use disorder who is presenting to the EmergencyDepartment with request for methadone. She is hemodynamically stable. On exam her right shoulder abscess seems to be healing well. Reviewed hospital discharge summary from January 07, [address] Diehl Will touch base with ED research team to initiate methadone Medical Decision Making Problems Addressed: Opiate abuse, continuous (HCC-CMS): complicated acute illness or injury Amount and/or Complexity of Data Reviewed Labs: ordered. Decision-making details documented in ED Course. Risk Prescription drug management. Diagnosis or treatment significantly limited by social determinants of health. ED Course Relevant Data as of 01/16/24 1146 Antonette Jan 16, 2024 0905 Spoke with AUDI who will evaluate patient. [AC] 0935 EKG obtained and independently reviewed. Sinus bradycardia, rate of 56. QTc 434, no ST elevation or depression [AC] 1144 POCT Urine Clinitek (DIPSTICK) - does not reflex [AC] 1144 POCT Test, Clinitek [AC] 1144 Drug Screen 12, Urine (Amphetamine, Barbiturates, Benzodiazepine, Cannabinoids, Cocaine, Methamphetamine, Methadone, Opiates, Oxycodone, Phencyclidine, Propoxyphene, Tricyclics)(!) [AC] 1145 Patient initiated on methadone. Has a follow-up appointment tomorrow at [facility]. Discharged home with recommendations to follow-up on the rest of labs outpatient [AC] Relevant Data User Index [AC] Mary Cruz, COLIN The following problems were addressed: Final diagnoses: Opiate abuse, continuous ([facility]) Chief complaint: request for methadone HPI Ketan Tong is a 43 y.o. female who presents to the Emergency Department for request for methadone. Patient states she was previously on 100 mg of methadone but it has not been able to get the clinic in over a week. She was using IV drugs. Was recently hospitalized for right shoulder abscess. She is staying at a motel 8 History was provided by: patient Patient's pertinent PMH, FH, SH were reviewed and edited as necessary. Physical Exam Patient Vitals for the past 24 hrs: BP Temp Temp src Pulse Resp SpO2 01/16/24 0846 98/60 36.9 ??C (98.4 ??F) Oral 60 18 100 % A medical screening exam was performed. Physical Exam General: Awake, in no acute distress. HEENT: Normocephalic, atruamatic. EOMI. Nares patent. Neck: Supple, full ROM. Pulmonary: Lungs clear to auscultation bilaterally. No wheezes, rales, or rhonchi. Chest wall non-tender to palpation. Cardiovascular: Regular rhythm and rate. No murmur, rub, or gallop. GI: Abdomen soft, non-tender, non-distended. No rebound or guarding. MSK: Normal ROM of upper and lower extremities. No lower extremity edema. No deformities. Neuro: Sensation to light touch intact. 5/5 motor strength throughout. Psych: Normal mood and affect. Skin: Area of granulation with surrounding slight erythema. No tenderness. Slight purulence on the gauze dressing Disposition: Home documented in this encounter Plan of Treatment Not on file documented as of this encounter Procedures Procedure Name Priority Date/Time Associated Diagnosis Comments ECG REPORT - SCANNED 02/01/2024 9:33 EDT POCT CSN BARCODE URINE PREG TEST STAT 01/16/2024 10:40 EDT POCT CSN BARCODE URINE DIPSTICK STAT 01/16/2024 10:40 EDT POCT TEST, CLINITEK ORDER STAT 01/16/2024 10:29 EDT POCT TEST, CLINITEK STAT 01/16/2024 10:29 EDT POCT URINE CLINITEK (DIPSTICK) - DOES NOT REFLEX STAT 01/16/2024 10:28 EDT POCT URINE DIPSTICK, CLINITEK STAT 01/16/2024 10:28 EDT DRUG SCREEN 12, URINE ([facility] ONLY) STAT 01/16/2024 10:22 EDT ACUTE HEPATITIS PROFILE Routine 01/16/2024 10:22 EDT SYPHILIS SEROLOGY Routine 01/16/2024 10: 22 EDT HIV 1/2 ANTIGEN AND ANTIBODY, 4TH GENERATION STAT 01/16/2024 10:22 EDT EKG 12-LEAD STAT 01/16/2024 9:11 EDT documented in this encounter Results * ECG REPORT - SCANNED (02/01/2024 9:33 EDT) 02/01/2024 9:33 EDT Scan 2 Erp Business Analyst PROCEDURE/MINOR YU GICAL ORDERABLES * POCT CSN BARCODE URINE PREG TEST (01/16/2024 10:40 EDT) Urine URINE SPECIMEN OBTAINED BY CLEAN CATCH PROCEDURE / Unknown Urine Collect / Unknown 01/16/2024 10:40 EDT 01/16/2024 10:40 EDT Mary Cruz PA-C LAB INFO SERVICE AND SUPPORT & PHONE RESULT Performing Organization Address [facility] de Phone Number [facility] [address] [place] [phone] * POCT CSN BARCODE URINE DIPSTICK (01/16/2024 10:40 EDT) Urine URINE SPECIMEN OBTAINED BY CLEAN CATCH PROCEDURE / Unknown Urine Collect / Unknown 01/16/2024 10:40 EDT 01/16/2024 10:40 EDT Mary Cruz PA-C LAB INFO SERVICE AND SUPPORT & PHONE RESULT Performing Organization Address [facility] Phone Number [facility] [address] [place] [phone] * POCT TEST, CLINITEK (01/16/2024 10:29 EDT) UPT Result Negative Negative 01/16/2024 10:36 EDT [facility] HN LAB COMMENT (CLINITEK, UPT) Test performed at Emergency Department 01/16/2024 10:36 EDT [facility] Comment:False negative resul ts may occur in women who are beyond 5-8 weeks gestation. Diagnosis of should be based on a correlation of test results with typical clinical signs and symptoms. Urine URINE SPECIMEN OBTAINED BY CLEAN CATCH PROCEDURE / Unknown 01/16/2024 10:29 EDT 01/16/2024 10:35 EDT Mary Cruz PA-C POINT OF CARE TEST O RDERABLES Performing Organization Address [facility] Co de Phone Number [facility] [address] [place] [phone] * POCT URINE DIPSTICK, CLINITEK (01/16/2024 10:28 EDT) Color, UA Yellow Yellow 01/16/2024 10:30 EDT [facility] Clarity, UA Clear Clear 01/16/2024 10:30 EDT [facility] Glucose, UA Negative Negative mg/dL 01/16/2024 10:30 EDT [facility] Bilirubin, UA Negative Negative 01/16/2024 10:30 EDT [facility] Ketones, UA Negative Negative 01/16/2024 10:30 EDT [facility] Specific Mcneil, Urine 1.025 1.001 - 1.030 01/16/2024 10:30 EDT [facility] Blood, UA Negative Negative 01/16/2024 10:30 EDT [facility] pH, UA 7.5 <8.5 01/16/2024 10:30 EDT [facility] Protein, UA Negative Negative mg/dL 01/16/2024 10:30 EDT [facility] Urobilinogen, UA 0.2 0.2 - 1.0 mg/dL 01/16/2024 10:30 EDT [facility] Nitrite, UA Negative Negative 01/16/2024 10:30 EDT [facility] Leuk Esterase Negative Negative 01/16/2024 10:30 EDT [facility] HN LAB COMMENT (CLINITEK, UR) Test performed at Emergency Department 01/16/2024 10:30 EDT [facility] Urine URINE SPECIMEN OBTAINED BY CLEAN CATCH PROCEDURE / Unknown 01/16/2024 10:28 EDT 01/16/2024 10:30 EDT Mary Cruz PA-C POINT OF CARE TEST O RDERABLES [facility] [address] [place] [address] * ACUTE HEPATITIS PROFILE (01/16/2024 10:22 EDT) Hep B Surface Ag Negative Negative 01/16/2024 12:38 EDT [facility] Hep C Antibody Negative Negative 01/16/2024 12:38 EDT [facility] Hepatitis A Antibody, IgM Negative Negative 01/16/2024 12:38 EDT [facility] Comment:The results of this assay can be falsely lowered due to the consumption of Biotin. Hepatitis B Core Ab, Total Negative Negative 01/16/2024 12:38 EDT [facility] Blood VENOUS BLOOD / Unknown Venipuncture / Unknown 01/16/2024 10:22 EDT 01/16/2024 10:28 EDT Mary Cruz PA-C CHEMISTRY & BLOOD GA S ORDERABLES [facility] [address] [place] [address] * (ABNORMAL) DRUG SCREEN 12, URINE ([facility] ONLY) (01/16/2024 10:22 EDT) Amphetamine Screen, Ur Negative Screen Negative Screen 01/16/2024 10:41 EDT [facility] Comment: Confirmation testing available upon request. Suitable for medical purposes only. Will not detect all drugs within class. Cutoff = 500 ng/mL Barbiturates Screen, Ur Negative Screen Negative Screen 01/16/2024 10:41 [facility] Comment: Confirmation testing available upon request. Suitable for medical purposes only. Will not detect all drugs within class. Cutoff = 200 ng/mL Benzodiazepine Screen, Ur Negative Screen Negative Screen 01/16/2024 10:41 T [facility] Comment: Confirmation testing available upon request. Suitable for medical purposes only. Will not detect all drugs within class. Cutoff = 150 ng/mL Cocaine Metabolites Screen, Ur Presumptive Positive, interpret with caution.(A) Negative Screen 01/16/2024 10:41 [facility] Comment: Confirmation testing available upon request. Suitable for medical purposes only. Will not detect all drugs within class. Cutoff = 150 ng/mL Methamphetamine Screen, Ur Negative Screen Negative Screen 01/16/2024 10:41 EDT [facility] Comment: Confirmation testing available upon request. Suitable for medical purposes only. Will not detect all drugs within class. Cutoff = 500 ng/mL Methadone Screen, Ur Negative Screen Negative Screen 01/16/2024 10:41 [facility] Comment: Confirmation testing available upon request. Suitable for medical purposes only. Will not detect all drugs within class. Cutoff = 200 ng/mL Opiates Screen, Ur Negative Screen Negative Screen 01/16/2024 10:41 [facility] Comment: Confirmation testing available upon request. Suitable for medical purposes only. Will not detect all drugs within class. Cutoff = 100 ng/mL Oxycodone Screen, Ur Negative Screen Negative Screen 01/16/2024 10:41 T [facility] Comment: Confirmation testing available upon request. Suitable for medical purposes only. Will not detect all drugs within class. Cutoff = 100 ng/mL Phencyclidine Screen, Ur Negative Screen Negative Screen 01/16/2024 10:41 [facility] Comment: Confirmation testing available upon request. Suitable for medical purposes only. Will not detect all drugs within class. Cutoff = 25 ng/mL Cannabinoids Screen, Ur Presumptive Positive, interpret with caution.(A) Negative Screen 01/16/2024 10:41 [facility] Comment: Confirmation testing available upon request. Suitable for medical purposes only. Will not detect all drugs within class. Cutoff = 50 ng/mL Buprenorphine and Metabolites Screen, Ur Negative Screen Negative Screen 01/16/2024 10:41 [facility] Comment: Confirmation testing available upon request. Suitable for medical purposes only. Will not detect all drugs within class. Cutoff = 10 ng/mL Tricyclics Screen, Ur Negative Screen Negative Screen 01/16/2024 10:41 [facility] Comment: Confirmation testing available upon request. Suitable for medical purposes only. Will not detect all drugs within class. Cutoff = 300 ng/mL Urine URINE / Unknown Urine Collect / Unknown 01/16/2024 10:22 EDT 01/16/2024 10:28 EDT Mary Cruz PA-C GEN LAB UNIT COLLECT ORDERABLES [facility] [address] [place] [address] * SYPHILIS SEROLOGY (01/16/2024 10:22 EDT) Syphilis Serology Negative Negative 01/17/2024 9:57 EDT [facility] Blood VENOUS BLOOD / Unknown Venipuncture / Unknown 01/16/2024 10:22 EDT 01/16/2024 10:43 EDT Mary Cruz PA-C IMMUNOLOGY AND SEROL OGY ORDERABLES Performing Organization Address [facility] de Phone Number [facility] [address], [place] [phone] * HIV 1/2 ANTIGEN AND ANTIBODY, 4TH GENERATION (01/16/2024 10:22 EDT) Pathologist [facility] HIV 1 and 2 Antibody/p24 Antigen, 4th Generation Negative Negative 01/16/2024 12:35 EDT [facility] Comment:If acute HIV-1 infec tion is suspected in a high risk patient, submit plasma specimen for HIV-1 RNA quantitation test. Blood VENOUS BLOOD / Unknown Venipuncture / Unknown 01/16/2024 10:22 EDT 01/16/2024 10:28 EDT Narrative [facility] - 01/16/2024 12:35 EDT Fourth Generation assay performed on the Siemens JJS [employer] XPT. Mary Cruz PA-C IMMUNOLOGY AND SEROL OGY ORDERABLES Performing Organization Address [facility] Co de Phone Number [facility] [address], [place] [phone] * EKG 12-LEAD (01/16/2024 9:11 EDT) 01/16/2024 9:11 EDT Narrative [facility] - 02/01/2024 9:27 EDT ?[facility] ? Test Date: ?2024-01-16 Pat Name: ? KETAN TONG ? Department: ?? ED ? Room: ? GT40 Gender: ? Female ? Harp Regulator: ?? [id number] : ?1980 ? Requested By: RICKI MARY A Order Number: [id number] ? Reading MD: ?? TRACE URIAS MD ? Measurements Intervals ?[place] ? Rate: ? 56 ? P: ?-14 MT: ? 199 ?QRS: ?2 QRSD: ? 98 ? T: ?67 QT: ? 448 ? QTc: ?434 ? Interpretive Statements SINUS BRADYCARDIA Compared to ECG 01/04/2024 00:50:01 No significant changes I reviewed the tracing and have either agreed or edited the findings in this report. Electronically Signed On 02-01-2024 09:27:03 EDT by DOMINGO URIAS MD. Procedure Note Domingo Urias MD - 02/01/2024 [facility] Test Date: 2024-01-16 Pat Name: KETAN TONG Department: ED Room: [facility] Gender: Female Harp Regulator: [id number] : 1980 Requested By: RICKI Mallory Order Number: [id number] Reading MD: DOMINGO URIAS MD Measurements Intervals [place] Rate: 56 P: -14 MT: 199 QRS: 2 QRSD: 98 T: 67 QT: 448 QTc: 434 Interpretive Statements SINUS BRADYCARDIA Compared to ECG 01/04/2024 00:50:01 No significant changes I reviewed the tracing and have either agreed or edited the findings inthis report. Electronically Signed On 02-01-2024 09:27:03 EDT by DOMINGO SINGER. Mary Cruz PA-C CARDIAC ECG ORDERABL ES [facility] EKG documented in this encounter Visit Diagnoses Diagnosis Opiate abuse, continuous (HCC-CMS)- Primary Opioid abuse, continuous documented in this encounter Administered Medications Inactive Administered Medications - up to 3 most recent administrations Medication Order MAR Action Action Date Dose Rate Site methadone (STAR) tablet 30 mg 30 mg, oral, NOW X1, 1 dose, On Antonette 01/16/24 at 0915, STAT Given 01/16/2024 10:39 EDT 30 mg documented in this encounter Discontinued Medications Medication Sig Discontinue Reason Start Date End Da te buprenorphine-naloxone (SUBOXONE) 2-0.5 mg tablet, sublingual Place 1 Tablet under the tongue daily. 2/0.5mg film SL 01/16/2024 documented as of this encounter Historical Medications * This list may reflect changes made after this encounter. Medication Sig Dispensed Refills Start Date End Date albuterol 90 mcg/actuation HFA aerosol inhaler inhaler Inhale 2 Puffs as directed every 4 hours. added in this encounter Active and Recently Administered Medications Times are shown in EDT. Scheduled Medication Order 01/14/2024 01/15/2024 01/16/2024 methadone (STAR) tablet 30 mg (COMPLETED) 30 mg, oral, NOW X1, 1 dose, On Antonette 01/16/24 at 0915, STAT 1039 (Given - Provid er: Nadege Moore RN - Comment: Could not scan medication barcode, dose checked with Lucero Gonzalez RN) documented in this encounter Orders Medications Ordered That Jaylen ht Not Have Been Administered Count Last Ordered Date First Ordered Date methadone (STAR) tablet 30 mg 1 01/16/2024 documented in this encounter Additional Health Concerns Infection Onset Date Last Indicated Resolved Time MRSA Comment:IP Note: MRSA positive arm 01/03/24 A Vinny 01/06/24 01/03/2024 01/03/2024 documented as of this encounter Care Teams Supermarket Manager Relationship Specialty Start Date End Date None, Provider PCP - General 01/03/24 documented as of this encounter
--- OUTSIDE RECORDS SUMMARY | 2024-05-09 10:25 | XMS_ITS | Referral Summary ---
Author Organization [facility] Address [address] [place] [address] Care Team Providers Care Feller Hand Name Role Phone None, Provider Primary Care Provider Unavailabl e Encounters Date Type Department Care Team Description 04/07/2024 Transcribe Orders [facility] CLINICAL SUPPORT Emily Quezada MD Hypothyroidism, unspecified (Primary Dx); skilled nursing (current) use of opiate analgesic; Other residential (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 03/10/2024 Transcribe Orders [facility] CLINICAL SU[facility] Emily Quezada MD skilled nursing (current) use of opiate analgesic (Primary Dx) 03/09/2024 Travel 03/09/2024 17:50 EDT - 03/09/2024 18:53 EDT Emergency [facility] Emergency Department - Main [place] [address] [place] [id number] Blisters of multiple sites (Primary Dx) Discharge Disposition: Home or Self Care from Last 3 Months Allergies No known active allergies Medications Medication [...] Diagnosed Date Resolved Date Abscess 01/04/2024 01/07/2024 Social History Tobacco Use Types Packs/Day Years Used Date Smoking Tobacco: Every Day Cigarettes Smokeless Tobacco: Never Tobacco Cessation:Ready to Q uit: Not Asked; Counseling Given: Not Answered Alcohol Use Standard Drinks/Week Comments Not Currently 1 (1 standard drink = 0.6 oz pur e alcohol) [facility] Utilities Answer Date Recorded In the past 12 months has th e [employer], gas, oil, or water [email or web address] threatened to shut off services in your [...] any time in the past 12 m [facility], were you homeless or living in a snf (including now)? Yes 01/06/2024 Interpersonal Safety Answer [...] 14:10 EDT Sexual Orientation Not on file Last Filed Vital Signs Vital Sign Reading [...] Body Mass Index 23.17 03/09/2024 1517 EDT Functional Status Functional Status Response Date of [...] (5 years old or older) Yes 01/03/2024 Plan of Treatment Not on file Additional Health Concerns Infection Onset Date Last Indicated MRSA Comment:IP Note: MRSA positive arm 01/03/24 A Ross 01/06/24 01/03/2024 01/03/2024 Advance Directives For more information, please contact: [phone] * Full Code (Latest Code Status on File) Date Activated Date Inactivated Comments 01/04/2024 0:21 01/07/2024 18:45 Question Answer Comments When the patient has NO PULSE: Full Code / CPR Who Made the Decision? Patient Care Teams Feller Hand Relationship Specialty Start Date End Date None, Provider PCP - General 01/03/24
--- OUTSIDE RECORDS SUMMARY | 2024-05-09 10:26 | XMS_ITS | Encounter Summary ---
Author Organization [facility] Address [address] [place] [address] Care Team Providers Care Test Boring Crew Chief Name Role Phone Unavailable Primary Care Provider Unavailabl e Encounter Details Date Type Department Care Team (Late st Contact Info) Description 11/03/[address] [facility] - Map conversion [address] [place] [address] Lee Ann Babin MD [address] [place] [address] Social History Tobacco Use Types Packs/Day Years Used Date Smoking Tobacco: Never Assessed Sex and Gender Information Value Date Recorded Sex Assigned at Not on file Gender Identity Female 12/22/2021 14:10 EDT Sexual Orientation Not on file documented as of this encounter Progress Notes * Gigi, Conv Hot Plate Plywood Press Feeder - 09/21/2009 1805 EST Department - Physician Summary Registration Date/Time: 11/03/2005 22:49 Arrived- By private vehicle. Historian - patient. HISTORY OF PRESENT ILLNESS Chief Complaint- Injury to the left index finger. The injury happened just prior to arrival. She sustained a crush injury. Occurred at work. Slammed left index finger in a door today at work. Patientis experiencing moderate pain. Patient denies injury to the head or neck. REVIEW OF SYSTEMS The patient has had swelling and tingling. No foreign body or skin laceration. PAST HISTORY See nurses notes. The patient's dominant hand is the right. Tetanus immunization status is up-to-date. Medications: See nurses notes. Allergies: See nurses notes. PHYSICAL EXAM Head: Head atraumatic. CVS: Normal heart rate and rhythm. Extremities: Tip of left index finger: erythema, tenderness and swelling (eccymosis). Extremities otherwise negative. Neuro, Vascular and Tendons: Vascular status intact. Sensation intact. Motor intact. Tendon function intact. LABS, X-RAYS, AND EKG X-Rays: Left digit (s) negative. PROGRESS AND PROCEDURES E.D. Course: Percocet 2po given. Finger splint placed for comfort. Patient/family counseled. Old medical records ordered. Disposition: Discharged home. Condition: good and stable. Discharged home in good condition and improved condition (00:14 ). CLINICAL IMPRESSION Crush injury to left index finger . INSTRUCTIONS Apply ice intermittently (15-20 minutes at a time 4-6 times daily) today, tomorrow. Elevate affected areas above chest level until better ( left hand above heart). Limit use of your left hand until better. Do not work for two days. Warnings: GENERAL WARNINGS: Return or contact your physician immediately if your condition worsens or changesunexpectedly, if not improving as expected, or if other problems arise. Worsening pain, other concerns. Prescription Medications: Percocet 5 mg/325 mg: take 1 tablet orally every 6 hours as needed for pain. Dispense fifteen (15).No refills. Generic substitute OK. Follow-up: Follow up with your doctor in three days. Understanding of the discharge instructions verbalizedby patient. (Electronically signed by Lee Ann Babin M.D. 11/04/2005 0:57) Department - Nursing Summary Registration Date/Time: 11/03/2005 22:49 TRIAGE Initial Assessment Triage time 22:50 Nov 03 2005. --2249 Elvira Rojo R.N. BP: 100 / 70. HR: 83. RR: 20. Temp: 36.7 C (tympanic). --2251 Elvira Rojo R.N. Medications control pills - --2251 Elvira Rojo R.N. Allergies No known drug allergies. --2251 Elvira Rojo R.N. History Chief Complaint: ( slammed left index fingertip in metal door at work.). Location of injuries (leftindex fingertip). This occurred just prior to arrival. Pain level now: 05/07. PAST HX: Asthma. SOCIAL HX: Smoker. Occasional alcohol use. Arrived by private vehicle. Historian: patient. --2251 Elvira Rojo R.N. PHYSICAL ASSESSMENT Alert. Oriented X 3. Skinis warm and dry. Ecchymosis (fingertip). --2252 Elvira Rojo R.N. ( Pt arives in iftikhar splint applied by net programmer.). --2252 Elvira Rojo R.N. ( JUst index finger is painful). --2325 Meredith Bey R.N. NURSING PROGRESS NOTES Progress Two patient identifiers checked. ( Assumed care at this time.). Call light placed in reach. Side rails up x 1. Bed placed in lowest position. Brakes of bed on. Patient ready for evaluation - --2308 Meredith Bey R.N. Cold pack applied. Extremity elevated. --2325 Dm De Luna, E.M.T. ( Patient rang again regarding pain). --2329 Meredith Bey R.N. ( Patient seen by Dr. Babin). --2331 Meredith Bey R.N. Two patient identifiers checked. PERCOCET 5 mg/325 mg 2 tab PO. Sedative drug warning given to the patient. . --2334 Meredith Bey R.N. ( Patient awaiting x-ray). --2334 Meredith Bey R.N. ( Patient to x-ray at this time.). --2349 Meredith Bey R.N. ( Patient back from x-ray). --000 Meredith Bey R.N. ( Pain is better as she is sleepy). --7 Meredith Bey R.N. Aluminum-foam splint applied to left index finger; distal pulses intact and sensation intact. --0015 Dm De Luna, E.M.T. PERCOCET 5 mg/325 mg SP TO GO, PER MD BABIN, RX#[id number] PO. Sedative drug warning given to the patientand patient's stock driver. . --0025 Basim Donaldson R.N. DISPOSITION / DISCHARGE BP: 109 / 66. HR: 87. Patient reports pain level on departure as 8/10. Condition at departure: improved and stable. Fall risk assessment completed. No fall risk identified. Patient's personal items include; belongings were given to the patient. --0027 Basim Donaldson R.N. No learning barriers present. Discharge instructions reviewed with the patient and stock driver. Reviewed warnings. Reviewed medication; prescription (s) given to the patient. Reviewed referrals. Reviewed need to stop smoking. Activity restrictions reviewed. Work note given. Patient and stock driver verbalized understanding. Written instructions provided in Yoruba. The patient was discharged home and accompanied by stock driver. The patient left the Emergency Department ambulatory and via private vehicle. Puller Out driving. --0028 Charles Nicolas R.N., R.N. Lance Gibney E.M.T. Tyler Vogt, R.N. Locked/Released at 11/04/2005 0:28 by Basim Donaldson R.N. documented in this encounter Plan of Treatment Not on file documented as of this encounter Visit Diagnoses Not on filedocumented in this encounter
--- OUTSIDE RECORDS SUMMARY | 2024-05-09 10:26 | XMS_ITS | Encounter Summary ---
Author Organization [facility] Address [address] [place] [address] Care Team Providers Care Flaring Machine Operator Name Role Phone Unavailable Primary Care Provider Unavailabl e Encounter Details Date Type Department Care Team (Late st Contact Info) Description 09/10/2000 Results Only [facility] - Map conversion [address] [place] [address] William Chamorro MD [address] [place], [place] [id number] Social History Tobacco Use Types Packs/Day Years Used Date Smoking Tobacco: Never Assessed Sex and Gender Information Value Date Recorded Sex Assigned at Not on file Gender Identity Female 12/22/2021 14:10 EDT Sexual Orientation Not on file documented as of this encounter Plan of Treatment Not on file documented as of this encounter Procedures Procedure Name Priority Date/Time Associated Diagnosis Comments CYTOPATHOLOGY Routine 09/10/2000 0:00 EST documented in this encounter Results * CYTOPATHOLOGY (09/10/2000 0:00 EST) Pathology Report: CYTOPATHOLOGY REPORT Reports generated via electronic interface contain original data; however they are lacking the format of the original report. Caution should be taken when reading/interpreti ng unformatted reports. Name: ? MARY JANE TONG ? Accession #: ? [id number] : ? 1980 (Age: 20) ??F ?Collect Date: ? 09/10/2000 Location: ? [facility] ? Receive Date: ? 09/12/2000 Provider: ?WILLIAM CHAMORRO MD Copy to: ? Specimen/Source: ?ThinPrep Pap Test, Cervix/Endocervix Last Menstrual Period: ? 09/06/00 Hormonal/Contracep tive Status: ? Control Pills ? SPECIMEN ADEQUACY ? Satisfactory for evaluation. GENERAL CATEGORIZATION ? Within Normal Limits ? Document reviewed and electronically signed by: ? CURTIS Cid(ASCP) ? Report Date: ??09/13/2000 10:49 End of Report [facility] 09/10/2000 09/12/2000 William Chamorro MD PATHOLOGY ORDERABLES [facility] [address] [place] [address] documented in this encounter Visit Diagnoses Not on filedocumented in this encounter
--- OUTSIDE RECORDS SUMMARY | 2024-05-09 10:26 | XMS_ITS | Encounter Summary ---
Author Organization [facility] Address [address] [place] [address] Care Team Providers Care Carpet Repairer Name Role Phone Austin Lowe MD Primary Care Provider Unavail able None, Provider Primary Care Provider Unavailabl e Encounter Details Date Type Department Care Team (Late st Contact Info) Description 06/25/2021 Lab Requisition [facility] Pathology & Laboratory Medicine - [address] [address] Outr Resulting Lab, Provider Social History Tobacco Use Types Packs/Day Years Used Date Smoking Tobacco: Never Assessed Sex and Gender Information Value Date Recorded Sex Assigned at Not on file Gender Identity Female 12/22/2021 14:10 EDT Sexual Orientation Not on file documented as of this encounter Plan of Treatment Not on file documented as of this encounter Procedures Procedure Name Priority Date/Time Associated Diagnosis Comments ZZCOVID-19 TEST [facility] PCR Today 06/24/2021 14:10 EST COVID-19 TESTING Routine 06/24/2021 14:1 0 EST documented in this encounter Results * COVID-19 TEST [facility] PCR (06/24/2021 14:10 EST) Swab 06/24/2021 14:1 0 EST 06/25/2021 15:42 EST Provider Outr Resulting Lab MICROBIOLOGY - GENERAL ORDERABLES [facility] [address] [place] [address] * COVID-19 TESTING (06/24/2021 14:10 EST) COVID-19 rt-PCR Result Negative Negative 06/26/2021 14:49 EST [facility] Comment: This test has not been FDA cleared or approved. This test has been authorized by FDA under an EUA for use by authorized laboratories. This test has been authorized only for detection of nucleic acid from 2019-nCoV, not for any other viruses or pathogens. This test is only authorized for the duration of the declaration that circumstances exist justifying the authorization of emergency use of in vitro diagnostic tests for detection and/or diagnosis of 2019-nCoV under section 564(b)(1) of Act, 21 U.S.C ?? 360bbb-3(b) (1), unless the authorization is terminated or revoked sooner. Negative results do not preclude 2019-nCoV infection and should not be used as the sole basis for treatment or other patient management decisions. Negative results must be combined with clinical observations, patient history, and epidemiological information. Testing was performed using the brii SARS-CoV-2 assay ([employer] on the Brii 6800 System Performing Lab Brii 6800 [facility] 06/26/2021 14:49 EST [facility] Swab 06/24/2021 14:1 0 EST 06/25/2021 15:42 EST Provider Outr Resulting Lab MICROBIOLOGY - GENERAL ORDERABLES [facility] [address] [place] [address] documented in this encounter Visit Diagnoses Not on filedocumented in this encounter Additional Health Concerns Infection Onset Date Last Indicated Resolved Time MRSA Comment:IP Note: MRSA positive arm 01/03/24 A Ross 01/06/24 01/03/2024 01/03/2024 documented as of this encounter Care Teams Carpet Repairer Relationship Specialty Start Date End Date Austin Lowe MD PCP - General 06/08/15 01/02/24 None, Provider PCP - General 01/03/24 documented as of this encounter
--- OUTSIDE RECORDS SUMMARY | 2024-05-09 10:26 | XMS_ITS | Encounter Summary ---
Author Organization [facility] Address [address] [place] [address] Care Team Providers Care Park Keeper Name Role Phone Unavailable Primary Care Provider Unavailabl e Encounter Details Date Type Department Care Team (Late st Contact Info) Description 08/19/2012 Results Only [facility] Laboratory Services - [facility] [address] [place], [place] [address] Marcella Jimenez CNM [address] [place], [place] [phone] Social History Tobacco Use Types Packs/Day Years Used Date Smoking Tobacco: Never Assessed Sex and Gender Information Value Date Recorded Sex Assigned at Not on file Gender Identity Female 12/22/2021 14:10 EDT Sexual Orientation Not on file documented as of this encounter Plan of Treatment Not on file documented as of this encounter Procedures Procedure Name Priority Date/Time Associated Diagnosis Comments PAP TEST- RESULT ONLY Routine 08/19/2012 0:00 EST documented in this encounter Results * PAP TEST- RESULT ONLY (08/19/2012 0:00 EST) Pathology Report: CYTOPATHOLOGY REPORT Reports generated via electronic interface contain original data; however they are lacking the format of the original report. Caution should be taken when reading/interpreti ng unformatted reports. Name: ? MARY JANE TONG ? Accession #: ? [id number] ? : ? 1980 (Age: 32) ??F ?Collect Date: ? 08/19/2012 ? Location: ? [facility] ? Receive Date: ? 08/21/2012 ? Provider: MARCELLA JIMENEZ CNM Copy to: ? Final Report SPECIMEN ADEQUACY ? Satisfactory for Evaluation - transformation zone component present GENERAL CATEGORIZATION ? Negative for Intraepithelial Lesion or Malignancy ?? Last Menstrual Period: 06/12/12 Menstrual/Pregnanc y Status: ?? Specimen/Source: ??Pap Test, Cervix/Endocervix, ThinPrep Imaging System with manual evaluation Document reviewed and electronically signed by: ? Radhika Wolf, CT(ASCP) ? Report ??Date: 08/27/2012 14:37 HPV with Pap Test ? Date Ordered: ? 08/27/2012 ? Status: ?? Signed Out ?Date Complete: ? 09/01/2012 ? By: ??System Interface ? Date Reported: ? 09/01/2012 ? Interpretation RESULT: Negative for HPV. No E6 or E7 mRNA is detected from HPV types 16,18,31,33,35, 39,45,51,52,56,58, 59,66, and 68 by patient placement coordinator mediated amplification. Comments Document reviewed and electronically signed by: ? System Interface ? Report date: 09/01/2012 By the signature above, the attending physician certifies that he/she has personally conducted a gross and/or microscopic examination of the described specimens and rendered or confirmed the above diagnosis. End of Report [facility] 08/19/2012 08/21/2012 Marcella Jimenez CNM PATHOLOGY ORDERABLES [facility] [address] [address] documented in this encounter Visit Diagnoses Not on filedocumented in this encounter
--- OUTSIDE RECORDS SUMMARY | 2024-05-09 10:26 | XMS_ITS | Encounter Summary ---
Author Organization [facility] Address [address] [place] [address] Care Team Providers Care Creative Developer Name Role Phone Austin Lowe MD Primary Care Provider Unavail able None, Provider Primary Care Provider Unavailabl e Encounter Details Date Type Department Care Team (Late st Contact Info) Description 07/12/2020 Lab Requisition [facility] Pathology & Laboratory Medicine - [address] [address] Caitie Mayers, [address] [place] [address] Encounter for other general examination Social History Tobacco Use Types Packs/Day Years Used Date Smoking Tobacco: Never Assessed Sex and Gender Information Value Date Recorded Sex Assigned at Not on file Gender Identity Female 12/22/2021 14:10 EDT Sexual Orientation Not on file documented as of this encounter Plan of Treatment Not on file documented as of this encounter Procedures Procedure Name Priority Date/Time Associated Diagnosis Comments PAP TEST Today 07/11/2020 13:30 EST Encounter for other general examination HPV DNA DETECTION WITH GENOTYPING, PCR Today 07/11/2020 13:30 EST Encounter for other general examination documented in this encounter Results * HUMAN PAPILLOMAVIRUS (HPV) DETECTION-HIGH RISK TYPES (07/11/2020 13:30 EST) HPV other High Risk types, PCR Negative Negative 07/19/2020 15:06 EST [facility] Comment:No E6 or E7 mRNA is detected from HPV types 16,18,31,33,35,39,45,51,52,56,58,59,66, and 68 by patient assessment coordinator mediated amplification. Papanicolaou smear specimen (specimen) CERVIX UTERI STRUCTURE / Unknown 07/11/2020 13:30 EST 07/18/2020 9:24 EST Caitie CALDERONP MICROBIOLOGY - GENER AL ORDERABLES [facility] [address] [place] [address] * PAP TEST (07/11/2020 13:30 EST) Specimens A. Cervix and/or Endocervix , ThinPrep Imaging System with Manual Evaluation 07/19/2020 15:06 [facility] Specimen Adequacy Satisfactory for Evaluation - transformation zone component present 07/19/2020 15:06 [facility] General Categorization Negative for intraepithelial lesion or malignancy 07/19/2020 15:06 [facility] Attestation . 07/19/2020 15:06 [facility] at 1506 Clinical History See below 07/19/20 20 15:06 [facility] HPV The result for the Human Papillomavirus (HPV) Detection-High Risk Types is Negative. No E6 or E7 mRNA is detected from HPV types 16,18,31,33,35,39 ,45,51,52,56,58,5 9,66, and 68 by patient assessment coordinator mediated amplification.Emelina ting was performed on specimen [id number] and was resulted on 07/19/2020 1505 EST by RYDER, LAB INSTRUMENT RESULTS IN 07/19/2020 15:06 [facility] Performing Lab [facility] 07/19/2020 15:06 [facility] Scanned Images 07/19/2020 15:06 [facility] Papanicolaou smear specimen (specimen) CERVIX UTERI STRUCTURE / Unknown 07/11/2020 13:30 EST 07/12/2020 9:31 EST Caitie E Talib GLASS WASHER PATHOLOGY ORDERABLES [facility] [address] [place] [address] documented in this encounter Visit Diagnoses Diagnosis Encounter for other general examination documented in this encounter Additional Health Concerns Infection Onset Date Last Indicated Resolved Time MRSA Comment:IP Note: MRSA positive arm 01/03/24 A Ross 01/06/24 01/03/2024 01/03/2024 documented as of this encounter Care Teams Creative Developer Relationship Specialty Start Date End Date Austin Lowe MD PCP - General 06/08/15 01/02/24 None, Provider PCP - General 01/03/24 documented as of this encounter
--- OUTSIDE RECORDS SUMMARY | 2024-05-09 10:26 | XMS_ITS | Encounter Summary ---
Author Organization [facility] Address [address] [place] [address] Care Team Providers Care Metal Bed Assembler Name Role Phone Austin Lowe MD Primary Care Provider Unavail able None, Provider Primary Care Provider Unavailabl e Encounter Details Date Type Department Care Team (Late st Contact Info) Description 07/11/2020 Lab Requisition [facility] Pathology & Laboratory Medicine - [address] [id number] Outr Resulting Lab, Provider Social History Tobacco [...] Procedure Name Priority Date/Time Associated Diagnosis Comments CHLAMYDIA/N. GONORRHOEAE AMPLIFIED NUCLEIC ACID Routine 07/11/2020 13:30 EST documented in this encounter Results * CHLAMYDIA/N. GONORRHOEAE AMPLIFIED RNA (07/11/2020 13:30 EST) Neisseria gonorrhoeae Result Negative Negative 07/12/2020 13:02 EST [facility] Chlamydia trachomatis Result Negative Negative 07/12/2020 13:02 EST [facility] Swab ENTIRE ENDOCERVIX / Unknown 07/11/2020 13:30 EST 07/11/2020 21:05 EST Provider Outr Resulting Lab MICROBIOLOGY - GENERAL ORDERABLES [facility] [address] [place] [address] documented in this encounter Visit Diagnoses Not on filedocumented in this encounter Additional Health Concerns Infection Onset Date Last Indicated Resolved Time MRSA Comment:IP Note: MRSA positive arm 01/03/24 Mohamud Casillas 01/06/24 01/03/2024 01/03/2024 documented as of this encounter Care Teams Metal Bed Assembler Relationship Specialty Start Date End Date Austin Lowe MD PCP - General 06/08/15 01/02/24 None, Provider PCP - General 01/03/24 documented as of this encounter
--- OUTSIDE RECORDS SUMMARY | 2024-05-09 10:26 | XMS_ITS | Encounter Summary ---
Author Organization [facility] Address [address] [place] [address] Care Team Providers Care Tag Writer Name Role Phone Unavailable Primary Care Provider Unavailabl e Encounter Details Date Type Department Care Team (Late st Contact Info) Description 10/11/2014 Results Only [facility] Laboratory Services - [facility] [place] [address] [place], [place] [phone] Caitie Mayers, [facility] [address] [place] [address] [place] [address] Social History Tobacco Use Types Packs/Day Years [...] Diagnosis Comments PAP TEST- RESULT ONLY Routine 10/11/2014 0:00 EDT documented in this encounter Results * PAP TEST- RESULT ONLY (10/11/2014 0:00 EDT) Pathology Report: CYTOPATHOLOGY REPORT Reports generated via electronic interface contain original data; however they are lacking the format of the original report. Caution should be taken when reading/interpreti ng unformatted reports. Name: ? MARY JANE TONG ? Accession #: ? [id number] ? : ? 1980 (Age: 34) ??F ?Collect Date: ? 10/11/2014 ? Location: ? [facility] ? Receive Date: ? 10/13/2014 ? Provider: CAITIE MAYERS [facility] Copy to: MALDONADO AMADOR MD ? Final Report SPECIMEN ADEQUACY ? Satisfactory for Evaluation - transformation zone component present GENERAL CATEGORIZATION ? Negative for Intraepithelial Lesion or Malignancy ?? Last Menstrual Period: 09/07/14 Specimen/Source: ??Pap Test, Cervix/Endocervix, ThinPrep Imaging System with manual evaluation Document reviewed and electronically signed by: ? CURTIS Mandujano(ASCP) ? Report ??Date: 10/18/2014 12:06 HPV with Pap Test ? Date Ordered: ? 10/18/2014 ? Status: ?? Signed Out ?Date Complete: ? 10/20/2014 ? By: ??System Interface ? Date Reported: ? 10/20/2014 ? Interpretation RESULT: Negative for HPV. No E6 or E7 mRNA is detected from HPV types 16,18,31,33,35, 39,45,51,52,56,58, 59,66, and 68 by registered safety engineer mediated amplification. Comments Document reviewed and electronically signed by: ? System Interface ? Report date: 10/20/2014 By the signature above, the attending physician certifies that he/she has personally conducted a gross and/or microscopic examination of the described specimens and rendered or confirmed the above diagnosis. End of Report [facility] 10/11/2014 10/13/2014 Caitie Mayers REGIONAL RECRUITER PATHOLOGY ORDERABLES [facility] [address] [place] [address] documented in this encounter Visit Diagnoses Not on filedocumented in this encounter
--- OUTSIDE RECORDS SUMMARY | 2024-05-09 10:26 | XMS_ITS | Encounter Summary ---
Author Organization [facility] Address [address] [place] [address] Care Team Providers Care Public Health Specialist Name Role Phone Unavailable Primary Care Provider Unavailabl e Encounter Details Date Type Department Care Team (Latest Contact Info) Description 12/25/2005 3:02 EDT - 12/25/2005 11:59 EDT Hospital Encounter [facility] Emergency Department - [facility] [address], [place] [id number] Emergency, Default, MD Discharge Disposition: Home or Self Care Social History Tobacco Use Types Packs/Day Years Used Date Smoking Tobacco: Never Assessed Sex and Gender Information Value Date Recorded Sex Assigned at Not on file Gender Identity Female 12/22/2021 14:10 EDT Sexual Orientation Not on file documented as of this encounter Discharge Disposition Disposition Code Departure Means Destination Home or Self Care documented in this encounter Plan of Treatment Not on file documented as of this encounter Procedures Procedure Name Priority Date/Time Associated Diagnosis Comments HOLD PURPLE TOP Routine 12/25/2005 5:55 EDT ACETAMINOPHEN Routine 12/25/2005 5:55 EDT documented in this encounter Results * HOLD PURPLE TOP (12/25/2005 5:55 EDT) Hold Purple Top EDTA for hematology will be discarded after 48 hours, differential not available after 12 hours. [facility] 12/25/2005 5:55 EDT 12/25/2005 6:00 EDT Default Emergency MD LAB INFO SERVICE AN D SUPPORT & PHONE RESULT [facility] [address] [place] [address] * ACETAMINOPHEN (12/25/2005 5:55 EDT) Acetaminophen 27.3 ug/ml [facility] Comment: Therapeutic range: ??10 - 30 ug/mL Possible toxicity: ??150 - 200 ug/mL Probable toxicity: ??>200 ug/mL 12/25/2005 5:55 EDT 12/25/2005 6:00 EDT Default Emergency MD CHEMISTRY & BLOOD G ORDERABLES [facility] [address] [place] [address] documented in this encounter Visit Diagnoses Not on filedocumented in this encounter
--- OUTSIDE RECORDS SUMMARY | 2024-05-09 10:26 | XMS_ITS | Encounter Summary ---
Author Organization [facility] Address [address] [place] [address] Care Team Providers Care Wood Technologist Name Role Phone Unavailable Primary Care Provider Unavailabl e Encounter Details Date Type Department Care Team (Latest Contact Info) Description 06/05/2006 7:23 EST - 06/05/2006 11:59 EST Hospital Encounter [facility] - Other [address] [place] [address] Renetta Rae PA-C [facility] [address], [place] [id number] Discharge Disposition: Home or Self Care Social [...] Procedure Name Priority Date/Time Associated Diagnosis Comments PROLACTIN Routine 06/05/2006 15:10 EST LH Routine 06/05/2006 15:10 EST documented in this encounter Results * PROLACTIN (06/05/2006 15:10 EST) Prolactin 10.3 ng/ml [facility] Comment: Non-: 2.8-29.2 : 9.7-208.5 Post Menopausal: 1.8-20.3 06/05/2006 15:1 0 EST 06/05/2006 21:12 EST Renetta LARIOS-C CHEMISTRY & BLOOD GA S ORDERABLES Performing Organization Address City/[facility] Co de Phone Number [facility] [address] [place] [address] * LH (06/05/2006 15:10 EST) 5.7 mIU/ml [facility] Comment: Follicular: 1-18 Mid-Cycle Peak: 15-80 Luteal: 0.5-18 Postmenopausal: 12-55 06/05/2006 15:1 0 EST 06/05/2006 21:12 EST Renetta LARIOS-[place] CHEMISTRY & BLOOD GA S ORDERABLES Performing Organization Address [facility] Co de Phone Number [facility] [address] [place] [address] documented in this encounter Visit Diagnoses Not on filedocumented in this encounter
--- OUTSIDE RECORDS SUMMARY | 2024-05-09 10:26 | XMS_ITS | Encounter Summary ---
Author Organization [facility] Address [address] [place] [address] Care Team Providers Care Desktop Publishing Operator Name Role Phone Unavailable Primary Care Provider Unavailabl e Encounter Details Date Type Department Care Team (Late st Contact Info) Description 08/15/1999 Results Only [facility] - Maple conversion [address] [place] [address] William Chamorro MD [address] [place], [place] [id number] Social History Tobacco Use Types Packs/Day Years Used Date Smoking Tobacco: Never Assessed Sex and Gender Information Value Date Recorded Sex Assigned at Not on file Gender Identity Female 12/22/2021 14:10 EDT Sexual Orientation Not on file documented as of this encounter Plan of Treatment Not on file documented as of this encounter Procedures Procedure Name Priority Date/Time Associated Diagnosis Comments CYTOPATHOLOGY Routine 08/15/1999 10:55 EST documented in this encounter Results * CYTOPATHOLOGY (08/15/1999 10:55 EST) Pathology Report: CYTOPATHOLOGY REPORT Reports generated via electronic interface contain original data; however they are lacking the format of the original report. Caution should be taken when reading/interpreti ng unformatted reports. Name: ? MARY JANE TONG ? Accession #: ? [id number] : ? 1980 (Age: 19) ??F ?Collect Date: ? 08/15/1999 Location: ?Receive Date: ? 08/15/1999 Provider: ?WILLIAM CHAMORRO MD Copy to: ?WILLIAM CHAMORRO MD ? Specimen/Source: ?Pap Smear (One Slide) Last Menstrual Period: ? GYNECOLOGIC ??CYTOPATHOLOGY ??REPORT Name: MARY JANE TONG ? [facility] : 1980 ?? 19Y F ?Client ID: [id number] SS#: [id number] ? Clinician: WILLIAM CHAMORRO MD ?? Location: [facility] ??Copy to: ?? Specimen: ?Pap Smear (One Slide) ? Source: Cervix/Endocervix ?Collected: 08/11/99 ? Received: 08/15/1999 ?LMP: 06/29/99 ? Hormone Therapy: No ? : No ? Radiation Therapy: No ?? Post : No ?Chemotherapy: No ?IUD: No ? Prev Abnormal Pap: No ?? Clinical Hx: ?(Blank hoffman indicate information not provided on requisition) SPECIMEN ADEQUACY: ? Satisfactory For Evaluation ?? GENERAL CATEGORIZATION: ? WITHIN NORMAL LIMITS ? Reviewed And Electronically Signed By: ? Camacho Horn, CT(ASCP) ? Report Date: ?? 08/16/1999 Who is Undercover Spy Archived Tests - Final Diagnosis Text Field: Clinical History : ? Document reviewed and electronically signed by: ? Conversion ? Report Date: ??08/16/1999 00:00 End of Report [facility] 08/15/1999 10:5 5 EST 08/15/1999 10:56 EST William Chamorro MD PATHOLOGY ORDERABLES [facility] [address] [place] [address] documented in this encounter Visit Diagnoses Not on filedocumented in this encounter
--- OUTSIDE RECORDS SUMMARY | 2024-05-09 10:26 | XMS_ITS | Encounter Summary ---
Author Organization [facility] Address [address] [place] [address] Care Team Providers Care Marble Chip Terrazzo Worker Name Role Phone Unavailable Primary Care Provider Unavailabl e Encounter Details Date Type Department Care Team (Late st Contact Info) Description 02/18/[address] [facility] - Map conversion [address] [place] [address] Caitie Mayers, [facility] [address] [place] [address] [place] [phone] Social History Tobacco Use Types Packs/Day Years Used Date Smoking Tobacco: Never Assessed Sex and Gender Information Value Date Recorded Sex Assigned at Not on file Gender Identity Female 12/22/2021 14:10 EDT Sexual Orientation Not on file documented as of this encounter Plan of Treatment Not on file documented as of this encounter Procedures Procedure Name Priority Date/Time Associated Diagnosis Comments CYTOPATHOLOGY Routine 02/18/2004 0:00 EDT documented in this encounter Results * CYTOPATHOLOGY (02/18/2004 0:00 EDT) Pathology Report: CYTOPATHOLOGY REPORT Reports generated via electronic interface contain original data; however they are lacking the format of the original report. Caution should be taken when reading/interpreti ng unformatted reports. Name: ? MARY JANE TONG ? Accession #: ? [id number] : ? 1980 (Age: 23) ??F ?Collect Date: ? 02/18/2004 Location: ? [facility] ? Receive Date: ? 02/22/2004 Provider: ?CAITIE MAYERS CORPORATE REAL ESTATE SPECIALIST Copy to: ? Specimen/Source: ?ThinPrep Pap Test, Cervix/Endocervix Last Menstrual Period: ? 02/13/2004 Other: ? HPVA - HPV testing requested if ASC-US on the current ThinPrep Pap test. ? SPECIMEN ADEQUACY ? Satisfactory for Evaluation - transformation zone component present GENERAL CATEGORIZATION ? Negative for Intraepithelial Lesion or Malignancy INTERPRETATION ? Shift in christopher present suggestive of bacterial vaginosis. ? Document reviewed and electronically signed by: ? CURTIS Wade(ASCP) ? Report Date: ??02/29/2004 06:41 End of Report [facility] 02/18/2004 02/22/2004 Caitie Mayers CORPORATE REAL ESTATE SPECIALIST PATHOLOGY ORDERABLES Performing Organization Address City/State/[place] Co de Phone Number [facility] [address] [place] [address] documented in this encounter Visit Diagnoses Not on filedocumented in this encounter
--- OUTSIDE RECORDS SUMMARY | 2024-05-09 10:26 | XMS_ITS | Encounter Summary ---
Author Organization [facility] Address [address] [place] [address] Care Team Providers Care Outside Repairer Special Name Role Phone Unavailable Primary Care Provider Unavailabl e Encounter Details Date Type Department Care Team (Late st Contact Info) Description 02/27/2005 Results Only [facility] - Maple conversion [address] [place] [address] Caitie Mayers, [facility] [address] [place] [address] [place] [phone] Social History Tobacco Use Types Packs/Day Years Used Date Smoking Tobacco: Never Assessed Sex and Gender Information Value Date Recorded Sex Assigned at Not on file Gender Identity Female 12/22/2021 14:10 EDT Sexual Orientation Not on file documented as of this encounter Plan of Treatment Not on file documented as of this encounter Procedures Procedure Name Priority Date/Time Associated Diagnosis Comments CYTOPATHOLOGY Routine 02/27/2005 0:00 EDT documented in this encounter Results * CYTOPATHOLOGY (02/27/2005 0:00 EDT) Pathology Report: CYTOPATHOLOGY REPORT Reports generated via electronic interface contain original data; however they are lacking the format of the original report. Caution should be taken when reading/interpreti ng unformatted reports. Name: ? MARY JANE TONG ? Accession #: ? [id number] : ? 1980 (Age: 24) ??F ?Collect Date: ? 02/27/2005 Location: ? [facility] ? Receive Date: ? 02/28/2005 Provider: ?CAITIE MAYERS X RAY NURSE Copy to: ? Specimen/Source: ?ThinPrep Pap Test, Cervix/Endocervix, processed on [employer] (acquired by [employer]) ThinPrep Imaging System, with manual evaluation Last Menstrual Period: ? 02/08/05 Other: ? HPVA - HPV testing requested if ASC-US on the current ThinPrep Pap test. ? SPECIMEN ADEQUACY ? Satisfactory for Evaluation - transformation zone component present GENERAL CATEGORIZATION ? Negative for Intraepithelial Lesion or Malignancy ? Document reviewed and electronically signed by: ? CURTIS Mandujano(ASCP) ? Report Date: ??03/05/2005 09:42 End of Report [facility] 02/27/2005 02/28/2005 Caitie Mayers X RAY NURSE PATHOLOGY ORDERABLES [facility] [address] [place] [address] documented in this encounter Visit Diagnoses Not on filedocumented in this encounter
--- OUTSIDE RECORDS SUMMARY | 2024-05-09 10:26 | XMS_ITS | Encounter Summary ---
Author Organization [facility] Address [address] [place] [address] Care Team Providers Care Field Service Specialist Name Role Phone Unavailable Primary Care Provider Unavailabl e Encounter Details Date Type Department Care Team (Late st Contact Info) Description 08/23/2006 Results Only [facility] - Map conversion [address] [place] [address] Caitie Mayers, [facility] [address] [place] [address] [place] [phone] Social History Tobacco Use Types [...] Priority Date/Time Associated Diagnosis Comments CYTOPATHOLOGY Routine 08/23/2006 0:00 EST documented in this encounter Results * CYTOPATHOLOGY (08/23/2006 0:00 EST) Pathology Report: CYTOPATHOLOGY REPORT Reports generated via electronic interface contain original data; however they are lacking the format of the original report. Caution should be taken when reading/interpreti ng unformatted reports. Name: ? MARY JANE TONG ? Accession #: ? [id number] : ? 1980 (Age: 26) ??F ?Collect Date: ? 08/23/2006 Location: ? [facility] ? Receive Date: ? 08/26/2006 Provider: ?CAITIE MAYERS LEAD PRESSMAN [employer] Copy to: ? Specimen/Source: ?ThinPrep Pap Test, Cervix/Endocervix, processed on [employer] ThinPrep Imaging System, with manual evaluation Last Menstrual Period: ? 07/26/06 Other: ? HPVA - HPV testing requested if ASC-US on the current ThinPrep Pap test. ? SPECIMEN ADEQUACY ? Satisfactory for Evaluation - transformation zone component present GENERAL CATEGORIZATION ? Negative for Intraepithelial Lesion or Malignancy INTERPRETATION ? Fungal organisms present morphologically consistent with Clarisa species. ? Document reviewed and electronically signed by: ? CURTIS Fraire(ASCP) ? Report Date: ??08/27/2006 11:26 End of Report [facility] 08/23/2006 08/26/2006 Caitie Mayers LEAD PRESSMAN [employer] PATHOLOGY ORDERABLES Performing Organization Address City/State/[facility] Co de Phone Number [facility] [address] [place] [address] documented in this encounter Visit Diagnoses Not on filedocumented in this encounter
--- OUTSIDE RECORDS SUMMARY | 2024-05-09 10:26 | XMS_ITS | Encounter Summary ---
Author Organization [facility] Address [address] [place] [id number] Care Team Providers Care Envelope Stamping Machine Operator Name Role Phone Austin Lowe MD Primary Care Provider Unavail able Reason for Visit * Reason Comments Dizziness Encounter Details Date Type Department Care Team (Late st Contact Info) Description 12/22/2021 13:53 EDT - 12/22/2021 18:32 EDT Emergency [facility] Emergency Department [address] [place] [address] [id number] Panchito Wills MD [address] [place] [address] Lethargy (Primary Dx) Discharge Disposition: Home or Self Care Social History Tobacco Use Types Packs/Day Years Used Date Smoking Tobacco: Every Day Alcohol Use Standard Drinks/Week Comments Not Currently 0 (1 standard drink = 0.6 oz pur e alcohol) Sex and Gender Information Value Date Recorded Sex Assigned at Not on file Gender Identity Female 12/22/2021 14:10 EDT Sexual Orientation Not on file COVID-19 Exposure Response Date Recorded In the last 10 days, have yo u been in contact with someone who was confirmed or suspected to have Coronavirus/COVID-19? Unable to assess 12/22/2021 13:50 EDT documented as of this encounter Last Filed Vital Signs Vital Sign Reading Time Taken Comments Blood Pressure 101/72 12/22/2021 1500 EDT Pulse - - Temperature 35.9 ??C (96.6 ??F) 12/22/2021 1351 EDT Respiratory Rate 12 12/22/2021 1615 EDT Oxygen Saturation 99% 12/22/2021 1351 EDT Inhaled Oxygen Concentration - - Weight - - Height 165.1 cm (5' 5) 12/22/2021 1351 EDT Body Mass Index - - documented in this encounter Discharge Instructions * Attachments The following attachments cannot be sent through Care Everywhere. * Fatigue ([place]gent[place]) documented in this encounter Medications at Time of Discharge Medication Sig Dispensed Refills Start Date End Date folic acid (FOLVITE) 1 mg tablet Take 1 Tablet by mouth daily. Multivitamins with Minerals tablet tablet Take 1 Tablet by mouth daily. thiamine (VITAMIN B1) 100 mg tablet Take 1 Tablet by mouth daily. buprenorphine-naloxone (SUBOXONE) 2-0.5 mg tablet, sublingual Place [...] daily as needed for Muscle Spasms. 01/08/2024 diazePAM (VALIUM) 5 mg tablet Take 2 Tablets by mouth 2 times daily. Taper w/ [facility] 01/04/2024 gabapentin (NEURONTIN) 400 mg capsule Take 2 Capsules by mouth 3 times daily. 01/08/2024 hydrOXYzine (ATARAX) 25 mg tablet Take 1 Tablet by mouth 3 times daily as needed for Itching. 01/08/2024 levothyroxine (SYNTHROID) 50 mcg tablet Take [...] daily. 01/08/2024 documented as of this encounter Discharge Disposition Disposition Code Departure Means Destination Home or Self Correction documented in this encounter ED Notes * Allyn Sharma RN - 12/22/2021 1635 EDT Patient verbally aggressive with staff. Wanting to leave. Dr. Wills immediately at bedside. * Joi Villegas RN - 12/22/2021 1630 EDT Pt leaving AMA and requesting IV to pulled. IV was pulled and pt was presented with AMA papers to sign. Pt yelled at staff and was asking why she was signing AMA papers. MD at bedside to explain her ER workup was incomplete at this time. Pt was informed there was still a CT scan and cxr to be completed. Pt swearing at staff stating shes treated like shit every time I go to the hospital. Pt was informed staff has her best interest and pt agreed to stay to complete workup. * Allyn Sharma RN - 12/22/2021 1630 EDT Patient ripped off radiation monitor, not needed to be reapplied per provider. * Allyn Sharma RN - 12/22/2021 1614 EDT Patient more awake, appears drowsy. * Panchito Wills MD - 12/22/2021 1417 EDT [facility] Emergency Department Visit Chief Complaint Dizziness HPI This is a 41-year-old female with a history significant for polysubstance abuse who presents from [facility] due to lethargy and dizziness. Of note, the patient was evaluated at [facility] 11/02/2021. That chart has been reviewed. It seems as though at that time she was started on Suboxone, but then relapsed and stopped using it soon thereafter. Patient tells me she was admitted at [facility] 2 days ago, has been more lethargic over the past couple of days since admission. She states they started her on multiple new medications. Symptoms are described as insidious inonset, severe. She denies other associated, exacerbating or remitting features. History is somewhatlimited secondary to lethargy. Discussed with Vandana at [facility] by telephone for additional history. Patient has h/o cocaine, meth, alcohol, opioid use. Admitted 12/19. On valium taper, started on suboxone induction. No othernew medications. Yesterday AM more drowsy, slurred speech, ataxix gait. Currently on valium, day 3 of taper, 10 mg (2 doses today), suboxone, 12 mg qd Data reviewed by me and updated PRN this visit Past Medical History: Diagnosis Date ??? Polysubstance abuse ([facility] ([facility]) Social History Tobacco Use ??? Smoking status: Current Every Day Smoker Substance Use Topics ??? Alcohol use: Not Currently ??? Drug use: Yes History reviewed. No pertinent family history. History reviewed. No pertinent surgical history. No Known Allergies Review of Systems Constitutional: Positive for activity change and fatigue. Negative for fever. HENT: Negative for congestion and rhinorrhea. Eyes: Negative for photophobia and visual disturbance. Respiratory: Negative for cough and shortness of breath. Cardiovascular: Positive for chest pain. Negative for leg swelling. Gastrointestinal: Negative for abdominal pain, diarrhea, nausea and vomiting. Endocrine: Positive for cold intolerance. Negative for heat intolerance. Genitourinary: Negative for dysuria and frequency. Musculoskeletal: Negative for back pain and myalgias. Skin: Negative for color change and rash. Neurological: Positive for light-headedness. Negative for headaches. Psychiatric/Behavioral: Negative for confusion and suicidal ideas. All other systems reviewed and are negative. Vital Signs Temp: 35.9 ??C (96.6 ??F) Temp src: Temporal Heart Rate: 75 BPM Resp: 13 SpO2: 99 % BP: 97/72 BP Device: BP Machine BP Patient Position: Sitting BP Cuff Location: Left arm O2 Device: None (Room air) There is no height or weight on file to calculate BMI. A medical screening exam was performed. Physical Exam Vitals and nursing note reviewed. Constitutional: General: She is not in acute distress. Appearance: She is not diaphoretic. HENT: Nose: Nose normal. Mouth/Throat: Mouth: Mucous membranes are moist. Eyes: Extraocular Movements: Right eye: Nystagmus present. Left eye: Nystagmus present. Conjunctiva/sclera: Conjunctivae normal. Comments: Pinpoint pupils Cardiovascular: Rate and Rhythm: Normal rate and regular rhythm. Heart sounds: No murmur heard. Pulmonary: Effort: Pulmonary effort is normal. No respiratory distress. Breath sounds: Normal breath sounds. Abdominal: General: There is no distension. Palpations: Abdomen is soft. Tenderness: There is no abdominal tenderness. Musculoskeletal: General: No tenderness or edema. Normal range of motion. Cervical back: Normal range of motion and neck supple. Skin: General: Skin is warm and dry. Findings: No rash. Neurological: Mental Status: She is alert and oriented to person, place, and time. Motor: No abnormal muscle tone. Labs/imaging The following labs were independently reviewed by myself. The following imaging study was reviewed and independently interpreted by myself Other Orders Placed This Visit Procedures ??? XR CHEST 2 VIEWS ??? CT HEAD WO CONTRAST ??? Complete Blood Count and Differential ??? Comprehensive Metabolic Panel (CMP) ??? Ethanol, Blood ??? Urine (lab performed) ??? Drug Screen 13, Urine (Amphetamine, Barbiturates, Benzodiazepine, Buprenorphine, Cannnabinoids,Cocaine, Methamphetamine, Mehtadone, Opiates, Oxycoodone, Phencyclidine, Propoxyphene, Tricyclics) ??? [place] ??? Troponin I ??? Venous Blood Gas ??? Insert Peripheral IV ??? Telemetry Monitoring ??? Continuous Pulse Oximetry ??? EKG 12 lead EKG (my reading): Normal sinus rhythm, rate 68, OH 185, QRS 94, QTc 425. No [id number] changes to suggest definite acute ischemia Procedures MDM This is a 41-year-old female, recently admitted to a inpatient drug treatment center, started on Valium and Suboxone taper, here with increasing lethargy since initiating those medications. Certainlycould be related to these multiple sedating medications. 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 Doubt new ingestion as patient is in a closed facility, unable to get to any other street drugs or medications that are not being dispensed. We will check labs as ordered above. Low suspicionfor intracranial process, though that is a consideration as well. We have ordered a CT head. She ishaving some chest discomfort after having CPR couple of weeks ago, so we will check a chest x-ray to rule out pneumothorax or rib fractures. We will check a lithium level. Other labs ordered above. Disposition uncertain. 14:17 Assessment and ED Course Relevant Data as of Dec 22 1749SatDecember 22, 2021 1640 I was called to the patient's bedside as she is agitated. She states she has been here for a long time and nobody has done anything for her. She is much more awake, alert and oriented x4. She isswearing at staff. She is still pending a CT of her head and a chest x-ray, which I urged her to stay to complete. For now she has agreed. [JR] 1749 No acute intracranial findings, chest x-ray is without acute findings. Patient is requesting to be discharged. She is alert and oriented, much more awake, engaging. [JR] Relevant Data User Index [JR] Panchito Wills MD Final diagnoses: Lethargy Disposition: Discharged * Lindsey Yu RN - 12/22/2021 1340 EDT Pt here from [facility] for question of lithium levels. Nurse from states pt has increased lethargy, unsteady gait and slurred speech. Pt states she has been there for 4 days for opioid and alcohol addiction. No Sob or CP. 2 weeks ago had CPR for overdose and chest hurts from CPR. I flat lined but they got me back documented in this encounter Plan of Treatment Not on file documented as of this encounter Procedures Procedure Name Priority Date/Time Associated Diagnosis Comments CT HEAD WO CONTRAST STAT 12/22/2021 1 7:11 EDT XR CHEST 2 VIEWS STAT 12/22/2021 17:1 0 EDT ECG REPORT - SCANNED 12/22/2021 16:24 EDT BLOOD GASES, VENOUS STAT 12/22/2021 1 5:18 EDT ZZHIGH SENSITIVITY TROPONIN I STAT 12/22/2021 15:17 EDT COMPLETE BLOOD COUNT AND DIFFERENTIAL STAT 12/22/2021 15:17 EDT ETHANOL, BLOOD STAT 12/22/2021 15:17 EDT LITHIUM STAT 12/22/2021 15:17 EDT COMPREHENSIVE METABOLIC PANEL (CMP) STAT 12/22/2021 15:17 EDT EKG 12-LEAD STAT 12/22/2021 15:14 EDT documented in this encounter Results * CT HEAD WO CONTRAST (12/22/2021 17:11 EDT) Anatomical Region Laterality Modality Head Computed Tomogra phy 12/22/2021 16:5 6 EDT Impressions 12/22/2021 17:42 EDT 1. Increased density questionably soft tissue injury anterior to the left frontal sinus. 2. No intracranial blood. THIS DOCUMENT HAS BEEN ELECTRONICALLY SIGNED BY FRANCOIS WOODARD MD FOR ANY QUESTIONS OR CONCERNS REGARDING THIS REPORT PLEASE CALL [facility] AT [phone] Narrative 12/22/2021 17:42 EDT PROCEDURE INFORMATION: Exam: CT Head Without Contrast Exam date and time: 12/22/2021 4:56 PM Age: 41 years old Clinical indication: Altered mental status/memory loss; Confusion or disorientation; Patient HX: Patient was recently revived via cpr, is on lithium; Additional info: Mental status change, persistent or worsening TECHNIQUE: Imaging protocol: Computed tomography of the head without contrast. Radiation optimization: All CT scans at this facility use at least one of these dose optimization techniques: automated exposure control; mA and/or kV adjustment per patient size (includes targeted exams where dose is matched to clinical indication); or iterative reconstruction. COMPARISON: No relevant prior studies available. FINDINGS: Brain: Mild small vessel ischemic disease. No intracranial hemorrhage. Cerebral ventricles: No ventriculomegaly. Paranasal sinuses: Visualized sinuses are unremarkable. No fluid levels. Mastoid air cells: Visualized mastoid air cells are well aerated. Bones/joints: Unremarkable. No acute fracture. Soft tissues: Soft tissue injury seen anterior to the left frontal sinus. Procedure Note Francois Woodard MD - 12/22/2021 PROCEDURE INFORMATION: Exam: CT Head Without Contrast Exam date and time: 12/22/2021 4:56 PM Age: 41 years old Clinical indication: Altered mental status/memory loss; Confusion or disorientation; Patient HX: Patient was recently revived via cpr, is on lithium; Additional info: Mental status change, persistent or worsening TECHNIQUE: Imaging protocol: Computed tomography of the head without contrast. Radiation optimization: All CT scans at this facility use at least one of these dose optimization techniques: automated exposure control; mA and/or kV adjustment per patient size (includes targeted exams where dose is matched to clinical indication); or iterative reconstruction. COMPARISON: No relevant prior studies available. FINDINGS: Brain: Mild small vessel ischemic disease. No intracranial hemorrhage. Cerebral ventricles: No ventriculomegaly. Paranasal sinuses: Visualized sinuses are unremarkable. No fluid levels. Mastoid air cells: Visualized mastoid air cells are well aerated. Bones/joints: Unremarkable. No acute fracture. Soft tissues: Soft tissue injury seen anterior to the left frontal sinus. IMPRESSION 1. Increased density questionably soft tissue injury anterior to the left frontal sinus. 2. No intracranial blood. THIS DOCUMENT HAS BEEN ELECTRONICALLY SIGNED BY FRANCOIS WOODARD MD FOR ANY QUESTIONS OR CONCERNS REGARDING THIS REPORT PLEASE CALL [facility] [phone] Panchito Wills MD IM[address] ORDERABLES * XR CHEST 2 VIEWS (12/22/2021 17:10 EDT) Anatomical Region Laterality Modality Computed Radiogr aphy 12/22/2021 17:0 7 EDT Impressions 12/22/2021 17:46 EDT No acute findings. THIS DOCUMENT HAS BEEN ELECTRONICALLY SIGNED BY FRANCOIS WOODARD MD FOR ANY QUESTIONS OR CONCERNS REGARDING THIS REPORT PLEASE CALL [facility] AT [phone] Narrative 12/22/2021 17:46 EDT PROCEDURE INFORMATION: Exam: XR Chest Exam date and time: 12/22/2021 5:07 PM Age: 41 years old Clinical indication: Sternal or substernal pain; Additional info: Weakness, chest pain, recent cpr TECHNIQUE: Imaging protocol: XR of the chest. Views: 2 views. COMPARISON: No relevant prior studies available. FINDINGS: Lungs: Unremarkable. No consolidation. Pleural spaces: Unremarkable. No pleural effusion. No pneumothorax. Heart/Mediastinum: Unremarkable. No cardiomegaly. Bones/joints: Unremarkable. Procedure Note Francois Woodard MD - 12/22/2021 PROCEDURE INFORMATION: Exam: XR Chest Exam date and time: 12/22/2021 5:07 PM Age: 41 years old Clinical indication: Sternal or substernal pain; Additional info: Weakness, chest pain, recent cpr TECHNIQUE: Imaging protocol: XR of the chest. Views: 2 views. COMPARISON: No relevant prior studies available. FINDINGS: Lungs: Unremarkable. No consolidation. Pleural spaces: Unremarkable. No pleural effusion. No pneumothorax. Heart/Mediastinum: Unremarkable. No cardiomegaly. Bones/joints: Unremarkable. IMPRESSION No acute findings. THIS DOCUMENT HAS BEEN ELECTRONICALLY SIGNED BY FRANCOIS WOODARD MD FOR ANY QUESTIONS OR CONCERNS REGARDING THIS REPORT PLEASE CALL [facility] [phone] Panchito Wills MD IMG DIAGNOSTIC JOAQUINA GING ORDERABLES * ECG REPORT - SCANNED (12/22/2021 16:24 EDT) 12/22/2021 16:2 4 EDT Scan 2 Spring Clipper PROCEDURE/MINOR YU GICAL ORDERABLES * BLOOD GASES, VENOUS (12/22/2021 15:18 EDT) pH, Venous 7.32 7.31 - 7.41 12/22/2021 15:24 EDT [facility] pCO2, Venous 50 41 - 51 mmHg 12/22/2021 15:24 EDT [facility] pO2, Venous 38 30 - 50 mmHg 12/22/2021 15:24 EDT [facility] tCO2, Venous 26 22 - 28 mmol/L 12/22/2021 15:24 EDT [facility] Temperature 36.6 C 12/22/2021 15:24 EDT [facility] O2 Saturation, Venous 74 60 - 85 % 12/22/2021 15:24 EDT [facility] Base Deficit 1.90 -3.00 - 2.00 mmol/L 12/22/2021 15:24 EDT [facility] Blood VENOUS BLOOD / Unknown Venipuncture / Unknown 12/22/2021 15:18 EDT 12/22/2021 15:20 EDT Panchito Wills MD CHEMISTRY & BLOOD GAS ORDERABLES Performing Organization Address [facility] [email or web address]] Co de Phone Number [facility] [address] [place] [phone] * TROPONIN I (12/22/2021 15:17 EDT) Troponin I (ng/L) <60 <=60 ng/L 12/22/2021 15:52 EDT [facility] Blood VENOUS BLOOD / Unknown Venipuncture / Unknown 12/22/2021 15:17 EDT 12/22/2021 15:20 EDT Panchito Wills MD CHEMISTRY & BLOOD GAS ORDERABLES Performing Organization Address [facility] de Phone Number [facility] [address] [place] [phone] * (ABNORMAL) LITHIUM (12/22/2021 15:17 EDT) [place] 0.5(L) 0.6 - 1.2 mmol/L 12/22/2021 15:41 EDT [facility] Blood VENOUS BLOOD / Unknown Venipuncture / Unknown 12/22/2021 15:17 EDT 12/22/2021 15:20 EDT Panchito Wills MD CHEMISTRY & BLOOD GAS ORDERABLES Performing Organization Address City/[facility]/ZIP Co de Phone Number [facility] [address] [place] [address] * ETHANOL, BLOOD (12/22/2021 15:17 EDT) [facility] Ethanol, Blood <10 See Note mg/dL 12/22/2021 15:59 [facility] Comment: NOTE: Ethanol is not present at detectable concentrations (<10 mg/dL) in healthy, non-drinking individuals. Blood VENOUS BLOOD / Unknown Venipuncture / Unknown 12/22/2021 15:17 EDT 12/22/2021 15:20 EDT Panchito Wills MD CHEMISTRY & BLOOD GAS ORDERABLES Performing Organization Address [facility] [[email or web address]] Co de Phone Number [facility] [address] [place] [address] * (ABNORMAL) COMPREHENSIVE METABOLIC PANEL (CMP) (12/22/2021 15:17 EDT) [facility] Sodium 139 136 - 145 mmol/L 12/22/2021 15:52 [facility] Potassium 4.0 3.5 - 5.1 mmol/L 12/22/2021 15:52 [facility] Chloride 106 96 - 107 mmol/L 12/22/2021 15:52 [facility] CO2 Total 29 21 - 32 mmol/L 12/22/2021 15:52 [facility] Glucose 87 70 - 100 mg/dL 12/22/2021 15:52 [facility] BUN 12 7 - 25 mg/dL 12/22/2021 15:52 [facility] Creatinine 0.76 0.55 - 1.02 mg/dL 12/22/2021 15:52 [facility] eGFR 102 >60 mL/min/1.7 3m2 12/22/2021 15:52 [facility] Total Protein 6.5 6.4 - 8.2 g/dL 12/22/2021 15:52 [facility] Albumin 3.2(L) 3.4 - 5.0 g/dL 12/22/2021 15:52 [facility] Alkaline Phosphatase 65 46 - 116 U/L 12/22/2021 15:52 [facility] AST 15 15 - 37 U/L 12/22/2021 15:52 [facility] ALT 18 14 - 59 U/L 12/22/2021 15:52 [facility] Bilirubin, Total 0.2 <=1.0 mg/dL 12/22/2021 15:52 [facility] Calcium 8.0(L) 8.5 - 10.1 mg/dL 12/22/2021 15:52 [facility] Albumin/Globulin Ratio 1.0 1.0 - 2.5 12/22/2021 15:52 [facility] Anion Gap 4(L) 5 - 14 12/22/2021 15:52 [facility] Blood VENOUS BLOOD / Unknown Venipuncture / Unknown 12/22/2021 15:17 EDT 12/22/2021 15:20 EDT Panchito Wills MD CHEMISTRY & BLOOD GAS ORDERABLES [facility] [address] [place] [address] * (ABNORMAL) COMPLETE BLOOD COUNT AND DIFFERENTIAL (12/22/2021 15:17 EDT) WBC 6.80 4.00 - 12.40 K/cmm 12/22/2021 15:38 [facility] RBC 3.95(L) 4.20 - 5.40 M/cmm 12/22/2021 15:38 [facility] Hemoglobin 12.5 11.6 - 15.2 gm/dL 12/22/2021 15:38 [facility] HCT 37.3 37.0 - 47.0 % 12/22/2021 15:38 [facility] MCV 94 81 - 98 fl 12/22/2021 15:38 [facility] MCH 31.6(H) 27.0 - 31.0 pg 12/22/2021 15:38 [facility] MCHC 33.5 32.0 - 37.0 gm/dL 12/22/2021 15:38 [facility] RDW-CV 13.3 <14.7 % 12/22/2021 15:38 [facility] RDW-SD 46.2 <50.4 fl 12/22/2021 15:38 [facility] PLT 224 150 - 450 K/cmm 12/22/2021 15:38 [facility] MPV 9.2(L) 9.5 - 12.7 fl 12/22/2021 15:38 [facility] % Neutrophils 47.7 % 12/22/2021 15:38 [facility] % Lymphocytes 32.1 % 12/22/2021 15:38 [facility] % Monocytes 12.4 % 12/22/2021 15:38 [facility] % Eosinophils 6.8 % 12/22/2021 15:38 [facility] % Basophils 0.7 % 12/22/2021 15:38 [facility] % Immature Grans 0.3 % 12/23/19 15:38 [facility] Absolute Neutrophils 3.25 2.20 - 8.85 K/cmm 12/22/2021 15:38 [facility] Absolute Lymphocytes 2.18 1.00 - 3.50 K/cmm 12/22/2021 15:38 [facility] Absolute Monocytes 0.84 <1.00 K/cmm 12/22/2021 15:38 [facility] Absolute Eosinophils 0.46 <0.70 K/cmm 12/22/2021 15:38 [facility] ABS Basophils 0.05 <0.10 K/cmm 12/22/2021 15:38 [facility] Absolute Immature Grans 0.02 0.00 - 0.06 K/cmm 12/22/2021 15:38 [facility] Type of Differential: Auto 12/22/2021 15:38 [facility] Blood VENOUS BLOOD / Unknown Venipuncture / Unknown 12/22/2021 15:17 EDT 12/22/2021 15:20 EDT Panchito Wills MD PACKAGES & DNA PRO BE ORDERABLES [facility] [address] [place] [address] * EKG 12-LEAD (12/22/2021 15:14 EDT) 12/22/2021 15:1 4 EDT Narrative KETCHIKAN ECG - 12/22/2021 16:20 EDT ?[facility] ? Test Date: ?2021-12-22 Pat Name: ? KETANHER TONG ? Department: ? Room: ? ED04A Gender: ? Female ? Mononitrotoluene Operator: ?? : ?1980 ? Requested By: JAIMIE De La Vega Order Number: [id number] ? Larissa MICHAEL: ?? ABISAI PEREZ MD ? Measurements Intervals ?[place] ? Rate: ? 68 ? P: ?-28 [place]: ? 185 ?QRS: ?96 QRSD: ? 94 ? T: ?4 QT: ? 399 ? QTc: ?425 ? Interpretive Statements Sinus rhythm Borderline right axis deviation Low voltage, extremity leads No previous ECG available for comparison I reviewed the tracing and have either agreed or edited the findings in this report. Electronically Signed On 12-22-2021 16:20:47 EDT by ABISAI PEREZ MD. Procedure Note Abisai Perez MD - 12/22/2021 [facility] Test Date: 2021-12-22 Pat Name: KETAN TONG Department: Room: [facility] Gender: Female Mononitrotoluene Operator: : 1980 Requested By: JAIMIE De La Vega Order Number: [id number] [place] MD: ABISAI PEREZ MD Measurements Intervals [place] Rate: 68 P: -28 [place]: 185 QRS: 96 QRSD: 94 T: 4 QT: 399 QTc: 425 Interpretive Statements Sinus rhythm Borderline right axis deviation Low voltage, extremity leads No previous ECG available for comparison I reviewed the tracing and have either agreed or edited the findings inthis report. Electronically Signed On 12-22-2021 16:20:47 EDT by ABISAI TURK. Panchito Wills MD CARDIAC ECG [facility] Organization Address City/State/ZIP Co de Phone Number [facility] ECG documented in this encounter Visit Diagnoses Diagnosis Lethargy- Primary Other malaise and fatigue documented in this encounter Historical Medications * This list may reflect changes made after this encounter. Medication Sig Dispensed Refills Start Date End Date folic acid (FOLVITE) 1 mg tablet Take 1 Tablet by mouth daily. thiamine (VITAMIN B1) 100 mg tablet Take 1 Tablet by mouth daily. Multivitamins with Minerals tablet tablet Take 1 Tablet by mouth daily. buprenorphine-naloxone (SUBOXONE) 2-0.5 mg tablet, sublingual Place 1 Tablet under the tongue daily. 2/0.5mg film SL 01/16/2024 diazePAM (VALIUM) 5 mg tablet Take 2 Tablets by mouth 2 times daily. Taper w/ [place] 01/04/2024 cyclobenzaprine (FLEXERIL) 10 mg tablet Take 1 Tablet by mouth 3 times daily as needed for Muscle Spasms. 01/08/2024 hydrOXYzine (ATARAX) 25 mg tablet Take 1 Tablet by mouth 3 times daily as needed for Itching. 01/08/2024 QUEtiapine (SEROQUEL) 25 mg tablet Take 2 Tablets by mouth daily. 01/08/2024 magnesium oxide (MAG-OX) 400 mg (241.3 mg magnesium) tablet Take 1 Tablet by mouth daily. 01/08/2024 Prazosin (MINIPRESS) 2 mg capsule Take 1 Capsule by mouth at bedtime. 01/08/2024 OLANZapine (ZYPREXA) 5 mg tablet Take 2 Tablets by mouth daily. 01/08/2024 lithium (ESKALITH) 450 mg CR tablet Take 1 Tablet by mouth at bedtime. 01/08/2024 lithium (LITHOBID) 300 mg CR tablet Take 1 Tablet by mouth at bedtime. 01/08/2024 levothyroxine (SYNTHROID) 50 mcg tablet Take 1 Tablet by mouth daily. 01/08/2024 cloNIDine HCL (CATAPRES) 0.2 mg tablet Take 1 Tablet by mouth 2 times daily. 01/08/2024 buPROPion (WELLBUTRIN XL) 150 mg XL tablet Take 1 Tablet by mouth daily. 01/08/2024 gabapentin (NEURONTIN) 400 mg capsule Take 2 Capsules by mouth 3 times daily. 01/08/2024 added in this encounter Care Teams Envelope Stamping Machine Operator Relationship Specialty Start Date End Date Austin Lowe MD PCP - General 06/08/15 01/02/24 documented as of this encounter
--- OUTSIDE RECORDS SUMMARY | 2024-05-09 10:26 | XMS_ITS | Encounter Summary ---
Author Organization [facility] Address [address] [place] [address] Care Team Providers Care Criminal Investigator Customs Name Role Phone Unavailable Primary Care Provider Unavailabl e Encounter Details Date Type Department Care Team (Late st Contact Info) Description 01/14/2003 Results Only [facility] - [facility] [address] [place] [address] William Chamorro MD [address] [place], [place] [id number] Social History Tobacco Use Types Packs/Day Years Used Date Smoking Tobacco: Never Assessed Sex and Gender Information Value Date Recorded Sex Assigned at Not on file Gender Identity Female 12/22/2021 14:10 EDT Sexual Orientation Not on file documented as of this encounter Plan of Treatment Not on file documented as of this encounter Procedures Procedure Name Priority Date/Time Associated Diagnosis Comments CYTOPATHOLOGY Routine 01/14/2003 0:00 EDT documented in this encounter Results * CYTOPATHOLOGY (01/14/2003 0:00 EDT) Pathology Report: CYTOPATHOLOGY REPORT Reports generated via electronic interface contain original data; however they are lacking the format of the original report. Caution should be taken when reading/interpreti ng unformatted reports. Name: ? MARY JANE TONG ? Accession #: ? [id number] : ? 1980 (Age: 22) ??F ?Collect Date: ? 01/14/2003 Location: ? [facility] ? Receive Date: ? 01/18/2003 Provider: ?WILLIAM CHAMORRO MD Copy to: ? Specimen/Source: ?ThinPrep Pap Test, Cervix/Endocervix Last Menstrual Period: ? 12/15/02 Hormonal/Contracep tive Status: ? Control Pills Other: ? HPVA - HPV testing requested if ASC-US on the current ThinPrep Pap test. ? SPECIMEN ADEQUACY ? Satisfactory for Evaluation - transformation zone component present GENERAL CATEGORIZATION ? Negative for Intraepithelial Lesion or Malignancy ? Document reviewed and electronically signed by: ? CURTIS Mandujano(ASCP) ? Report Date: ??01/20/2003 15:02 End of Report UZA[facility] ATKINSON 01/14/2003 01/18/2003 William Chamorro MD PATHOLOGY ORDERABLES UZA[facility] ATKINSON [address] [place] [address] documented in this encounter Visit Diagnoses Not on filedocumented in this encounter
--- OUTSIDE RECORDS SUMMARY | 2024-05-09 10:26 | XMS_ITS | Encounter Summary ---
Author Organization [facility] Address [address] [place] [address] Care Team Providers Care Iron Miner Name Role Phone Unavailable Primary Care Provider Unavailabl e Encounter Details Date Type Department Care Team (Late st Contact Info) Description 12/25/2005 Office Visit [facility] - [facility] [address] [place] [address] Guzman Bridges MD [address] [place], [place] [id number] Social History Tobacco Use Types Packs/Day Years Used Date Smoking Tobacco: Never Assessed Sex and Gender Information Value Date Recorded Sex Assigned at Not on file Gender Identity Female 12/22/2021 14:10 EDT Sexual Orientation Not on file documented as of this encounter Progress Notes * Guzman Bridges MD - 09/22/2009 0431 EST Department - Physician Summary Registration Date/Time: 12/25/2005 2:59 Time Seen; upon arrival. Arrived- By private vehicle. Historian - patient. HISTORY OF PRESENT ILLNESS Chief Complaint- DRUG OVERDOSE and INTOXICATION. This occurred just prior to arrival at 2 AM. Multiple drugs taken - Alcohol and Acetaminophen - took 8 500 mL capsules. No toxic symptoms present. Shesought help (told her boyfriend). The patient has experienced situational problems related to significant other and personal finances. Alcohol consumption recently. The symptoms are described as severe. She has been depressed and upset. Has had suicidal thoughts. States generally not depressed or suicidal, but has been drinking all day and impulsively took the meds to make a statement. Denies other ingestions. REVIEW OF SYSTEMS No headache, dizziness, weakness, chest pain or palpitations. No abdominal pain, vomiting, diarrhea, black stools or numbness. No bloody stools, fever, sore throat, cough or difficulty breathing. PAST HISTORY Negative. No history of prior suicide attempt . No history of psychiatric problems. Medications: None. Allergies: No known drug allergies. SOCIAL HISTORY Smoker. Alcohol use. No drug use. FAMILY HISTORY No history of psychiatric problems. ADDITIONAL NOTES The nursing notes have been reviewed. PHYSICAL EXAM Appearance: Alert. Oriented X3. No acute distress. ENT: Normal ENT inspection. Pharynx normal. Neck: Normal inspection. Neck supple. CVS: Normal heart rate and rhythm. Heart sounds normal. Respiratory: No respiratory distress. Breath sounds normal. Abdomen: Abdomen soft and nontender. Back: Normal inspection. Skin: Normal skin color and turgor. Skin warm and dry. No rash. Extremities: Extremities exhibit normal ROM. No lower extremity edema. Neuro: Alert. Oriented X 3. Speech normal. Grossly intact. LABS, X-RAYS, AND EKG Laboratory Tests: ( Tylenol 4 hr level 27). PROGRESS AND PROCEDURES E.D. Course: Seen by crisis . [facility] for [facility]. Discussed case with physician Dr. Julien. Disposition: Discharged home. Condition: good. CLINICAL IMPRESSION Overdose (Tylenol). Lifestyle / substance problems . INSTRUCTIONS Call crisis services [phone] if you are feeling suicidal again. Seek individual counseling (therapy). Stop drinking alcohol. Do not take medications in overdose. Call [facility] for a primary care doctor. (Electronically signed by Guzman Bridges M.D. 12/25/2005 8:18) Department - Nursing Summary Registration Date/Time: 12/25/2005 2:59 TRIAGE Initial Assessment Triage time 03:00 . Acuity: LEVEL 3. BP: 127 / 66. HR: 96. RR: 16. Temp: 35.2 tympanic. Alert. --030 Adriana Schaffer R.N. Medications None. --030 Adriana Schaffer R.N. Allergies No known drug allergies. --030 Adriana Schaffer R.N. History Chief Complaint: DRUG OVERDOSE. This occurred about 1 hours. ( patient reports taking 8 extra strength tylenol and drank alcohol inattempt to harm herslef. I was just really upset). SOCIAL HX: Cigarette smoker: 1 pack per day. Arrived by private vehicle and accompanied by friend. Historian: patient. --301 Adriana Schaffer R.N. Interventions To room. --030 Adriana Schaffer R.N. PHYSICAL ASSESSMENT Appears in no acute distress. Affect appears within normal limits. Patient appears calm and cooperative. Gag reflex present. Oriented X 3. Patient's speech is slurred. The patient has abnormal gait (unsteady). Respirations not labored. Skin is warm and dry. Skin color is within normallimits. --311Adriana Schaffer R.N. NURSING PROGRESS NOTES Progress Two patient identifiers checked. Patient gowned. Suicide precautions initiated: one on one supervision, hospital sitter at bedside, q 15 min checks performed, clothing / valuables removed and placed at the nurse's station, patient in view of the nurse's station. Call light placed in reach. Side rails up x 2. Bed placed in lowest position. Brakes of bed on. --0313 Adriana Schaffer R.N. ( breathilyzer was .068). --0315 Petty Chowdhury, E.M.T. ACTIVATED CHARCOAL 50 gm PO. . --031 Adriana Schaffer R.N. ( boyfriend at bedside. Patient cooperative). --031 Adriana Schaffer R.N. ( breathilyzer is .036). --0502 Petty Chowdhury, E.M.T. ( blood drawn from right AC for requested test). --0555 Adriana Schaffer R.N. ( patient alert, cooperative; tube bending machine operator here to see patient). --0556 Adriana Schaffer R.N. BP: 101 / 47. HR: 80. RR: 16. --0646 Adriana Schaffer R.N. DISPOSITION / DISCHARGE Patient reports pain level on departure as 0/10. Condition at departure: unchanged. No learning barriers present. Discharge instructions reviewed with the patient. Patient verbalized understanding. Written instructions provided in Welsh. The patient was discharged home and accompanied by recreation program coordinator. The patient left the Emergency Department ambulatory. --700 Adriana Schaffer R.N. Bishop Soria R.N.. Locked/Released at 12/25/2005 7:01 by Adriana Schaffer R.N. documented in this encounter Plan of Treatment Not on file documented as of this encounter Visit Diagnoses Not on filedocumented in this encounter
--- OUTSIDE RECORDS SUMMARY | 2024-05-09 10:26 | XMS_ITS | Encounter Summary ---
Author Organization [facility] Address [address] [place] [address] Care Team Providers Care Group Home Paraprofessional Name Role Phone Austin Lowe MD Primary Care Provider Unavail able None, Provider Primary Care Provider Unavailabl e Encounter Details Date Type Department Care Team (Late st Contact Info) Description 07/13/2022 Lab Requisition [facility] Pathology & Laboratory Medicine - [address] [address] Outr Resulting Lab, Provider Social History Tobacco [...] Comments ZZCOVID-19 TEST [facility] PCR Today 07/13/2022 15:30 EST COVID-19 TESTING Routine 07/13/2022 15:3 0 EST documented in this encounter Results * COVID-19 TEST [facility] PCR (07/13/2022 15:30 EST) Swab 07/13/2022 15:3 0 EST 07/14/2022 22:16 EST Provider Outr Resulting Lab MICROBIOLOGY - GENERAL ORDERABLES [facility] [address] [place] [address] * COVID-19 TESTING (07/13/2022 15:30 EST) COVID-19 rt-PCR Result Negative Negative 07/15/2022 1:42 EST [facility] Comment: This test has not [...] clinical observations, patient history, and epidemiological information. Performed on the [employer] instrument Performing Lab [facility] Lab 07/15/2022 1:42 EST [facility] Swab 07/13/2022 15:3 0 EST 07/14/2022 22:16 EST Provider Outr Resulting Lab MICROBIOLOGY - GENERAL ORDERABLES [facility] [address] [place] [address] documented in this encounter Visit Diagnoses Not on filedocumented in this encounter Additional Health Concerns Infection Onset Date Last Indicated Resolved Time MRSA Comment:IP Note: MRSA positive arm 01/03/24 A Ross 01/06/24 01/03/2024 01/03/2024 documented as of this encounter Care Teams Group Home Paraprofessional Relationship Specialty Start Date End Date Austin Lowe MD PCP - General 06/08/15 01/02/24 None, Provider PCP - General 01/03/24 documented as of this encounter
--- OUTSIDE RECORDS SUMMARY | 2024-05-09 10:26 | XMS_ITS | Encounter Summary ---
Author Organization [facility] Address [address] [place] [address] Care Team Providers Care Tea Tree Farmer Name Role Phone Austin Lowe MD Primary Care Provider Unavail able None, Provider Primary Care Provider Unavailabl e Encounter Details Date Type Department Care Team (Latest Contact Info) Description 10/30/2021 Lab Requisition [facility] Pathology & Laboratory Medicine - [address] [address] Joseph Armstrong [address] [place] [address] Encounter for screening for infections with a predominantly sexual mode of transmission; Encounter for screening for other infectious and parasitic diseases Social History Tobacco Use Types Packs/Day Years [...] Diagnosis Comments CHLAMYDIA/N. GONORRHOEAE AMPLIFIED NUCLEIC ACID Today 10/28/2021 12:00 EDT Encounter for screening for infections with a predominantly sexual mode of transmission Encounter for screening for other infectious and parasitic diseases documented in this encounter Results * CHLAMYDIA/N. GONORRHOEAE AMPLIFIED RNA (10/28/2021 12:00 EDT) Neisseria gonorrhoeae Result Negative Negative 10/31/2021 15:07 EDT [facility] Chlamydia trachomatis Result Negative Negative 10/31/2021 15:07 EDT [facility] Urine URINE / Unknown 10/28/2021 1 2:00 EDT 10/30/2021 21:50 EDT Narrative [facility] - 10/31/2021 15:07 EDT A first catch urine specimen is acceptable for detection of Gonorrhea and Chlamydia, but might detect up to 10% fewer infections when compared with vaginal and endocervical swab samples. Joseph Armstrong MICROBIOLOGY - GENER AL ORDERABLES [facility] [address] [place] [address] documented in this encounter Visit Diagnoses Diagnosis Encounter for screening for infections with a predominantly sexual mode of transmission Encounter for screening for other infectious and parasitic diseases documented in this encounter Additional Health Concerns Infection Onset Date Last Indicated Resolved Time MRSA Comment:IP Note: MRSA positive arm 01/03/24 A Ross 01/06/24 01/03/2024 01/03/2024 documented as of this encounter Care Teams Tea Tree Farmer Relationship Specialty Start Date End Date Austin Lowe MD PCP - General 06/08/15 01/02/24 None, Provider PCP - General 01/03/24 documented as of this encounter
--- OUTSIDE RECORDS SUMMARY | 2024-05-09 10:26 | XMS_ITS | Encounter Summary ---
Author Organization [facility] Address [address] [place] [address] Care Team Providers Care Academic Support Coordinator Name Role Phone Unavailable Primary Care Provider Unavailabl e Encounter Details Date Type Department Care Team (Latest Contact Info) Description 11/03/2005 22:49 EDT - 11/04/2005 11:59 EDT Hospital Encounter [facility] Emergency Department - [facility] [address] [place] [address] Emergency, Default, MD Discharge Disposition: Home or [...] Procedure Name Priority Date/Time Associated Diagnosis Comments FINGER 2 OR MORE VIEWS 11/04/2005 0:00 EDT documented in this encounter Results * FINGER 2 OR MORE VIEWS (11/04/2005 0:00 EDT) Anatomical Region Laterality Modality Other 11/04/2005 Narrative 02/12/2009 14:07 EDT S/P JAMMED FINGER IN DOOR R/O FX THREE VIEWS OF THE LEFT INDEX FINGER: 11/03/05. COMPARISON: None. CLINICAL HISTORY: Status post slammed finger in door. FINDINGS: ??Three views of the left index finger are obtained. The soft tissues are unremarkable. ??There is no evidence for fracture or dislocation. IMPRESSION: Normal study. D: ??11/04/05 T: ??11/05/05 /lds. I have personally reviewed the images and the above interpretation and agree with the findings. Procedure Note Zulema Francisco MD / Omayra Little MD - 02/12/2009 S/P JAMMED FINGER IN DOOR R/O FX THREE VIEWS OF THE LEFT INDEX FINGER: 11/03/05. COMPARISON: None. CLINICAL HISTORY: Status post slammed finger in door. FINDINGS: Three views of the left index finger are obtained. The soft tissues are unremarkable. There is no evidence for fracture or dislocation. IMPRESSION: Normal study. /[facility]. I have personally reviewed the images and the above interpretation and agree with the findings. Lee Ann Babin MD IMG DIAGNOSTIC IMAGI NG ORDERABLES documented in this encounter Visit Diagnoses Not on filedocumented in this encounter
--- OUTSIDE RECORDS SUMMARY | 2024-05-09 10:26 | XMS_ITS | Encounter Summary ---
Author Organization [facility] Address [address] [place] [address] Care Team Providers Care Blood Bank Attendant Name Role Phone Austin Lowe MD Primary Care Provider Unavail able Encounter Details Date Type Department Care Team (Latest Contact Info) Description 12/22/2021 Travel Social History Tobacco Use Types Packs/Day [...] 13:50 EDT documented as of this encounter Plan of Treatment Not on file documented as of this encounter Visit Diagnoses Not on filedocumented in this encounter Care Teams Blood Bank Attendant Relationship Specialty Start Date End Date Austin Lowe MD PCP - General 06/08/15 01/02/24 documented as of this encounter
--- OUTSIDE RECORDS SUMMARY | 2024-05-09 10:26 | XMS_ITS | Encounter Summary ---
Author Organization [facility] Address [address] [place] [address] Care Team Providers Care Chinchilla Farmer Name Role Phone Austin Lowe MD Primary Care Provider Unavail able None, Provider Primary Care Provider Unavailabl e Encounter Details Date Type Department Care Team (Late st Contact Info) Description 07/13/2022 Lab Requisition [facility] Pathology & Laboratory Medicine - [address] [id number] Outr Resulting Lab, Provider Social History Tobacco [...] Procedure Name Priority Date/Time Associated Diagnosis Comments ZZHN INFLUENZA A AND B, RSV PCR Routine 07/13/2022 15:30 EST documented in this encounter Results * INFLUENZA A AND B,RSV PCR (07/13/2022 15:30 EST) FLU A RNA Result (FLARES) Negative Negative 07/15/2022 1:37 EST [facility] FLU B RNA Result (FLBRES) Negative Negative 07/15/2022 1:37 EST [facility] RSV RNA Result (RSVRES) Negative Negative 07/15/2022 1:37 EST [facility] ZZUNK ENTIRE NASOPHARYNX / Unknown 07/13/2022 15:30 EST 07/14/2022 22:16 EST Provider Outr Resulting Lab MICROBIOLOGY - GENERAL ORDERABLES [facility] [address] [place] [address] documented in this encounter Visit Diagnoses Not on filedocumented in this encounter Additional Health Concerns Infection Onset Date Last Indicated Resolved Time MRSA Comment:IP Note: MRSA positive arm 01/03/24 A Vinny 01/06/24 01/03/2024 01/03/2024 documented as of this encounter Care Teams Chinchilla Farmer Relationship Specialty Start Date End Date Austin Lowe MD PCP - General 06/08/15 01/02/24 None, Provider PCP - General 01/03/24 documented as of this encounter
[2024-05-09 10:31] VITALS: BP 109/76; PULSE 81; RESP 18; TEMP 36.7; O2SAT 97
[2024-05-09] MEDS: cloNIDine 0.1 MG PATCH TD (10:47)
--- NOTE | 2024-05-09 14:47 | NUR.NOTE ---
At Dr. Arevalo's request I faxed the provider note for 05/01/24 and today to [facility]. Nursing Note:
== END 2024-05-09 11:03 | disposition home or self-care (01) ==
PROVIDERS: Emergency Provider Student in an Organized Health Care Education/Training Program; PCP Nurse Practitioner Family
DX: T40.3X6A Underdosing of methadone, initial encounter (principal); F19.10 Other psychoactive substance abuse, uncomplicated; Z87.891 Personal history of nicotine dependence; Z91.148 Patient's other noncompliance with medication regimen for other reason
CPT/HCPCS: 99283; 99284

== ENCOUNTER 2024-05-30 22:56 | Emergency (ER) | payer MEDICARE, MEDICAID, SELFPAY ==
[2024-05-30 22:58] VITALS: BP 138/110; PULSE 71; RESP 20; TEMP 36.5
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
[2024-05-30] MEDS: Lidocaine 5% Patch 1 PATCH TP (23:18)
[2024-05-30] MEDS: Gabapentin 400 MG CAP 800 MG PO (23:18)
[2024-05-30] MEDS: Ketorolac 30 MG/ML VIAL IM (23:18)
== END 2024-05-30 23:33 | disposition home or self-care (01) ==
PROVIDERS: Emergency Provider Emergency Medicine; PCP Nurse Practitioner Family
DX: M54.50 Low back pain, unspecified (principal); M54.16 Radiculopathy, lumbar region
CPT/HCPCS: 96372; 99284; J1885

== ENCOUNTER 2024-07-10 23:41 | Emergency (ER) | payer MEDICARE, MEDICAID, SELFPAY ==
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
== END 2024-07-11 00:07 | disposition left against medical advice (07) ==
PROVIDERS: Emergency Provider Student in an Organized Health Care Education/Training Program; PCP Nurse Practitioner Family
DX: M25.532 Pain in left wrist (principal)
CPT/HCPCS: 99285; 99283

== ENCOUNTER 2024-07-14 19:54 | Emergency (ER) | payer MEDICARE, MEDICAID, SELFPAY ==
[2024-07-14 19:56] VITALS: BP 134/77; PULSE 114; RESP 20; TEMP 36.4; O2SAT 97
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
== END 2024-07-14 22:49 | disposition left against medical advice (07) ==
PROVIDERS: Emergency Provider Student in an Organized Health Care Education/Training Program; PCP Nurse Practitioner Family
DX: Z04.6 Encounter for general psychiatric examination, requested by authority (principal); F17.210 Nicotine dependence, cigarettes, uncomplicated; Z53.29 Procedure and treatment not carried out because of patient's decision for other reasons
CPT/HCPCS: 99282

== ENCOUNTER 2024-07-14 21:33 | Emergency (ER) | payer MEDICARE, MEDICAID, SELFPAY ==
[2024-07-14 21:35] VITALS: BP 149/100; PULSE 63; RESP 18; O2SAT 98
[2024-07-14 22:17] LABS: BE (Venous) 0 mmol/L (-2-3); HCO3 (Venous) 27 mmol/L (23-28); O2 Sat (Venous) 52 %; TCO2 (Venous) 24 mmol/L (24-29); pCO2 (Venous) 55 mmHg (41-51); pO2 (Venous) 31 mmHg
[2024-07-14 22:19] LABS: Abs Immature Grans 0.07 10^3/uL (0.0-0.06); Absolute Lymphocyte Count 4.68 10^3/uL (1.2-3.4); Absolute Monocyte Count 1.31 10^3/uL (0.1-0.8); Absolute Neutrophil Count 9.91 10^3/uL (1.2-6.7); Basophils % 0.7 %; Eosinophils % 2.8 %; HCT 45.5 % (36.0-46.0); HGB 15.2 g/dL (11.2-15.7); Immature Grans % 0.4 %; Lymphocytes % 28.3 %; MCH 30.6 pg (27.0-33.0); MCHC 33.4 % (32.0-36.0); MCV 92 fL (80-95); MPV 9.6 fL (8.0-11.0); Monocytes % 7.9 %; Neutrophils % 59.9 %; Platelet Count 321 10^3/uL (130-400); RBC 4.96 10^6/uL (3.93-5.22); RDW 12.6 % (11.7-14.6); RDW-SD 42.5 fL; WBC 16.55 10^3/uL (4.4-10.8)
[2024-07-14 22:20] LABS: Absolute Basophil Count 0.12 10^3/uL (0.0-0.2); Absolute Eosinophil Count 0.46 10^3/uL (0.0-0.7)
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
[2024-07-14 22:32] LABS: HCG Qual (Serum) Negative
[2024-07-14] MEDS: Haloperidol 5 MG/ML VIAL 4 MG IM/IV (22:35)
[2024-07-14] MEDS: LORazepam 2 MG/ML VIAL IVP (22:35)
[2024-07-14 22:37] LABS: Acetaminophen < 2 ug/mL (10-30); Salicylate 4.3 mg/dL (<2.8)
[2024-07-14 22:47] LABS: ALT 34 U/L (14-59); AST 36 U/L (15-37); Albumin 4.4 g/dL (3.4-5.0); Alkaline Phosphatase 72 U/L (46-116); Anion Gap 11.4 mmol/L (3-11); BUN 22 mg/dL (7-18); Bilirubin, Total 0.31 mg/dL (0.2-1.0); CO2 27.6 mmol/L (21.0-32.0); Calcium 9.4 mg/dL (8.5-10.1); Chloride 106 mmol/L (98-107); ETHANOL BLOOD 90.5 mg/dL (<10); Estimated GFR 72.13 (mL/min/1.73m2); Glucose 91 mg/dL (74-106); Potassium 3.8 mmol/L (3.5-5.1); Sodium 145 mmol/L (136-145); TSH (W/Ref FT4) 1.76 uIU/mL (0.36-3.74); Total Protein 8.3 g/dL (6.4-8.2)
[2024-07-14 23:41] VITALS: BP 122/73; PULSE 90; RESP 22; TEMP 36
[2024-07-15] VITALS (25 sets, daily range): BP systolic 122–125; BP diastolic 73–75; PULSE 72–97; RESP 13–24; TEMP 36.6; O2SAT 93–98
--- NOTE | 2024-07-15 00:25 | W.EDPROG ---
Date of service: 07/15/24 Time of Service: 00:26 Medical Decision Making This patient was signed out to me. Please see previous notes for H&P and initial eval. In brief, 44yo F presenting on warrant for EE. Floridly psychotic this evening. Physically and chemically restrained on arrival. Initial cert done. Signed out pending 2nd cert and psych evaluation when sober and awake. Physical restraints dced. Overnight patient sleeping comfortably, good O2 sat/HR/BP on monitor during my assessments. Per nursing, technical problem with monitor prevented capturing vital signs and monitor recorded vitals were lost; no abnormal vital signs were noted by nursing. Will be signed out to oncoming physician, plan to followup 2nd cert, reassess when awake and sober. Quality:SDOH Health Related Social Needs: No Data to Display Discharge Plan Discharge Details Chief Complaint: PsychEval Clinical Impression: Tracie Primary Care Provider: Diana Rose ED Provider: Lulu Davison Home Meds and New Rx's Prescriptions: No Action phenazopyridine [Pyridium] 200 mg tablet 200 mg PO TID PRN (Reason: pain) Qty: 6 0RF budesonide-formoterol [Symbicort] 160-4.5 mcg/actuation HFA aerosol inhaler 2 puff inhalation BID Qty: 3 3RF clonidine HCl 0.1 mg tablet 0.1 mg PO BID lithium carbonate 300 mg tablet extended release 300 mg PO QHS Rx Instructions: With 450 mg to total 750 mg lithium carbonate 450 mg tablet extended release 450 mg PO QHS Patient Comments: Rx Instructions: With 300 mg to total 750 mg quetiapine [Seroquel] 50 mg tablet 50 mg PO QHS trazodone 100 mg tablet 100 mg PO QHS (DME) Space Chamber Plus 1 EACH spacer Miscellaneous BID Qty: 1 Rx Instructions: for use with Symbicort MDI levothyroxine 50 mcg tablet See Rx Instructions .ROUTE .COMPLEX Qty: 28 0RF Dose Instruction: TAKE 1 TABLET BY MOUTH DAILY Rx Instructions: TAKE 1 TABLET BY MOUTH DAILY albuterol sulfate [Proventil HFA] 90 mcg/actuation HFA aerosol inhaler 1 - 2 puff IH .Q4-6H PRN (Reason: shortness of breath or wheezing) Qty: 1 6RF Rx Instructions: Dispense with a spacer gabapentin 800 mg tablet 800 mg PO TID Qty: 90 6RF hydroxyzine HCl 50 mg tablet 50 mg PO TID prazosin 2 mg capsule 2 mg PO QHS methadone 40 mg tablet,soluble 100 mg PO DAILY Patient Comments: Managed by BERNARDINO.HE ibuprofen 600 mg tablet 600 mg PO TID Qty: 15 0RF lidocaine 5 % adhesive patch,medicated 1 patch topical DAILY Qty: 15 0RF Rx Instructions: leave on most painful area for up to 12 hrs Restraint Face to Face Time of Face to Face Face to Face: Time of Face to Face: 00:45 Patient Response to Restraints: Tolerating without Problems Patient's Medical & Behavioral Condition: Appears to be sleeping comfortably. Need for Continuation of Restraints Has Been Assessed: Restraints Terminated
[2024-07-15] MEDS: Ketamine 500 MG/5 ML VIAL 150 MG IM (04:54)
--- NOTE | 2024-07-15 07:53 | W.EDPROG ---
Date of service: 07/15/24 Time of Service: 07:55 Medical Decision Making Patient here in ED status pending second CERT for psychotic behavior and aggressive behavior requiring physical and chemical restraint. Currently calm and cooperative requesting her methadone dose, nursing confirmed with b clinic that she is on 100 mg daily which I ordered for her. Will continue to monitor until safe disposition position found. Quality:SDOH Health Related Social Needs: No Data to Display Discharge Plan Discharge Details Chief Complaint: PsychEval Clinical Impression: Tracie Primary Care Provider: Diana Rose ED Provider: Tamir Howard Home Meds and New Rx's Prescriptions: No Action phenazopyridine [Pyridium] 200 mg tablet 200 mg PO TID PRN (Reason: pain) Qty: 6 0RF budesonide-formoterol [Symbicort] 160-4.5 mcg/actuation HFA aerosol inhaler 2 puff inhalation BID Qty: 3 3RF clonidine HCl 0.1 mg tablet 0.1 mg PO BID lithium carbonate 300 mg tablet extended release 300 mg PO QHS Rx Instructions: With 450 mg to total 750 mg lithium carbonate 450 mg tablet extended release 450 mg PO QHS Patient Comments: Rx Instructions: With 300 mg to total 750 mg quetiapine [Seroquel] 50 mg tablet 50 mg PO QHS trazodone 100 mg tablet 100 mg PO QHS (DME) Space Chamber Plus 1 EACH spacer Miscellaneous BID Qty: 1 Rx Instructions: for use with Symbicort MDI levothyroxine 50 mcg tablet See Rx Instructions .ROUTE .COMPLEX Qty: 28 0RF Dose Instruction: TAKE 1 TABLET BY MOUTH DAILY Rx Instructions: TAKE 1 TABLET BY MOUTH DAILY albuterol sulfate [Proventil HFA] 90 mcg/actuation HFA aerosol inhaler 1 - 2 puff IH .Q4-6H PRN (Reason: shortness of breath or wheezing) Qty: 1 6RF Rx Instructions: Dispense with a spacer gabapentin 800 mg tablet 800 mg PO TID Qty: 90 6RF hydroxyzine HCl 50 mg tablet 50 mg PO TID prazosin 2 mg capsule 2 mg PO QHS methadone 40 mg tablet,soluble 100 mg PO DAILY Patient Comments: Managed by KYREE, verified last dose 100mg on 07/14 ibuprofen 600 mg tablet 600 mg PO TID Qty: 15 0RF lidocaine 5 % adhesive patch,medicated 1 patch topical DAILY Qty: 15 0RF Rx Instructions: leave on most painful area for up to 12 hrs
[2024-07-15] MEDS: Methadone Liquid 10 MG/ML 100 MG PO (09:21)
[2024-07-15 09:34] LABS: *AMPHETAMINES SCREEN URINE Positive (Negative); *BARBITURATES SCREEN URINE Negative (Negative); *BENZODIAZEPINES SCREEN URINE Negative (Negative); Cannabinoids THC Positive (Negative); Cocaine Screen,Urine Positive (Negative); METHADONE URINE SCREEN Positive (Negative); OPIATES URINE SCREEN Negative (Negative)
[2024-07-15 09:35] LABS: Tricyclic Antidepressants Positive (Negative)
--- NOTE | 2024-07-15 13:11 | PDOC.MHCN ---
Date of service: 07/15/24 Time of Service: 13:13 PHQ-9 Over the last 2 weeks, how often have you been bothered by any of the following problems? 1. Little interest or pleasure in doing things: several days 2. Feeling down, depressed, or hopeless: nearly every day 3. Trouble falling or staying asleep, or sleeping too much: nearly every day 4. Feeling tired or having little energy: nearly every day 5. Poor appetite or overeating: nearly every day 6. Feeling bad about yourself - or that you are a failure or have let yourself and your family down: nearly every day 7. Trouble concentrating on things, such as reading the newspaper or watching television: nearly every day 8. Moving or speaking so slowly that other people could have noticed? - Or the opposite - being so fidgety or restless that you have been moving around a lot more than usual: more than half the days 9. Thoughts that you would be better off or of hurting yourself in some way: more than half the days Total score: 23 If you checked off any problems, how difficult have these problems made it for you to do your work, take care of things at home, or get along with other people?: somewhat difficult Source: Developed by Drs. Antolin Hampton, Janice Mullen, Prashanth Martin and colleagues, with an educational momo from [employer]. Suicide Severity Rate CSSRS Have you wished you were or wished you could go to sleep and not wake up?: Yes Have you actually had any thoughts of killing yourself?: Yes CSSRS2 Have you been thinking about how you might do this?: Yes Have you had these thoughts and had some intention of acting on them?: Yes Have you started to work out or worked out the details of how to kill yourself? Do you intend to carry out this plan?: Yes CSSRS3 Have you ever done anything, started to do anything or prepared to do anything to end your life?: No Screening Score Total Score: 4 Screening: Positive Mental Health Emergency Note Release HS release signed:: Yes Reason for Visit Mary Jane is known to [facility] but was discharged from the Adult Outpatient program on 07/13 as she stopped engaging in services and is no longer willing to take her medications. Per chart review in 2022 Mary Jane was a part of the [facility] program and per review she stopped receiving those services in February of 2023 due to lack of engagement as well. This headline writer has never interacted directly with Mary Jane. Emergency Services provided two mobile crisis encounters on 07/09 and 07/13 where Mary Jane denied voluntary treatment at that time. She denied having even a PCP that she follows. In the last 2 weeks has the pt presented for ES prior to today?: Unknown Client Information Client is: New Well Housed: Yes Non Suicidal Self Injury Current: No History: No Safety Risk/Harm to Self or Others Current Ideation to Harm Self or Others: Yes to self. (Situational no plan identified other than saying if you lived my life you would want to too. Rated her risk a 5/10. ) Intent: yes, has intent. Plan: yes,has a plan. History of suicide attempt: No history of suicide attempt reported Risk: Does risk to harm exist?: yes. Access to means: Yes. Types of Means: Other weapons and Medication. Counseling provided: Yes Risk: High Risk Duty to warn indicated: No Asssessment/Mental Status Appearance: Disheveled Attitude: Cooperative Behavior: Other (Difficult to stay awake. ) Speech: Slow, Incoherent and Slurred Affect: Flat and Cogruent with mood Mood: Sad and Depressed Thought process: Loose associations Hallucinations: No Delusions: yes, ( If I everyone dies because I helped make this place. I gabrielle it.) Bizarre Attention: Poor concentration Perception: Not impaired Orientation: Fully orientated Memory: Impaired in: Immediate, Recent and Remote Insight: Fair Judgement: Poor Neurovegetative Symptoms Sleep: Decrease Appetitie: Increase Interests: Decrease Energy: Decrease Libido: Not applicable Substance Use: Drug Issues: Dependence Do you use nicotine?: Yes Have you used substances in the last 7 days?: yes, Fentanyl, Crack, THC twice daily. Additional Issues: Assaultive/Threatening Behavior: No Medical Concerns: No Client engaged in active self harm w/weapon: No Threatening to run away: No Child reported abuse/neglect: No Voluntarily presenting for services: No Domestic violence is a concern: No Extreme Psychosis or extreme behavior is present: Yes Impression Mary Jane is a [id number]-old, single, woman who resides independently in an apartment in [facility]. She uses She/Her pronouns. All underrepresented identifiers were honored during this assessment. The client is observed lying in bed and struggling to stay engaged in the assessment as she was nodding off. She reported that she is at the hospital because someone told on me and I was doing nothing wrong. She said she wasn't dancing but can dance in her own apartment. She said someone told her you don't belong here. The client presented as upset about this statement. The client presents as having some delusional thoughts. She at this time based on this clinician's assessment is in need of treatment. Plan/Disposition Recommended Disposition: Hospitalization facilities contacted. Plan: The client will remain in the ED and will have her second certification this afternoon. Person reported agreement to plan: No Reports/communication Outcome discussed with: ED/Personnel
--- NOTE | 2024-07-15 18:31 | CMSP_ITS ---
Date of service: 07/15/24 Time of Service: 18:31 Care Management Safety Plan Status Status: Involuntary Reason for Wait Reason for Wait: Inpatient Admission Safety Plan Safety Plan: INVOLUNTARY FOR INPATIENT PSYCHIATRIC STABILIZATION.? Patient is appropriate in all interactions since arriving at [facility]; Pt has demonstrated appropriate coping and communication skills, has articulated her needs and concerns and is fully engaged during staff interactions. Safety plan has been established with patient, and care team, to adhere to patient goals, identify restrictions based on behavioral status, address nutrition, and determine allowed personal belongings, tools for hygiene and personal care. Determine level of activity including ambulation, level of supervision, visitors, and determine privileges based on behaviors and level of engagement by pt. SAFETY PLAN: 1. Will remain on suicide precautions, in paper clothes 2. Will remain in Zone B under direct supervision of one-on-one staff at all times provided by [employer]; MIYA, CARDIOLOGY NURSE PRACTITIONER game designer/creative director. 3. May have paper cups, plates, finger foods as well as a cardboard spoon with which to eat meals. 4. Follow [facility] Management of the Admitted Behavioral Health Patient policy. 5. Shower available in Zone B without restriction. 6. Personal belongings-soft items permitted at RN discretion. 7. Visitors-none at this time. 8. Activities: soft cart items approved per RN discretion. 9.? Bathroom available in Zone B without restriction. 10. Phone: limited to [facility] cordless phone at RN discretion. Due to INVOLUNTARY status, patient is being held at [facility] by the Department of Mental Health ([facility]) until 2nd certification by [facility] Psychiatrist can be performed (within 24 hours). Staff will provide de-escalation support (CPI) as needed. If patient wishes to leave [facility], staff will contact [facility] Crisis Screener ([phone]) and [employer] Up [employer] ([phone]) as soon as possible. In the event of elopement, notify [place] [employer] ([phone]). Patient is currently involuntarily at [facility]. [facility] Frontline Engine Buildup Mechanic will continue seeking placement. Please contact the Set [employer] for any needed changes to Safety Plan. Safety plan has been provided to interdepartmental care team. Patient will be transported by [email or web address] at time of discharge.
--- NOTE | 2024-07-15 18:31 | PDOC.CMSAFE ---
Date of service: 07/15/24 Time of Service: 18:31 Care Management Safety Plan Status Status: Involuntary Reason for Wait Reason for Wait: Inpatient Admission Safety Plan Safety Plan: INVOLUNTARY FOR INPATIENT PSYCHIATRIC STABILIZATION.? Patient is appropriate in all interactions since arriving at [facility]; Pt has demonstrated appropriate coping and communication skills, has articulated her needs and concerns and is fully engaged during staff interactions. Safety plan has been established with patient, and care team, to adhere to patient goals, identify restrictions based on behavioral status, address nutrition, and determine allowed personal belongings, tools for hygiene and personal care. Determine level of activity including ambulation, level of supervision, visitors, and determine privileges based on behaviors and level of engagement by pt. SAFETY PLAN: 1. Will remain on suicide precautions, in paper clothes 2. Will remain in Zone B under direct supervision of one-on-one staff at all times provided by [employer]; MIYA, PROMOTIONS INTERN vp respiratory. 3. May have paper cups, plates, finger foods as well as a cardboard spoon with which to eat meals. 4. Follow [facility] Management of the Admitted Behavioral Health Patient policy. 5. Shower available in Zone B without restriction. 6. Personal belongings-soft items permitted at RN discretion. 7. Visitors-none at this time. 8. Activities: soft cart items approved per RN discretion. 9.? Bathroom available in Zone B without restriction. 10. Phone: limited to [facility] cordless phone at RN discretion. Due to INVOLUNTARY status, patient is being held at [facility] by the Department of Mental Health ([facility]) until 2nd certification by [facility] Psychiatrist can be performed (within 24 hours). Staff will provide de-escalation support (CPI) as needed. If patient wishes to leave [facility], staff will contact [facility] Crisis Screener ([phone]) and Supervisor [employer]il[employer] ([phone]) as soon as possible. In the event of elopement, notify [place] [employer] [employer] ([phone]). Patient is currently involuntarily at [facility]. [facility] Frontline Stone And Concrete Washer will continue seeking placement. Please contact the Supervisor Boil[employer]aking Shop for any needed changes to Safety Plan. Safety plan has been provided to interdepartmental care team. Patient will be transported by [facility] at time of discharge.
[2024-07-15] MEDS: Prazosin 1 MG CAP 2 MG PO (20:29)
[2024-07-15] MEDS: Nicotine 14 MG/24 HR PATCH TD (20:29)
[2024-07-15] MEDS: Lidocaine 5% Patch 3 PATCH TP (20:30)
[2024-07-15] MEDS: QUEtiapine 50 MG TAB PO (20:30)
--- NOTE | 2024-07-15 20:32 | W.EDPROG ---
Date of service: 07/15/24 Time of Service: 20:33 Medical Decision Making Patient was signed out to me by my colleague Dr. Howard. Patient has remained stable throughout the shift. I did order her regular medications of her nicotine patch, Seroquel, trazodone, prazosin, and requested Lidoderm patches. Patient remains medically cleared at this point, and demonstrates notable improvement of her symptomatology compared to last night. [facility], and he accepts the patient for transfer. However the means of transport and nurse to nurse has not been performed at this point. Patient remained stable here. Patient will be signed out pending final disposition. 8:58 PM Nurse nurse has been completed. Patient will be transferred furred via [employer]. Urban Renewal Manager not available for transfer until the morning. Quality:SDOH Health Related Social Needs: No Data to Display Discharge Plan Disposition Patient Disposition: Psychiatric Hospital/Unit Specific Psychiatric Facility: [facility] Discharge Details Clinical Impression: Tracie Primary Care Provider: Diana Rose ED Provider: Skyler Arevalo Home Meds and New Rx's Prescriptions: No Action phenazopyridine [Pyridium] 200 mg tablet 200 mg PO TID PRN (Reason: pain) Qty: 6 0RF budesonide-formoterol [Symbicort] 160-4.5 mcg/actuation HFA aerosol inhaler 2 puff inhalation BID Qty: 3 3RF clonidine HCl 0.1 mg tablet 0.1 mg PO BID lithium carbonate 300 mg tablet extended release 300 mg PO QHS Rx Instructions: With 450 mg to total 750 mg lithium carbonate 450 mg tablet extended release 450 mg PO QHS Patient Comments: Rx Instructions: With 300 mg to total 750 mg quetiapine [Seroquel] 50 mg tablet 50 mg PO QHS trazodone 100 mg tablet 100 mg PO QHS (DME) Space Chamber Plus 1 EACH spacer Miscellaneous BID Qty: 1 Rx Instructions: for use with Symbicort MDI levothyroxine 50 mcg tablet See Rx Instructions .ROUTE .COMPLEX Qty: 28 0RF Dose Instruction: TAKE 1 TABLET BY MOUTH DAILY Rx Instructions: TAKE 1 TABLET BY MOUTH DAILY albuterol sulfate [Proventil HFA] 90 mcg/actuation HFA aerosol inhaler 1 - 2 puff IH .Q4-6H PRN (Reason: shortness of breath or wheezing) Qty: 1 6RF Rx Instructions: Dispense with a spacer gabapentin 800 mg tablet 800 mg PO TID Qty: 90 6RF hydroxyzine HCl 50 mg tablet 50 mg PO TID prazosin 2 mg capsule 2 mg PO QHS methadone 40 mg tablet,soluble 100 mg PO DAILY Patient Comments: Managed by [email or web address].[email or web address], verified last dose 100mg on 07/14 ibuprofen 600 mg tablet 600 mg PO TID Qty: 15 0RF lidocaine 5 % adhesive patch,medicated 1 patch topical DAILY Qty: 15 0RF Rx Instructions: leave on most painful area for up to 12 hrs
[2024-07-15] MEDS: traZODone 100 MG TAB PO (20:46)
--- NOTE | 2024-07-16 02:55 | ED.PROG_ITS ---
Date of service: 07/15/24 Time of Service: 22:15 Medical Decision Making This patient was signed out to me. Please see previous notes for H&P and initail eval. In brief, 44yo F with psychosis, EE'd and 2nd cert done, medically cleared, anticipated transfer to [facility] in the morning. Overnight appears to be sleeping. Did not wake for assessment. Will be signed out to oncoming physician, plan remains as above. Quality:SDOH Health Related Social Needs: No Data to Display Discharge Plan Disposition Patient Disposition: Psychiatric Hospital/Unit Specific Psychiatric Facility: [facility] Discharge Details Clinical Impression: Tracie Primary Care Provider: Diana Rose ED Provider: Lulu Davison Home Meds and New Rx's Prescriptions: No Action phenazopyridine [Pyridium] 200 mg tablet 200 mg PO TID PRN (Reason: pain) Qty: 6 0RF budesonide-formoterol [Symbicort] 160-4.5 mcg/actuation HFA aerosol inhaler 2 puff inhalation BID Qty: 3 3RF clonidine HCl 0.1 mg tablet 0.1 mg PO BID lithium carbonate 300 mg tablet extended release 300 mg PO QHS Rx Instructions: With 450 mg to total 750 mg lithium carbonate 450 mg tablet extended release 450 mg PO QHS Patient Comments: Rx Instructions: With 300 mg to total 750 mg quetiapine [Seroquel] 50 mg tablet 50 mg PO QHS trazodone 100 mg tablet 100 mg PO QHS (DME) Space Chamber Plus 1 EACH spacer Miscellaneous BID Qty: 1 Rx Instructions: for use with Symbicort MDI levothyroxine 50 mcg tablet See Rx Instructions .ROUTE .COMPLEX Qty: 28 0RF Dose Instruction: TAKE 1 TABLET BY MOUTH DAILY Rx Instructions: TAKE 1 TABLET BY MOUTH DAILY albuterol sulfate [Proventil HFA] 90 mcg/actuation HFA aerosol inhaler 1 - 2 puff IH .Q4-6H PRN (Reason: shortness of breath or wheezing) Qty: 1 6RF Rx Instructions: Dispense with a spacer gabapentin 800 mg tablet 800 mg PO TID Qty: 90 6RF hydroxyzine HCl 50 mg tablet 50 mg PO TID prazosin 2 mg capsule 2 mg PO QHS methadone 40 mg tablet,soluble 100 mg PO DAILY Patient Comments: Managed by [email or web address], verified last dose 100mg on 07/14 ibuprofen 600 mg tablet 600 mg PO TID Qty: 15 0RF lidocaine 5 % adhesive patch,medicated 1 patch topical DAILY Qty: 15 0RF Rx Instructions: leave on most painful area for up to 12 hrs
[2024-07-16] MEDS: Methadone Liquid 10 MG/ML 100 MG PO (09:54)
[2024-07-16 10:01] VITALS: BP 109/74; PULSE 104; RESP 14; TEMP 36.8; O2SAT 94
[2024-07-16] MEDS: Nicotine 2 MG LOZG SUC (12:11)
[2024-07-16] MEDS: Nicotine 7 MG/24 HR PATCH TD (13:45)
--- NOTE | 2024-07-20 14:19 | NUR.NOTE ---
Access chart to determine which ED visit was the transfer. Nursing Note:
== END 2024-07-16 14:40 ==
PROVIDERS: Student in an Organized Health Care Education/Training Program; Emergency Provider Student in an Organized Health Care Education/Training Program; PCP Nurse Practitioner Family
DX: F31.89 Other bipolar disorder (principal); F29 Unspecified psychosis not due to a substance or known physiological condition; F17.210 Nicotine dependence, cigarettes, uncomplicated; Z78.1 Physical restraint status
CPT/HCPCS: 00123; 80053; 80307; 82805; 96127; 96372; 96374; 99282; 99285; 80320; 80329; 84443; 84703; 85025; J1630; J2060

== ENCOUNTER 2024-10-10 10:26 | Emergency (ER) | payer MEDICARE, MEDICAID, SELFPAY ==
[2024-10-10] VITALS (13 sets, daily range): BP systolic 113–151; BP diastolic 71–92; PULSE 113–158; RESP 16–38; TEMP 36.1; O2SAT 92–96
--- NOTE | 2024-10-10 10:30 | RT.EKG_ITS ---
APPROVED REPORT Exam: Resting ECG Reason for Exam: shortness of breath Patient Location: E HR:122 bpm ECG Measurements Heart Rate 122 AXIS NH 158 P 88 QRSd 136 QRS -102 QT 336 T -43 QTc 480 Conclusion unreadable due to artifact
[2024-10-10 11:15] LABS: Abs Immature Grans 0.09 10^3/uL (0.0-0.06); Absolute Eosinophil Count 0.06 10^3/uL (0.0-0.7); Absolute Lymphocyte Count 1.08 10^3/uL (1.2-3.4); BE (Venous) 4 mmol/L (-2-3); Basophils % 0.4 %; Eosinophils % 0.3 %; HCO3 (Venous) 28 mmol/L (23-28); HCT 46.7 % (36.0-46.0); HGB 15.3 g/dL (11.2-15.7); Immature Grans % 0.4 %; MCH 29.9 pg (27.0-33.0); MCHC 32.8 % (32.0-36.0); MCV 91 fL (80-95); MPV 8.8 fL (8.0-11.0); Monocytes % 5.2 %; Neutrophils % 88.7 %; O2 Sat (Venous) 26 %; Platelet Count 375 10^3/uL (130-400); RBC 5.12 10^6/uL (3.93-5.22); RDW 13.2 % (11.7-14.6); RDW-SD 45.1 fL; TCO2 (Venous) 25 mmol/L (24-29); WBC 21.53 10^3/uL (4.4-10.8); pCO2 (Venous) 43 mmHg (41-51); pH (Venous) 7.43 (7.31-7.41); pO2 (Venous) 19 mmHg
[2024-10-10] MEDS: Normal Saline 1,000 ML 1000 ML IV (11:17)
[2024-10-10 11:18] LABS: Absolute Basophil Count 0.09 10^3/uL (0.0-0.2); Absolute Monocyte Count 1.12 10^3/uL (0.1-0.8)
[2024-10-10] MEDS: Haloperidol 5 MG/ML VIAL IV (11:18)
[2024-10-10 11:37] LABS: ALT 21 U/L (14-59); AST 16 U/L (15-37); Albumin 4.4 g/dL (3.4-5.0); Alkaline Phosphatase 74 U/L (46-116); Anion Gap 12.3 mmol/L (3-11); BUN 33 mg/dL (7-18); Bilirubin, Total 0.7 mg/dL (0.2-1.0); CO2 27.7 mmol/L (21.0-32.0); CREATININE 1.2 mg/dL (0.55-1.02); Chloride 102 mmol/L (98-107); Estimated GFR 57.96 (mL/min/1.73m2); Glucose 112 mg/dL (74-106); Magnesium 2.1 mg/dL (1.8-2.4); Potassium 4.9 mmol/L (3.5-5.1); Sodium 142 mmol/L (136-145); Total Protein 9.3 g/dL (6.4-8.2); Troponin I 6 ng/L (<or=51)
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
== END 2024-10-10 11:36 | disposition left against medical advice (07) ==
PROVIDERS: Emergency Provider Emergency Medicine; PCP Nurse Practitioner Family
DX: F41.9 Anxiety disorder, unspecified (principal); R06.02 Shortness of breath; D72.829 Elevated white blood cell count, unspecified; R00.0 Tachycardia, unspecified
CPT/HCPCS: 80053; 82805; 84145; 87040; 93005; 96374; 99284; 83735; 84484; 85025; 93010; 99283; J1630

== ENCOUNTER 2024-10-17 09:30 | Emergency (ER) | payer MEDICARE, MEDICAID, SELFPAY ==
[2024-10-17 09:43] VITALS: BP 118/67; PULSE 67; RESP 16; TEMP 36.5; O2SAT 97
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
[2024-10-17] MEDS: OLANZapine 5 MG TAB 10 MG PO (12:12)
[2024-10-17 12:13] LABS: *AMPHETAMINES SCREEN URINE Positive (Negative); *BARBITURATES SCREEN URINE Negative (Negative); *BENZODIAZEPINES SCREEN URINE Negative (Negative); Cannabinoids THC Positive (Negative); Cocaine Screen,Urine Positive (Negative); METHADONE URINE SCREEN Positive (Negative); OPIATES URINE SCREEN Negative (Negative)
[2024-10-17] MEDS: LORazepam 1 MG TAB 2 MG PO (12:13)
[2024-10-17 12:14] LABS: Tricyclic Antidepressants Positive (Negative)
[2024-10-17 13:32] LABS: Abs Immature Grans 0.04 10^3/uL (0.0-0.06); Absolute Basophil Count 0.07 10^3/uL (0.0-0.2); Absolute Eosinophil Count 0.28 10^3/uL (0.0-0.7); Absolute Lymphocyte Count 3.19 10^3/uL (1.2-3.4); Absolute Monocyte Count 0.96 10^3/uL (0.1-0.8); Absolute Neutrophil Count 6.02 10^3/uL (1.2-6.7); Basophils % 0.7 %; Eosinophils % 2.7 %; HCT 45.1 % (36.0-46.0); HGB 14.9 g/dL (11.2-15.7); Immature Grans % 0.4 %; Lymphocytes % 30.2 %; MCH 29.9 pg (27.0-33.0); MCV 90 fL (80-95); MPV 9.1 fL (8.0-11.0); Monocytes % 9.1 %; Neutrophils % 56.9 %; Platelet Count 398 10^3/uL (130-400); RBC 4.99 10^6/uL (3.93-5.22); RDW 12.7 % (11.7-14.6); RDW-SD 42.2 fL; WBC 10.56 10^3/uL (4.4-10.8)
[2024-10-17 14:04] LABS: ALT 25 U/L (14-59); AST 24 U/L (15-37); Alkaline Phosphatase 71 U/L (46-116); Anion Gap 12.6 mmol/L (3-11); BUN 25 mg/dL (7-18); Bilirubin, Total 0.5 mg/dL (0.2-1.0); CO2 27.4 mmol/L (21.0-32.0); CREATININE 1.3 mg/dL (0.55-1.02); Calcium 9.7 mg/dL (8.5-10.1); Chloride 99 mmol/L (98-107); Estimated GFR 52.65 (mL/min/1.73m2); Glucose 106 mg/dL (74-106); Potassium 3.9 mmol/L (3.5-5.1); Sodium 139 mmol/L (136-145); TSH (W/Ref FT4) 1.42 uIU/mL (0.36-3.74); Total Protein 8.8 g/dL (6.4-8.2)
[2024-10-17 14:05] LABS: ETHANOL BLOOD < 3.0 mg/dL (<10)
[2024-10-17 14:10] LABS: Lithium < 0.2 mmol/L (0.6-1.2)
[2024-10-17 14:14] LABS: Acetaminophen < 2 ug/mL (10-30); Salicylate 2.8 mg/dL (<2.8)
--- NOTE | 2024-10-17 15:41 | CMSP_ITS ---
Date of service: 10/17/24 Time of Service: 15:42 Care Management Safety Plan Status Status: Voluntary Reason for Wait Reason for Wait: Inpatient Admission Safety Plan Safety Plan: VOLUNTARY FOR INPATIENT PSYCHIATRIC STABILIZATION.? Patient is appropriate in all interactions since arriving at [facility]; Pt has demonstrated appropriate coping and communication skills, has articulated his or her needs and concerns and is fully engaged during staff interactions. Safety plan has been established with patient, and care team, to adhere to patient goals, identify restrictions based on behavioral status, address nutrition, and determine allowed personal belongings, tools for hygiene and personal care. Determine level of activity including ambulation, level of superv ision, visitors, and determine privileges based on behaviors and level of engagement by pt. VOLUNTARY SAFETY PLAN: 1. Will remain on suicide precautions, in paper clothes 2. Will remain in Zone B under direct supervision of one-on-one staff at all times provided by [employer]; MIYA, CRANE MAN printing press operator. 3. May have paper cups, plates, finger foods as well as a cardboard spoon with which to eat meals. 4. Follow [facility] Management of the Admitted Behavioral Health Patient policy. 5. Shower available in Zone B without restriction. 6. Personal belongings-soft items permitted at RN discretion. 7. Visitors- at RN discretion. 8. Activities: soft cart items, hospital tablets (Netflix/Homer+/music) approved per RN discretion. 9.? Bathroom available in Zone B without restriction. 10. Phone: limited to [facility] cordless phone at RN discretion. Due to VOLUNTARY status, if patient wishes to leave [facility], staff will contact [facility] Crisis Screener ([phone]) and [address] [place] Truck Driver ([phone]) as soon as possible. In the event of elopement, notify [facility] Police ([phone]). Patient is currently voluntarily at [facility] and seeking inpatient admission when a bed becomes available. [facility] Frontline Grain Buyer will continue seeking placement. Please contact the [employer] [place] Truck Driver ([phone]) and [facility] Grain Buyer ([phone]) for any needed changes in the Safety Plan. Safety plan has been provided to interdepartmental care team.
--- NOTE | 2024-10-17 15:41 | PDOC.CMSAFE ---
Date of service: 10/17/24 Time of Service: 15:42 Care Management Safety Plan Status Status: Voluntary Reason for Wait Reason for Wait: Inpatient Admission Safety Plan Safety Plan: VOLUNTARY FOR INPATIENT PSYCHIATRIC STABILIZATION.? Patient is appropriate in all interactions since arriving at [facility]; Pt has demonstrated appropriate coping and communication skills, has articulated his or her needs and concerns and is fully engaged during staff interactions. Safety plan has been established with patient, and care team, to adhere to patient goals, identify restrictions based on behavioral status, address nutrition, and determine allowed personal belongings, tools for hygiene and personal care. Determine level of activity including ambulation, level of supervision, visitors, and determine privileges based on behaviors and level of engagement by pt. VOLUNTARY SAFETY PLAN: 1. Will remain on suicide precautions, in paper clothes 2. Will remain in Zone B under direct supervision of one-on-one staff at all times provided by [employer]; MIYA, PACKAGING INSPECTOR performance reporter. 3. May have paper cups, plates, finger foods as well as a cardboard spoon with which to eat meals. 4. Follow [facility] Management of the Admitted Behavioral Health Patient policy. 5. Shower available in Zone B without restriction. 6. Personal belongings-soft items permitted at RN discretion. 7. Visitors- at RN discretion. 8. Activities: soft cart items, hospital tablets (Netflix/Varsha+/music) approved per RN discretion. 9.? Bathroom available in Zone B without restriction. 10. Phone: limited to [facility] cordless phone at RN discretion. Due to VOLUNTARY status, if patient wishes to leave [facility], staff will contact [facility] Crisis Screener ([phone]) and Puppet Master ([phone]) as soon as possible. In the event of elopement, notify [facility] Police ([phone]). Patient is currently voluntarily at [facility] and seeking inpatient admission when a bed becomes available. [facility] Frontline Landing Support Specialist will continue seeking placement. Please contact the Puppet Master ([phone]) and [facility] Landing Support Specialist ([phone]) for any needed changes in the Safety Plan. Safety plan has been provided to interdepartmental care team.
--- NOTE | 2024-10-17 16:20 | PDOC.CMPRO ---
Date of service: 10/17/24 Time of Service: 16:21 Care Management Progress Note Progress Note Text Progress Note Text: CM huddled with staff regarding Mary Jane's plan of care. Per RN, Mary Jane reported that she has been off her meds for about a month, and her boyfriend has been in [facility] for a week. She reported that she doesn't feel safe at home without him, and is feeling suicidal. Per RN, she would like to go to [facility]. Per [facility], Mary Jane was sleeping and was not able to engage for an assessment. Once she is awake and able to be assessed, [facility] will return to meet with her. Mary Jane is voluntary, seeking inpatient psychiatric treatment. Referrals will be sent after she has been assessed by [facility]. Safety plan in place; CM will continue to follow. Social Determinants of Health Screening Will the Patient Participate in the Screening?: Unable to obtain
[2024-10-17 16:25] VITALS: BP 91/59; PULSE 84; O2SAT 96
--- NOTE | 2024-10-17 19:00 | RT.EKG_ITS ---
APPROVED REPORT Exam: Resting ECG Reason for Exam: qtc check Patient Location: E HR:89 bpm ECG Measurements Heart Rate 89 AXIS WA 149 P 44 QRSd 92 QRS -43 QT 462 T 85 QTc 562 Conclusion Sinus rhythm...normal P axis, V-rate 60- 99 LAD, consider left anterior fascicular block...axis(240,-40), S>R II III aVF Low voltage, extremity leads...all extremity leads <0.5mV Prolonged QT interval...QTc >510mS
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
[2024-10-17 19:50] VITALS: BP 100/63; PULSE 94; RESP 16; TEMP 36.4; O2SAT 99
[2024-10-17] MEDS: traZODone 100 MG TAB PO (20:53)
--- NOTE | 2024-10-17 21:47 | PDOC.MHCN ---
Date of service: 10/17/24 Time of Service: 07:00 PHQ-9 Over the last 2 weeks, how often have you been bothered by any of the following problems? 1. Little interest or pleasure in doing things: several days 2. Feeling down, depressed, or hopeless: more than half the days 3. Trouble falling or staying asleep, or sleeping too much: nearly every day 4. Feeling tired or having little energy: nearly every day 5. Poor appetite or overeating: nearly every day 6. Feeling bad about yourself - or that you are a failure or have let yourself and your family down: nearly every day 7. Trouble concentrating on things, such as reading the newspaper or watching television: nearly every day 8. Moving or speaking so slowly that other people could have noticed? - Or the opposite - being so fidgety or restless that you have been moving around a lot more than usual: several days 9. Thoughts that you would be better off or of hurting yourself in some way: more than half the days Total score: 21 Source: Developed by Drs. Antolin Hampton, Janice Mullen, Prashanth Martin and colleagues, with an educational momo from [employer]. Suicide Severity Rate CSSRS Have you wished you were or wished you could go to sleep and not wake up?: Yes Have you actually had any thoughts of killing yourself?: Yes CSSRS2 Have you been thinking about how you might do this?: Yes Have you had these thoughts and had some intention of acting on them?: Yes Have you started to work out or worked out the details of how to kill yourself? Do you intend to carry out this plan?: Yes CSSRS3 Have you ever done anything, started to do anything or prepared to do anything to end your life?: Yes CSSRS4 Was this within the past three months?: Yes Screening Score Total Score: 8 Screening: Positive Mental Health Emergency Note Release [facility] release signed:: Yes Reason for Visit Suicidal ideation and substance misuse In the last 2 weeks has the pt presented for ES prior to today?: No Client Information Client is: Adult Outpatient Well Housed: Yes Non Suicidal Self Injury Current: No History: yes, arms in the past Safety Risk/Harm to Self or Others Current Ideation to Harm Self or Others: Yes to self. Intent: no, has no intent. Plan: no.does not have a plan. Risk: Does risk to harm exist?: yes. Access to means: Yes. Risk: High Risk Duty to warn indicated: No Asssessment/Mental Status Appearance: Other (paper scrubs) Attitude: Friendly Behavior: Poor impulse control and Repetitive movements Speech: Slow, Incoherent and Hesitant Affect: Cogruent with mood Mood: Elevated and Anxious Thought process: Racing, Loose associations and Poverty of content Hallucinations: No Delusions: No Attention: Inattention and Poor concentration Perception: Not impaired Orientation: Fully orientated Memory: Intact Insight: Poor Judgement: Poor Neurovegetative Symptoms Sleep: Decrease (4 days as of today no sleep) Appetitie: Decrease ( has not eaten in days) Interests: Decrease Energy: Decrease Libido: Not applicable Substance Use: Other Drug Issues: Drug screen result (see results) Do you use nicotine?: Yes Have you used substances in the last 7 days?: yes, crack, cocaine, meth, marijuana Additional Issues: Medical Concerns: No Client engaged in active self harm w/weapon: No Threatening to run away: No Child reported abuse/neglect: No Voluntarily presenting for services: Yes Domestic violence is a concern: No Extreme Psychosis or extreme behavior is present: No Plan/Disposition Recommended Disposition: Hospitalization facilities contacted. Plan: will wait on a voluntary basis to go inpatient however an EE should be initiated if she tries to leave Person reported agreement to plan: Yes Facilities contacted if Applicable [facility] Not accepted, No bed available [facility] Not accepted, No bed available, [facility] Not accepted, No bed available Reports/communication Outcome discussed with: ED/Personnel
--- NOTE | 2024-10-18 06:41 | ED.PROG_ITS ---
Date of service: 10/18/24 Time of Service: 06:41 Medical Decision Making Received patient in signout pending voluntary placement for depression, SI, polysubstance abuse. Patient was evaluated by psychiatry who made medication recommendations which have been ordered. [place] levels to be followed while here. No issues on the overnight shift. Medical Records Medical records reviewed: Yes I reviewed the patient's medical records. Lab Data Lab results reviewed: Yes I reviewed the patient's lab results. Quality:[facility] Health Related Social Needs: No Data to Display Discharge Plan Discharge Details Chief Complaint: PsychEval Clinical Impression: Depression with suicidal ideation, Polysubstance abuse Primary Care Provider: Diana Rose ED Provider: Antolin Anderson [facility] and New Rx's Prescriptions: No Action phenazopyridine [Pyridium] 200 mg tablet 200 mg PO TID PRN (Reason: pain) Qty: 6 0RF budesonide-formoterol [Symbicort] 160-4.5 mcg/actuation HFA aerosol inhaler 2 puff inhalation BID Qty: 3 3RF Patient Comments: states unable to get clonidine HCl 0.1 mg tablet 0.1 mg PO BID lithium carbonate 300 mg tablet extended release 300 mg PO QHS Rx Instructions: With 450 mg to total 750 mg lithium carbonate 450 mg tablet extended release 450 mg PO QHS Patient Comments: Rx Instructions: With 300 mg to total 750 mg quetiapine [Seroquel] 50 mg tablet 50 mg PO QHS trazodone 100 mg tablet 100 mg PO QHS cyclobenzaprine 10 mg tablet 10 mg PO Q8H PRN dexmethylphenidate [Focalin XR] 20 mg capsule,ER biphasic 50-50 20 mg PO QAM simethicone 80 mg tablet,chewable 80 mg PO Q8H PRN nicotine 21 mg/24 hr patch 24 hour 1 patch transdermal DAILY nicotine (polacrilex) 4 mg lozenge 4 mg buccal Q2H PRN Rx Instructions: Not to exceed 12 doses in 24 hours olanzapine 10 mg tablet 10 mg PO QHS olanzapine 5 mg tablet 5 mg PO Q6H PRN quetiapine 100 mg tablet 100 mg PO QHS sennosides-docusate sodium [Senna-S] 8.6-50 mg tablet 2 tab-cap PO DAILY PRN methadone 10 mg tablet 120 mg PO DAILY Patient Comments: 120 per pt (DME) Space Chamber Plus 1 EACH spacer Miscellaneous BID Qty: 1 Rx Instructions: for use with Symbicort MDI albuterol sulfate [Proventil HFA] 90 mcg/actuation HFA aerosol inhaler 1 - 2 puff IH .Q4-6H PRN (Reason: shortness of breath or wheezing) Qty: 1 6RF Patient Comments: states unable to get Rx Instructions: Dispense with a spacer gabapentin 800 mg tablet 800 mg PO TID Qty: 90 6RF hydroxyzine HCl 50 mg tablet 50 mg PO TID prazosin 2 mg capsule 2 mg PO QHS lidocaine 5 % adhesive patch,medicated 1 patch topical DAILY Qty: 15 0RF Patient Comments: currently has a patch on right lower back - unsure when applied Rx Instructions: leave on most painful area for up to 12 hrs
[2024-10-18] MEDS: Methadone Liquid 10 MG/ML 120 MG PO (11:09)
[2024-10-18] MEDS: OLANZapine 10 MG TAB PO (11:10)
[2024-10-18] MEDS: LORazepam 1 MG TAB 2 MG PO ×2 (11:28→19:31)
--- NOTE | 2024-10-18 12:25 | ED.PROG_ITS ---
Date of service: 10/18/24 Time of Service: 15:44 Medical Decision Making Patient was signed out to me pending placement. Patient continues to have multiple conversations to her self when no one is in the room which I do not think she completely recognizes or understands. Additionally she is speaking about nonsensical things such as dragons, anthropomorphic fleas, using deadly none local or indigenous insects, amongst other atypical etiologies. She is stating homicidal messages to staff. Patient demonstrates a clear lack of insight, and evidence of a psychotic event. She Testing the exit signs and exit door buttons to try to get out, but is just here voluntarily. Mental health came and assessed the patient recommended EE paperwork be performed and filled out. EE paperwork has been completed and submitted. Patient otherwise stable. Pending second certification and placement. Quality:[facility] Health Related Social Needs: No Data to Display Discharge Plan Discharge Details Chief Complaint: PsychEval Clinical Impression: Depression with suicidal ideation, Polysubstance abuse Primary Care Provider: Diana Rose ED Provider: Skyler Arevalo Home Meds and New Rx's Prescriptions: No Action phenazopyridine [Pyridium] 200 mg tablet 200 mg PO TID PRN (Reason: pain) Qty: 6 0RF budesonide-formoterol [Symbicort] 160-4.5 mcg/actuation HFA aerosol inhaler 2 puff inhalation BID Qty: 3 3RF Patient Comments: states unable to get clonidine HCl 0.1 mg tablet 0.1 mg PO BID lithium carbonate 300 mg tablet extended release 300 mg PO QHS Rx Instructions: With 450 mg to total 750 mg lithium carbonate 450 mg tablet extended release 450 mg PO QHS Patient Comments: Rx Instructions: With 300 mg to total 750 mg quetiapine [Seroquel] 50 mg tablet 50 mg PO QHS trazodone 100 mg tablet 100 mg PO QHS cyclobenzaprine 10 mg tablet 10 mg PO Q8H PRN dexmethylphenidate [Focalin XR] 20 mg capsule,ER biphasic 50-50 20 mg PO QAM simethicone 80 mg tablet,chewable 80 mg PO Q8H PRN nicotine 21 mg/24 hr patch 24 hour 1 patch transdermal DAILY nicotine (polacrilex) 4 mg lozenge 4 mg buccal Q2H PRN Rx Instructions: Not to exceed 12 doses in 24 hours olanzapine 10 mg tablet 10 mg PO QHS olanzapine 5 mg tablet 5 mg PO Q6H PRN quetiapine 100 mg tablet 100 mg PO QHS sennosides-docusate sodium [Senna-S] 8.6-50 mg tablet 2 tab-cap PO DAILY PRN methadone 10 mg tablet 120 mg PO DAILY Patient Comments: 120 per pt (DME) Space Chamber Plus 1 EACH spacer Miscellaneous BID Qty: 1 Rx Instructions: for use with Symbicort MDI albuterol sulfate [Proventil HFA] 90 mcg/actuation HFA aerosol inhaler 1 - 2 puff IH .Q4-6H PRN (Reason: shortness of breath or wheezing) Qty: 1 6RF Patient Comments: states unable to get Rx Instructions: Dispense with a spacer gabapentin 800 mg tablet 800 mg PO TID Qty: 90 6RF hydroxyzine HCl 50 mg tablet 50 mg PO TID prazosin 2 mg capsule 2 mg PO QHS lidocaine 5 % adhesive patch,medicated 1 patch topical DAILY Qty: 15 0RF Patient Comments: currently has a patch on right lower back - unsure when applied Rx Instructions: leave on most painful area for up to 12 hrs
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
[2024-10-18 16:01] VITALS: BP 96/69; PULSE 93; RESP 16; TEMP 35.4; O2SAT 96
--- NOTE | 2024-10-18 16:10 | W.EDPROG ---
Date of service: 10/18/24 Time of Service: 16:10 Medical Decision Making Patient pending second CERT for paranoia, still pending evaluation for his second seizure. Will continue to monitor until safe disposition found Quality:[facility] Health Related Social Needs: No Data to Display Discharge Plan Discharge Details Chief Complaint: PsychEval Clinical Impression: Depression with suicidal ideation, Polysubstance abuse Primary Care Provider: Diana Rose ED Provider: Tamir Howard Home Meds and New Rx's Prescriptions: No Action phenazopyridine [Pyridium] 200 mg tablet 200 mg PO TID PRN (Reason: pain) Qty: 6 0RF budesonide-formoterol [Symbicort] 160-4.5 mcg/actuation HFA aerosol inhaler 2 puff inhalation BID Qty: 3 3RF Patient Comments: states unable to get clonidine HCl 0.1 mg tablet 0.1 mg PO BID lithium carbonate 300 mg tablet extended release 300 mg PO QHS Rx Instructions: With 450 mg to total 750 mg lithium carbonate 450 mg tablet extended release 450 mg PO QHS Patient Comments: Rx Instructions: With 300 mg to total 750 mg quetiapine [Seroquel] 50 mg tablet 50 mg PO QHS trazodone 100 mg tablet 100 mg PO QHS cyclobenzaprine 10 mg tablet 10 mg PO Q8H PRN dexmethylphenidate [Focalin XR] 20 mg capsule,ER biphasic 50-50 20 mg PO QAM simethicone 80 mg tablet,chewable 80 mg PO Q8H PRN nicotine 21 mg/24 hr patch 24 hour 1 patch transdermal DAILY nicotine (polacrilex) 4 mg lozenge 4 mg buccal Q2H PRN Rx Instructions: Not to exceed 12 doses in 24 hours olanzapine 10 mg tablet 10 mg PO QHS olanzapine 5 mg tablet 5 mg PO Q6H PRN quetiapine 100 mg tablet 100 mg PO QHS sennosides-docusate sodium [Senna-S] 8.6-50 mg tablet 2 tab-cap PO DAILY PRN methadone 10 mg tablet 120 mg PO DAILY Patient Comments: 120 per pt (DME) Space Chamber Plus 1 EACH spacer Miscellaneous BID Qty: 1 Rx Instructions: for use with Symbicort MDI albuterol sulfate [Proventil HFA] 90 mcg/actuation HFA aerosol inhaler 1 - 2 puff IH .Q4-6H PRN (Reason: shortness of breath or wheezing) Qty: 1 6RF Patient Comments: states unable to get Rx Instructions: Dispense with a spacer gabapentin 800 mg tablet 800 mg PO TID Qty: 90 6RF hydroxyzine HCl 50 mg tablet 50 mg PO TID prazosin 2 mg capsule 2 mg PO QHS lidocaine 5 % adhesive patch,medicated 1 patch topical DAILY Qty: 15 0RF Patient Comments: currently has a patch on right lower back - unsure when applied Rx Instructions: leave on most painful area for up to 12 hrs
--- NOTE | 2024-10-18 17:35 | CMSP_ITS ---
Date of service: 10/18/24 Time of Service: 17:35 Care Management Safety Plan Status Status: Involuntary Reason for Wait Reason for Wait: Inpatient Admission and Assessment/Screening Safety Plan Safety Plan: INVOLUNTARY FOR INPATIENT PSYCHIATRIC STABILIZATION.? Patient is appropriate in all interactions since arriving at [facility]; Pt has demonstrated appropriate coping and communication skills, has articulated his or her needs and concerns and is fully engaged during staff interactions. Safety plan has been established with patient, and care team, to adhere to patient goals, identify restrictions based on behavioral status, address nutrition, and determine allowed personal belongings, tools for hygiene and personal care. Determine level of activity including ambulation, level of supervision, visitors, and determine privileges based on behaviors and level of engagement by pt. SAFETY PLAN: 1. Will remain on suicide precautions, in paper clothes 2. Will remain in Zone B under direct supervision of one-on-one staff at all times provided by [employer]; MYIA, LIBRARIAN ASSISTANT director of emergency nursing. 3. May have paper cups, plates, finger foods as well as a cardboard spoon with which to eat meals. 4. Follow [facility] Management of the Admitted Behavioral Health Patient policy. 5. Shower available in Zone B without restriction. 6. Personal belongings-soft items permitted at RN discretion. 7. Visitors- at RN discretion. 8. Activities: soft cart items approved per RN discretion. 9.? Bathroom available in Zone B without restriction. 10. Phone: limited to [facility] cordless phone at RN discretion. Due to INVOLUNTARY status, patient is being held at [facility] by the Department of Mental Health ([facility]) until 2nd certification by [facility] Psychiatrist can be performed (within 24 hours). Staff will provide de-escalation support (CPI) as needed. If patient wishes to leave [facility], staff will contact [facility] Crisis Screener ([phone]) and Supervisor Wall Mirror Department ([phone]) as soon as possible. In the event of elopement, notify [place] [employer] Police ([phone]). Patient is currently involuntarily at [facility]. [facility] Frontline Hydrography Teacher will continue seeking placement. Please contact the Supervisor Wall Mirror Department for any needed changes to Safety Plan. Safety plan has been provided to interdepartmental care team. Patient will be transported by [facility] at time of discharge.
--- NOTE | 2024-10-18 17:35 | PDOC.CMSAFE ---
Date of service: 10/18/24 Time of Service: 17:35 Care Management Safety Plan Status Status: Involuntary Reason for Wait Reason for Wait: Inpatient Admission and Assessment/Screening Safety Plan Safety Plan: INVOLUNTARY FOR INPATIENT PSYCHIATRIC STABILIZATION.? Patient is appropriate in all interactions since arriving at [facility]; Pt has demonstrated appropriate coping and communication skills, has articulated his or her needs and concerns and is fully engaged during staff interactions. Safety plan has been established with patient, and care team, to adhere to patient goals, identify restrictions based on behavioral status, address nutrition, and determine allowed personal belongings, tools for hygiene and personal care. Determine level of activity including ambulation, level of supervision, visitors, and determine privileges based on behaviors and level of engagement by pt. SAFETY PLAN: 1. Will remain on suicide precautions, in paper clothes 2. Will remain in Zone B under direct supervision of one-on-one staff at all times provided by [employer]; MIYA, LAP WELDER press worker helper. 3. May have paper cups, plates, finger foods as well as a cardboard spoon with which to eat meals. 4. Follow [facility] Management of the Admitted Behavioral Health Patient policy. 5. Shower available in Zone B without restriction. 6. Personal belongings-soft items permitted at RN discretion. 7. Visitors- at RN discretion. 8. Activities: soft cart items approved per RN discretion. 9.? Bathroom available in Zone B without restriction. 10. Phone: limited to [facility] cordless phone at RN discretion. Due to INVOLUNTARY status, patient is being held at [facility] by the Department of Mental Health ([facility]) until 2nd certification by [facility] Psychiatrist can be performed (within 24 hours). Staff will provide de-escalation support (CPI) as needed. If patient wishes to leave [facility], staff will contact [facility] Crisis Screener ([phone]) and Surveying Crew Rodman ([phone]) as soon as possible. In the event of elopement, notify [place] [employer] Police ([phone]). Patient is currently involuntarily at [facility]. [facility] Frontline Note Specialist will continue seeking placement. Please contact the Surveying Crew Rodman for any needed changes to Safety Plan. Safety plan has been provided to interdepartmental care team. Patient will be transported by [facility] at time of discharge.
--- NOTE | 2024-10-18 17:36 | PDOC.CMPRO ---
Date of service: 10/18/24 Time of Service: 17:36 Care Management Progress Note Progress Note Text Progress Note Text: CM huddled with staff regarding Mary Jane's plan of care. Per RN, Mary Jane has been agreeable to taking her medications today. She was voluntary at the time of the huddle, but shortly after asked to leave, and was reassessed by [facility]. Per [facility], Mary Jane was agreeable to inpatient psychiatric treatment this morning, and preferred to go to [facility]. Later, she was assessed after wanting to leave, and it was determined that she would be held involuntarily due to psychotic features including delusions and hallucinations; her speech was pressured and she has been responding to internal stimuli and communicating with people who are not in the room, per [facility] report. Mary Jane is being held involuntary, pending second certification by [facility] psychiatrist. Safety plan in place; CM will continue to follow. Social Determinants of Health Screening Will the Patient Participate in the Screening?: Unable to obtain
[2024-10-18] MEDS: traZODone 50 MG TAB 100 MG PO (19:27)
--- NOTE | 2024-10-19 06:56 | W.EDPROG ---
Date of service: 10/19/24 Time of Service: 06:57 Medical Decision Making This is a 44-year-old female patient with a past medical history significant for polysubstance use disorder, TBI, who is boarding in our emergency department with depression and suicidal ideation, paranoia. At the time that I took over her care she had been medically cleared and was awaiting final placement. I did repeat an EKG which shows resolution of the prolongation of the QTc, and wrote her for the nighttime Zyprexa recommended by psychiatry. An EE was filed but the patient at this time is voluntary and so a second CERT was not completed. She has not required any intervention for sedation or restraint, and was signed out to the oncoming provider prior to final disposition. Viviana Martinez MD Medical Records Medical records reviewed: Yes I reviewed the patient's medical records. Lab Data Lab results reviewed: Yes I reviewed the patient's lab results. Quality:[facility] Health Related Social Needs: No Data to Display Discharge Plan Discharge Details Chief Complaint: PsychEval Clinical Impression: Depression with suicidal ideation, Polysubstance abuse Primary Care Provider: Diana Rose ED Provider: Viviana Martinez Home Meds and New Rx's Prescriptions: No Action phenazopyridine [Pyridium] 200 mg tablet 200 mg PO TID PRN (Reason: pain) Qty: 6 0RF budesonide-formoterol [Symbicort] 160-4.5 mcg/actuation HFA aerosol inhaler 2 puff inhalation BID Qty: 3 3RF Patient Comments: states unable to get clonidine HCl 0.1 mg tablet 0.1 mg PO BID lithium carbonate 300 mg tablet extended release 300 mg PO QHS Rx Instructions: With 450 mg to total 750 mg lithium carbonate 450 mg tablet extended release 450 mg PO QHS Patient Comments: Rx Instructions: With 300 mg to total 750 mg quetiapine [Seroquel] 50 mg tablet 50 mg PO QHS trazodone 100 mg tablet 100 mg PO QHS cyclobenzaprine 10 mg tablet 10 mg PO Q8H PRN dexmethylphenidate [Focalin XR] 20 mg capsule,ER biphasic 50-50 20 mg PO QAM simethicone 80 mg tablet,chewable 80 mg PO Q8H PRN nicotine 21 mg/24 hr patch 24 hour 1 patch transdermal DAILY nicotine (polacrilex) 4 mg lozenge 4 mg buccal Q2H PRN Rx Instructions: Not to exceed 12 doses in 24 hours olanzapine 10 mg tablet 10 mg PO QHS olanzapine 5 mg tablet 5 mg PO Q6H PRN quetiapine 100 mg tablet 100 mg PO QHS sennosides-docusate sodium [Senna-S] 8.6-50 mg tablet 2 tab-cap PO DAILY PRN methadone 10 mg tablet 120 mg PO DAILY Patient Comments: 120 per pt (DME) Space Chamber Plus 1 EACH spacer Miscellaneous BID Qty: 1 Rx Instructions: for use with Symbicort MDI albuterol sulfate [Proventil HFA] 90 mcg/actuation HFA aerosol inhaler 1 - 2 puff IH .Q4-6H PRN (Reason: shortness of breath or wheezing) Qty: 1 6RF Patient Comments: states unable to get Rx Instructions: Dispense with a spacer gabapentin 800 mg tablet 800 mg PO TID Qty: 90 6RF hydroxyzine HCl 50 mg tablet 50 mg PO TID prazosin 2 mg capsule 2 mg PO QHS lidocaine 5 % adhesive patch,medicated 1 patch topical DAILY Qty: 15 0RF Patient Comments: currently has a patch on right lower back - unsure when applied Rx Instructions: leave on most painful area for up to 12 hrs
--- NOTE | 2024-10-19 07:45 | RT.EKG_ITS ---
APPROVED REPORT Exam: Resting ECG Reason for Exam: repeat QTc eval Patient Location: E HR:79 bpm ECG Measurements Heart Rate 79 AXIS IA 196 P 71 QRSd 95 QRS -15 QT 386 T 62 QTc 443 Conclusion Sinus rhythm, rate 79 No interval abnormalities No STEMI Compared to priors, QTc is no longer prolonged
[2024-10-19 08:41] VITALS: BP 85/60; PULSE 110; RESP 20; TEMP 36.5; O2SAT 97
[2024-10-19] MEDS: Methadone Liquid 10 MG/ML 125 MG PO (10:19)
[2024-10-19] MEDS: Nicotine 2 MG LOZG SUC ×2 (10:24→21:23)
[2024-10-19] MEDS: LORazepam 1 MG TAB 2 MG PO ×3 (10:24→21:35)
--- NOTE | 2024-10-19 11:41 | PDOC.MHPN2 ---
Date of service: 10/18/24 Time of Service: 15:45 Mental Health Emergency Note Release [facility] release signed:: Yes Reason for Visit The client is known to [facility] and currently receives services through the adult outpatient program, however per chart review has only attended two appointment since being discharged from [place] in July of 2024. All of the other appointments the client has cancelled or no showed. The client is a previous [employer] client at [facility], however was disenrolled in 2022 due to lack of engagement in services. Yesterday the client presented to [facility] ED with disorganized behavior and was endorsing suicidal ideations. The client was initially seeking voluntary inpatient treatment until this morning when this creative writer completed re-assessment and she was making homicidal statements and demanding to leave. This creative writer completed an EE. This assessment is the clients 2nd certification completed by psychiatrist at [facility]. Dr. Dietz. In the last 2 weeks has the pt presented for ES prior to today?: No Client Information Client is: Adult Outpatient Impression The client is a 44 y/o single female that resides in [facility]. The client currently receives SSDI. Screening tools are not completed due to this being the clients 2nd certification. All under represented categories are honored. The client is sitting up in hospital bed dressed in proper paper hospital attire when this creative writer and Dr. Dietz arrives via zoom. The client is cooperative with the assessment stating that she came to the hospital because she was feeling distraught and looking for help. The client reports that she is still continuing to endorse suicidal ideations, however reports that they have tamed down some as she is in a safe environment. The client denies saying homicidal statements stating: what I said is how good are you at swimming since your name is [place]. The client reports prior to coming to the hospital she was having difficulty accessing food and had not eaten or slept in a week. The client reports that she is wanting to stay at the hospital and seek voluntary inpatient treatment. Plan/Disposition Recommended Disposition: Hospitalization No. Plan: The client will remain at [facility] ED on voluntary status. If at anytime within the next day the client wishes to leave [facility] needs to be notified. The client will receive daily assessments until placement is secured. Dr. Dietz (psychiatrist from [facility]) Per this writers conversation with Dr. Dietz the client meets criteria for the 2nd certification to pass, however since she is willing to stay at the hospital and seek voluntary treatment he cannot legally hold her. Dr. Dietz reports that if at any time during the night tonight or tomorrow morning the client reports that she does not want to stay or becomes verbally aggressive or makes HI statements to staff then to call [facility] and he will certify the paperwork. Person reported agreement to plan: Yes Reports/communication Outcome discussed with: ED/Personnel (Verbal given to zone b staff at [facility])
--- NOTE | 2024-10-19 13:01 | CMSP_ITS ---
Date of service: 10/19/24 Time of Service: 13:01 Care Management Safety Plan Status Status: Voluntary Reason for Wait Reason for Wait: Inpatient Admission Safety Plan Safety Plan: VOLUNTARY FOR INPATIENT PSYCHIATRIC STABILIZATION.? Patient is appropriate in all interactions since arriving at [facility]; Pt has demonstrated appropriate coping and communication skills, has articulated his or her needs and concerns and is fully engaged during staff interactions. Safety plan has been established with patient, and care team, to adhere to patient goals, identify restrictions based on behavioral status, address nutrition, and determine allowed personal belongings, tools for hygiene and personal care. Determine level of activity including ambulation, level of supe rvision, visitors, and determine privileges based on behaviors and level of engagement by pt. VOLUNTARY SAFETY PLAN: 1. Will remain on suicide precautions, in paper clothes 2. Will remain in Zone B under direct supervision of one-on-one staff at all times provided by [employer]; MIYA, GROCERY SUPERVISOR paperboard machine operator. 3. May have paper cups, plates, finger foods as well as a cardboard spoon with which to eat meals. 4. Follow [facility] Management of the Admitted Behavioral Health Patient policy. 5. Shower available in Zone B without restriction. 6. Personal belongings-soft items permitted at RN discretion. 7. Visitors- parents, at RN discretion . 8. Activities: soft cart items, hospital tablets (Netflix/Varsha+/music) approved per RN discretion. 9.? Bathroom available in Zone B without restriction. 10. Phone: limited to [facility] cordless phone at RN discretion. Due to VOLUNTARY status, if patient wishes to leave [facility], staff will contact [facility] Crisis Screener ([phone]) and Social Sciences Lecturer ([phone]) as soon as possible. In the event of elopement, notify [facility] Police ([phone]). Patient is currently voluntarily at [facility] and seeking inpatient admission when a bed becomes available. [facility] Frontline Intake Clinician will continue seeking placement. Please contact the Social Sciences Lecturer ([phone]) and [facility] Intake Clinician ([phone]) for any needed changes in the Safety Plan. Safety plan has been provided to interdepartmental care team.
--- NOTE | 2024-10-19 13:01 | PDOC.CMSAFE ---
Date of service: 10/19/24 Time of Service: 13:01 Care Management Safety Plan Status Status: Voluntary Reason for Wait Reason for Wait: Inpatient Admission Safety Plan Safety Plan: VOLUNTARY FOR INPATIENT PSYCHIATRIC STABILIZATION.? Patient is appropriate in all interactions since arriving at [facility]; Pt has demonstrated appropriate coping and communication skills, has articulated his or her needs and concerns and is fully engaged during staff interactions. Safety plan has been established with patient, and care team, to adhere to patient goals, identify restrictions based on behavioral status, address nutrition, and determine allowed personal belongings, tools for hygiene and personal care. Determine level of activity including ambulation, level of supervision, visitors, and determine privileges based on behaviors and level of engagement by pt. VOLUNTARY SAFETY PLAN: 1. Will remain on suicide precautions, in paper clothes 2. Will remain in Zone B under direct supervision of one-on-one staff at all times provided by [employer]; MIYA, SENIOR CONTRACTS ADMINISTRATOR pin worker. 3. May have paper cups, plates, finger foods as well as a cardboard spoon with which to eat meals. 4. Follow [facility] Management of the Admitted Behavioral Health Patient policy. 5. Shower available in Zone B without restriction. 6. Personal belongings-soft items permitted at RN discretion. 7. Visitors- parents, at RN discretion . 8. Activities: soft cart items, hospital tablets (Netflix/Winifrede+/music) approved per RN discretion. 9.? Bathroom available in Zone B without restriction. 10. Phone: limited to [facility] cordless phone at RN discretion. Due to VOLUNTARY status, if patient wishes to leave [facility], staff will contact [facility] Crisis Screener ([phone]) and Family Dentist ([phone]) as soon as possible. In the event of elopement, notify [facility] Police ([phone]). Patient is currently voluntarily at [facility] and seeking inpatient admission when a bed becomes available. [facility] Frontline Voip Network Engineer will continue seeking placement. Please contact the Family Dentist ([phone]) and [facility] Voip Network Engineer ([phone]) for any needed changes in the Safety Plan. Safety plan has been provided to interdepartmental care team.
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
--- NOTE | 2024-10-19 16:43 | ED.PROG_ITS ---
Date of service: 10/19/24 Time of Service: 16:43 Medical Decision Making Patient now on voluntary status after her second CERT did not pass, no issues reported on prior shift and currently has no new acute complaints. Will continue to monitor until safe disposition found Quality:[facility] Health Related Social Needs: No Data to Display Discharge Plan Discharge Details Chief Complaint: PsychEval Clinical Impression: Depression with suicidal ideation, Polysubstance abuse Primary Care Provider: Diana Rose ED Provider: Tamir Howard [place] Meds and New Rx's Prescriptions: No Action phenazopyridine [Pyridium] 200 mg tablet 200 mg PO TID PRN (Reason: pain) Qty: 6 0RF budesonide-formoterol [Symbicort] 160-4.5 mcg/actuation HFA aerosol inhaler 2 puff inhalation BID Qty: 3 3RF Patient Comments: states unable to get clonidine HCl 0.1 mg tablet 0.1 mg PO BID lithium carbonate 300 mg tablet extended release 300 mg PO QHS Rx Instructions: With 450 mg to total 750 mg lithium carbonate 450 mg tablet extended release 450 mg PO QHS Patient Comments: Rx Instructions: With 300 mg to total 750 mg quetiapine [Seroquel] 50 mg tablet 50 mg PO QHS trazodone 100 mg tablet 100 mg PO QHS cyclobenzaprine 10 mg tablet 10 mg PO Q8H PRN dexmethylphenidate [Focalin XR] 20 mg capsule,ER biphasic 50-50 20 mg PO QAM simethicone 80 mg tablet,chewable 80 mg PO Q8H PRN nicotine 21 mg/24 hr patch 24 hour 1 patch transdermal DAILY nicotine (polacrilex) 4 mg lozenge 4 mg buccal Q2H PRN Rx Instructions: Not to exceed 12 doses in 24 hours olanzapine 10 mg tablet 10 mg PO QHS olanzapine 5 mg tablet 5 mg PO Q6H PRN quetiapine 100 mg tablet 100 mg PO QHS sennosides-docusate sodium [Senna-S] 8.6-50 mg tablet 2 tab-cap PO DAILY PRN methadone 10 mg tablet 120 mg PO DAILY Patient Comments: 120 per pt (DME) Space Chamber Plus 1 EACH spacer Miscellaneous BID Qty: 1 Rx Instructions: for use with Symbicort MDI albuterol sulfate [Proventil HFA] 90 mcg/actuation HFA aerosol inhaler 1 - 2 puff IH .Q4-6H PRN (Reason: shortness of breath or wheezing) Qty: 1 6RF Patient Comments: states unable to get Rx Instructions: Dispense with a spacer gabapentin 800 mg tablet 800 mg PO TID Qty: 90 6RF hydroxyzine HCl 50 mg tablet 50 mg PO TID prazosin 2 mg capsule 2 mg PO QHS lidocaine 5 % adhesive patch,medicated 1 patch topical DAILY Qty: 15 0RF Patient Comments: currently has a patch on right lower back - unsure when applied Rx Instructions: leave on most painful area for up to 12 hrs
[2024-10-19] MEDS: traZODone 50 MG TAB 100 MG PO (19:53)
[2024-10-19] MEDS: OLANZapine 5 MG TAB PO (19:53)
[2024-10-19 20:00] VITALS: BP 99/62; PULSE 80; RESP 16; TEMP 36.8; O2SAT 95
--- NOTE | 2024-10-20 06:37 | W.EDPROG ---
Date of service: 10/20/24 Time of Service: 06:38 Medical Decision Making Second certification yesterday did not go through. Patient has remained in the ED pending voluntary psychiatric admission. No issues or events overnight. Discharge Plan Discharge Details Chief Complaint: PsychEval Clinical Impression: Depression with suicidal ideation, Polysubstance abuse Primary Care Provider: Diana Rose ED Provider: Antolin Anderson [place] and New Rx's Prescriptions: No Action phenazopyridine [Pyridium] 200 mg tablet 200 mg PO TID PRN (Reason: pain) Qty: 6 0RF budesonide-formoterol [Symbicort] 160-4.5 mcg/actuation HFA aerosol inhaler 2 puff inhalation BID Qty: 3 3RF Patient Comments: states unable to get clonidine HCl 0.1 mg tablet 0.1 mg PO BID lithium carbonate 300 mg tablet extended release 300 mg PO QHS Rx Instructions: With 450 mg to total 750 mg lithium carbonate 450 mg tablet extended release 450 mg PO QHS Patient Comments: Rx Instructions: With 300 mg to total 750 mg quetiapine [Seroquel] 50 mg tablet 50 mg PO QHS trazodone 100 mg tablet 100 mg PO QHS cyclobenzaprine 10 mg tablet 10 mg PO Q8H PRN dexmethylphenidate [Focalin XR] 20 mg capsule,ER biphasic 50-50 20 mg PO QAM simethicone 80 mg tablet,chewable 80 mg PO Q8H PRN nicotine 21 mg/24 hr patch 24 hour 1 patch transdermal DAILY nicotine (polacrilex) 4 mg lozenge 4 mg buccal Q2H PRN Rx Instructions: Not to exceed 12 doses in 24 hours olanzapine 10 mg tablet 10 mg PO QHS olanzapine 5 mg tablet 5 mg PO Q6H PRN quetiapine 100 mg tablet 100 mg PO QHS sennosides-docusate sodium [Senna-S] 8.6-50 mg tablet 2 tab-cap PO DAILY PRN methadone 10 mg tablet 120 mg PO DAILY Patient Comments: 120 per pt (DME) Space Chamber Plus 1 EACH spacer Miscellaneous BID Qty: 1 Rx Instructions: for use with Symbicort MDI albuterol sulfate [Proventil HFA] 90 mcg/actuation HFA aerosol inhaler 1 - 2 puff IH .Q4-6H PRN (Reason: shortness of breath or wheezing) Qty: 1 6RF Patient Comments: states unable to get Rx Instructions: Dispense with a spacer gabapentin 800 mg tablet 800 mg PO TID Qty: 90 6RF hydroxyzine HCl 50 mg tablet 50 mg PO TID prazosin 2 mg capsule 2 mg PO QHS lidocaine 5 % adhesive patch,medicated 1 patch topical DAILY Qty: 15 0RF Patient Comments: currently has a patch on right lower back - unsure when applied Rx Instructions: leave on most painful area for up to 12 hrs
--- NOTE | 2024-10-20 07:26 | W.EDPROG ---
Date of service: 10/20/24 Time of Service: 07:00 Medical Decision Making In brief, this is a 44-year-old female patient boarding in the emergency department for suicidal ideation in the setting of medication nonadherence and polysubstance use disorder. Prior to my taking over their care, the patient was medically cleared, and has been resting comfortably. They have met with the vp digital marketing social media and crm and they have not required any additional medications for restraint or sedation. The patient was accepted to [facility] and doc to doc report was given to Mary Jane Ricketts. Remained hemodynamically appropriate, calm, cooperative, and comfortable while under my care. Left our facility for transfer without incident. Viviana Martinez MD Medical Records Medical records reviewed: Yes I reviewed the patient's medical records. Lab Data Lab results reviewed: Yes I reviewed the patient's lab results. Quality:[facility] Health Related Social Needs: No Data to Display Discharge Plan Disposition Patient Disposition: Psychiatric Hospital/Unit Specific Psychiatric Facility: [facility] Condition: Stable Discharge Details Chief Complaint: PsychEval Clinical Impression: Depression with suicidal ideation, Polysubstance abuse Primary Care Provider: Diana Rose ED Provider: Viviana Martinez Home Meds and New Rx's Prescriptions: No Action phenazopyridine [Pyridium] 200 mg tablet 200 mg PO TID PRN (Reason: pain) Qty: 6 0RF budesonide-formoterol [Symbicort] 160-4.5 mcg/actuation HFA aerosol inhaler 2 puff inhalation BID Qty: 3 3RF Patient Comments: states unable to get clonidine HCl 0.1 mg tablet 0.1 mg PO BID lithium carbonate 300 mg tablet extended release 300 mg PO QHS Rx Instructions: With 450 mg to total 750 mg lithium carbonate 450 mg tablet extended release 450 mg PO QHS Patient Comments: Rx Instructions: With 300 mg to total 750 mg quetiapine [Seroquel] 50 mg tablet 50 mg PO QHS trazodone 100 mg tablet 100 mg PO QHS cyclobenzaprine 10 mg tablet 10 mg PO Q8H PRN dexmethylphenidate [Focalin XR] 20 mg capsule,ER biphasic 50-50 20 mg PO QAM simethicone 80 mg tablet,chewable 80 mg PO Q8H PRN nicotine 21 mg/24 hr patch 24 hour 1 patch transdermal DAILY nicotine (polacrilex) 4 mg lozenge 4 mg buccal Q2H PRN Rx Instructions: Not to exceed 12 doses in 24 hours olanzapine 10 mg tablet 10 mg PO QHS olanzapine 5 mg tablet 5 mg PO Q6H PRN quetiapine 100 mg tablet 100 mg PO QHS sennosides-docusate sodium [Senna-S] 8.6-50 mg tablet 2 tab-cap PO DAILY PRN methadone 10 mg tablet 120 mg PO DAILY Patient Comments: 120 per pt (DME) Space Chamber Plus 1 EACH spacer Miscellaneous BID Qty: 1 Rx Instructions: for use with Symbicort MDI albuterol sulfate [Proventil HFA] 90 mcg/actuation HFA aerosol inhaler 1 - 2 puff IH .Q4-6H PRN (Reason: shortness of breath or wheezing) Qty: 1 6RF Patient Comments: states unable to get Rx Instructions: Dispense with a spacer gabapentin 800 mg tablet 800 mg PO TID Qty: 90 6RF hydroxyzine HCl 50 mg tablet 50 mg PO TID prazosin 2 mg capsule 2 mg PO QHS lidocaine 5 % adhesive patch,medicated 1 patch topical DAILY Qty: 15 0RF Patient Comments: currently has a patch on right lower back - unsure when applied Rx Instructions: leave on most painful area for up to 12 hrs
[2024-10-20 08:06] VITALS: BP 88/52; PULSE 103; RESP 16; O2SAT 98
[2024-10-20] MEDS: Methadone Liquid 10 MG/ML 125 MG PO (08:30)
[2024-10-20 08:46] VITALS: BP 98/61; PULSE 108; O2SAT 98
[2024-10-20 11:37] VITALS: BP 98/61; PULSE 108; RESP 16; O2SAT 98
== END 2024-10-20 11:37 ==
PROVIDERS: Physician Assistant; Emergency Provider Emergency Medicine; PCP Nurse Practitioner Family
DX: R45.851 Suicidal ideations (principal); F11.20 Opioid dependence, uncomplicated; F31.5 Bipolar disorder, current episode depressed, severe, with psychotic features; E03.9 Hypothyroidism, unspecified; Z91.51 Personal history of suicidal behavior
CPT/HCPCS: 00123; 36415; 80053; 80307; 81025; 93005; 96127; 99285; 80178; 80320; 80329; 84443; 85025; 93010; J3490

== ENCOUNTER 2024-11-21 10:12 | Emergency (ER) | payer MEDICARE, MEDICAID, SELFPAY ==
[2024-11-21 10:36] VITALS: BP 99/74; PULSE 97; RESP 18; TEMP 37; O2SAT 98
[2024-11-21 10:57] VITALS: BP 99/74; PULSE 97; RESP 18; TEMP 37; O2SAT 98
[2024-11-21] MEDS: Mupirocin 2% Oint. 22 GM TUBE TP (11:02)
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
[2024-11-21] MEDS: Methadone Liquid 10 MG/ML 125 MG PO (11:14)
== END 2024-11-21 11:29 | disposition home or self-care (01) ==
PROVIDERS: Emergency Provider Emergency Medicine; PCP Nurse Practitioner Family
DX: L01.00 Impetigo, unspecified (principal); F11.20 Opioid dependence, uncomplicated; T23.222A Burn of second degree of single left finger (nail) except thumb, initial encounter; T31.0 Burns involving less than 10% of body surface; F17.210 Nicotine dependence, cigarettes, uncomplicated; Z91.148 Patient's other noncompliance with medication regimen for other reason; X08.8XXA Exposure to other specified smoke, fire and flames, initial encounter
CPT/HCPCS: 99283

== ENCOUNTER 2024-12-09 20:25 | Emergency (ER) | payer MEDICARE, MEDICAID, SELFPAY ==
[2024-12-09 20:48] VITALS: BP 105/53; PULSE 110; RESP 18; TEMP 36.7; O2SAT 94
[2024-12-09 21:17] LABS: Bilirubin Negative (Negative); Blood Moderate (Negative); Clarity Clear (Clear); Glucose Negative (Negative); Ketones 15 mg/dL (Negative); Leukocyte Esterase Trace (Negative); Nitrite Negative (Negative); Specific Gravity 1.025 (1.005-1.025); Urobilinogen 0.2 mg/dL (Up to 0.2); pH 5.5 (5-8)
[2024-12-09 21:25] LABS: Bacteria Many HPF (Negative); C & S Indicated? No; Casts Negative LPF (Negative); Crystals Negative HPF (Negative); Epithelial Cells Moderate HPF (Negative); Mucus Negative (Negative); RBC 20-50 HPF (0-2)
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
[2024-12-09] MEDS: Ketorolac 30 MG/ML VIAL IM (23:04)
[2024-12-09 23:05] LABS: *AMPHETAMINES SCREEN URINE Positive (Negative); *BARBITURATES SCREEN URINE Negative (Negative); *BENZODIAZEPINES SCREEN URINE Negative (Negative); Cannabinoids THC Positive (Negative); Cocaine Screen,Urine Positive (Negative); METHADONE URINE SCREEN Positive (Negative); OPIATES URINE SCREEN Negative (Negative); Tricyclic Antidepressants Negative (Negative)
== END 2024-12-09 23:05 | disposition home or self-care (01) ==
PROVIDERS: Emergency Provider Emergency Medicine; PCP Nurse Practitioner Family
DX: Q79.59 Other congenital malformations of abdominal wall (principal); F19.90 Other psychoactive substance use, unspecified, uncomplicated
CPT/HCPCS: 99283; 99284; 96372; 81025; 80307; 81003; 81015; J1885

== ENCOUNTER 2024-12-28 20:35 | Emergency (ER) | payer MEDICARE, MEDICAID, SELFPAY ==
[2024-12-28 20:31] VITALS: PULSE 65; RESP 16; O2SAT 93
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
[2024-12-28] MEDS: OLANZapine ODT 5 MG TAB 10 MG PO (20:43)
[2024-12-28] MEDS: Nicotine 21 MG/24 HR PATCH TD (21:00)
[2024-12-28] MEDS: LORazepam 1 MG TAB 2 MG PO (21:00)
[2024-12-28 21:54] LABS: Abs Immature Grans 0.05 10^3/uL (0.0-0.06); Absolute Basophil Count 0.05 10^3/uL (0.0-0.2); Absolute Lymphocyte Count 3.47 10^3/uL (1.2-3.4); Absolute Monocyte Count 1.05 10^3/uL (0.1-0.8); Basophils % 0.4 %; Eosinophils % 3.2 %; HCT 40.8 % (36.0-46.0); HGB 13.4 g/dL (11.2-15.7); Immature Grans % 0.4 %; Lymphocytes % 26.7 %; MCH 29.4 pg (27.0-33.0); MCHC 32.8 % (32.0-36.0); MCV 90 fL (80-95); MPV 9.7 fL (8.0-11.0); Monocytes % 8.1 %; Neutrophils % 61.2 %; Platelet Count 256 10^3/uL (130-400); RBC 4.56 10^6/uL (3.93-5.22); RDW 13.5 % (11.7-14.6); RDW-SD 44.3 fL; WBC 13.01 10^3/uL (4.4-10.8)
[2024-12-28 21:57] LABS: Absolute Eosinophil Count 0.42 10^3/uL (0.0-0.7); Absolute Neutrophil Count 7.96 10^3/uL (1.2-6.7)
[2024-12-28 22:04] LABS: Bilirubin Negative (Negative); Blood Trace-intact (Negative); Clarity Clear (Clear); Glucose Negative (Negative); Ketones Negative (Negative); Leukocyte Esterase Trace (Negative); Nitrite Negative (Negative); Specific Gravity 1.015 (1.005-1.025); Urobilinogen 0.2 mg/dL (Up to 0.2); pH 6.5 (5-8)
[2024-12-28 22:09] LABS: *AMPHETAMINES SCREEN URINE Negative (Negative); *BARBITURATES SCREEN URINE Negative (Negative); *BENZODIAZEPINES SCREEN URINE Negative (Negative); Cannabinoids THC Positive (Negative); Cocaine Screen,Urine Positive (Negative); METHADONE URINE SCREEN Positive (Negative); OPIATES URINE SCREEN Negative (Negative); Tricyclic Antidepressants Negative (Negative)
[2024-12-28 22:12] LABS: Bacteria Moderate HPF (Negative); C & S Indicated? No/Sq. Contamination; Casts Negative LPF (Negative); Crystals Negative HPF (Negative); Epithelial Cells Moderate HPF (Negative); Mucus Negative (Negative)
[2024-12-28 22:15] LABS: Salicylate 3.5 mg/dL (<2.8)
[2024-12-28 22:18] LABS: Acetaminophen < 2 ug/mL (10-30)
[2024-12-28 22:25] LABS: ALT 38 U/L (14-59); AST 48 U/L (15-37); Alkaline Phosphatase 77 U/L (46-116); Anion Gap 7.4 mmol/L (3-11); BUN 23 mg/dL (7-18); Bilirubin, Total 0.3 mg/dL (0.2-1.0); CO2 30.6 mmol/L (21.0-32.0); CREATININE 0.7 mg/dL (0.55-1.02); Calcium 9.2 mg/dL (8.5-10.1); Chloride 101 mmol/L (98-107); Estimated GFR 110.67 (mL/min/1.73m2); Glucose 84 mg/dL (74-106); Potassium 4.5 mmol/L (3.5-5.1); Sodium 139 mmol/L (136-145); TSH (W/Ref FT4) 2.41 uIU/mL (0.36-3.74); Total Protein 7.8 g/dL (6.4-8.2)
[2024-12-28 22:30] LABS: ETHANOL BLOOD < 3.0 mg/dL (<10)
[2024-12-28 23:09] LABS: Lab Add On Test DONE
[2024-12-28 23:26] LABS: Lithium < 0.2 mmol/L (0.6-1.2)
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
--- NOTE | 2024-12-29 06:29 | W.EDPROG ---
Date of service: 12/29/24 Time of Service: 06:43 Medical Decision Making Patient was signed out to me pending mental health evaluation. Patient was seen and assessed by mental health in the evening, but she did not engage with mental health. Mental health feels that they have enough to EE the patient with her previous statements, however at this time the patient remains voluntary. Mental health requests a repeat evaluation in the morning. Patient's medication orders were placed however her lithium dose is not overly clear. Her lithium level is therapeutic at this time. We will request that pharmacy further determines patient's chronic lithium dose so we can appropriately dose here. Patient will be signed out to my colleague for follow-up after mental health reassessment. Quality:SDOH Health Related Social Needs: No Data to Display Discharge Plan Discharge Details Chief Complaint: PsychEval Clinical Impression: Suicidal ideations, Substance use disorder Primary Care Provider: Diana Rose ED Provider: Skyler Arevalo Home Meds and New Rx's Prescriptions: No Action phenazopyridine [Pyridium] 200 mg tablet 200 mg PO TID PRN (Reason: pain) Qty: 6 0RF budesonide-formoterol [Symbicort] 160-4.5 mcg/actuation HFA aerosol inhaler 2 puff inhalation BID Qty: 3 3RF Patient Comments: states unable to get clonidine HCl 0.1 mg tablet 0.1 mg PO BID lithium carbonate 300 mg tablet extended release 300 mg PO QHS Rx Instructions: With 450 mg to total 750 mg lithium carbonate 450 mg tablet extended release 450 mg PO QHS Patient Comments: Rx Instructions: With 300 mg to total 750 mg quetiapine [Seroquel] 50 mg tablet 50 mg PO QHS trazodone 100 mg tablet 100 mg PO QHS cyclobenzaprine 10 mg tablet 10 mg PO Q8H PRN dexmethylphenidate [Focalin XR] 20 mg capsule,ER biphasic 50-50 20 mg PO QAM simethicone 80 mg tablet,chewable 80 mg PO Q8H PRN nicotine 21 mg/24 hr patch 24 hour 1 patch transdermal DAILY nicotine (polacrilex) 4 mg lozenge 4 mg buccal Q2H PRN Rx Instructions: Not to exceed 12 doses in 24 hours olanzapine 10 mg tablet 10 mg PO QHS olanzapine 5 mg tablet 5 mg PO Q6H PRN quetiapine 100 mg tablet 100 mg PO QHS sennosides-docusate sodium [Senna-S] 8.6-50 mg tablet 2 tab-cap PO DAILY PRN methadone 10 mg tablet 120 mg PO DAILY Patient Comments: 120 per pt (DME) Space Chamber Plus 1 EACH spacer Miscellaneous BID Qty: 1 Rx Instructions: for use with Symbicort MDI albuterol sulfate [Proventil HFA] 90 mcg/actuation HFA aerosol inhaler 1 - 2 puff IH .Q4-6H PRN (Reason: shortness of breath or wheezing) Qty: 1 6RF Patient Comments: states unable to get Rx Instructions: Dispense with a spacer gabapentin 800 mg tablet 800 mg PO TID Qty: 90 6RF hydroxyzine HCl 50 mg tablet 50 mg PO TID prazosin 2 mg capsule 2 mg PO QHS lidocaine 5 % adhesive patch,medicated 1 patch topical DAILY Qty: 15 0RF Patient Comments: currently has a patch on right lower back - unsure when applied Rx Instructions: leave on most painful area for up to 12 hrs
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
--- NOTE | 2024-12-29 09:03 | CMSP_ITS ---
Date of service: 12/29/24 Time of Service: 09:03 Care Management Safety Plan Status Status: Involuntary (Awaiting second EE cert) Reason for Wait Reason for Wait: Inpatient Admission Safety Plan Safety Plan: INVOLUNTARY FOR INPATIENT PSYCHIATRIC STABILIZATION.? Patient is appropriate in all interactions since arriving at [facility]; Pt has demonstrated appropriate coping and communication skills, has articulated his or her needs and concerns and is fully engaged during staff interactions. Safety plan was reviewed during the interdisciplinary department huddle which included Jenny/Afia BRINK/Conrado B RN, ER provider Carley, PRINCIPAL SYSTEMS ARCHITECT and RN All Purpose Clerk Lina and CM RN. Mary Jane is a 44 year old female with SI and aggressive behaviors whom is currently being held in [facility] involuntarily due due to with many past hospitalizations and stays for rehab at [facility]. Safety plan has been established with patient, and care team, to adhere to patient goals, identify restrictions based on behavioral status, address nutrition, and determine allowed personal belongings, tools for hygiene and personal care. Determine level of activity including ambulation, level of supervision, visitors, and determine privileges based on behaviors and level of engagement by pt. SAFETY PLAN: 1. Will remain on suicide precautions, in paper clothes 2. Will remain in [facility] under direct supervision of one-on-one staff at all times provided by [employer]; MIYA, REFRIGERATION REPAIR SUPERVISOR riprap worker. 3. May have paper cups, plates, finger foods as well as a cardboard spoon with which to eat meals. 4. Follow [facility] Management of the Admitted Behavioral Health Patient policy. 5. Shower available in [facility] without restriction. 6. Personal belongings-soft items permitted at RN discretion. 7. Visitors-RN discretion 8. Activities: soft cart items approved per RN discretion. 9.? Bathroom available in [facility] without restriction. 10. Phone: limited to [facility] cordless phone at RN discretion. Due to INVOLUNTARY status, patient is being held at [facility] by the Department of Mental Health (DM) until 2nd certification by [facility] Psychiatrist can be performed (within 24 hours). Staff will provide de-escalation support (CPI) as needed. If patient wishes to leave [facility], staff will contact [facility] Crisis Screener ([phone]) and Special Day Class Teacher ([phone]) as soon as possible. In the event of elopement, notify [facility] Police ([phone]). Patient is currently involuntarily at [facility]. [facility] Frontline Teletypewriter Installer will continue seeking placement. Please contact the Special Day Class Teacher for any needed changes to Safety Plan. Safety plan has been provided to interdepartmental care team. Patient will be transported by trolley wire installer at time of discharge.
--- NOTE | 2024-12-29 09:03 | PDOC.CMSAFE ---
Date of service: 12/29/24 Time of Service: 09:03 Care Management Safety Plan Status Status: Involuntary (Awaiting second EE cert) Reason for Wait Reason for Wait: Inpatient Admission Safety Plan Safety Plan: INVOLUNTARY FOR INPATIENT PSYCHIATRIC STABILIZATION.? Patient is appropriate in all interactions since arriving at [facility]; Pt has demonstrated appropriate coping and communication skills, has articulated his or her needs and concerns and is fully engaged during staff interactions. Safety plan was reviewed during the interdisciplinary department huddle which included Jenny/Afia BRINK/Conrado B RN, ER provider Carley, ENDOSCOPE TECHNICIAN and RN Surgery Consultant Lina and CM RN. Mary Jane is a 44 year old female with SI and aggressive behaviors whom is currently being held in [facility] involuntarily due due to with many past hospitalizations and stays for rehab at [facility]. Safety plan has been established with patient, and care team, to adhere to patient goals, identify restrictions based on behavioral status, address nutrition, and determine allowed personal belongings, tools for hygiene and personal care. Determine level of activity including ambulation, level of supervision, visitors, and determine privileges based on behaviors and level of engagement by pt. SAFETY PLAN: 1. Will remain on suicide precautions, in paper clothes 2. Will remain in [facility] under direct supervision of one-on-one staff at all times provided by [employer]; MIYA, SQUILGEER cash management coordinator. 3. May have paper cups, plates, finger foods as well as a cardboard spoon with which to eat meals. 4. Follow [facility] Management of the Admitted Behavioral Health Patient policy. 5. Shower available in [facility] without restriction. 6. Personal belongings-soft items permitted at RN discretion. 7. Visitors-RN discretion 8. Activities: soft cart items approved per RN discretion. 9.? Bathroom available in [facility] without restriction. 10. Phone: limited to [facility] cordless phone at RN discretion. Due to INVOLUNTARY status, patient is being held at [facility] by the Department of Mental Health (DM) until 2nd certification by [facility] Psychiatrist can be performed (within 24 hours). Staff will provide de-escalation support (CPI) as needed. If patient wishes to leave [facility], staff will contact [facility] Crisis Screener ([phone]) and Hand Filer Balance Wheel ([phone]) as soon as possible. In the event of elopement, notify [facility] Police ([phone]). Patient is currently involuntarily at [facility]. [facility] Frontline Stock Buyer will continue seeking placement. Please contact the Hand Filer Balance Wheel for any needed changes to Safety Plan. Safety plan has been provided to interdepartmental care team. Patient will be transported by master deputy sheriff court security at time of discharge.
[2024-12-29] MEDS: Methadone 10 MG TAB 125 MG PO (11:47)
[2024-12-29] MEDS: cloNIDine 0.1 MG TAB PO ×2 (11:48→19:43)
[2024-12-29] MEDS: Nicotine 21 MG/24 HR PATCH TD (11:49)
[2024-12-29 12:30] VITALS: BP 92/62; PULSE 67; RESP 16; TEMP 36.9; O2SAT 93
[2024-12-29] MEDS: hydrOXYzine HCL 25 MG TAB 50 MG PO ×2 (12:58→19:43)
[2024-12-29] MEDS: OLANZapine 5 MG TAB PO ×2 (14:52→20:59)
--- NOTE | 2024-12-29 15:46 | PDOC.MHPN2 ---
Date of service: 12/29/24 Time of Service: 15:46 Mental Health Emergency Note Release [facility] release signed:: Yes Reason for Visit This clinician assessed the client in June 2024 at which time she was also being held involuntarily. The client is known to [facility] and is currently receiving services through the adult outpatient program, however since her discharge from [facility] in July of 2024 she has only attended three appointments and has cancelled or no showed all of the other ones. In October of 2022 the client was discharged from [facility]?s [facility]PER[facility] program due to lack of engagement with services. Per chart reviews the client is diagnosed with bipolar disorder and ADHD. Per clients chart the client has had many past hospitalizations and stays with rehab at [facility] and [facility]. In the last 2 weeks has the pt presented for ES prior to today?: Unknown Client Information Client is: Substance use Well Housed: Yes Non Suicidal Self Injury Current: No History: No Safety Risk/Harm to Self or Others Current Ideation to Harm Self or Others: Yes to self. (Denied however, has been making statements. ) Intent: no, has no intent. Plan: no.does not have a plan. and to others. (Denied however, has been making statements. ) Intent: No Plan: no, does not have a plan. Risk: Does risk to harm exist?: yes. Access to means: Yes. Types of Means: Medication. Details: She denied however. . Counseling provided: Yes Risk: High Risk Duty to warn indicated: No Asssessment/Mental Status Appearance: Disheveled Attitude: Cooperative, Demanding and Hostile Behavior: Posturing, Agitated and Repetitive movements Speech: Normal, Loud and Slurred Affect: Flat and Cogruent with mood Mood: Anxious, Irritable and Angry Thought process: Loose associations Hallucinations: No Delusions: No Attention: Unremarkable Perception: Derealization Orientation: Disoriented in Situation Memory: Impaired in: Recent Insight: Poor Judgement: Poor Neurovegetative Symptoms Sleep: Increase Appetitie: Increase Substance Use: Drug Issues: Dependence Do you use nicotine?: Yes Have you used substances in the last 7 days?: yes, Tested positive for Cocaine Additional Issues: Assaultive/Threatening Behavior: No Medical Concerns: No Client engaged in active self harm w/weapon: No Threatening to run away: No Child reported abuse/neglect: No Voluntarily presenting for services: No Domestic violence is a concern: No Extreme Psychosis or extreme behavior is present: Yes Impression Based on the client?s poor judgment, decision-making skills and behavior over the last two months and more recently the last 24 hours, there is a significant risk to both the client and community. 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 Additionally, she has not followed through with after care following her last hospitalization and has been without medications for an unknown time. Given these factors, it is the clinician's professional opinion that the client requires short-term, immediate, and intensive treatment in a secure environment. Such treatment can manage her symptoms and ensure the safety of both herself and the community until she can safely return to the community. Hospitalization is necessary, as adequate treatment cannot be provided in the community due to the severity of her condition and potential risks. Plan/Disposition Recommended Disposition: Hospitalization facilities contacted. Plan: The client will wait from [facility] pending her second certification. If passed the client will need twice daily assessments. Person reported agreement to plan: No Reports/communication Outcome discussed with: ED/Personnel
[2024-12-29] MEDS: QUEtiapine 100 MG TAB PO (19:43)
[2024-12-29] MEDS: LORazepam 1 MG TAB 2 MG PO (20:58)
--- NOTE | 2024-12-29 21:49 | MHPN_ITS ---
Date of service: 12/29/24 Time of Service: 18:30 Mental Health Emergency Note Release [facility] release signed:: No Reason for Visit In the last 2 weeks has the pt presented for ES prior to today?: No Client Information Client is: Adult Outpatient Non Suicidal Self Injury Current: No History: No Safety Risk/Harm to Self or Others Current Ideation to Harm Self or Others: Yes to self. Intent: yes, has intent. Plan: no.does not have a plan. and to others. Intent: yes, has intent to harm others Plan: no, does not have a plan. Risk: Does risk to harm exist?: yes. Risk: High Risk Duty to warn indicated: No Asssessment/Mental Status Appearance: Disheveled and Eccentric Attitude: Cooperative Behavior: Poor impulse control and Agitated Speech: Pressured and Loud Affect: Expansive and Cogruent with mood Mood: Expansive, Stressed, Anxious and Angry Thought process: Racing and Tangential Hallucinations: No evidence Delusions: yes, Caodaism, Persectory/Paranoid and Bizarre Attention: Unremarkable Perception: Derealization Orientation: Fully orientated Memory: Intact Insight: Fair Judgement: Poor Neurovegetative Symptoms Sleep: No change Appetitie: No change Interests: No change Energy: No change Libido: No change Substance Use: Drug Issues: Dependence and Drug screen result Additional Issues: Assaultive/Threatening Behavior: Yes Medical Concerns: No Client engaged in active self harm w/weapon: No Threatening to run away: No Child reported abuse/neglect: No Voluntarily presenting for services: No Domestic violence is a concern: No Extreme Psychosis or extreme behavior is present: Yes Impression The client presented as disorganized and tangential during the session, which limited effective communication. She exhibited visible signs of substance use while simultaneously demonstrating denial about its impact on her condition. The client denied assaultive and threatening behavior, indicating a significant level of distress. She showed clear signs of decompensation and expressed suicidal thoughts by stating she 'may as well be . ' Client's isolation is evident, as she struggles with impaired judgment and an inability to meaningfully engage in outpatient care. Paranoid tendencies and impaired reality testing further complicates her situation, highlighting the urgent need for inpatient mental health treatment. Despite this necessity, the client refused to consider voluntary options for assistance at this time. Client certified to be involuntarily hospitalized for inpatient mental health treatment. Plan/Disposition Recommended Disposition: Hospitalization facilities contacted. Person reported agreement to plan: No Reports/communication Outcome discussed with: ED/Personnel
--- NOTE | 2024-12-29 22:33 | ED.PROG_ITS ---
Date of service: 12/29/24 Time of Service: 22:33 Medical Decision Making Patient was signed out to me pending second certification being completed. She had presented to ED with agitation and bizarre behavior. Second certification has been completed and upheld. Patient becoming agitated once again and will r eceive her nighttime medications as well as a dose of Ativan which she is requesting. She will be held in ED until placement can be found. Discharge Plan Discharge Details Chief Complaint: PsychEval Clinical Impression: Suicidal ideations, Substance use disorder Primary Care Provider: Diana Rose ED Provider: Antolin Anderson Belcamp Lizzeth and New Rx's Prescriptions: No Action phenazopyridine [Pyridium] 200 mg tablet 200 mg PO TID PRN (Reason: pain) Qty: 6 0RF budesonide-formoterol [Symbicort] 160-4.5 mcg/actuation HFA aerosol inhaler 2 puff inhalation BID Qty: 3 3RF Patient Comments: states unable to get clonidine HCl 0.1 mg tablet 0.1 mg PO BID lithium carbonate 300 mg tablet extended release 300 mg PO QHS Rx Instructions: With 450 mg to total 750 mg lithium carbonate 450 mg tablet extended release 450 mg PO QHS Patient Comments: Rx Instructions: With 300 mg to total 750 mg quetiapine [Seroquel] 50 mg tablet 50 mg PO QHS trazodone 100 mg tablet 100 mg PO QHS cyclobenzaprine 10 mg tablet 10 mg PO Q8H PRN dexmethylphenidate [Focalin XR] 20 mg capsule,ER biphasic 50-50 20 mg PO QAM simethicone 80 mg tablet,chewable 80 mg PO Q8H PRN nicotine 21 mg/24 hr patch 24 hour 1 patch transdermal DAILY nicotine (polacrilex) 4 mg lozenge 4 mg buccal Q2H PRN Rx Instructions: Not to exceed 12 doses in 24 hours olanzapine 10 mg tablet 10 mg PO QHS olanzapine 5 mg tablet 5 mg PO Q6H PRN quetiapine 100 mg tablet 100 mg PO QHS sennosides-docusate sodium [Senna-S] 8.6-50 mg tablet 2 tab-cap PO DAILY PRN methadone 10 mg tablet 120 mg PO DAILY Patient Comments: 120 per pt (DME) Space Chamber Plus 1 EACH spacer Miscellaneous BID Qty: 1 Rx Instructions: for use with Symbicort MDI albuterol sulfate [Proventil HFA] 90 mcg/actuation HFA aerosol inhaler 1 - 2 puff IH .Q4-6H PRN (Reason: shortness of breath or wheezing) Qty: 1 6RF Patient Comments: states unable to get Rx Instructions: Dispense with a spacer gabapentin 800 mg tablet 800 mg PO TID Qty: 90 6RF hydroxyzine HCl 50 mg tablet 50 mg PO TID prazosin 2 mg capsule 2 mg PO QHS lidocaine 5 % adhesive patch,medicated 1 patch topical DAILY Qty: 15 0RF Patient Comments: currently has a patch on right lower back - unsure when applied Rx Instructions: leave on most painful area for up to 12 hrs
--- NOTE | 2024-12-30 06:10 | W.EDPROG ---
Date of service: 12/30/24 Time of Service: 06:10 Medical Decision Making Patient remained stable throughout the night. No interventions were needed. Patient has had second certification completed, pending placement. Quality:[facility] Health Related Social Needs: No Data to Display Discharge Plan Discharge Details Chief Complaint: PsychEval Clinical Impression: Suicidal ideations, Substance use disorder Primary Care Provider: Diana Rose ED Provider: Skyler Arevalo Home Meds and New Rx's Prescriptions: No Action phenazopyridine [Pyridium] 200 mg tablet 200 mg PO TID PRN (Reason: pain) Qty: 6 0RF budesonide-formoterol [Symbicort] 160-4.5 mcg/actuation HFA aerosol inhaler 2 puff inhalation BID Qty: 3 3RF Patient Comments: states unable to get clonidine HCl 0.1 mg tablet 0.1 mg PO BID lithium carbonate 300 mg tablet extended release 300 mg PO QHS Rx Instructions: With 450 mg to total 750 mg lithium carbonate 450 mg tablet extended release 450 mg PO QHS Patient Comments: Rx Instructions: With 300 mg to total 750 mg quetiapine [Seroquel] 50 mg tablet 50 mg PO QHS trazodone 100 mg tablet 100 mg PO QHS cyclobenzaprine 10 mg tablet 10 mg PO Q8H PRN dexmethylphenidate [Focalin XR] 20 mg capsule,ER biphasic 50-50 20 mg PO QAM simethicone 80 mg tablet,chewable 80 mg PO Q8H PRN nicotine 21 mg/24 hr patch 24 hour 1 patch transdermal DAILY nicotine (polacrilex) 4 mg lozenge 4 mg buccal Q2H PRN Rx Instructions: Not to exceed 12 doses in 24 hours olanzapine 10 mg tablet 10 mg PO QHS olanzapine 5 mg tablet 5 mg PO Q6H PRN quetiapine 100 mg tablet 100 mg PO QHS sennosides-docusate sodium [Senna-S] 8.6-50 mg tablet 2 tab-cap PO DAILY PRN methadone 10 mg tablet 120 mg PO DAILY Patient Comments: 120 per pt (DME) Space Chamber Plus 1 EACH spacer Miscellaneous BID Qty: 1 Rx Instructions: for use with Symbicort MDI albuterol sulfate [Proventil HFA] 90 mcg/actuation HFA aerosol inhaler 1 - 2 puff IH .Q4-6H PRN (Reason: shortness of breath or wheezing) Qty: 1 6RF Patient Comments: states unable to get Rx Instructions: Dispense with a spacer gabapentin 800 mg tablet 800 mg PO TID Qty: 90 6RF hydroxyzine HCl 50 mg tablet 50 mg PO TID prazosin 2 mg capsule 2 mg PO QHS lidocaine 5 % adhesive patch,medicated 1 patch topical DAILY Qty: 15 0RF Patient Comments: currently has a patch on right lower back - unsure when applied Rx Instructions: leave on most painful area for up to 12 hrs
--- NOTE | 2024-12-30 08:00 | W.EDPROG ---
Date of service: 12/30/24 Time of Service: 08:00 Medical Decision Making I received signout on this 44-year-old female in the emergency department in setting of suicidal ideation. She is currently on an EE. Will update documentation as clinically warranted and signed patient out to the evening provider. Home medications and regular diet on safety tray are ordered. 10:47 AM I spoke with Mary Jane Jamarcus who graciously agreed to accept the patient to the [facility]. 2:13 PM I signed transfer paperwork to have this patient transferred to the [facility] via Assistant Foreman. Quality:[facility] Health Related Social Needs: No Data to Display Discharge Plan Discharge Details Chief Complaint: PsychEval Clinical Impression: Suicidal ideations, Substance use disorder Primary Care Provider: Diana Rose ED Provider: Cristopher Sauceda Home Meds and New Rx's Prescriptions: No Action phenazopyridine [Pyridium] 200 mg tablet 200 mg PO TID PRN (Reason: pain) Qty: 6 0RF budesonide-formoterol [Symbicort] 160-4.5 mcg/actuation HFA aerosol inhaler 2 puff inhalation BID Qty: 3 3RF Patient Comments: states unable to get clonidine HCl 0.1 mg tablet 0.1 mg PO BID lithium carbonate 300 mg tablet extended release 300 mg PO QHS Rx Instructions: With 450 mg to total 750 mg lithium carbonate 450 mg tablet extended release 450 mg PO QHS Patient Comments: Rx Instructions: With 300 mg to total 750 mg quetiapine [Seroquel] 50 mg tablet 50 mg PO QHS trazodone 100 mg tablet 100 mg PO QHS cyclobenzaprine 10 mg tablet 10 mg PO Q8H PRN dexmethylphenidate [Focalin XR] 20 mg capsule,ER biphasic 50-50 20 mg PO QAM simethicone 80 mg tablet,chewable 80 mg PO Q8H PRN nicotine 21 mg/24 hr patch 24 hour 1 patch transdermal DAILY nicotine (polacrilex) 4 mg lozenge 4 mg buccal Q2H PRN Rx Instructions: Not to exceed 12 doses in 24 hours olanzapine 10 mg tablet 10 mg PO QHS olanzapine 5 mg tablet 5 mg PO Q6H PRN quetiapine 100 mg tablet 100 mg PO QHS sennosides-docusate sodium [Senna-S] 8.6-50 mg tablet 2 tab-cap PO DAILY PRN methadone 10 mg tablet 120 mg PO DAILY Patient Comments: 120 per pt (DME) Space Chamber Plus 1 EACH spacer Miscellaneous BID Qty: 1 Rx Instructions: for use with Symbicort MDI albuterol sulfate [Proventil HFA] 90 mcg/actuation HFA aerosol inhaler 1 - 2 puff IH .Q4-6H PRN (Reason: shortness of breath or wheezing) Qty: 1 6RF Patient Comments: states unable to get Rx Instructions: Dispense with a spacer gabapentin 800 mg tablet 800 mg PO TID Qty: 90 6RF hydroxyzine HCl 50 mg tablet 50 mg PO TID prazosin 2 mg capsule 2 mg PO QHS lidocaine 5 % adhesive patch,medicated 1 patch topical DAILY Qty: 15 0RF Patient Comments: currently has a patch on right lower back - unsure when applied Rx Instructions: leave on most painful area for up to 12 hrs
--- NOTE | 2024-12-30 09:42 | NUR.NOTE ---
Nursing Note: called [facility], spoke with nurse Nguyen. Verified patients methadone dose is 125mg.
[2024-12-30] MEDS: cloNIDine 0.1 MG TAB PO (10:02)
[2024-12-30] MEDS: Methadone Liquid 10 MG/ML 125 MG PO (10:02)
[2024-12-30] MEDS: Nicotine 21 MG/24 HR PATCH TD (10:02)
[2024-12-30 10:11] VITALS: BP 107/81; PULSE 98; RESP 16; TEMP 37; O2SAT 96
[2024-12-30] MEDS: OLANZapine 5 MG TAB PO (12:09)
[2024-12-30] MEDS: LORazepam 1 MG TAB 2 MG PO (12:35)
[2024-12-30] MEDS: Nicotine 4 MG LOZG BC (13:26)
--- NOTE | 2024-12-30 15:31 | CMPROGNOTE_ITS ---
Date of service: 12/30/24 Time of Service: 15:32 Care Management Progress Note Progress Note Text Progress Note Text: CM reached out to [facility] this morning, who reported that [facility] accepted Mary Jane for inpatient psychiatric admission for today. [facility] coordinated transport for Mary Jane via [employer], as she is involuntary. Social Determinants of Health Screening Will the Patient Participate in the Screening?: Declined to provide
== END 2024-12-30 13:41 ==
PROVIDERS: Nurse Practitioner Family; Emergency Provider Emergency Medicine; PCP Nurse Practitioner Family
DX: R45.851 Suicidal ideations (principal); F19.90 Other psychoactive substance use, unspecified, uncomplicated
CPT/HCPCS: 99285 ×3; 81025; 36415; 00123; 80053; 80307; 80178; 80320; 80329; 81003; 81015; 84443; 85025

== ENCOUNTER 2025-01-29 23:48 | Emergency (ER) | payer MEDICARE, MEDICAID, SELFPAY ==
[2025-01-29 23:57] VITALS: PULSE 123; RESP 12; O2SAT 96
[2025-01-30] VITALS (16 sets, daily range): BP systolic 106–136; BP diastolic 68–86; PULSE 76–117; RESP 12–30; O2SAT 95–99
[2025-01-30] MEDS: Ketamine 500 MG/5 ML VIAL 250 MG IM
--- NOTE | 2025-01-30 | RT.EKG_ITS ---
APPROVED REPORT Exam: Resting ECG Reason for Exam: trauma/AMS Patient Location: E HR:111 bpm ECG Measurements Heart Rate 111 AXIS ID 165 P 69 QRSd 86 QRS -38 QT 344 T 66 QTc 468 Conclusion Sinus tachycardia...rate> 99 Probable left atrial enlargement...P >50mS, <-0.10mV V1 Left axis deviation...QRS axis (-30,-90) Normal Interval No Acute ST Changes There are no significant changes compared to prior EKG performed on 10/17/2024 at 19:31.
--- NOTE | 2025-01-30 | DI.RAD_ITS ---
Exam(s) XR CHEST 1V IN DI DEPT EXAM: XR CHEST 1V IN DI DEPT CLINICAL HISTORY: trauma/AMS. TECHNIQUE: 2D digital imaging was performed. COMPARISON: CR XR CHEST 2V PA LATERAL from 12/12/2022 FINDINGS: Single AP portable view. Heart size is upper normal. The mediastinum is not widened. Lungs are clear. No infiltrates nor obvious pleural effusions. No obvious fractures evident. IMPRESSION: No acute pulmonary findings on this single AP portable view of the chest. DATA REPOSITORY: RADIATION DOSE DELIVERED:
--- NOTE | 2025-01-30 | DI.CT_ITS ---
Exam(s) CT HEAD CERVICAL SPINE WO EXAM: CT HEAD CERVICAL SPINE WO CLINICAL HISTORY: Trauma/AMS. TECHNIQUE: Imaging Protocol: Axial computed tomography images with coronal and sagittal reformatted images were created and reviewed COMPARISON: CT CT HEAD CERVICAL SPINE WO from 12/18/2023 FINDINGS: BRAIN: There are no skull fractures nor fluid in the visualized paranasal sinuses. There is no evidence of intracranial hemorrhage, mass effect, or shift of midline structures. There are no extra-axial fluid collections. The ventricles are not enlarged or shifted and there is no blood within the ventricular system nor within the basal cisterns. CERVICAL SPINE: There is some motion artifact. There is no evidence of obvious fracture or significant listhesis. Disc spaces are relatively well preserved.. No significant prevertebral soft tissue swelling. 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 There is mild facet arthropathy. There is no significant facet joint malalignment. No significant osseous lesions evident. IMPRESSION: No acute intracranial findings on this noninfused CT scan of the brain. No evidence of cervical spine fracture, malalignment, nor acute compromise of the cervical spinal canal. 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 Preliminary virtual Radiology report was reviewed. RADIATION DOSE DELIVERED: 1,300.49mGy.cm Total DLP DATA REPOSITORY: All CT scans at this facility are submitted to the National Radiology Data Registry (NRDR) Dose Index Registry (DIR) with the [employer] ([employer]). RADIATION OPTIMIZATION: All CT scans at this facility use at least one of these dose optimization techniques: automated exposure control; mA and/or kV adjustment per patient size (includes targeted exams where dose is matched to clinical indication); or iterative reconstruction.
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
[2025-01-30 00:13] LABS: HCT 39.9 % (36.0-46.0); HGB 13.5 g/dL (11.2-15.7); MCH 29.7 pg (27.0-33.0); MCHC 33.8 % (32.0-36.0); MCV 88 fL (80-95); MPV 9.1 fL (8.0-11.0); Platelet Count 242 10^3/uL (130-400); RBC 4.54 10^6/uL (3.93-5.22); RDW 13.4 % (11.7-14.6); RDW-SD 43.1 fL; WBC 8.42 10^3/uL (4.4-10.8)
[2025-01-30 00:26] LABS: HCG Qual (Serum) Negative
[2025-01-30 00:28] LABS: ALT 32 U/L (14-59); AST 26 U/L (15-37); Albumin 4.0 g/dL (3.4-5.0); Alkaline Phosphatase 61 U/L (46-116); Anion Gap 9.9 mmol/L (3-11); BUN 9 mg/dL (7-18); Bilirubin, Total 0.3 mg/dL (0.2-1.0); CO2 28.1 mmol/L (21.0-32.0); Calcium 8.2 mg/dL (8.5-10.1); Chloride 109 mmol/L (98-107); Estimated GFR 114.86 (mL/min/1.73m2); Glucose 103 mg/dL (74-106); Magnesium 2.0 mg/dL (1.8-2.4); Potassium 4.0 mmol/L (3.5-5.1); Sodium 147 mmol/L (136-145); Total Protein 7.9 g/dL (6.4-8.2)
--- NOTE | 2025-01-30 00:38 | DI.VRAD_ITS ---
PROCEDURE INFORMATION: Exam: CT Head Without Contrast Exam date and time: 01/30/2025 12:05 AM Age: 44 years old Clinical indication: Injury or trauma; Other: Patient fell down stairs; Blunt trauma (contusions or hematomas); Consciousness not specified; Injury date: 01/29/25; Ams/trauma TECHNIQUE: Imaging protocol: Computed tomography of the head without contrast. Radiation optimization: All CT scans at this facility use at least one of these dose optimization techniques: automated exposure control; mA and/or kV adjustment per patient size (includes targeted exams where dose is matched to clinical indication); or iterative reconstruction. COMPARISON: CT HEAD CERVICAL SPINE WO 12/18/2023 11:59 PM FINDINGS: Brain: Cerebral sulci show bilateral symmetry with no supratentorial mass or mass effect detected. Brainstem and cerebellum are unremarkable. There is no evidence of acute transcortical infarction or recent intracranial hemorrhage. Cerebral ventricles: Ventricular and cisternal spaces are normal in size and configuration and there is no midline shift or hydrocephalus seen. Paranasal sinuses: Grossly clear throughout. Mastoid air cells: Grossly clear bilaterally. Bones: Bony calvarium and skull base are intact and no acute fractures are detected. Soft tissues: Suspected ecchymosis/edema involving the skin and subcutaneous soft tissues in the region of the central forehead and nasal bridge with no subjacent fractures detected. IMPRESSION: 1. No evidence of acute transcortical infarction, recent intracranial hemorrhage or hydrocephalus. No acute intracranial process is detected. 2. Suspected ecchymosis/edema involving the skin and subcutaneous soft tissues in the region of the central forehead and nasal bridge with no subjacent fractures detected. Correlation with clinical data is necessary. PROCEDURE INFORMATION: Exam: CT Cervical Spine Without Contrast Exam date and time: 01/30/2025 12:05 AM Age: 44 years old Clinical indication: Injury or trauma; Other: Patient fell down stairs; Blunt trauma (contusions or hematomas); Consciousness not specified; Injury date: 01/29/25; Ams/trauma TECHNIQUE: Imaging protocol: Computed tomography of the cervical spine without contrast. Radiation optimization: All CT scans at this facility use at least one of these dose optimization techniques: automated exposure control; mA and/or kV adjustment per patient size (includes targeted exams where dose is matched to clinical indication); or iterative reconstruction. COMPARISON: CT HEAD CERVICAL SPINE WO 12/18/2023 11:59 PM FINDINGS: Bones: There is arthrosis involving the anterior atlantodental interval with loss of joint space and marginal osteophyte formation and the odontoid process is grossly intact. 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 There is gross preservation of vertebral body height throughout the remainder of the cervical levels with no acute vertebral body fractures or significant subluxations detected. Changes of facet arthropathy are most advanced on the left at C3-C4 with no acute fractures detected involving the posterior elements of the cervical spine. Discs/Spinal canal/Neural foramina: No severe canal stenosis or cord compression is detected at the cervical levels. Uncovertebral and facet changes produce multilevel foraminal distortions/narrowings. Lungs: No pneumothorax or consolidation detected at the lung apices. Soft tissues: Unremarkable. IMPRESSION: Cervical spondylosis as above with no acute cervical fractures detected. Dictated and Authenticated by: Tim Rosas MD. Orderin Justin Dangelo MD
--- NOTE | 2025-01-30 00:50 | DI.VRAD_ITS ---
PROCEDURE INFORMATION: Exam: XR Chest Exam date and time: 01/30/2025 00:15 Age: 44 years old Clinical indication: Injury or trauma; Other: Patient fell down stairs; Blunt trauma (contusions or hematomas); Injury date: 01/29/25; Ams/trauma TECHNIQUE: Imaging protocol: Radiologic exam of the chest. Views: 1 view. COMPARISON: CT CHEST/ABD/PEL W 12/19/2023 00:03 FINDINGS: Lungs: No consolidation. Pleural spaces: No pleural effusion. No pneumothorax. Heart/Mediastinum: No cardiomegaly. Bones/joints: No acute fracture. IMPRESSION: Negative portable chest. Dictated and Authenticated by: Krista Gray MD. Orderin Justin Dangelo MD
[2025-01-30] MEDS: Normal Saline 1,000 ML 1000 ML IV (01:44)
--- NOTE | 2025-01-30 03:45 | NUR.NOTE ---
PT is screaming is refusing to let us assess her Nursing Note:
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
--- NOTE | 2025-01-30 04:00 | RT.EKG_ITS ---
APPROVED REPORT Exam: Resting ECG Reason for Exam: chest pain Patient Location: E HR:105 bpm ECG Measurements Heart Rate 105 AXIS NM 173 P 65 QRSd 88 QRS -38 QT 337 T 64 QTc 444 Conclusion Sinus tachycardia...rate> 99 Probable left atrial enlargement...P >50mS, <-0.10mV V1 Left axis deviation...QRS axis (-30,-90) Low voltage, extremity leads...all extremity leads <0.5mV There are no significant changes compared to prior EKG performed on 01/30/2025 at 00:17.
== END 2025-01-30 04:12 | disposition home or self-care (01) ==
PROVIDERS: Emergency Provider Emergency Medicine; PCP Nurse Practitioner Family
DX: S01.81XA Laceration without foreign body of other part of head, initial encounter (principal); F10.120 Alcohol abuse with intoxication, uncomplicated; R07.9 Chest pain, unspecified; R45.1 Restlessness and agitation; R00.0 Tachycardia, unspecified; J45.909 Unspecified asthma, uncomplicated; Y90.8 Blood alcohol level of 240 mg/100 ml or more; W10.8XXA Fall (on) (from) other stairs and steps, initial encounter; Y93.89 Activity, other specified
CPT/HCPCS: 80053; 82962; 85027; 93005; 99285; 70450; 71045; 72125; 80320; 83735; 84703; 93010; 99284; J2004

== ENCOUNTER 2025-01-30 10:32 | Emergency (ER) | payer MEDICARE, MEDICAID, SELFPAY ==
--- NOTE | 2025-01-30 10:30 | RT.EKG_ITS ---
APPROVED REPORT Exam: Resting ECG Reason for Exam: chest pain Patient Location: E HR:98 bpm ECG Measurements Heart Rate 98 AXIS IA 160 P 73 QRSd 87 QRS -49 QT 341 T 71 QTc 436 Conclusion Sinus rhythm, rate 98 No interval abnormalities No STEMI Q wave lead III, aVF, unchanged from priors
[2025-01-30 10:36] VITALS: BP 127/82; PULSE 111; RESP 20; TEMP 37.3; O2SAT 98
--- NOTE | 2025-01-30 10:45 | DI.CT_ITS ---
Exam(s) CT CHEST/ABD/PEL W EXAM: CT CHEST/ABD/PEL W CLINICAL HISTORY: fell down stairs, L. rib and LUQ pain. TECHNIQUE: Imaging Protocol: Axial computed tomography images with coronal and sagittal reformatted images were created and reviewed CONTRAST MATERIAL: Intravenous: Omnipaque 350 Contrast volume:100 ml Oral: None COMPARISON: CT CT CHEST/ABD/PEL W from 12/19/2023 FINDINGS: CHEST: It is noted that the lung apices are not included in the field of view of this study. LUNGS: There is a minimally displaced fracture of the lateral aspect of the left 5th rib and there is a tiny ipsilateral pneumothorax, approximately 5 percent. There is no pleural effusion. There is subpleural mild increased markings on the left side which is possibly a small area of lung contusion versus incidental nodule measuring approximately 7 mm. There are no obvious right rib fractures nor pleural effusion. Some mild infiltrate is noted in the right middle lobe which was evident on prior CT scan of 12/19/2023. MEDIASTINUM: There is no evidence of sternal fracture nor mediastinal hematoma. No hilar nor mediastinal adenopathy. No axillary adenopathy. CARDIAC: Heart size is normal. There is no pericardial effusion.Thoracic aorta appears unremarkable. Normal size. No dissection. OSSEOUS: Left 5th rib fracture. No other fractures evident in the rib cages and thoracic vertebral bodies. Unchanged loss height the anterior aspect of L2 vertebral bodies again noted as well as limbus vertebra at this level. Other lumbar vertebrae are unremarkable.. ABDOMEN: There is no ascites. LIVER: Intact. No lacerations. No lesions. GALLBLADDER/BILIARY: No obvious gallbladder pathology. CBD is not dilated. PANCREAS: No evidence of pancreatic mass nor dilatation of the pancreatic duct. SPLEEN: Intact. No lacerations nor lesions. Upper normal size. The splenic and portal veins are patent. ADRENALS: There are no significant adrenal masses. KIDNEYS: Unremarkable. No lacerations nor subcapsular hematomas. No significant focal findings in the kidneys and no hydronephrosis.. No cysts evident. ABDOMINAL AORTA: Intact-unremarkable. Iliac arteries also intact-unremarkable. LYMPH NODES: There is no retroperitoneal nor paraaortic adenopathy. ABDOMINAL WALL: No evidence of significant anterior abdominal wall nor inguinal hernia. GI: No evidence of mesenteric nor bowel wall hematoma. PELVIS: LYMPH NODES: There is no intrapelvic nor inguinal adenopathy. GI: No evidence of appendicitis.No evidence of sigmoid diverticulitis. URINARY BLADDER: No calculi nor masses evident. Not significantly distended. REPRODUCTIVE: There is an IUD again noted in a retroverted uterus, similar to previous. The IUD appears to be in satisfactory position within the endometrial canal. There are no abnormal adnexal masses. No free fluid in the pelvis. OSSEOUS: No evidence of hip nor acute pelvic fractures. Sacroiliac joints unremarkable. IMPRESSION: 1. There is a minimally displaced fracture of the lateral aspect of the left 5th rib. 2. There is a small 5 percent ipsilateral left pneumothorax. No pleural effusions. 3. Small 7 millimeters subpleural density in the left lung is possibly related to the trauma or incidental nodule. This was not evident on prior CT scan of 12/19/2023. 4. No acute findings in the abdomen and pelvis. Preliminary virtual Radiology report was reviewed. RADIATION DOSE DELIVERED: 189.23mGy.cm Total DLP DATA REPOSITORY: All CT scans at this facility are submitted to the National Radiology Data Registry (NRDR) Dose Index Registry (DIR) with the [employer] (ACR). RADIATION OPTIMIZATION: All CT scans at this facility use at least one of these dose optimization techniques: automated exposure control; mA and/or kV adjustment per patient size (includes targeted exams where dose is matched to clinical indication); or iterative reconstruction.
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
[2025-01-30] MEDS: Acetaminophen 500 MG TAB 1000 MG PO (11:00)
[2025-01-30] MEDS: Ibuprofen 600 MG TAB PO (11:00)
[2025-01-30] MEDS: Lidocaine 5% Patch 1 PATCH TP (11:00)
[2025-01-30] MEDS: Normal Saline - Diluent 50 ML VIAL IJ (11:10)
--- NOTE | 2025-01-30 11:27 | NUR.NOTE ---
Nursing Note: Methadone dose verified w/Elzbieta @ [facility]. Pt takes 125mg daily. updated
[2025-01-30] MEDS: Methadone Liquid 10 MG/ML 125 MG PO (11:46)
--- NOTE | 2025-01-30 12:02 | DI.VRAD_ITS ---
Addendum created by Digna Morse MD on 01/30/2025 12:02:06 PM EDT: Findings were discussed with Viviana Quintero on 01/30/2025 12:01 PM EDT Initial report created on 01/30/2025 12:01:30 PM EDT: PROCEDURE INFORMATION: Exam: CT Chest With Contrast; Diagnostic Exam date and time: 01/30/2025 11:23 AM Age: 44 years old Clinical indication: Other: Fell down stairs, L. Rib and luq pain TECHNIQUE: Imaging protocol: Diagnostic computed tomography of the chest with contrast. 3D rendering (Not supervised by radiologist): MIP and/or 3D reconstructed images were created by the technologist. Contrast material: OMNIPAQUE 350; Contrast volume: 75 ml; Contrast route: INTRAVENOUS (IV); COMPARISON: CT CHEST/ABD/PEL W 12/19/2023 12:03 AM FINDINGS: Lungs: Mild atelectasis right middle lobe. Pleural spaces: Tiny (5%) left pneumothorax. Heart: Unremarkable. No cardiomegaly. No pericardial effusion. Lymph nodes: Unremarkable. No enlarged lymph nodes. Vasculature: Unremarkable. No aortic aneurysm. Bones/joints: Minimally displaced fracture left rib 5 laterally. Soft tissues: Unremarkable. IMPRESSION: 1. Minimally displaced fracture left rib 5 laterally. 2. Tiny (5%) left pneumothorax. PROCEDURE INFORMATION: Exam: CT Abdomen And Pelvis With Contrast Exam date and time: 01/30/2025 11:23 AM Age: 44 years old Clinical indication: Other: Fell down stairs, L. Rib and luq pain TECHNIQUE: Imaging protocol: Computed tomography of the abdomen and pelvis with contrast. 3D rendering (Not supervised by radiologist): MIP and/or 3D reconstructed images were created by the technologist. COMPARISON: No relevant prior studies available. FINDINGS: Liver: Normal. No mass. Gallbladder and biliary ducts: Normal. No calcified stones. No ductal dilation. Pancreas: Normal. No ductal dilation. Spleen: Normal. No splenomegaly. Adrenal glands: Normal. No mass. Kidneys and ureters: Normal. No hydronephrosis. Stomach and bowel: Unremarkable. No obstruction. No mucosal thickening. Appendix: No evidence of appendicitis. Intraperitoneal space: Unremarkable. No free air. No significant fluid collection. Vasculature: Unremarkable. No abdominal aortic aneurysm. Lymph nodes: Unremarkable. No enlarged lymph nodes. Urinary bladder: Unremarkable as visualized. Reproductive: IUD in the uterus. Bones/joints: Chronic degenerative changes superior endplate L2. No acute fracture. Soft tissues: Unremarkable. IMPRESSION: No acute findings. Dictated and Authenticated by: Digna Morse MD. Order[facility] Michelle MD
[2025-01-30 12:36] VITALS: BP 150/87; PULSE 112; RESP 20; O2SAT 98
--- NOTE | 2025-01-30 13:13 | DI.RAD_ITS ---
Exam(s) XR CHEST 2V PA LATERAL EXAM: XR CHEST 2V PA LATERAL CLINICAL HISTORY: Eval L. PNX. TECHNIQUE: 2D digital imaging was performed. COMPARISON: No exams were available for comparison FINDINGS: 2 views: Heart size is normal. The mediastinum is not widened. Lungs are clear. No infiltrates nor pleural effusions. There is no evidence of pneumothorax. No obvious fractures. IMPRESSION: No acute pulmonary findings.No obvious pneumothorax. DATA REPOSITORY: RADIATION DOSE DELIVERED:
--- NOTE | 2025-01-30 13:21 | DI.VRAD_ITS ---
PROCEDURE INFORMATION: Exam: XR Chest Exam date and time: 01/30/2025 1:13 PM Age: 44 years old Clinical indication: Other: Eval L. Pnx TECHNIQUE: Imaging protocol: Radiologic exam of the chest. Views: 2 views. COMPARISON: CT CHEST/ABD/PEL W 01/30/2025 11:23 AM FINDINGS: Lungs: Unremarkable. No consolidation. Pleural spaces: Tiny left pneumothorax on previous CT not well visualized on current examination. Heart/Mediastinum: Unremarkable. No cardiomegaly. Bones/joints: Known left rib 5 fracture not visualized. IMPRESSION: Tiny left pneumothorax on previous CT not well visualized on current examination. Dictated and Authenticated by: Digna Morse MD. Order[facility] [place] Michelle MD
== END 2025-01-30 13:37 | disposition home or self-care (01) ==
PROVIDERS: Emergency Provider Emergency Medicine; PCP Nurse Practitioner Family
DX: S22.32XA Fracture of one rib, left side, initial encounter for closed fracture (principal); J93.9 Pneumothorax, unspecified; F10.929 Alcohol use, unspecified with intoxication, unspecified; W19.XXXA Unspecified fall, initial encounter; Z79.891 Long term (current) use of opiate analgesic
CPT/HCPCS: 99284; 99285; 74177; 80053; 85027; 93005; 70450; 71045; 71046; 71260; 72125; 80320; 83735; 84703; 93010; J2004

== ENCOUNTER 2025-03-28 17:19 | Emergency (ER) | payer MEDICARE, MEDICAID, SELFPAY ==
[2025-03-28] VITALS (25 sets, daily range): BP systolic 119–164; BP diastolic 83–99; PULSE 78–97; RESP 14–35; TEMP 36.9; O2SAT 93–98
--- NOTE | 2025-03-28 17:15 | DI.CT_ITS ---
Exam(s) CT HEAD CERVICAL SPINE WO EXAM: CT HEAD CERVICAL SPINE WO CLINICAL HISTORY: Trauma. TECHNIQUE: Imaging Protocol: Axial computed tomography images with coronal and sagittal reformatted images were created and reviewed COMPARISON: CT CT HEAD CERVICAL SPINE WO from 12/18/[address] HEAD CERVICAL SPINE WO from 01/30/2025 FINDINGS: CT Head: Ventricles and Extra axial spaces: Normal in size and morphology for the patient's age. Hemorrhage: None. Cerebral parenchyma: Normal. Midline shift: None. Brainstem/Cerebellum: Normal. Calvarium: Normal. Visualized Paranasal sinuses/Mastoids: Clear. Soft Tissues: Unremarkable. CT Cervical Spine: Bones: No acute fracture or subluxation. 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 There are degenerative changes seen throughout the cervical spine. The patient's head appears to be rotated to the left. There is no significant rotation between the base of the skull and the atlas. The patient was unable/unwilling to follow directions. Soft Tissues: Unremarkable. Lung Apices: Clear. IMPRESSION: 1. No acute intracranial process. 2. No acute fracture or subluxation in the cervical spine. 3. If there is continued clinical concern, a repeat cervical spine examination with the patient's head in the neutral position may be obtained. RADIATION DOSE DELIVERED: 1,147.64mGy.cm Total DLP DATA REPOSITORY: All CT scans at this facility are submitted to the National Radiology Data Registry (NRDR) Dose Index Registry (DIR) with the [employer] (ACR). RADIATION OPTIMIZATION: All CT scans at this facility use at least one of these dose optimization techniques: automated exposure control; mA and/or kV adjustment per patient size (includes targeted exams where dose is matched to clinical indication); or iterative reconstruction.
--- NOTE | 2025-03-28 17:30 | RT.EKG_ITS ---
APPROVED REPORT Exam: Resting ECG Reason for Exam: SCreening Patient Location: E HR:74 bpm ECG Measurements Heart Rate 74 AXIS NC 158 P 66 QRSd 92 QRS -4 QT 394 T 60 QTc 436 Conclusion Sinus rhythm...normal P axis, V-rate 60- 99 No STEMI
[2025-03-28] MEDS: Midazolam 2 MG/2 ML VIAL IM (17:40)
[2025-03-28] MEDS: Ketamine 500 MG/10 ML VIAL 245.6 MG IM (18:21)
[2025-03-28 18:38] LABS: Abs Immature Grans 0.02 10^3/uL (0.0-0.06); HCT 42.4 % (36.0-46.0); HGB 13.8 g/dL (11.2-15.7); Immature Grans % 0.3 %; MCH 29.2 pg (27.0-33.0); MCHC 32.5 % (32.0-36.0); MCV 90 fL (80-95); MPV 9.0 fL (8.0-11.0); Platelet Count 260 10^3/uL (130-400); RBC 4.72 10^6/uL (3.93-5.22); RDW 13.0 % (11.7-14.6); RDW-SD 42.9 fL; WBC 7.68 10^3/uL (4.4-10.8)
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
[2025-03-28] MEDS: Diph,Pertuss(Acell),Tet Vac/Pf 0.5 ML SYR IM (18:45)
[2025-03-28 18:48] LABS: Glucose Negative (Negative)
[2025-03-28 18:50] LABS: HCG Qual (Serum) Negative
--- NOTE | 2025-03-28 18:51 | NUR.NOTE ---
Nursing Note:pt currently sedated concern for ongoing harm to self when medication metabolized due to intoxication and aggression. medicated and retried for medical care, suture repair, iv placement, VS monitoring and assessments. revenue officer at bedside pending EE VS arrest .
[2025-03-28 18:59] LABS: ALT 24 U/L (14-59); AST 23 U/L (15-37); Albumin 4.1 g/dL (3.4-5.0); Alkaline Phosphatase 57 U/L (46-116); Anion Gap 10.6 mmol/L (3-11); BUN 14 mg/dL (7-18); Bilirubin, Total 0.4 mg/dL (0.2-1.0); CO2 25.4 mmol/L (21.0-32.0); Calcium 8.1 mg/dL (8.5-10.1); Chloride 106 mmol/L (98-107); Estimated GFR 114.86 (mL/min/1.73m2); Glucose 82 mg/dL (74-106); Magnesium 1.8 mg/dL (1.8-2.4); Potassium 4.2 mmol/L (3.5-5.1); Sodium 142 mmol/L (136-145); Total Protein 7.8 g/dL (6.4-8.2)
[2025-03-28 18:59] LABS: C & S Indicated? No; RBC 0-2 HPF (0-2); WBC 0-2 HPF (0-5)
[2025-03-28 19:03] LABS: Cannabinoids THC Positive (Negative); METHADONE URINE SCREEN Positive (Negative)
--- NOTE | 2025-03-28 20:08 | NUR.NOTE ---
Nursing Note: pt refusing VS monitoring, attempted to rip out iv and needing frequent redirecting. pt stating things like n I hate you and you are a cunt
== END 2025-03-28 20:53 ==
PROVIDERS: Emergency Provider General Practice; PCP Nurse Practitioner Family
DX: S01.81XA Laceration without foreign body of other part of head, initial encounter (principal); F19.959 Other psychoactive substance use, unspecified with psychoactive substance-induced psychotic disorder, unspecified; F10.929 Alcohol use, unspecified with intoxication, unspecified; R45.6 Violent behavior; Z23 Encounter for immunization; Y04.8XXA Assault by other bodily force, initial encounter
CPT/HCPCS: 99284; 99285; 12011; 96372; 90471; 80053; 80307; 90715; 93005; 70450; 72125; 80320; 81003; 81015; 83735; 84703; 85025; 93010; J2250

== ENCOUNTER 2025-04-09 23:06 | Emergency (ER) | payer MEDICARE, MEDICAID, SELFPAY ==
--- NOTE | 2025-04-09 23:00 | RT.EKG_ITS ---
APPROVED REPORT Exam: Resting ECG Reason for Exam: overdose Patient Location: E HR:61 bpm ECG Measurements Heart Rate 61 AXIS MS 164 P 5 QRSd 98 QRS -2 QT 428 T 60 QTc 431 Conclusion Sinus rhythm...normal P axis, V-rate 60- [address] segment or T wave abnormalities to suggest occlusive UT
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
[2025-04-09 23:17] VITALS: BP 97/75; PULSE 65; RESP 16; TEMP 37.2
[2025-04-09 23:30] VITALS: RESP 16
[2025-04-09 23:40] VITALS: PULSE 60; PULSE 61; RESP 13; O2SAT 96
[2025-04-09 23:46] VITALS: BP 117/67; PULSE 60; RESP 14; O2SAT 96
[2025-04-09 23:50] VITALS: PULSE 59; PULSE 60; RESP 13; O2SAT 97
[2025-04-10] VITALS (45 sets, daily range): BP systolic 79–104; BP diastolic 50–65; PULSE 52–70; RESP 8–20; TEMP 37.4; O2SAT 93–99
[2025-04-10] LABS: BE (Venous) 5 mmol/L (-2-3); HCO3 (Venous) 31 mmol/L (23-28); O2 Sat (Venous) 79 %; TCO2 (Venous) 29 mmol/L (24-29); pCO2 (Venous) 57 mmHg (41-51); pO2 (Venous) 43 mmHg
[2025-04-10 00:01] LABS: Abs Immature Grans 0.02 10^3/uL (0.0-0.06); HCT 37.2 % (36.0-46.0); HGB 12.1 g/dL (11.2-15.7); Immature Grans % 0.3 %; MCH 29.7 pg (27.0-33.0); MCHC 32.5 % (32.0-36.0); MCV 91 fL (80-95); MPV 9.0 fL (8.0-11.0); Platelet Count 267 10^3/uL (130-400); RBC 4.08 10^6/uL (3.93-5.22); RDW 13.2 % (11.7-14.6); RDW-SD 44.5 fL; WBC 7.97 10^3/uL (4.4-10.8)
[2025-04-10 00:22] LABS: ALT 20 U/L (14-59); AST 16 U/L (15-37); Albumin 3.7 g/dL (3.4-5.0); Alkaline Phosphatase 60 U/L (46-116); Anion Gap 0.9 mmol/L (3-11); BUN 18 mg/dL (7-18); Bilirubin, Total 0.3 mg/dL (0.2-1.0); CO2 33.1 mmol/L (21.0-32.0); Calcium 8.3 mg/dL (8.5-10.1); Chloride 105 mmol/L (98-107); Estimated GFR 94.28 (mL/min/1.73m2); Glucose 91 mg/dL (74-106); Magnesium 1.8 mg/dL (1.8-2.4); Potassium 4.4 mmol/L (3.5-5.1); Sodium 139 mmol/L (136-145); Total Protein 6.9 g/dL (6.4-8.2)
[2025-04-10 00:39] LABS: Lithium < 0.2 mmol/L (0.6-1.2)
[2025-04-10 00:41] LABS: Salicylate 2.8 mg/dL (<2.8)
[2025-04-10 00:45] LABS: Acetaminophen 2 ug/mL (10-30)
[2025-04-10 00:51] LABS: HCG Qual (Serum) Negative
[2025-04-10] MEDS: Normal Saline 1,000 ML 1000 ML IV (00:59)
--- NOTE | 2025-04-10 03:00 | RT.EKG_ITS ---
APPROVED REPORT Exam: Resting ECG Reason for Exam: overdose Patient Location: E HR:57 bpm ECG Measurements Heart Rate 57 AXIS CA 197 P 20 QRSd 90 QRS 16 QT 461 T 57 QTc 443 Conclusion Sinus bradycardia...rate< 60 Atrial premature complex...SV complex w/ short R-R interval appropriate intervals no ST segment or T wave abnormalities to suggest occlusive [place]
[2025-04-10 03:57] LABS: Acetaminophen 11 ug/mL (10-30); Salicylate < 2.8 mg/dL (<2.8)
--- NOTE | 2025-04-10 11:32 | NUR.NOTE ---
Access chart to see disposition of patient for Poison Control. They will close out the case. Nursing Note:
== END 2025-04-10 04:52 | disposition left against medical advice (07) ==
PROVIDERS: Emergency Provider Student in an Organized Health Care Education/Training Program; PCP Nurse Practitioner Family
DX: T44.3X1A Poisoning by other parasympatholytics [anticholinergics and antimuscarinics] and spasmolytics, accidental (unintentional), initial encounter (principal); F41.9 Anxiety disorder, unspecified; Z53.29 Procedure and treatment not carried out because of patient's decision for other reasons; Z59.811 Housing instability, housed, with risk of homelessness
CPT/HCPCS: 80053; 82805; 93005; 96360; 99284; 80178; 80320; 80329; 83605; 83735; 84703; 85025; 93010

== ENCOUNTER 2025-06-01 14:38 | Emergency (ER) | payer MEDICARE, MEDICAID, SELFPAY ==
[2025-06-01 14:55] VITALS: BP 136/84; PULSE 112; RESP 18; TEMP 36.2; O2SAT 98
--- NOTE | 2025-06-01 15:15 | RT.EKG_ITS ---
APPROVED REPORT Exam: Resting ECG Reason for Exam: dizzy Patient Location: E HR:104 bpm ECG Measurements Heart Rate 104 AXIS [place] 179 P 107 QRSd 90 QRS -51 QT 345 T 64 QTc 455 Conclusion Sinus tachycardia...rate> 99 Inferior infarct, old...Q >35mS, II III aVF Sinus Tachy at 104 Artifact Present Suspect limb lead reversal compared to prior (inferior leads with negative QRS deflection previously upright) Normal QTc interval No acute ST changes.
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
[2025-06-01 16:07] LABS: HCT 43.8 % (36.0-46.0); HGB 14.4 g/dL (11.2-15.7); MCH 28.5 pg (27.0-33.0); MCHC 32.9 % (32.0-36.0); MCV 87 fL (80-95); MPV 8.7 fL (8.0-11.0); Platelet Count 420 10^3/uL (130-400); RBC 5.05 10^6/uL (3.93-5.22); RDW 12.9 % (11.7-14.6); RDW-SD 40.6 fL; WBC 9.62 10^3/uL (4.4-10.8)
--- NOTE | 2025-06-01 16:11 | NUR.NOTE ---
Nursing Note: on arrival pt was yelling, growling, said someone is telling her to kill someone, she talked to her dad on the phone told him that her feet were turning in to hooves and she could not move her feet. pt moved her left to show this RN her tattoo on her calf. she uncrossed and crossed her legs multiple times. pt is resting at this time after medication administration per provider.
[2025-06-01] MEDS: Droperidol 5 MG/2 ML VIAL 2.5 MG IVP (16:17)
[2025-06-01 16:25] LABS: ALT 25 U/L (14-59); AST 20 U/L (15-37); Albumin 3.6 g/dL (3.4-5.0); Alkaline Phosphatase 73 U/L (46-116); Anion Gap 10.0 mmol/L (3-11); BUN 14 mg/dL (7-18); Bilirubin, Total 0.2 mg/dL (0.2-1.0); CO2 29.0 mmol/L (21.0-32.0); Calcium 9.2 mg/dL (8.5-10.1); Chloride 100 mmol/L (98-107); Glucose 107 mg/dL (74-106); Magnesium 2.1 mg/dL (1.8-2.4); Potassium 4.3 mmol/L (3.5-5.1); Sodium 139 mmol/L (136-145); Total Protein 8.6 g/dL (6.4-8.2)
[2025-06-01 16:29] LABS: HCG Qual (Serum) Negative
[2025-06-01 16:41] LABS: Salicylate 7.3 mg/dL (<2.8)
[2025-06-01 16:44] LABS: Acetaminophen < 2 ug/mL (10-30)
[2025-06-01 18:38] LABS: Glucose Negative (Negative)
[2025-06-01 18:45] LABS: WBC 20-50 HPF (0-5)
[2025-06-01 18:55] LABS: Cannabinoids THC Positive (Negative)
--- NOTE | 2025-06-01 19:17 | NUR.NOTE ---
Nursing Note: this RN called and up dated pt's Dad he said she called him this morning and told him over and over that she was afraid in danger he did a welfare check with the police but she was not home. ED's phone number [phone]
[2025-06-01 20:05] VITALS: BP 107/74; PULSE 84; RESP 16; TEMP 36.2; O2SAT 97
[2025-06-01 20:56] VITALS: BP 107/74; PULSE 84; RESP 16; TEMP 36.2; O2SAT 97
--- NOTE | 2025-06-02 00:20 | PDOC.MHCN_ITS ---
Date of service: 06/01/25 Time of Service: 19:36 PHQ-9 Over the last 2 weeks, how often have you been bothered by any of the following problems? 1. Little interest or pleasure in doing things: not at all 2. Feeling down, depressed, or hopeless: not at all 3. Trouble falling or staying asleep, or sleeping too much: not at all 4. Feeling tired or having little energy: not at all 5. Poor appetite or overeating: several days 6. Feeling bad about yourself - or that you are a failure or have let yourself and your family down: not at all 7. Trouble concentrating on things, such as reading the newspaper or watching television: not at all 8. Moving or speaking so slowly that other people could have noticed? - Or the opposite - being so fidgety or restless that you have been moving around a lot more than usual: not at all 9. Thoughts that you would be better off or of hurting yourself in some way: not at all Total score: 1 If you checked off any problems, how difficult have these problems made it for you to do your work, take care of things at home, or get along with other people?: not difficult at all Source: Developed by Drs. Antolin Hampton, Janice Mullen, Prashanth Martin and colleagues, with an educational momo from [employer]. Suicide Severity Rate CSSRS Have you wished you were or wished you could go to sleep and not wake up?: No Have you actually had any thoughts of killing yourself?: No CSSRS3 Have you ever done anything, started to do anything or prepared to do anything to end your life?: No Screening Score Total Score: 0 Screening: Negative Mental Health Emergency Note Release [facility] release signed:: Yes Reason for Visit The client presented to the [facility] following an [facility] where the client accepted a ride to [facility] for medical assessment because she was reporting lack of sensation in her legs and her toes were purple. [employer] provided the transportation. The client is known to [facility] and this clinician. The client self reported to have been hospitalized in the past for her mental health with the last time being a year ago at [facility]. In the last 2 weeks has the pt presented for ES prior to today?: No Client Information Client is: Adult Outpatient and Substance use Well Housed: Yes Non Suicidal Self Injury Current: No History: No Safety Risk/Harm to Self or Others Current Ideation to Harm Self or Others: No Risk: Does risk to harm exist?: No Risk: N/A Duty to warn indicated: No Asssessment/Mental Status Appearance: Disheveled Attitude: Cooperative and Friendly Behavior: Unremarkable Speech: Normal Affect: Cogruent with mood Mood: Other (good) Thought process: Poverty of content Hallucinations: No Delusions: No Attention: Wandering Perception: Not impaired Orientation: Fully orientated Memory: Intact Insight: Poor Judgement: Poor Neurovegetative Symptoms Sleep: No change Appetitie: Decrease Interests: No change Energy: Decrease Libido: Not applicable Additional Issues: Assaultive/Threatening Behavior: No Medical Concerns: No Client engaged in active self harm w/weapon: No Threatening to run away: No Child reported abuse/neglect: No Voluntarily presenting for services: Yes Domestic violence is a concern: No Extreme Psychosis or extreme behavior is present: No Impression The client is a 45 year old biological female who resides in [place], [place]. The client presents in a disheveled appearance and is seen wearing blue paper scrubs sitting in her hospital bed. Affect is congruent with mood and speech is in normal range. Client is friendly and cooperative with this clinician; they report their mood as good. Thought process appears to be a poverty of content. There are no delusions observed by this clinician. The client denies auditory and visual hallucinations. Cognitive assessment reveals orientation to person, place and time. The client reported she presented to the [facility] ED due to feeling sick. The client engaged minimally in the assessment with this clinician and needed several verbal cues to refocus from the TV to the assessment. The client denied SI, HI and NSSI with no intent or plan. The client scored a 1/27 on the PHQ-9 and 0/6 on the CSSRS. The client stated she wanted to go home and denied wanting to complete a safety plan with this clinician. Plan/Disposition Recommended Disposition: Other (Discharged home). Plan: The client was discharged home from the [facility] ED. Reports/communication Outcome discussed with: ED/Personnel
== END 2025-06-01 22:16 | disposition home or self-care (01) ==
PROVIDERS: Emergency Provider Emergency Medicine; PCP Nurse Practitioner Family
DX: F19.951 Other psychoactive substance use, unspecified with psychoactive substance-induced psychotic disorder with hallucinations (principal); R42 Dizziness and giddiness
CPT/HCPCS: 99284 ×2; 96374; 00123; 80053; 80307; 85027; 93005; 96127; 80320; 80329; 81003; 81015; 83735; 84703; 93010; J1790

== ENCOUNTER 2025-06-08 21:14 | Emergency (ER) | payer MEDICARE, MEDICAID, SELFPAY ==
[2025-06-08 21:18] VITALS: BP 156/98; PULSE 75; RESP 20; O2SAT 97
[2025-06-08] MEDS: LORazepam 1 MG TAB 2 MG PO (21:28)
[2025-06-08] MEDS: QUEtiapine 100 MG TAB 200 MG PO (21:28)
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
[2025-06-08 22:59] LABS: Abs Immature Grans 0.02 10^3/uL (0.0-0.06); HCT 41.4 % (36.0-46.0); HGB 13.9 g/dL (11.2-15.7); Immature Grans % 0.2 %; MCH 28.6 pg (27.0-33.0); MCHC 33.6 % (32.0-36.0); MCV 85 fL (80-95); MPV 8.8 fL (8.0-11.0); Platelet Count 429 10^3/uL (130-400); RBC 4.86 10^6/uL (3.93-5.22); RDW 13.2 % (11.7-14.6); RDW-SD 41.1 fL; WBC 9.65 10^3/uL (4.4-10.8)
[2025-06-08 23:16] LABS: Magnesium 1.8 mg/dL (1.6-2.6)
[2025-06-08 23:17] LABS: HCG Qual (Serum) Negative
[2025-06-08 23:18] LABS: ALT 23 U/L (10-49); AST 41 U/L (<34); Albumin 4.5 g/dL (3.4-5.0); Alkaline Phosphatase 59 U/L (46-116); Anion Gap 7.4 mmol/L (3-11); BUN 24 mg/dL (9-23); Bilirubin, Total 0.70 mg/dL (0.2-1.2); CO2 25.6 mmol/L (20.0-31.0); Calcium 9.0 mg/dL (8.3-10.6); Chloride 106 mmol/L (98-107); Glucose 125 mg/dL (74-106); Potassium 4.1 mmol/L (3.5-5.1); Sodium 139 mmol/L (136-145); Total Protein 7.6 g/dL (5.7-8.2)
[2025-06-09 07:19] LABS: Glucose Negative (Negative)
--- NOTE | 2025-06-09 07:27 | NUR.NOTE ---
Prior to lying down to sleep patient asking repeatedly to leave. That it was stupid that she was here. Nursing Note:
--- NOTE | 2025-06-09 07:29 | CMSP_ITS ---
Date of service: 06/09/25 Time of Service: 14:08 Care Management Safety Plan Status Status: Voluntary Reason for Wait Reason for Wait: Inpatient Admission Safety Plan Safety Plan: INVOLUNTARY FOR INPATIENT PSYCHIATRIC STABILIZATION. Patient is appropriate in all interactions since arriving at [facility]; Pt has demonstrated appropriate coping and communication skills, has articulated his or her needs and concerns and is fully engaged during staff interactions. Safety plan has been established with patient, and care team, to adhere to patient goals, identify restrictions based on behavioral status, address nutrition, and determine allowed personal belongings, tools for hygiene and personal care. Determine level of activity including ambulation, level of supervision, visitors, and determine privileges based on behaviors and level of engagement by pt. SAFETY PLAN: 1. Will remain on suicide precautions, in paper clothes 2. Will remain in Zone B under direct supervision of one-on-one staff at all times provided by [employer]; MIYA, PIPELINE INTEGRITY ENGINEER housing and residence life director. 3. May have paper cups, plates, finger foods as well as a cardboard spoon with which to eat meals. 4. Follow [facility] Management of the Admitted Behavioral Health Patient policy. 5. Shower available in Zone B without restriction. 6. Personal belongings-soft items permitted at RN discretion. 7. Visitors-none at this time. 8. Activities: soft cart items approved per RN discretion. 9. Bathroom available in Zone B without restriction. 10. Phone: limited to legal activity adjudicator on [facility] cordless phone at RN discretion. Due to INVOLUNTARY status, patient is being held at [facility] by the Department of Mental Health ([facility]) until 2nd certification by [facility] Psychiatrist can be performed (within 24 hours). Staff will provide de-escalation support (CPI) as needed. If patient wishes to leave [facility], staff will contact [facility] Crisis Screener ([phone]) and Environmental Health Technician ([phone]) as soon as possible. In the event of elopement, notify [place] [employer] ([phone]). Patient is currently involuntarily at [facility]. [facility] Frontline Quarry Equipment Operator will co ntinue seeking placement. Please contact the Environmental Health Technician for any needed changes to Safety Plan. Safety plan has been provided to interdepartmental care team. Patient will be transported by [employer] at time of discharge.
--- NOTE | 2025-06-09 07:29 | PDOC.CMSAFE ---
Date of service: 06/09/25 Time of Service: 14:08 Care Management Safety Plan Status Status: Voluntary Reason for Wait Reason for Wait: Inpatient Admission Safety Plan Safety Plan: INVOLUNTARY FOR INPATIENT PSYCHIATRIC STABILIZATION. Patient is appropriate in all interactions since arriving at [facility]; Pt has demonstrated appropriate coping and communication skills, has articulated his or her needs and concerns and is fully engaged during staff interactions. Safety plan has been established with patient, and care team, to adhere to patient goals, identify restrictions based on behavioral status, address nutrition, and determine allowed personal belongings, tools for hygiene and personal care. Determine level of activity including ambulation, level of supervision, visitors, and determine privileges based on behaviors and level of engagement by pt. SAFETY PLAN: 1. Will remain on suicide precautions, in paper clothes 2. Will remain in Zone B under direct supervision of one-on-one staff at all times provided by [employer]; MIYA, ADMINISTRATION INTERNSHIP supercharger repair supervisor. 3. May have paper cups, plates, finger foods as well as a cardboard spoon with which to eat meals. 4. Follow [facility] Management of the Admitted Behavioral Health Patient policy. 5. Shower available in Zone B without restriction. 6. Personal belongings-soft items permitted at RN discretion. 7. Visitors-none at this time. 8. Activities: soft cart items approved per RN discretion. 9. Bathroom available in Zone B without restriction. 10. Phone: limited to financial legal assistant on [facility] cordless phone at RN discretion. Due to INVOLUNTARY status, patient is being held at [facility] by the Department of Mental Health ([facility]) until 2nd certification by [facility] Psychiatrist can be performed (within 24 hours). Staff will provide de-escalation support (CPI) as needed. If patient wishes to leave [facility], staff will contact [facility] Crisis Screener ([phone]) and Reimbursement Representative ([phone]) as soon as possible. In the event of elopement, notify [place] [employer] ([phone]). Patient is currently involuntarily at [facility]. [facility] Frontline Shipping Order Clerk will continue seeking placement. Please contact the Reimbursement Representative for any needed changes to Safety Plan. Safety plan has been provided to interdepartmental care team. Patient will be transported by [employer] at time of discharge.
--- NOTE | 2025-06-09 07:29 | PDOC.CMPRO ---
Date of service: 06/09/25 Time of Service: 16:42 Care Management Progress Note Progress Note Text Progress Note Text: CM discussed Mary Jane’s plan of care with [facility] staff. [facility] was able to complete the initial screening but departed before a formal huddle could take place regarding Mary Jane’s ongoing plan of care. Per report, Mary Jane was brought in by [facility] and has reportedly been unmedicated for approximately one month. She was observed resting in her room during the visit. Mary Jane requested that her father be contacted to confirm that her phone is in her apartment and to ensure the apartment is secured; [facility] MIYA did this. CM will plan to huddle with [facility] upon their return for the second required EE screening, later today. Second certification not yet complete. A safety plan is in place. CM will continue to follow. Status Status: Voluntary Reason for Wait: Inpatient Admission Social Determinants of Health Screening Will the Patient Participate in the Screening?: Unable to obtain
[2025-06-09] MEDS: diphenhydrAMINE 50 MG/ML VIAL IM (08:15)
[2025-06-09] MEDS: Droperidol 5 MG/2 ML VIAL IM (08:20)
[2025-06-09] MEDS: Methadone Liquid 10 MG/ML 125 MG PO (08:49)
[2025-06-09] MEDS: OLANZapine 5 MG TAB PO (08:50)
[2025-06-09] MEDS: busPIRone 5 MG TAB 10 MG PO ×3 (08:50→19:58)
[2025-06-09 09:38] LABS: Cannabinoids THC Positive (Negative)
[2025-06-09] MEDS: hydrOXYzine HCL 25 MG TAB 50 MG PO (15:33)
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
[2025-06-09] MEDS: QUEtiapine 100 MG TAB 200 MG PO (19:58)
[2025-06-09 20:06] VITALS: BP 124/77; PULSE 87; RESP 18; TEMP 36.2; O2SAT 96
[2025-06-09] MEDS: LORazepam 1 MG TAB 2 MG PO (21:10)
[2025-06-10] MEDS: OLANZapine 10 MG TAB PO (01:26)
[2025-06-10] MEDS: LORazepam 1 MG TAB 2 MG PO (01:26)
--- NOTE | 2025-06-10 07:43 | CMPROGNOTE_ITS ---
Date of service: 06/10/25 Time of Service: 17:18 Care Management Progress Note Progress Note Text Progress Note Text: CM discussed Mary Jane's plan of care with [facility] staff and [facility] Ramon. Per report, Mary Jane’s second certification has been completed. Both [facility] and [facility] have reviewed the patient. Per RN report, the physician at [facility] has accepted Mary Jane for admission. Mary Jane enjoys dancing to music. A safety plan is in place. CM will continue to follow. Status Status: Involuntary Reason for Wait: Inpatient Admission Social Determinants of Health Screening Will the Patient Participate in the Screening?: Unable to obtain
--- NOTE | 2025-06-10 07:43 | PDOC.CMPRO ---
Date of service: 06/10/25 Time of Service: 17:18 Care Management Progress Note Progress Note Text Progress Note Text: CM discussed Mary Jane's plan of care with [facility] staff and [facility] Ramon. Per report, Mary Jane’s second certification has been completed. Both [place] and [facility] have reviewed the patient. Per RN report, the physician at [place] has accepted Mary Jane for admission. Mary Jane enjoys dancing to music. A safety plan is in place. CM will continue to follow. Status Status: Involuntary Reason for Wait: Inpatient Admission Social Determinants of Health Screening Will the Patient Participate in the Screening?: Unable to obtain
--- NOTE | 2025-06-10 07:48 | CMSP_ITS ---
Date of service: 06/10/25 Time of Service: 07:48 Care Management Safety Plan Status Status: Involuntary Reason for Wait Reason for Wait: Inpatient Admission Safety Plan Safety Plan: INVOLUNTARY FOR INPATIENT PSYCHIATRIC STABILIZATION. Patient is appropriate in all interactions since arriving at [facility]; Pt has demonstrated appropriate coping and communication skills, has articulated his or her needs and concerns and is fully engaged during staff interactions. Safety plan has been established with patient, and care team, to adhere to patient goals, identify restrictions based on behavioral status, address nutrition, and determine allowed personal belongings, tools for hygiene and personal care. Determine level of activity including ambulation, level of supervision, visitors, and determine privileges based on behaviors and level of engagement by pt. SAFETY PLAN: 1. Will remain on suicide precautions, in paper clothes 2. Will remain in Zone B under direct supervision of one-on-one staff at all times provided by [employer]; MIYA, [employer] utility worker production. 3. May have paper cups, plates, finger foods as well as a cardboard spoon with which to eat meals. 4. Follow [facility] Management of the Admitted Behavioral Health Patient policy. 5. Shower available in Zone B without restriction. 6. Personal belongings-soft items permitted at RN discretion. 7. Visitors-none at this time. 8. Activities: soft cart items approved per RN discretion. 9. Bathroom available in Zone B without restriction. 10. Phone: limited to workers compensation legal secretary on [facility] cordless phone at RN discretion. Due to INVOLUNTARY status, patient is being held at [facility] by the Department of Mental Health ([facility]) until 2nd certification by [facility] Psychiatrist can be performed (within 24 hours). Staff will provide de-escalation support (CPI) as needed. If patient wishes to leave [facility], staff will contact [facility] Crisis Screener ([phone]) and Relief Pilot ([phone]) as soon as possible. In the event of elopement, notify [place] [employer] ([phone]). Patient is currently involuntarily at [facility]. [facility] Frontline Prison Classification Counselor will continue seeking placement. Please contact the Relief Pilot for any needed changes to Safety Plan. Safety plan has been provided to interdepartmental care team. Patient will be transported by [employer] at time of discharge.
--- NOTE | 2025-06-10 07:48 | PDOC.CMSAFE ---
Date of service: 06/10/25 Time of Service: 07:48 Care Management Safety Plan Status Status: Involuntary Reason for Wait Reason for Wait: Inpatient Admission Safety Plan Safety Plan: INVOLUNTARY FOR INPATIENT PSYCHIATRIC STABILIZATION. Patient is appropriate in all interactions since arriving at [facility]; Pt has demonstrated appropriate coping and communication skills, has articulated his or her needs and concerns and is fully engaged during staff interactions. Safety plan has been established with patient, and care team, to adhere to patient goals, identify restrictions based on behavioral status, address nutrition, and determine allowed personal belongings, tools for hygiene and personal care. Determine level of activity including ambulation, level of supervision, visitors, and determine privileges based on behaviors and level of engagement by pt. SAFETY PLAN: 1. Will remain on suicide precautions, in paper clothes 2. Will remain in Zone B under direct supervision of one-on-one staff at all times provided by [employer]; MIYA, [employer] final inspector movement assembly. 3. May have paper cups, plates, finger foods as well as a cardboard spoon with which to eat meals. 4. Follow [facility] Management of the Admitted Behavioral Health Patient policy. 5. Shower available in Zone B without restriction. 6. Personal belongings-soft items permitted at RN discretion. 7. Visitors-none at this time. 8. Activities: soft cart items approved per RN discretion. 9. Bathroom available in Zone B without restriction. 10. Phone: limited to legal nurse consultant on [facility] cordless phone at RN discretion. Due to INVOLUNTARY status, patient is being held at [facility] by the Department of Mental Health ([facility]) until 2nd certification by [facility] Psychiatrist can be performed (within 24 hours). Staff will provide de-escalation support (CPI) as needed. If patient wishes to leave [facility], staff will contact [facility] Crisis Screener ([phone]) and Clinical Information Systems Director ([phone]) as soon as possible. In the event of elopement, notify [place] [employer] Police ([phone]). Patient is currently involuntarily at [facility]. [facility] Frontline Heel Seat Filler will continue seeking placement. Please contact the Clinical Information Systems Director for any needed changes to Safety Plan. Safety plan has been provided to interdepartmental care team. Patient will be transported by [employer] at time of discharge.
[2025-06-10] MEDS: OLANZapine 5 MG TAB PO (08:17)
[2025-06-10] MEDS: busPIRone 5 MG TAB 10 MG PO ×2 (08:17→14:25)
[2025-06-10] MEDS: Methadone Liquid 10 MG/ML 125 MG PO (08:22)
[2025-06-10 08:51] VITALS: BP 97/61; PULSE 62; RESP 18; TEMP 36.5; O2SAT 97
--- NOTE | 2025-06-10 11:30 | ED.PROG1_ITS ---
Date of service: 06/10/25 Time of Service: 11:30 Psychiatric Border Handoff Update Brief Story: EE police custody. Pending bed search at this time no acute events overnight Status: EE Able to leave: no, this patient is an EE Behavioral Concerns: Physically threatening, endorses suicidal homicidal ideation Potential Disposition: Bed search Barriers to Disposition: Bed search Medical Concerns: None Future to do Items: Follow-up bed search 1131 Patient has been accepted by Nadeem Iniguez nurse practitioner at [facility] Discharge Plan Disposition Patient Disposition: Psychiatric Hospital/Unit Specific Psychiatric Facility: [facility] Discharge Details Clinical Impression: Psychosis, Homicidal ideation, Polysubstance abuse Primary Care Provider: Diana Rose ED Provider: Handy Weeks Home Meds and New Rx's Prescriptions: No Action quetiapine 100 mg tablet 200 mg PO QHS (DME) Space Chamber Plus 1 EACH spacer Miscellaneous BID Qty: 1 Rx Instructions: for use with Symbicort MDI methadone 10 mg/mL concentrate 125 mg PO DAILY Patient Comments: pt reported this is her current dose and hasnt had it for 3 days 01/30/25 buspirone 10 mg tablet See Rx Instructions .ROUTE .COMPLEX Rx Instructions: 25MG TID; hydroxyzine HCl 50 mg tablet 50 mg PO TID Discharge Instructions Instructions: Drug Misuse and Addiction (DC), Acute Psychosis (DC)
[2025-06-10] MEDS: hydrOXYzine HCL 25 MG TAB 50 MG PO ×2 (12:39→16:54)
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
== END 2025-06-10 19:08 ==
PROVIDERS: Emergency Medicine; Emergency Provider Emergency Medicine; PCP Nurse Practitioner Family
DX: F29 Unspecified psychosis not due to a substance or known physiological condition (principal); R45.850 Homicidal ideations; F19.10 Other psychoactive substance abuse, uncomplicated
CPT/HCPCS: 99285 ×2; 36415; 81025; 96372; 00123; 80053; 80307; G0378; 80320; 81003; 83735; 84703; 85025; J1200; J1790